=== PATIENT | female | born 1990 | race Caucasian/White ===

== ENCOUNTER 2018-01-03 07:30 | Outpatient (RCR) | payer OTHER, SELFPAY ==
--- NOTE | 2017-11-08 14:08 | HP.PTEVAL_ITS ---
Patient's Visit Information AGGIE TAY is a 27 year old F referred to Physical Therapy by Michelle OLIVIER with a diagnosis of B ankle instability. Date of Evaluation: 11/08/17 Physical Therapist: Siddhartha Calderon, PT, - Visit Plan Frequency: 2x /Week Duration: 4-6 Weeks Plan: B ankle strengthening, balance and proprio, core stab ex's, bike, and HEP - Subjective Subjective: Pt reports she broke her R foot last February while training for a /2 marathon. Pt reports she then developed nueroma's in B feet afterwards. pt reports she has not been able to return to her original running form since this injury. Pt reports She does get numbness in L 4th digit, but no other T or N. No sleep diff secondary to pain. Pt did fracture her R foot in 8th grade, which was due to her running cross country and experiencing a stress Fx. Pt reports her goal is to be able to run again without knee pain. 1/10 at rest, 4/10 at worst. - Pain B ankles Pain Intensity (Out of 10): 1 Pain Intensity Range: 4 - Objective Neuro: B LE sensation is WNL to light touch. B achilles and pat reflex= 2/3. Palpation: Pain along distribution of plantarfascia. Mild pain near neuroma section. ROM: L ankle DF= 5, PF= 75 degrees. R ankle DF= 5, PF= 70 degrees. MMT: B ankles are rated at 5/5 throughout with the exception of eversion 4-/5 B. Gait: Pt ambulates with sig stance phase pronation and early pronation - Goals Goal 1:: Decrease B ankle pain to aid with increasing walter for funning Goal Time Frame: 4-6 Weeks Goal 2:: Increase B ankle strength x 1 grade to aid with RTS without limitation Goal Time Frame: 4-6 Weeks Goal 3:: Increase B ankle DF ROM x 5-10 degrees to aid with preventing future pain Goal Time Frame: 4-6 Weeks Goal 4:: I with HEP Goal Time Frame: 4-6 Weeks - Rehabilitation Potential Physical Therapy Diagnosis: B ankle pain, weakness, and limited ability to run secondary to B ankle instabilty Rehabilitation Potential: Good - Anticipated Interventions Patient/Client Instruction: Educate patient on: Condition, Plan of Care For the Purpose of:: To improve self management Therapeutic Exercise to Include: Strength training, Balance training, Flexibilty training, Active ROM, Dynamic Lumbar Stabilization For the Purpose of:: To decrease pain, To increase ROM, To improve muscle performance and motor function Cryotherapy (ice pack, ice massage): Yes For the Purpose of:: To decrease pain Thank you for the opportunity to evaluate your patient. For Medicare and Medicare HMO plans, please review the plan of care and approve it. It will need to be FAXED BACK to us at [phone] for Medicare purposes. Please let me know if there are questions or concerns regarding this plan of care. Physician Signature: Date:
--- NOTE | 2018-01-02 15:16 | HP.PTDCSUM_ITS ---
HP - PT D/C Summary It has been my pleasure to treat AGGIE TAY under orders from DR.NHORN Guerrero for the diagnosis of B ankle instability for a total of 8 visit(s ). Discharge Date: Please see the following information for a summary of their discharge status. - Subjective Subjective: Pt reports she feels as though she is improving with strength, but notes the tingling and numbness have not improved at all. - Pain B ankles Pain Intensity (Out of 10): 2 - Objective Objective/Function: Pain is currently 2/10, increases to 5/10 after running. ROM: R ankle DF= 7 degrees, L ankle= 4 degrees. MMT: B ankles are 5/5 throughout. Pt is I with HEP. Pt is progressing well in all aspects with exception to Tingling and numbness in B feet, with the L being worse than the R - Goals Goal 1:: Decrease B ankle pain to aid with increasing walter for running Goal Progress: Progressing Goal 2:: Increase B ankle strength x 1 grade to aid with RTS without limitation Goal Progress: Goal Met Goal 3:: Increase B ankle DF ROM x 5-10 degrees to aid with preventing future pain Goal 4:: I with HEP Goal Progress: Goal Met - Plan Plan: Refer pt back to as her foot Tingling and Numbness are not improving. - D/C Information If there are questions or concerns regarding this patient's physical therapy, please feel free to call me at [phone]. Thank you for the referral of this patient. Sincerely, Siddhartha Calderon, PT,
== END 2018-01-03 19:00 | disposition home or self-care (01) ==
LOC: PT 07:30
PROVIDERS: Family Provider Preventive Medicine Occupational Medicine; PCP Preventive Medicine Occupational Medicine; Visit Provider Podiatrist
DX: M25.372 Other instability, left ankle (principal); M25.371 Other instability, right ankle
CPT/HCPCS: 97035; 97110; 97161; 97164

== ENCOUNTER → 2018-02-13 15:33 | Outpatient (CLI) | payer OTHER, SELFPAY ==
--- NOTE | 2018-02-13 16:00 | MRI_ITS ---
STUDY: MRI LEFT MIDFOOT REASON FOR EXAM: Female, 28 years old. Pain. Rule out stress fracture. TECHNIQUE: Standardized fat and water weighted pulse sequences were obtained in all 3 orthogonal planes. COMPARISON: None. FINDINGS: Normal talonavicular articulation. Normal calcaneocuboid articulation. Normal navicular-cuneiform articulations. Normal intercuneiform articulations. Normal first tarsometatarsal articulation. Normal Lisfranc ligament. Normal second and third tarsometatarsal articulations. Normal cuboid fourth and cuboid fifth tarsometatarsal articulation. Normal first through fifth metatarsi. There is no demonstrated fracture of the metatarsal bones. Normal tibialis anterior tendon. Normal extensor hallucis longus tendon. Normal extensor digitorum longus tendons. Normal peroneus longus tendon and distal insertion. Normal peroneus brevis tendon and distal insertion. Normal intrinsic muscles of the mid and forefoot region. Normal extensor digitorum brevis muscle. Normal subcutis adipose space. MRI/Lower Ext/No Jt/w/o IMPRESSION: Normal MRI of the midfoot. There is no fracture or periosteal reaction. Electronically Signed: Zoran Blackwood MD at 18:30 EDT , Service support ,
== END ==
PROVIDERS: Family Provider Preventive Medicine Occupational Medicine; PCP Preventive Medicine Occupational Medicine; Visit Provider Podiatrist
DX: M84.375A Stress fracture, left foot, initial encounter for fracture (principal)
CPT/HCPCS: 73718

== ENCOUNTER → 2018-04-12 10:35 | Outpatient (CLI) | payer OTHER, SELFPAY ==
[2018-04-12 11:25] LABS: Absolute Lymphocyte Count 2.02 X10^3/ul (0.83-4.51); Absolute Neutrophil Count 4.8 X10^3/uL (2.0-7.7); Basophil# 0.02 X10^3/uL; Basophil% 0.3 % (0-1); Eosinophil# 0.09 X10^3/uL; Eosinophils% 1.2 % (0-5); Hemoglobin 13.3 g/dl (12.0-15.0); Lymphocyte # 2.02 X10^3/ul (4.0); Lymphocyte % 27.2 % (19-41); Mean Corp Hgb Conc 31.7 g/gl (32-36); Mean Corpuscular Volume 94.6 fL (81-99); Mean Platelet Vol. 9.2 fl (6.2-12.0); Monocyte# 0.51 X10^3/uL; Monocyte% 6.9 % (0-10); Neutrophil # 4.77 X10^3/uL (2.7-7.7); Neutrophil % 64.3 % (47-70); POSITIVE COUNT NO; POSITIVE DIFFERENTIAL NO; POSITIVE MORPHOLOGY NO; Platelet Count 273 K/mm3 (150-450); RBC Distribution Width CV 12.8 % (11.6-14.6); RBC Distribution Width SD 44.3 fl (35.1-43.9); Red Blood Count 4.44 M/mm3 (4.2-5.4); White Blood Count 7.4 K/mm3 (4.4-11.0)
[2018-04-12 12:00] LABS: ALB/GLOB Ratio 1.3 RATIO (0.9-2.4); AST(SGOT) 30 U/L (15-37); Alanine Aminotransfer ALT/SGPT 39 U/L (13-56); Albumin, Serum 3.8 g/dL (3.2-5.0); Alkaline Phosphatase 77 U/L (45-117); Anion Gap 5 (5-15); BUN 8 mg/dL (7-18); BUN/Creat Ratio 11.4 RATIO (10-20); Calcium,Total 8.5 mg/dL (8.5-10.1); Chloride 108 mmol/L (98-107); Cholesterol 160 mg/dL (200); EST Glomerular Filtration Rate 106 mL/min (>60); Est Glom Filt Rate - Afr Amer 128 mL/min (>60); Free T3 2.7 pg/mL (2.18-3.98); Globulin 2.9 g/dL (2.2-4.2); Glucose 81 mg/dL (74-106); High Density Lipoprotein 67 mg/dL; Iron 118 ug/dL (50-170); Protein, Total 6.7 g/dL (6.4-8.2); Sodium Level 143 mmol/L (136-145); T4 Free Direct 1.19 ng/dL (0.76-1.46); Thyroid Stim Hormone (TSH) 1.24 uIU/mL (0.358-3.74); Triglycerides 31 mg/dL; Very Low Density Lipoprotein 6 mg/dL (5-40)
[2018-04-13 08:36] LABS: Vitamin B12 1039 pg/mL (211-911)
[2018-04-17 10:14] LABS: T3 Reverse 23.6 ng/dL (9.2-24.1)
== END ==
PROVIDERS: Family Provider Preventive Medicine Occupational Medicine; PCP Preventive Medicine Occupational Medicine; Visit Provider Preventive Medicine Occupational Medicine
DX: E03.9 Hypothyroidism, unspecified (principal); R20.2 Paresthesia of skin; D50.9 Iron deficiency anemia, unspecified
CPT/HCPCS: 36415; 80053; 80061; 82607; 82746; 83540; 84439; 84443; 84481; 84482; 85025

== ENCOUNTER 2018-09-21 14:45 | Outpatient (RCR) | payer OTHER, SELFPAY ==
--- NOTE | 2018-01-17 19:17 | MASS.EVAL ---
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 She was referred for massage therapy by Debi Ravi D.C. She presents today with muscle discomfort throughout her head, neck and shoulders. She also complains of TMJ syndrome and pain in her calves bilaterally. She describes her discomfort as muscle tension and tightness. She does not list any medications. She states that her health is very good with no limitatiions in her daily activities. Her goal of treatment is to decrease muscle tightness. OBJECTIVE: Upon examination and palpation I found Marj to have a high level of muscle tension in her suboccipitals, scalenes, levators and paraspinals. Her scalenes and levators were tight and ropey. Right side greater than the left side. Her first treatment consisted of a one hour deep tissue massage to her upper body and calves. MFR and muscle stripping were incorporated into the massage as well as PNMT to her cervical muscles and a heat pack to loosen muscles. ASSESMENT: Using various techniques I was able to achieve good releases overall. She tolerated deep pressure well and relaxed easily. PLAN: I plan to see this patient on an as-needed basis for a total of 10 visits in the year 2018. I will focus on her upper body to decrease muscle tension and to increase relaxation. Paulina Gudino LMT
--- NOTE | 2018-01-17 19:30 | MASS.EVAL_ITS ---
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 She was referred for massage therapy by Debi Ravi D.C. She presents today with muscle discomfort throughout her head, neck and shoulders. She also complains of TMJ syndrome and pain in her calves bilaterally. She describes her discomfort as muscle tension and tightness. She does not list any medications. She states that her health is very good with no limitatiions in her daily activities. Her goal of treatment is to decrease muscle tightness. OBJECTIVE: Upon examination and palpation I found Marj to have a high level of muscle tension in her suboccipitals, scalenes, levators and paraspinals. Her scalenes and levators were tight and ropey. Right side greater than the left side. Her first treatment consisted of a one hour deep tissue massage to her upper body and calves. MFR and muscle stripping were incorporated into the massage as well as PNMT to her cervical muscles and a heat pack to loosen muscles. ASSESMENT: Using various techniques I was able to achieve good releases overall. She tolerated deep pressure well and relaxed easily. PLAN: I plan to see this patient on an as-needed basis for a total of 10 visits in the year 2018. I will focus on her upper body to decrease muscle tension and to increase relaxation. Paulina Gudino LMT
== END 2018-09-21 19:00 | disposition home or self-care (01) ==
LOC: MASS 14:45
PROVIDERS: Family Provider Preventive Medicine Occupational Medicine; PCP Preventive Medicine Occupational Medicine; Visit Provider Chiropractor
DX: M99.01 Segmental and somatic dysfunction of cervical region (principal); M99.02 Segmental and somatic dysfunction of thoracic region; M99.03 Segmental and somatic dysfunction of lumbar region; M99.05 Segmental and somatic dysfunction of pelvic region
CPT/HCPCS: 97124

== ENCOUNTER → 2018-11-08 09:14 | Outpatient (REF) | payer OTHER, SELFPAY ==
[2018-11-06 15:16] VITALS: BMI 22.0
== END ==
LOC: HPRAD 09:14
PROVIDERS: Family Provider Preventive Medicine Occupational Medicine; PCP Preventive Medicine Occupational Medicine; Referring Provider Chiropractor; Visit Provider Chiropractor
DX: M99.05 Segmental and somatic dysfunction of pelvic region (principal); M99.03 Segmental and somatic dysfunction of lumbar region
CPT/HCPCS: 72100

== ENCOUNTER → 2019-01-18 15:57 | Outpatient (CLI) | payer OTHER, SELFPAY ==
[2019-01-01 15:50] VITALS: BMI 28.1
--- NOTE | 2019-01-18 15:59 | US_ITS ---
HISTORY: LLQ PAIN EXAMINATION: US Pelvis Non-OB Complete TECHNIQUE: Transvaginal pelvic ultrasound was performed. Grayscale, spectral and color flow Doppler evaluation of the adnexa. COMPARISON: None FINDINGS: UTERUS: anteverted The uterus measures 5.9 x 3.6 x 2.9 cm. There is no uterine mass. The endometrial stripe measures 7.9 mm in AP diameter which is within normal limits. RIGHT OVARY: 3.5 x 3.0 x 2.2 cm. Non-enlarged, normal echogenicity. There is normal arterial inflow and venous outflow present in the right ovary. Contains several physiologic in size cysts. LEFT OVARY: 2.9 x 1.9 x 1.3 cm. Contains a few small follicles. Non-enlarged, normal echogenicity. There is normal arterial inflow and venous outflow present in the left ovary. FREE FLUID: Trace fluid in the pelvis within physiologic limits. US/Transvaginal Non- IMPRESSION: No acute findings. Uterus and ovaries within normal limits. at 0454 Reported and signed by: Berto Anderson MD Electronically Signed: Berto Anderson, at 4:53 EDT Tel , Service support ,
--- NOTE | 2019-01-18 15:59 | US_ITS ---
HISTORY: LLQ PAIN EXAMINATION: US Pelvis Non-OB Complete TECHNIQUE: Transvaginal pelvic ultrasound was performed. Grayscale, spectral and color flow Doppler evaluation of the adnexa. COMPARISON: None FINDINGS: UTERUS: anteverted The uterus measures 5.9 x 3.6 x 2.9 cm. There is no uterine mass. The endometrial stripe measures 7.9 mm in AP diameter which is within normal limits. RIGHT OVARY: 3.5 x 3.0 x 2.2 cm. Non-enlarged, normal echogenicity. There is normal arterial inflow and venous outflow present in the right ovary. Contains several physiologic in size cysts. LEFT OVARY: 2.9 x 1.9 x 1.3 cm. Contains a few small follicles. Non-enlarged, normal echogenicity. There is normal arterial inflow and venous outflow present in the left ovary. FREE FLUID: Trace fluid in the pelvis within physiologic limits. US/Pelvic (Non ) IMPRESSION: No acute findings. Uterus and ovaries within normal limits. at 0454 Reported and signed by: Berto Anderson MD Electronically Signed: Berto Anderson, at 4:53 EDT Tel , Service support ,
== END ==
PROVIDERS: Family Provider Preventive Medicine Occupational Medicine; PCP Preventive Medicine Occupational Medicine; Referring Provider Nurse Practitioner Women's Health; Visit Provider Nurse Practitioner Women's Health
DX: R10.2 Pelvic and perineal pain (principal)
CPT/HCPCS: 76830; 76856; 93976

== ENCOUNTER → 2019-01-19 11:27 | Outpatient (CLI) | payer OTHER, SELFPAY ==
[2019-01-01 15:50] VITALS: BMI 28.1
[2019-01-26 06:07] LABS: Almond <0.10 kU/L (Class 0); Cashew <0.10 kU/L (Class 0); Chicken <0.10 kU/L (Class 0); Clam <0.10 kU/L (Class 0); Codfish <0.10 kU/L (Class 0); Corn <0.10 kU/L (Class 0); Egg, White <0.10 kU/L (Class 0); Gluten <0.10 kU/L (Class 0); Milk (Cow) <0.10 kU/L (Class 0); Orange <0.10 kU/L (Class 0); Peanut <0.10 kU/L (Class 0); Potato, White <0.10 kU/L (Class 0); Rice <0.10 kU/L (Class 0); SCALLOP <0.10 kU/L (Class 0); SESAME SEED <0.10 kU/L (Class 0); Shrimp <0.10 kU/L (Class 0); Soybean <0.10 kU/L (Class 0); Tomato <0.10 kU/L (Class 0); Walnut, (Food) <0.10 kU/L (Class 0); Wheat <0.10 kU/L (Class 0); Yeast <0.10 kU/L (Class 0)
[2019-01-26 12:32] LABS: Banana <0.10 kU/L (Class 0)
== END ==
PROVIDERS: Family Provider Preventive Medicine Occupational Medicine; PCP Preventive Medicine Occupational Medicine; Referring Provider Otolaryngology; Visit Provider Otolaryngology
DX: T78.40XA Allergy, unspecified, initial encounter (principal)
CPT/HCPCS: 36415; 86003

== ENCOUNTER → 2019-03-29 11:16 | Outpatient (CLI) | payer OTHER, SELFPAY ==
[2019-03-05 16:01] VITALS: BMI 23.1
[2019-03-29 11:46] LABS: Absolute Lymphocyte Count 2.27 X10^3/ul (0.83-4.51); Absolute Neutrophil Count 6.4 X10^3/uL (2.0-7.7); Basophil# 0.03 X10^3/uL; Basophil% 0.3 % (0-1); Eosinophil# 0.13 X10^3/uL; Eosinophils% 1.4 % (0-5); Hematocrit 44.8 % (37-47); Hemoglobin 15.1 g/dl (12.0-15.0); Lymphocyte # 2.27 X10^3/ul (4.0); Lymphocyte % 24.1 % (19-41); Mean Corp Hgb Conc 33.7 g/gl (32-36); Mean Corpuscular Hgb 31.3 pg (27.0-32.0); Mean Corpuscular Volume 92.8 fL (81-99); Monocyte# 0.55 X10^3/uL; Monocyte% 5.8 % (0-10); Neutrophil # 6.43 X10^3/uL (2.7-7.7); Neutrophil % 68.2 % (47-70); Platelet Count 301 K/mm3 (150-450); RBC Distribution Width CV 12.3 % (11.6-14.6); RBC Distribution Width SD 41.8 fl (35.1-43.9); Red Blood Count 4.83 M/mm3 (4.2-5.4); White Blood Count 9.4 K/mm3 (4.4-11.0)
[2019-03-29 11:47] LABS: POSITIVE COUNT NO; POSITIVE DIFFERENTIAL NO; POSITIVE MORPHOLOGY NO
[2019-03-29 12:33] LABS: Iron 142 ug/dL (50-170); T4 Free Direct 1.09 ng/dL (0.76-1.46); Thyroid Stim Hormone (TSH) 1.61 uIU/mL (0.358-3.74)
[2019-03-29 12:45] LABS: Vitamin D,25 Hydroxy 27.2 ng/mL (29.95-100.01)
[2019-04-02 16:11] LABS: T3 Reverse 24.4 ng/dL (9.2-24.1)
== END ==
PROVIDERS: Family Provider Preventive Medicine Occupational Medicine; PCP Preventive Medicine Occupational Medicine; Referring Provider Preventive Medicine Occupational Medicine; Visit Provider Preventive Medicine Occupational Medicine
DX: E03.9 Hypothyroidism, unspecified (principal); D50.9 Iron deficiency anemia, unspecified; E55.9 Vitamin D deficiency, unspecified
CPT/HCPCS: 36415; 82306; 83540; 84439; 84443; 84481; 84482; 85025

== ENCOUNTER → 2019-08-01 15:36 | Outpatient (CLI) | payer OTHER, SELFPAY ==
[2019-07-27 12:56] VITALS: BMI 23.1
== END ==
PROVIDERS: Family Provider Preventive Medicine Occupational Medicine; PCP Preventive Medicine Occupational Medicine; Referring Provider Otolaryngology Otolaryngology/Facial Plastic Surgery; Visit Provider Otolaryngology Otolaryngology/Facial Plastic Surgery
DX: J32.9 Chronic sinusitis, unspecified (principal)
CPT/HCPCS: 87070; 87205

== ENCOUNTER 2019-08-23 14:45 | Outpatient (RCR) | payer OTHER, SELFPAY ==
[2018-09-11 15:40] VITALS: BMI 22.0
[2018-10-23 16:08] VITALS: BMI 22.0
--- NOTE | 2018-11-13 15:47 | MASS.EVAL_ITS ---
Massage Therapy Evaluation: Initial Evaluation Date: 10/26/2018 SUBJECTIVE: Marj is a 28 year old female who was referred to the [facility] for a massotherapy evaluation by Dr. Debi Ravi with the diagnosis of M46.1,M99.05,M99.03,M99.01. Marj presents today with the symptoms of tension and pain in jaw and upper back, scapular region. She also complains of neck tension and shoulder stiffness. Also, she has TMJ pain. OBJECTIVE: Upon observation Marj is experiencing tightness around shoulder blades and discomfort in r-jaw. After examination and palpation I found Marj to have high muscle tension with tenderness in the Jaw and myofascial restrictions in her sub occipitals, levator scapulae, trapezius, rhomboids, scalenes, and thoracic paraspinals. The first treatment consisted of a one hour massage to her upper body with myofascial release, trigger point compression techniques, and cervical manual traction. ASSESSMENT: I feel that Marj is a good candidate for Massotherapy at this time. She had a favorable response to the first treatment with reduction in her muscle aches, pain and tension. PLAN: The plan of care was reviewed with the patient. The patient is to be seen on an as needed basis for a total of ten sessions with the recommendation of once every month for a one hour treatment.
--- NOTE | 2019-09-04 15:51 | MASS.DISCH ---
Massage Therapy Discharge Summary: Dr. Flaca Perdue: Marj Vaughan Fidelia, 1990, was seen for a massotherapy evaluation on 10/26/18 with a diagnosis of neck and low back pain. She was treated with 16 sessions of massage therapy which consisted of MFR, muscle stripping, deep tissue massage. At this time I will discharge this patient from our care here at [facility]. Paulina Gudino LMT
== END 2019-08-23 19:00 | disposition home or self-care (01) ==
LOC: MASS 14:45
PROVIDERS: Family Provider Preventive Medicine Occupational Medicine; PCP Preventive Medicine Occupational Medicine; Referring Provider Chiropractor; Visit Provider Chiropractor
DX: M46.1 Sacroiliitis, not elsewhere classified (principal); M99.05 Segmental and somatic dysfunction of pelvic region; M99.03 Segmental and somatic dysfunction of lumbar region; M99.02 Segmental and somatic dysfunction of thoracic region; M99.01 Segmental and somatic dysfunction of cervical region
CPT/HCPCS: 97124

== ENCOUNTER → 2019-11-25 12:58 | Outpatient (CLI) | payer OTHER, SELFPAY ==
[2019-07-27 12:56] VITALS: BMI 23.1
[2019-11-25 14:09] LABS: Hematocrit 39.4 % (37-47); Hemoglobin 12.7 g/dL (12.0-15.0); Mean Corp Hgb Conc 32.2 g/dL (32-36); Mean Corpuscular Hgb 30.3 pg (27.0-32.0); Mean Platelet Vol. 8.7 fl (6.2-12.0); Platelet Count 289 K/mm3 (150-450); RBC Distribution Width CV 12.3 % (11.6-14.6); RBC Distribution Width SD 42.4 fl (35.1-43.9); Red Blood Count 4.19 M/mm3 (4.2-5.4); White Blood Count 7.3 K/mm3 (4.4-11.0)
[2019-11-25 14:45] LABS: Vitamin B12 765 pg/mL (211-911)
[2019-11-25 14:47] LABS: Free T3 2.6 pg/mL (2.18-3.98)
== END ==
PROVIDERS: PCP Preventive Medicine Occupational Medicine; Referring Provider Student in an Organized Health Care Education/Training Program; Visit Provider Student in an Organized Health Care Education/Training Program
DX: E03.9 Hypothyroidism, unspecified (principal); E55.9 Vitamin D deficiency, unspecified; D50.9 Iron deficiency anemia, unspecified; R20.0 Anesthesia of skin
CPT/HCPCS: 36415; 82306; 82607; 84439; 84443; 84481; 85027

== ENCOUNTER → 2019-12-31 16:36 | Outpatient (CLI) | payer OTHER, SELFPAY ==
[2019-07-27 12:56] VITALS: BMI 23.1
[2019-12-31 17:58] LABS: T4 Free Direct 0.95 ng/dL (0.76-1.46)
== END ==
PROVIDERS: PCP Preventive Medicine Occupational Medicine; Referring Provider Nurse Practitioner; Visit Provider Nurse Practitioner
DX: E03.9 Hypothyroidism, unspecified (principal)
CPT/HCPCS: 36415; 84439; 84443

== ENCOUNTER → 2020-06-25 18:08 | Outpatient (CLI) | payer OTHER, SELFPAY ==
[2019-07-27 12:56] VITALS: BMI 23.1
== END ==
PROVIDERS: PCP Preventive Medicine Occupational Medicine; Referring Provider Otolaryngology Otolaryngology/Facial Plastic Surgery; Visit Provider Otolaryngology Otolaryngology/Facial Plastic Surgery
DX: J32.9 Chronic sinusitis, unspecified (principal)
CPT/HCPCS: 87070; 87205

== ENCOUNTER 2021-01-01 08:29 | Outpatient (RCR) | payer OTHER, SELFPAY ==
[2019-07-27 12:56] VITALS: BMI 23.1
== END 2021-01-13 23:59 ==
LOC: EMPH 08:29
PROVIDERS: Visit Provider Family Medicine Geriatric Medicine
DX: Z03.818 Encounter for observation for suspected exposure to other biological agents ruled out (principal)
CPT/HCPCS: 87426

== ENCOUNTER 2021-02-05 08:08 | Outpatient (RCR) | payer OTHER, SELFPAY | END 2021-02-12 23:59 | LOC: EMPH 08:08 | PROVIDERS: Referring Provider Family Medicine Geriatric Medicine; Visit Provider Family Medicine Geriatric Medicine | DX: Z03.818 Encounter for observation for suspected exposure to other biological agents ruled out (principal) | CPT/HCPCS: 87426 ==

== ENCOUNTER → 2021-03-18 15:31 | Outpatient (CLI) | payer OTHER, SELFPAY ==
[2021-03-18 17:57] LABS: Hematocrit 44.3 % (37-47); Hemoglobin 14.5 g/dL (12.0-15.0); Mean Corp Hgb Conc 32.7 g/dL (32-36); Mean Corpuscular Hgb 31.3 pg (27.0-32.0); Mean Corpuscular Volume 95.5 fL (81-99); Mean Platelet Vol. 9.3 fl (6.2-12.0); Platelet Count 322 K/mm3 (150-450); RBC Distribution Width CV 12.2 % (11.6-14.6); RBC Distribution Width SD 42.4 fl (35.1-43.9); Red Blood Count 4.64 M/mm3 (4.2-5.4); White Blood Count 9.7 K/mm3 (4.4-11.0)
[2021-03-18 18:03] LABS: Vitamin D,25 Hydroxy 81.7 ng/mL
[2021-03-18 18:11] LABS: Erythrocyte Sedimentation Rate 4 mm/hr (0-30)
[2021-03-18 18:21] LABS: CRP < 2.90 mg/L (0.0-3.0); Free T3 2.4 pg/mL (2.18-3.98); Iron 73 ug/dL (50-170); T4 Free Direct 1.04 ng/dL (0.76-1.46); Thyroid Stim Hormone (TSH) 1.71 uIU/mL (0.358-3.74)
== END ==
PROVIDERS: PCP Preventive Medicine Occupational Medicine; Referring Provider Preventive Medicine Occupational Medicine; Visit Provider Preventive Medicine Occupational Medicine
DX: D50.9 Iron deficiency anemia, unspecified (principal); E03.9 Hypothyroidism, unspecified; E55.9 Vitamin D deficiency, unspecified; B94.8 Sequelae of other specified infectious and parasitic diseases
CPT/HCPCS: 36415; 82306; 83540; 84439; 84443; 84481; 85027; 85652; 86140

== ENCOUNTER → 2023-05-13 | Outpatient (CLI) | payer OTHER, SELFPAY | END | disposition home or self-care (01) | LOC: LABSPEC 10:27 | PROVIDERS: PCP Preventive Medicine Occupational Medicine; Visit Provider Otolaryngology Otolaryngology/Facial Plastic Surgery | DX: J02.9 Acute pharyngitis, unspecified (principal) | CPT/HCPCS: 87070 ==

== ENCOUNTER → 2024-01-10 | Outpatient (CLI) | payer OTHER, SELFPAY ==
[2024-01-10 17:20] LABS: Hematocrit 42.8 % (37-47); Hemoglobin 13.7 g/dL (12.0-15.0); Mean Corpuscular Hgb 30.1 pg (27.0-32.0); Mean Corpuscular Volume 94.1 fL (81-99); Mean Platelet Vol. 9.1 fl (6.2-12.0); Platelet Count 368 K/mm3 (150-450); RBC Distribution Width CV 12.6 % (11.6-14.6); RBC Distribution Width SD 43.6 fl (35.1-43.9); Red Blood Count 4.55 M/mm3 (4.2-5.4); White Blood Count 10.5 K/mm3 (4.4-11.0)
[2024-01-10 17:46] LABS: hCG Titer Quant., Serum < 1 mIU/mL (1-3)
[2024-01-10 18:28] LABS: T4 Free Direct 0.94 ng/dL (0.76-1.46); Thyroid Stim Hormone (TSH) 1.44 uIU/mL (0.358-3.74)
[2024-01-15 10:07] LABS: 17-Hydroxyprogesterone 29 ng/dL (.)
[2024-01-19 11:08] LABS: Anti-Mullerian Hormone,Serum 2.16 ng/mL (.); Testosterone, % Free 3.17 % (0.50-2.80); Testosterone, Free 0.92 ng/dL (0.10-0.85); Testosterone, Total 29 ng/dL (8-60)
== END | disposition home or self-care (01) ==
LOC: LAB 16:01
PROVIDERS: PCP Preventive Medicine Occupational Medicine; Referring Provider Obstetrics & Gynecology; Visit Provider Obstetrics & Gynecology
DX: N93.9 Abnormal uterine and vaginal bleeding, unspecified (principal)
CPT/HCPCS: 36415; 82627; 83498; 83516; 84146; 84402; 84403; 84439; 84443; 84702; 85027; 82626

== ENCOUNTER → 2024-02-09 | Outpatient (CLI) | payer OTHER, SELFPAY ==
[2024-02-09 12:59] LABS: Hematocrit 43.6 % (37-47); Hemoglobin 14.1 g/dL (12.0-15.0); Mean Corp Hgb Conc 32.3 g/dL (32-36); Mean Corpuscular Hgb 29.9 pg (27.0-32.0); Mean Corpuscular Volume 92.4 fL (81-99); Mean Platelet Vol. 9.2 fl (6.2-12.0); Platelet Count 393 K/mm3 (150-450); RBC Distribution Width SD 41.2 fl (35.1-43.9); Red Blood Count 4.72 M/mm3 (4.2-5.4); White Blood Count 11.4 K/mm3 (4.4-11.0)
[2024-02-09 13:54] LABS: AST(SGOT) 18 U/L (15-37); Alanine Aminotransfer ALT/SGPT 21 U/L (13-56); Albumin, Serum 3.6 g/dL (3.2-5.0); Alkaline Phosphatase 102 U/L (45-117); Anion Gap 5 (5-15); BUN 11 mg/dL (7-18); BUN/Creat Ratio 13.6 RATIO (10-20); Calcium,Total 9.4 mg/dL (8.5-10.1); Chloride 105 mmol/L (98-107); Creatinine, Serum 0.81 mg/dL (0.55-1.02); EST Glomerular Filtration Rate 87 mL/min (>60); Est Glom Filt Rate - Afr Amer 105 mL/min (>60); Globulin 3.6 g/dL (2.2-4.2); Glucose 73 mg/dL (74-106); Potassium 3.9 mmol/L (3.5-5.1); Protein, Total 7.2 g/dL (6.4-8.2); Sodium Level 138 mmol/L (136-145)
== END | disposition home or self-care (01) ==
LOC: LAB 10:51
PROVIDERS: PCP Preventive Medicine Occupational Medicine; Referring Provider Nurse Practitioner Family; Visit Provider Nurse Practitioner Family
DX: R14.0 Abdominal distension (gaseous) (principal); R11.0 Nausea; R10.11 Right upper quadrant pain; R10.13 Epigastric pain
CPT/HCPCS: 36415; 80053; 85027

== ENCOUNTER → 2024-04-01 | Outpatient (CLI) | payer OTHER, SELFPAY ==
--- NOTE | 2024-04-01 07:42 | US_ITS ---
STUDY: ABDOMINAL ULTRASOUND REASON FOR EXAM: Female, 34 years old. EPIGASTRIC PAIN, RUQ PAIN, NAUSEA, BLOATING TECHNIQUE: Transabdominal ultrasound was performed with real-time and static alves scale imaging. TECHNICAL QUALITY: Adequate. COMPARISON: None. FINDINGS: Liver: The liver measures 15.7 cm. There is normal echogenicity of the liver. The bile ducts are within normal limits. There is hepatic color flow. The direction of portal flow is hepatopetal. There is no demonstrated mass lesion. Gallbladder: Normal distended gallbladder. The gallbladder wall measures 2.9 mm. There is a negative sonographic Pompa''s sign. There is no pericholecystic fluid. There are no gallstones. Common Bile Duct (C.B.D.): The common bile duct measures 2.9 mm. Pancreas: Normal size of the head, body and tail of the pancreas. There is normal echogenicity of the pancreas. There is no demonstrated pancreatic mass or cyst. Spleen: Normal size of the spleen. The spleen measures 11.4 cm x 4.2 cm x 4.3 cm. Right Kidney: Normal size of the right kidney. The right kidney measures 11.9 cm x 6.3 cm x 4.8 cm. Normal renal cortex. The right cortex measures 1.9 cm. There is no demonstrated renal mass or cyst. There is no right hydronephrosis. Left Kidney: Normal size of the left kidney. The left kidney measures 12 cm x 6.1 cm x 5.3 cm. Normal renal cortex. The left cortex measures 1.7 cm. There is no demonstrated renal mass or cyst. There is no left hydronephrosis. Aorta: Unremarkable I.V.C.: The IVC is patent. There is no ascites. US/Abdomen Complete IMPRESSION: Normal abdominal ultrasound examination. Electronically Signed: Lang Hilario MD at 15:00 EDT ,
== END | disposition home or self-care (01) ==
PROVIDERS: PCP Preventive Medicine Occupational Medicine; Referring Provider Nurse Practitioner Family; Visit Provider Nurse Practitioner Family
DX: R10.13 Epigastric pain (principal); R10.11 Right upper quadrant pain; R11.0 Nausea; R14.0 Abdominal distension (gaseous)
CPT/HCPCS: 76700

== ENCOUNTER → 2024-08-03 | Outpatient (CLI) | payer OTHER, SELFPAY ==
[2024-08-03 10:58] LABS: Hemoglobin A1c 5.1 % (3.8-5.6)
[2024-08-03 11:10] LABS: ALB/GLOB Ratio 1.1 RATIO (0.9-2.4); AST(SGOT) 23 U/L (15-37); Alanine Aminotransfer ALT/SGPT 35 U/L (13-56); Albumin, Serum 3.6 g/dL (3.2-5.0); Alkaline Phosphatase 75 U/L (45-117); Anion Gap 6 (5-15); BUN 12 mg/dL (7-18); BUN/Creat Ratio 16.5 RATIO (10-20); Calcium,Total 9.1 mg/dL (8.5-10.1); Chloride 109 mmol/L (98-107); Cholesterol 189 mg/dL (200); Creatinine, Serum 0.73 mg/dL (0.55-1.02); EST Glomerular Filtration Rate 98 mL/min (>60); Est Glom Filt Rate - Afr Amer 118 mL/min (>60); Globulin 3.2 g/dL (2.2-4.2); Glucose 95 mg/dL (74-106); High Density Lipoprotein 51 mg/dL; Protein, Total 6.8 g/dL (6.4-8.2); Sodium Level 140 mmol/L (136-145); Triglycerides 59 mg/dL; Very Low Density Lipoprotein 12 mg/dL (5-40)
[2024-08-05 15:09] LABS: Insulin Level 9.4 uIU/mL (2.6-24.9)
== END | disposition home or self-care (01) ==
LOC: LAB 10:03
PROVIDERS: PCP Preventive Medicine Occupational Medicine
DX: E07.9 Disorder of thyroid, unspecified (principal); E78.5 Hyperlipidemia, unspecified
CPT/HCPCS: 36415; 80053; 80061; 83036; 83525; 84443

== ENCOUNTER → 2024-10-07 | Outpatient (CLI) | payer OTHER, SELFPAY ==
--- NOTE | 2024-10-07 08:00 | MRI_ITS ---
EXAM: MR LEFT LOWER EXTREMITY WITHOUT INTRAVENOUS CONTRAST, ANKLE CLINICAL INDICATION: PLANTAR FASICITIS OF LEFT FOOT TECHNIQUE: Multiplanar and multisequence MR images of the left ankle without intravenous contrast. COMPARISON: No prior MRI. FINDINGS: LIGAMENTS: ANTERIOR TALOFIBULAR: See below. POSTERIOR TALOFIBULAR: Anterior and posterior talofibular ligament and calcaneofibular ligament from a previous injury. Mild tenosynovial fluid about the medial flexor tendons and peroneal tendons which are all intact. ANTERIOR TIBIOFIBULAR: Unremarkable. Intact. POSTERIOR TIBIOFIBULAR: Unremarkable. Intact. CALCANEOFIBULAR: See above. DELTOID: Signal alteration involving the deep and superficial fibers of the deltoid ligamentous complex is compatible with a moderate grade sprain injury. SPRING: Unremarkable. Intact. LISFRANC: Unremarkable. Intact. TENDONS: ACHILLES: Unremarkable. Intact. FLEXOR: See above. EXTENSOR: Unremarkable. Intact. PERONEAL: See above. TIBIALIS ANTERIOR: Unremarkable. Intact. TIBIALIS POSTERIOR: Unremarkable. Intact. MUSCLES: Unremarkable. Normal bulk and signal. FLUID: Unremarkable. No joint effusion. SINUS TARSI: Unremarkable. Normal fat in the sinus tarsi. TARSAL TUNNEL: Unremarkable. PLANTAR FASCIA: Unremarkable. Intact. CARTILAGE: Unremarkable. No osteochondral lesion. Articular cartilage intact. BONES/JOINTS: Ankle mortise is intact with no osteochondral lesions at the tibiotalar articulation. No fracture or marrow edema. OTHER SOFT TISSUES: Unremarkable. MRI/Lower Ext Joint Only (Routine) IMPRESSION: 1. Anterior and posterior talofibular ligament and calcaneofibular ligament from a previous injury. 2. Mild tenosynovial fluid about the medial flexor tendons and peroneal tendons. 3. Suspected moderate grade sprain injury of the deltoid ligamentous. Electronically Signed: Melchor Cervantes MD at 23:30 EST ,
== END | disposition home or self-care (01) ==
LOC: MRI 07:38
PROVIDERS: PCP Preventive Medicine Occupational Medicine; Referring Provider Orthopaedic Surgery; Visit Provider Orthopaedic Surgery
DX: M72.2 Plantar fascial fibromatosis (principal)
CPT/HCPCS: 73721

== ENCOUNTER → 2024-10-14 | Outpatient (CLI) | payer OTHER, SELFPAY | END | disposition home or self-care (01) | LOC: LABSPEC 15:09 | PROVIDERS: PCP Preventive Medicine Occupational Medicine; Referring Provider Otolaryngology Otolaryngology/Facial Plastic Surgery; Visit Provider Otolaryngology Otolaryngology/Facial Plastic Surgery | DX: J04.0 Acute laryngitis (principal); J02.9 Acute pharyngitis, unspecified | CPT/HCPCS: 87070 ==

== ENCOUNTER → 2025-06-09 | Outpatient (CLI) | payer OTHER, SELFPAY ==
--- NOTE | 2025-06-09 07:49 | RAD_ITS ---
EXAM: Single and double contrast esophagram CLINICAL HISTORY: Gastroesophageal reflux disease. Possible hiatal hernia? COMPARISON: None. TECHNIQUE: Single and double contrast esophagram FINDINGS: Visually, the swallowing mechanism shows no abnormality. The esophagus shows no area of persistent narrowing. No mucosal changes seen. No evidence of gastroesophageal reflux was identified during limited evaluation. A widely patent esophagogastric junction is seen. Normal passage of a barium tablet into the stomach was seen. Limited imaging of the stomach and duodenum demonstrate no abnormality. No hiatal hernia is seen. RAD/Esophagus Dual Contrast IMPRESSION: No significant abnormality is seen. No hiatal hernia is noted. Reading Location: [place] [id number]
== END | disposition home or self-care (01) ==
LOC: RAD 07:45
PROVIDERS: PCP Preventive Medicine Occupational Medicine; Referring Provider Otolaryngology Otolaryngology/Facial Plastic Surgery; Visit Provider Otolaryngology Otolaryngology/Facial Plastic Surgery
DX: R13.10 Dysphagia, unspecified (principal); K21.9 Gastro-esophageal reflux disease without esophagitis
CPT/HCPCS: 74221

== ENCOUNTER → 2025-10-04 | Outpatient (CLI) | payer OTHER, SELFPAY ==
--- NOTE | 2025-10-04 09:01 | US_ITS ---
PROCEDURE: THYROID 10/04/2025 REASON FOR EXAM: THYROMEGALY TECHNIQUE: Procedure Code: USTHY Modality: US Procedure: THYROID COMPARISON: Ultrasound thyroid dated 10/23/2009. FINDINGS: Right thyroid lobe size: 4.8 x 1.5 x 1.7 cm Left thyroid lobe size: 3.0 x 0.7 x 1.4 cm Isthmus: 0.3 cm Background parenchymal echotexture is homogeneous. Nodules: None demonstrated. US/Thyroid IMPRESSION: 1. Enlarged right lobe of the thyroid gland, not significantly changed when co mpared to the previous study. Reading Location: [place] [id number]
--- OUTSIDE RECORDS SUMMARY | 2025-10-04 09:01 | XMS RPT_ITS | CCD ---
Author Organization [facility] Care Team Providers Care Geophysical Observer Name Role Phone Tyrel Greenwood Unavailable Tamia Yen LPN Unavailable Unavailab briana Dave AUTOMOTIVE REPAIR TECHNICIAN, Katarina S Unavailable Carla Buitrago LPN Unavailable [phone] Cristina Villeda Primary Care Provider Dr. Cristina Villeda Primary Care Provider Dr. Cristina Villeda Referring Provider Dr. Flaca Perdue Attending Provider [phone] Cristina Villeda Primary Care Provider Cristina Villeda Primary Care Provider Jennifer White DO Primary Care Provider UnavailCristina Roman Primary Care Provider CRISTINA VILLEDA DO Primary Care Physician Jennifer White DO Primary Care Provider UnavailMEIR Benitez Referring Unavailable CRISTINA VILLEDA Primary Care Unavailable Hayder Mcqueen Attending Unavailable Hayder Mcqueen Referring Unavailable MEIR FERGUSON Attending Unavailable CRISTINA VILLEDA Primary Care Unavailable LEONEL ENGLISH Referring Unavailable CRISTINA VILLEDA Primary Care Unavailable Hayder Mcqueen Attending Unavailable PARRISH HUFF Referring Unavailab CRISTINA Garcia Primary Care Unavailable GEOFFREY RAMOS Referring Unavailable CRISTINA VILLEDA Primary Care Unavailable CRISTINA VILLEDA Primary Care Unavailable PARRISH HUFF Referring Unavailab CRISTINA Garcia Primary Care Unavailable PARRISH HUFF Referring Unavailab CRISTINA Garcia Primary Care Unavailable CHRIS, INDIRESHA R Admitting Unavailable CHRIS, INDIRESHA R Attending Unavailable CHRIS, INDIRESHA R Referring Unavailable CRISTINA VILLEDA Deni Primary Care Unavailable KINAJOSEEMILIE SIMPSON Referring Unavailable CRISTINA VILLEDA F Primary Care Unavailable SLEPARKER DELA CRUZ Attending Unavailable CRISTINA VILLEDA Deni Primary Care Unavailable WING GERRI Attending Unavailable CRISTINA VILLEDA Deni Primary Care Unavailable RonalCristina coronel DO F Primary Care Provider [phone] Di BALLESTEROS, [facility] Primary Care Provider Unavailabl e Cristina Villeda DO Primary Care Provider [phone] Dr. Cristina Villeda Primary Care Provider Dr. Cristina Villeda Referring Provider [phone] Dr. Flaca Perdue Attending Provider [phone] Dr. Cristina Villeda Primary Care Provider Dr. Cristina Villeda Referring Provider [phone] Dr. Flaca Perdue Attending Provider [phone] BISI NGUYEN PA-C Attending Unavailable CRISTINA VILLEDA DO Primary Care Unavailable CRISTINA VILLEDA DO Primary Care Unavailable BISI NGUYEN PA-C Attending Unavailable CRISTINA VILLEDA DO Attending Unavailable RONAL BALLESTEROS CRISTINA Primary Care Unavailable Cristina Villeda DO Primary Care Provider [phone] Dr. Cristina Villeda Primary Care Provider Dr. Cristina Villeda Referring Provider [phone] Dr. Flaca Perdue Attending Provider [phone] Dr. Cristina Villeda Primary Care Provider Dr. Cristina Villeda Referring Provider [phone] Dr. Flaca Perdue Attending Provider [phone] Cristina Villeda DO Primary Care Provider [phone] REED, [facility] Primary Care Provider Unavailabl e Jose BALLESTEROSVarun Siva Unavailable [phone] NONE, NONE Unavailable Unavailable Cristina Villeda DO Unavailable [phone] Cristina Villeda DO Primary Care Provider [phone] Rachna REED, Dr. Jose Antonio Smiley Attending Provider Dr. Jose Antonio Briscoe MD Referring Provider Jose Antonio Briscoe Attending Unavailable Rachna, Jose Antonio Smiley Referring Unavailable Ronal, Cristina Primary Care Unavailable Ronal, Cristina Primary Care Unavailable ELIZABETH, 1 Attending Unavailable ELIZABETH, 1 Referring Unavailable Ronal, Cristina Primary Care Unavailable KevTonya jose Attending Unavailable KevTonya jose Referring Unavailable Ronal, Cristina Referring Unavailable Iron, Flaca Attending Unavailable Ronal, Cristina Primary Care Unavailable RachnaJose Antonio K Attending Unavailable Archna, Jose Antonio K Referring Unavailable Ronal, Cristina Primary Care Unavailable Tonya English MD Unavailable Edmar FUEL HOUSE ATTENDANT-ARCHITECTURAL DRAFTER, Domonique Primary Care Provide r Unavailable Doc FUEL HOUSE ATTENDANT-ARCHITECTURAL DRAFTER, [facility] Primary Care Provider Unavail able DOC, MISC Attending Unavailable DOC, MISC Primary Care Unavailable DOC, MISC Referring Unavailable KEYONNA BERMUDEZ Attending Unavailable KEYONNA BERMUDEZ Referring Unavailable DOC, MISC Primary Care Unavailable DOC, MISC Primary Care Unavailable DOC, MISC Referring Unavailable DOC, MISC Attending Unavailable DOC, MISC Primary Care Unavailable DOC, MISC Referring Unavailable DOC, MISC Attending Unavailable DOC, MISC Primary Care Unavailable DOC, MISC Referring Unavailable DOC, MISC Attending Unavailable DOC, MISC Primary Care Unavailable DOC, MISC Referring Unavailable DOC, MISC Attending Unavailable DOC, MISC Referring Unavailable DOC, MISC Primary Care Unavailable DOC, MISC Attending Unavailable DOC, MISC Referring Unavailable DOC, MISC Primary Care Unavailable DOC, MISC Attending Unavailable DOC, MISC Referring Unavailable DOC, MISC Primary Care Unavailable DOC, MISC Attending Unavailable DOC, MISC Primary Care Unavailable DOC, MISC Referring Unavailable DOC, MISC Attending Unavailable DOC, MISC Referring Unavailable DOC, MISC Primary Care Unavailable DOC, MISC Attending Unavailable DOC, MISC Referring Unavailable DOC, MISC Primary Care Unavailable DOC, MISC Attending Unavailable DOC, MISC Attending Unavailable DOC, MISC Primary Care Unavailable DOC, MISC Referring Unavailable Allergies Allergy Classification Reported Allergen(s) Allergy Type Date of Onset Reaction(s) Facility (11 sources) cefuroxime drug allergy 01-04-20 17 [facility] Work Phone: (20 sources) erythromycin; Translations: [erythromycin] drug allergy 04-17-20 06 Hives, Anaphylaxis, Rash [facility] Work Phone: (11 sources) penicillin v drug allergy 01-04-20 17 [facility] Work Phone: (20 sources) sulfamethoxazole / trimethoprim; Translations: [SULFAMETHOXAZOLE-T RIMETHOPRIM] drug allergy 01-04-20 17 Unknown [facility] Work Phone: (15 sources) Cefuroxime; Translations: [CEFUROXIME AXETIL] Drug Allergy 04-17-20 06 Rash [facility] (20 sources) Lactase; Translations: [LACTASE] Drug Allergy 04-17-20 06 GI Upset, Other [facility] (20 sources) Penicillins; Translations: [PENICILLINS] Drug Allergy 04-17-20 06 Rash, Anaphylaxis, Hives [facility] (14 sources) Levonorgestrel-Ethi nyl Estrad; Translations: [LEVONORGESTREL-ETH INYL ESTRAD] Drug Intolerance 04-17-20 06 Intolerance, [facility] (13 sources) sulfacedamide [Other] Propensity to adverse reactions 04-17-20 [facility] (20 sources) Cefuroxime; Translations: [cefuroxime] Drug Allergy 04-17-20 Rash [facility] (20 sources) Spironolactone; Translations: [spironolactone] Drug Allergy 07-27-20 19 Unknown, Anaphylaxis [facility] (19 sources) Sulfonamides (Antibiotic); Translations: [SULFA (SULFONAMIDE ANTIBIOTICS)] Allergy to substance 01-02-20 19 Rash [facility] (9 sources) Ethinyl Estradiol / Levonorgestrel Drug Allergy 04-17-20 06 Intolerance [facility] (11 sources) Penicillin V; Translations: [PENICILLIN V] Drug Allergy 01-04-20 17 Hives [facility] (9 sources) levoFLOXacin; Translations: [levofloxacin] Drug Allergy 06-03-20 22 Other [facility] (1 source) Penicillin; Translations: [penicillins] Drug Allergy [facility] (9 sources) Sulfonamides (Antibiotic); Translations: [sulfa drugs] Drug allergy 01-02-20 Anaphylaxis, Rash [facility] (3 sources) Erythromycin; Translations: [ERYTHROMYCIN] Drug Allergy 04-17-20 [facility] (2 sources) OTHER; Translations: [OTHER] Propensity to adverse reactions (disorder) 04-17-20 [facility] (20 sources) Cephalosporins (Antibiotic); Translations: [CEPHALOSPORINS] Drug Intolerance 11-29-19 Anaphylaxis [facility] (8 sources) Spironolactone Drug Allergy 01-02-20 Anaphylaxis, Rash, Unknown [facility] (5 sources) Gluten Propensity to adverse reactions 04-17-20 Other [facility] (14 sources) Sulfonamides (Antibiotic); Translations: [SULFA ANTIBIOTICS] Propensity to adverse reactions 11-29-[address] [facility] (2 sources) Cefuroxime Drug Allergy 06-13-20 [facility] (2 sources) Penicillin V Drug Allergy 06-13-20 24 [facility] (2 sources) Seasonal allergy Food allergy (disorder) 06-13-20 [facility] (2 sources) sulfADIAZINE Drug Allergy 06-13-20 [facility] (1 source) Cefuroxime Drug Allergy 01-24-20 25 [facility] (1 source) Erythromycin Drug Allergy 01-24-20 [facility] (1 source) Spironolactone Drug Allergy 01-24-20 [facility] Medications Current Medications Medication Drug Class(es) Dates Sig (Normalized) Sig (Original) Acidophilus Probiotic Blend oral capsule (1 source) Start: 11-24-2020 take 1 capsule by mouth once daily Acidophilus Probiotic Blend oral capsule Dose = 1 cap(s), Oral, qDay, 20 billion cfu, 0 Refill(s) Start Date: 11/24/20 Status: Ordered adapalene 0.001 mg/mg topical gel (13 sources) Retinoid Start: 05-17-2007 Adapalene (DIFFERIN) 0.1 % TOPICAL Gel qhs 45 gm 3 05/17/2007 Active Comment on above: qhs ascorbic acid 500 mg oral tablet (13 sources) Vitamin C Start: 05-17-2007 take 1 tablet by mouth once daily ascorbic acid (VITAMIN C) 500 mg ORAL Tab Take one(1) tablet daily. 0 05/17/2007 Active Comment on above: Take one(1) tablet d aily. calcium carbonate 1500 mg / cholecalciferol 500 unt oral capsule (13 sources) Vitamin D Start: 05-17-2007 take 1 tablet by mouth once daily Calcium Carbonate-Vitamin D2 (CALCIUM-D) 600-200 mg-unit ORAL Cap Take one(1) tablet daily. 0 05/17/2007 Active Comment on above: Take one(1) tablet d aily. Celebrate Multivitamin (1 source) Start: 12-05-2017 Celebrate Multivitamin qDay Start Date: 12/05/17 Status: Ordered clindamycin 10 mg/ml topical solution (13 sources) Lincosamide Antibacterial Start: 05-17-2007 clindamycin 1 % TOPICAL Soln am and suppertime face bottle x 2 3 05/17/2007 Active Comment on above: am and suppertime fa ce dexamethasone phosphate 4 mg/ml injectable solution (1 source) Corticosteroid Start: 04-30-2025 dexamethasone sodium phosphate 4 mg/mL injection solution as directed dispense for iontophoresis active Varun L Jose DO, [address] [facility] [id number] [facility] famotidine 20 mg oral tablet (5 sources) Histamine-2 Receptor Antagonist Start: 05-25-2022 End: 06-24-2022 take 1 tablet by mouth once daily famotidine (PEPCID) 20 mg tablet TAKE 1 TABLET BY MOUTH EVERY DAY 30 tablet 5 06/20/2022 Active Comment on above: Take 1 tablet by andrews th once daily. TAKE 1 TABLET BY ANDREWS TH EVERY DAY fexofenadine hydrochloride 180 mg oral tablet (13 sources) Histamine-1 Receptor Antagonist Start: 05-17-2007 take 1 tablet by mouth once daily fexofenadine (PAVITHRA) 180 mg ORAL Tab Take one(1) tablet daily. 0 05/17/2007 Active Comment on above: Take one(1) tablet d aily. ipratropium bromide 0.042 mg/actuat metered dose nasal spray (10 sources) Anticholinergic Start: 07-01-2019 ipratropium bromide (ATROVENT) 42 mcg (0.06 %) nasal spray Use 2 Sprays in the nose as needed. 07/01/2019 Active Start: 07-01-2019 ipratropium 42 mcg/inh (0.06%) nasal spray Dose = 2 spray(s), Nasal, TID, # 15 mL, 0 Refill(s) Start Date: 07/01/19 Status: Ordered Comment on above: Use 2 Sprays in the nose as needed. lansoprazole 30 mg delayed release oral capsule (6 sources) Proton Pump Inhibitor lansoprazo le 30 mg capsule,delayed release active Rui Grant [facility] Claritin (20 sources) Start: 08-17-2020 Claritin Dose : 10 mg =, qDay, PRN as needed for allergy symptoms, 0 Refill(s) Start Date: 08/17/20 Status: Ordered take 1 tablet by mouth once gurvinder y Claritin 10 mg tablet Take 1 tablet by mouth once a day as directed active Elba Palomino [facility] Comment on above: Take 10 mg by mouth once daily. magnesium oxide 500 mg oral tablet (10 sources) Start: 11-24-2020 magnesium oxide 500 mg oral tablet Dose : 500 mg = 1 tab(s), Oral, Daily, # 10 tab(s), 0 Refill(s) Start Date: 11/24/20 Status: Ordered MAGNESIUM OXIDE ORAL Take by mouth once daily. Active MAGNESIUM OXIDE ORAL Take by mouth once daily. 0 Active Comment on above: Take by mouth once d aily. magnesium oxide (Mag-Ox) 100 mg split tablet (8 sources) magnesium oxide (Mag-Ox) 100 mg split tablet Take by mouth daily. Active magnesium oxide (Mag-Ox) 100 mg split tablet Take by mouth daily. 0 Active Misc Medication (1 source) Start: 11-22-2019 Misc Medicatio n thyroid supplement, 0 Refill(s), 68.7 Start Date: 11/22/19 Status: Ordered MULTI-VITAMIN (MULTIPLE VITAMIN) TABS (2 sources) take 1 tablet by mouth once daily multivitamin tablet Take 1 tablet by mouth once a day as directed active Elba Palomino [facility] Multiple Vitamin (multivitamin) tablet (5 sources) take 1 tablet by mouth once daily Multiple Vitamin (multivitamin) tablet Take 1 tablet by mouth daily. Active Multivitamin (DAILY MULTIPLE) ORAL Tab (13 sources) Start: 05-17-2007 take 1 tablet by mouth once daily Multivitamin (DAILY MULTIPLE) ORAL Tab Take one(1) tablet daily. 0 05/17/2007 Active Comment on above: Take one(1) tablet d aily. Multivitamin,Tx-Iron -Minerals (6 sources) Start: 09-28-2016 take 2 tablets by mouth once daily Multivitamin,Tx-Iro n-Minerals Active 2 TABLET PO DAILY September 28, 2016 9:55am Start: 09-28-2016 take 2 tablets by [facility] once daily Multivitamin,Wn-Ibdq-Zplpwkpi Active 2 TABLET PO DAILY September 28, 2016 1:00am Multivitamin,Bq-Lwvv-Aoyqluk s 1 TABLET tablet (1 source) Start: 09-28-2016 take 1 tablet by mouth once daily Multivitamin,Vf-Cniq-Ddfwpeww 1 TABLET tablet Active 2 {tbl} PO DAILY September 28, 2016 1:00am pantoprazole 40 mg delayed release oral tablet (16 sources) Proton Pump Inhibit or Start: 11-22-2019 take 1 tablet by mouth once daily pantoprazole DR (PROTONIX) 40 mg tablet Take 1 tablet by mouth once daily. 12/13/2020 Active Comment on above: Take 1 tablet by [facility] once daily. Paxlovid, 300/100, 20 x 150 MG & 10 x 100MG tablet therapy pack (8 sources) Start: 11-30-2023 Paxlovid, 300/100, 20 x 150 MG & 10 x 100MG tablet therapy pack TAKE 1 PACKETS - 2 (150MG) TABS & 1 (100MG) TAB TO BE TAKEN TOGETHER BY MOUTH TWICE A DAY FOR 5 DAYS 11/30/2023 Active Start: 11-30-2023 Paxlovid, 300/ 100, 20 x 150 MG & 10 x 100MG tablet therapy pack TAKE 1 PACKETS - 2 (150MG) TABS & 1 (100MG) TAB TO BE TAKEN TOGETHER BY MOUTH TWICE A DAY FOR 5 DAYS 0 11/30/2023 Active Skin Vitamin (7 sources) Start: 09-28-2016 take 1 capsule by [facility] once daily Skin Vitamin Active 1 CAP PO DAILY September 28, 2016 9:55am Start: 09-28-2016 Skin Vitamin A ctive 1 NMA PO DAILY September 28, 2016 1:00am Start: 09-28-2016 take 1 capsule by mo [facility] once daily Skin Vitamin Active 1 CAP PO DAILY September 28, 2016 1:00am Vitamin D3 1000 intl units o ral capsule (1 source) Start: 07-01-2019 Vitamin D3 100 0 intl units oral capsule Dose : 1,000 unit(s) = 1 cap(s), Oral, Daily, 0 Refill(s) Start Date: 07/01/19 Status: Ordered Completed/Discontinued Medications Medication Drug Class(es) Dates Sig (Normalized) Sig (Original) CETIRIZINE HCL TABS (20 sources) Histamine-1 Receptor Antagonist Start: 01-03-2017 ZYRTEC ALLERGY TABS as directed CETIRIZINE HCL TABS [id number] Tamia Yen LPN Start: 01-03-2017 ZYRTEC ALLERGY TABS as directed CETIRIZINE HCL TABS [id number] Tamia Yen LPN Start: 09-28-2016 Cetirizine 10 MG capsule Active 10 mg PO NEEDED as needed for ALLERGY September 28, 2016 1:00am Comment on above: ZYRTEC ALLERGY TABS as directed CETIRIZINE HCL TABS [id number] Tamia Yen LPN cholecalciferol 0.025 mg oral capsule (20 sources) Vitamin D Start: 016 End: 019 take 1 capsule by mouth once daily Cholecalciferol (Vitamin D3) 1,000 UNIT capsule Discontinued 1000 U PO DAILY September 28, 2016 1:00am November 08, 2018 10:39am take 1 capsule by mouth in the m orning cholecalciferol (Vitamin D-3) 50 MCG (1999 UT) capsule Take 1 capsule by mouth in the morning. Active Comment on above: Take 1 capsule by [facility] once daily. doxycycline hyclate 100 mg oral capsule (20 sources) Tetracycline-clas s Drug Start: 07-27-2019 End: 08-07-2019 take 1 capsule by mouth once daily Doxycycline Hyclate 100 mg capsule Discontinued 100 mg PO DAILY 10 July 27, 2019 12:00am August 05, 2019 12:00am August 07, 2019 12:07am Acute sinusitis, unspecified Start: 11-08-2018 End: 07-27-2019 take 1 capsule by mouth twice daily Doxycycline Monohydrate 100 mg capsule Discontinued 100 mg PO TWICE A DAY November 08, 2018 1:00am July 27, 2019 12:56pm Start: 11-17-2017 End: 11-27-2017 take 1 capsule by mouth twice daily Doxycycline Hyclate 100 mg capsule Discontinued 100 mg PO TWICE A DAY 20 November 17, 2017 1:00am November 26, 2017 1:00am November 27, 2017 1:05am Acute sinusitis, unspecified Start: 01-03-2017 End: 01-10-2017 take 1 tablet by mouth every twelve hours as needed for urinary tract infection ADOXA 100 MG ORAL TABS Take 100mg Twice daily DOXYCYCLINE MONOHYDRATE [id number] Tyrel TOLLIVER Start: 01-03-2017 End: 01-10-2017 take 100 mg by mouth every twelve hours as needed for urinary tract infection ADOXA 100 MG TABS Take 100mg Twice daily DOXYCYCLINE MONOHYDRATE [id number] Tyrel TOLLIVER Start: 01-03-2017 End: 01-10-2017 take 1 tablet by mouth every twelve hours as needed for urinary tract infection ADOXA 100 MG ORAL TABS Take 100mg Twice daily DOXYCYCLINE MONOHYDRATE [id number] Tyrel TOLLIVER LEVOTHYROXINE SODIUM TABS (20 sources) l-Thyroxine Start: 01-03-2017 SYNTHROID TABS as directed LEVOTHYROXINE SODIUM TABS [id number] Tamia Yen LPN Start: 01-03-2017 SYNTHROID TABS as directed LEVOTHYROXINE SODIUM TABS [id number] Tamia Yen LPN Start: 09-28-2016 levothyroxine sodium (SYNTHROID ORAL) SYNTHROID TABS as directed LEVOTHYROXINE SODIUM TABS [id number] Tamia Yen LPN 09/28/2016 Active Start: 09-28-2016 levothyroxine sodium (SYNTHROID ORAL) SYNTHROID TABS as directed LEVOTHYROXINE SODIUM TABS [id number] Tamia Yen LPN 0 09/28/2016 Active Start: 09-28-2016 take 1 tablet by [facility]rew[facility] once daily Levothyroxine 50 MCG tablet Active 50 ug PO DAILY September 28, 2016 1:00am Comment on above: SYNTHROID TABS as di rected LEVOTHYROXINE SODIUM TABS [id number] Tamia Yen LPN methylPREDNISolone 4 mg oral tablet (7 sources) Corticosteroid Start: 2017 End: 2017 take 1 tablet by mouth once Methylprednisolone (Medrol (Prasanna)) 4 mg tablets,dose pack Discontinued 4 mg PO per package directions 5 0 November 17, 2017 1:00am November 21, 2017 1:00am November 22, 2017 1:05am MULTIPLE VITAMINS-MINERALS (6 sources) Start: 2016 SKIN BEAUTY & WELLNESS PACK as directed MULTIPLE VITAMINS-MINERALS [id number] Tyrel TOLLIVER Start: 01-03-2017 MULTI VITAMIN/ MINERALS TABS as directed MULTIPLE VITAMINS-MINERALS [id number] Tamia Yen LPN MULTIPLE VITAMINS-MINERALS (8 sources) Start: 01-31-2017 SKIN BEAUTY & WELLNESS PACK as directed MULTIPLE VITAMINS-MINERALS [id number] Tyrel TOLLIVER Start: 01-31-2017 SKIN BEAUTY & WELLNESS PACK as directed MULTIPLE VITAMINS-MINERALS [id number] Tyrel TOLLIVER MULTIPLE VITAMINS-MINERALS (8 sources) Start: 01-03-2017 MULTI VITAMIN/ MINERALS TABS as directed MULTIPLE VITAMINS-MINERALS [id number] Tmaia Yen LPN Start: 01-03-2017 MULTI VITAMIN/ MINERALS TABS as directed MULTIPLE VITAMINS-MINERALS [id number] Tamia Yen LPN vitamin b6 100 mg oral tablet (7 sources) Start: 09-28-2016 End: 11-08-2018 take 1 tablet by mouth once daily Pyridoxine (Vitamin B6) 100 MG tablet Discontinued 100 mg PO DAILY September 28, 2016 1:00am November 08, 2018 10:39am Problems Active Problems Problem Classification Problem Date Documented Da te Episodic/Chronic Abdominal pain (4 sources) Epigastric pain; Translations: [Epigastric pain] Onset: 2 Episodic Allergic reactions (7 sources) Environmental allergy; Translations: [Other allergy status, other than to drugs and biological substances] 07-27-2019 Episodic Cardiac dysrhythmias (1 source) Other specified cardiac arrhythmias; Translations: [POTS (postural orthostatic tachycardia syndrome)] Onset: 2 Chronic Deficiency and other anemia (1 source) Iron deficiency anemia 07-01-2019 Episodic Disorders of lipid metabolism (2 sources) Hyperlipidemia; Translations: [Hyperlipidemia, unspecified] 07-29-2024 Chronic Esophageal disorders (5 sources) Gastroesophageal reflux disease without esophagitis; Translations: [Gastro-esophageal reflux disease without esophagitis] Onset: 2 Chronic Gastritis and duodenitis (1 source) Gastritis 11-06-2020 Episodic Nutritional deficiencies (1 source) Vitamin D deficiency 07-01-2019 Chronic Other bone disease and musculoskeletal deformities (20 sources) Segmental and somatic dysfunction; Translations: [Segmental and somatic dysfunction of cervical region] 02-11-2019 Episodic Other connective tissue disease (8 sources) Disorder of ankle; Translations: [Other symptoms and signs involving the musculoskeletal system] Episodic Other connective tissue disease (7 sources) Pain in right foot; Translations: [Pain in right foot] Episodic Other connective tissue disease (4 sources) Paresis of lower extremity; Translations: [Other symptoms and signs involving the musculoskeletal system] Episodic Other connective tissue disease (14 sources) Inflammatory neuropathy ; Translations: [Neuralgia and neuritis, unspecified] Onset: 5 05-05-2025 Episodic Other connective tissue disease (14 sources) Tendinitis of left posterior tibial tendon; Translations: [Posterior tibial tendinitis, left leg] Onset: 5 05-05-2025 Episodic Other connective tissue disease (14 sources) Plantar fasciitis of left foot; Translations: [Plantar fascial fibromatosis] Onset: 4 05-05-2025 Episodic Other endocrine disorders (1 source) Hyperprolactinemia; Translations: [Hyperprolactinemia] Chronic Other female genital disorders (1 source) Abnormal uterine bleeding; Translations: [Abnormal uterine and vaginal bleeding, unspecified] 01-02-2024 Chronic Other gastrointestinal disorders (1 source) Abdominal bloating; Translations: [Abdominal distension (gaseous)] Episodic Other gastrointestinal disorders (1 source) Dysphagia, unspecified; Translations: [Dysphagia, unspecified] Onset: 5 Episodic Other infections; including parasitic (2 sources) Late effects of other and unspecified infectious and parasitic diseases; 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 Other injuries and conditions due to external causes (2 sources) Injury of right foot; Translations: [Unspecified injury of right foot, initial encounter] Episodic Other injuries and conditions due to external causes (2 sources) Injury of right ankle; Translations: [Unspecified injury of right ankle, initial encounter] Episodic Other injuries and conditions due to external causes (1 source) Unspecified injury of right foot, initial encounter; Translations: [Foot injury, right, initial encounter] Onset: 2 Episodic Other injuries and conditions due to external causes (1 source) Unspecified injury of right ankle, initial encounter; Translations: [Injury of right ankle, initial encounter] Onset: 2 Episodic Other nervous system disorders (2 sources) Neuroma of foot; Translations: [Other specified mononeuropathies of left lower limb] Onset: 4 08-01-2024 Chronic Other nervous system disorders (1 source) Paresthesia 07-01-2019 Episodic Other non-traumatic joint disorders (4 sources) Acute ankle pain; Translations: [Pain in right ankle and joints of right foot] Episodic Other nutritional; endocrine; and metabolic disorders (2 sources) Overweight in adulthood with body mass index of 25 or more but less than 30; Translations: [Body mass index (BMI) 26.0-26.9, adult] Episodic Other nutritional; endocrine; and metabolic disorders (2 sources) Overweight; Translations: [Overweight] 07-29-2024 Episodic Other screening for suspected conditions (not mental disorders or infectious disease) (2 sources) Patient encounter status; Translations: [Encounter for screening for lipoid disorders] Episodic Sprains and strains (13 sources) Strain of unspecified muscle and tendon at ankle and foot level, right foot, initial encounter; Translations: [Sprain of ankle] Onset: 7 01-31-2017 Episodic Thyroid disorders (1 source) Hypothyroidism 07-01-2019 Chronic Unclassified (5 sources) Physical examination; Translations: [Encounter for general adult medical examination without abnormal findings] Onset: 7 07-04-2017 Unclassified (5 sources) History and physical examination, sports participation ; Translations: [Encounter for examination for participation in sport] Onset: 7 07-04-2017 Unclassified (3 sources) Gynecologic examination ; Translations: [Encounter for gynecological examination (general) (routine) without abnormal findings] Onset: 7 07-18-2017 Unclassified (3 sources) Venereal disease screening ; Translations: [Encounter for screening for infections with a predominantly sexual mode of transmission] Onset: 7 07-18-2017 Unclassified (1 source) Patient encounter status 08-17-2020 Unclassified (1 source) Post-acute sequelae of COVID-19 (PASC); Translations: [Post-acute sequelae of COVID-19 (PASC)] Onset: Viral infection (1 source) Post-viral disorder 02-26-2021 Episodic Past or Other Problems Problem Classification Problem Date Documented Da te Episodic/Chronic Cardiac dysrhythmias (20 sources) Palpitations; Translations: [Palpitations] Onset: 12-23-2020 12-23-2020 Episodic Nausea and vomiting (4 sources) Nausea; Translations: [Nausea] Onset: 05-25-2022 Episodic Other bone disease and musculoskeletal deformities (16 sources) Segmental and somatic dysfunction of cervical region; Translations: [Nonallopathic lesions, cervical region] Onset: 01-23-2025 Episodic Other bone disease and musculoskeletal deformities (16 sources) Segmental and somatic dysfunction of lumbar region; Translations: [Nonallopathic lesions, lumbar region] Onset: 01-23-2025 Episodic Other bone disease and musculoskeletal deformities (16 sources) Segmental and somatic dysfunction of pelvic region; Translations: [Nonallopathic lesions, pelvic region] Onset: 01-23-2025 Episodic Other bone disease and musculoskeletal deformities (16 sources) Segmental and somatic dysfunction of thoracic region; Translations: [Nonallopathic lesions, thoracic region] Onset: 01-23-2025 Episodic Other connective tissue disease (11 sources) Foot pain; Translations: [Pain in right foot] Onset: 01-31-2017 01-31-2017 Episodic Other connective tissue disease (1 source) Plantar fascial fibromatosis; Translations: [Plantar fascial fibromatosis] Onset: 11-06-2024 Episodic Other female genital disorders (6 sources) Vaginal irritation; Translations: [Other specified noninflammatory disorders of vagina] Onset: 07-18-2017 07-18-2017 Episodic Other gastrointestinal disorders (1 source) Abdominal distension (gaseous); Translations: [Bloating] Onset: 05-25-2022 Episodic Other non-traumatic joint disorders (11 sources) Pain in unspecified ankle and joints of unspecified foot; Translations: [Pain in unspecified ankle and joints of unspecified foot] Onset: 01-31-2017 01-31-2017 Episodic Other upper respiratory infections (20 sources) Acute sinusitis; Translations: [Sinusitis] Onset: 12-13-2016 01-03-2017 Episodic Spondylosis; intervertebral disc disorders; other back problems (18 sources) Lumbosacral radiculopathy; Translations: [Radiculopathy, lumbosacral region] Onset: 11-20-2024 09-11-2018 Episodic Thyroid disorders (3 sources) Disorder of thyroid gland; Translations: [Disorder of thyroid, unspecified] Onset: 08-26-2024 07-29-2024 Episodic Urinary tract infections (11 sources) Urinary tract infectious disease; Translations: [Urinary tract infection, site not specified] Onset: 01-03-2017 01-03-2017 Episodic Results Test Name Value Interpretation Reference Range Facility C-REACTIVE PROTEINon 025 CRP [Mass/Vol] mg/L Normal <=1.0 [facility] Comment on above: Order Comment: Relea se to patient->Automatic Result Comment: CRP determinations in neonates should be interpreted with caution. CRP may be elevated in circumstances not associated with inflammation (e.g. difficult delivery, pneumothorax). In premature neonates CRP levels may not rise to abnormal levels even if sepsis is present; some speculate that immature liver function decreases the ability to generate a CRP response. C-reactive proteinon 025 CRP [Mass/Vol] NINF [facility] Comment on above: CRP determinations i n neonates should be interpreted with caution. CRP may be elevated in circumstances not associated with inflammation (e.g. difficult delivery, pneumothorax). In premature neonates CRP levels may not rise to abnormal levels even if sepsis is present; some speculate that immature liver function decreases the ability to generate a CRP response. COMPLETE BLOOD COUNT WITH DI Jim 08-20-2025 Basophil \P\ 0.05 10E3/???L Normal 0.02-0.06 [facility] Comment on above: Order Comment: Relea se to patient->Automatic Basophils/100 WBC (Bld) 0.5 % Normal 0.3-0.9 [facility] Comment on above: Order Comment: Relea se to patient->Automatic Eosinophil \P\ 0.16 10E3/???L Normal 0.04-0.27 [facility] Comment on above: Order Comment: Relea se to patient->Automatic Eosinophils/100 WBC (Bld) 1.6 % Normal 0.6-3.8 [facility] Comment on above: Order Comment: Relea se to patient->Automatic Erythrocyte distribution width (RBC) [Ratio] 12.4 % Normal 11.9-14.8 [facility] Comment on above: Order Comment: Relea se to patient->Automatic Hematocrit (Bld) [Volume fraction] 43.7 % Normal 35.5-44.6 [facility] Comment on above: Order Comment: Relea se to patient->Automatic Hemoglobin (Bld) [Mass/Vol] 15.1 g/dL High 11.4-14.8 [facility] Comment on above: Order Comment: Relea se to patient->Automatic Immature granulocytes/100 WBC (Bld) 0.4 % Normal 0.2-0.5 [facility] Comment on above: Order Comment: Relea se to patient->Automatic Result Comment: Mel ture Granulocyte Percent includes promyelocytes, myelocytes,and metamyelocytes. IG% > 1.0 indicates a left shift is present. With automated differentials, bands are included in the neutrophil count and not in the Immature Granulocyte Percent. Lymphocyte \P\ 2.62 10E3/???L Normal 1.51-2.99 [facility] Comment on above: Order Comment: Relea se to patient->Automatic Lymphocytes/100 WBC (Bld) 25.6 % Normal 21.8-42.1 [facility] Comment on above: Order Comment: Relea se to patient->Automatic MCH (RBC) [Entitic mass] 30.9 pg Normal 25.7-31.2 [facility] Comment on above: Order Comment: Relea se to patient->Automatic MCHC 34.6 % High 31.3-34.0 [facility] Comment on above: Order Comment: Relea se to patient->Automatic MCV (RBC) [Entitic vol] 89.5 fL Normal 80.0-100.0 [facility] Comment on above: Order Comment: Relea se to patient->Automatic Monocyte \P\ 0.79 10E3/???L High 0.36-0.77 [facility] Comment on above: Order Comment: Relea se to patient->Automatic Monocytes/100 WBC (Bld) 7.7 % Normal 5.6-10.2 [facility] Comment on above: Order Comment: Relea se to patient->Automatic Neutrophil \P\ 6.58 10E3/???L High 2.43-6.42 [facility] Comment on above: Order Comment: Relea se to patient->Automatic Neutrophils/100 WBC (Bld) 64.2 % Normal 46.0-68.6 [facility] Comment on above: Order Comment: Relea se to patient->Automatic Nucleated RBC/100 WBC (Bld) [Ratio] 0.0 % Normal 0.0-0.0 [facility] Comment on above: Order Comment: Relea se to patient->Automatic Platelet mean volume (Bld) [Entitic vol] 8.7 fL Low 9.6-11.9 [facility] Comment on above: Order Comment: Relea se to patient->Automatic Platelets 376 10E3/???L Normal 150-400 [facility] Comment on above: Order Comment: Relea se to patient->Automatic RBC 4.88 10E6/???L Normal 4.03-4.91 [facility] Comment on above: Order Comment: Relea se to patient->Automatic WBC 10.2 10E3/???L High 4.9-10.0 [facility] Comment on above: Order Comment: Relea se to patient->Automatic COMPREHENSIVE METABOLIC PANE Maximilian 08-20-2025 Albumin [Mass/Vol] 4.5 g/dL Normal 3.5-5.0 [facility] Comment on above: Order Comment: Relea se to patient->Automatic ALP [Catalytic activity/Vol] 85 U/L Normal 35-104 [facility] Comment on above: Order Comment: Relea se to patient->Automatic ALT [Catalytic activity/Vol] 25 U/L Normal <=34 [facility] Comment on above: Order Comment: Relea se to patient->Automatic AST [Catalytic activity/Vol] 27 U/L Normal <=31 [facility] Comment on above: Order Comment: Relea se to patient->Automatic BILI,TOTAL 0.5 mg/dL Normal <=1.0 [facility] Comment on above: Order Comment: Relea se to patient->Automatic Calcium [Mass/Vol] 9.6 mg/dL Normal 7.6-11.0 [facility] Comment on above: Order Comment: Relea se to patient->Automatic Chloride [Moles/Vol] 103 mmol/L Normal 96-108 [facility] Comment on above: Order Comment: Relea se to patient->Automatic CO2 [Moles/Vol] 24.6 mmol/L Normal 22.0-29.0 [facility] Comment on above: Order Comment: Relea se to patient->Automatic Creatinine [Mass/Vol] 0.77 mg/dL Normal 0.50-1.00 [facility] Comment on above: Order Comment: Relea se to patient->Automatic GFR/1.73 sq M.predicted among non-blacks MDRD (S/P/Bld) [Vol rate/Area] mL/min/{1.73_m2} Normal >=60 [facility] Comment on above: Order Comment: Relea se to patient->Automatic Glucose [Mass/Vol] 98 mg/dL Normal 70-99 [facility] Comment on above: Order Comment: Relea se to patient->Automatic Result Comment: Crit bartolome for Diagnosis of Diabetes: Fasting Specimen (no caloric intake for at least 8 hours): <100 mg/dL Normal 100-125 mg/dL Increased risk for Diabetes >125 mg/dL Diagnostic for Diabetes Random Glucose (any time of day without regard to last meal): > or = 200 mg/dL plus Classic Symptoms of Diabetes Potassium [Moles/Vol] 4.3 mmol/L Normal 3.3-5.1 [facility] Comment on above: Order Comment: Relea se to patient->Automatic Protein [Mass/Vol] 7.3 g/dL Normal 5.9-8.4 [facility] Comment on above: Order Comment: Relea se to patient->Automatic Sodium [Moles/Vol] 137 mmol/L Normal 133-145 [facility] Comment on above: Order Comment: Relea se to patient->Automatic Urea nitrogen [Mass/Vol] 11 mg/dL Normal 4-19 [facility] Comment on above: Order Comment: Relea se to patient->Automatic Complete Blood Count with Di fferentialOrdered By: Antoinette Aguilar on 08-20-2025 Basophils (Bld) [#/Vol] 0.05 10*3/uL [facility] Basophils/100 WBC (Bld) 0.5 % 0.3 - 0.9 % [facility] Eosinophils (Bld) [#/Vol] 0.16 10*3/uL [facility] Eosinophils/100 WBC (Bld) 1.6 % 0.6 - 3.8 % [facility] Erythrocyte distribution width (RBC) [Ratio] 12.4 % 11.9 - 14.8 % [facility] Hematocrit (Bld) [Volume fraction] 43.7 % 35.5 - 44.6 % [facility] Hemoglobin (Bld) [Mass/Vol] 15.1 g/dL High 11.4 - 14.8 g/dL [facility] Immature granulocytes/100 WBC (Bld) 0.4 % 0.2 - 0.5 % [facility] Comment on above: Immature Granulocyte Percent includes promyelocytes, myelocytes,and metamyelocytes. IG% > 1.0 indicates a left shift is present. With automated differentials, bands are included in the neutrophil count and not in the Immature Granulocyte Percent. Interpretation and review of laboratory results Abnormal [facility] Lymphocytes (Bld) [#/Vol] 2.62 10*3/uL [facility] Lymphocytes/100 WBC (Bld) 25.6 % 21.8 - 42.1 % [facility] MCH (RBC) [Entitic mass] 30.9 pg 25.7 - 31.[address] [facility] MCHC (RBC) [Mass/Vol] 34.6 % High 31.3 - 34.0 % [facility] MCV (RBC) [Entitic vol] 89.5 fL 80.0 - 100.[address] [facility] Monocytes (Bld) [#/Vol] 0.79 10*3/uL High [facility] Monocytes/100 WBC (Bld) 7.7 % 5.6 - 10.2 % [facility] Neutrophils (Bld) [#/Vol] 6.58 10*3/uL High [facility] Neutrophils/100 WBC (Bld) 64.2 % 46.0 - 68.6 % [facility] Nucleated RBC/100 WBC (Bld) [Ratio] 0.0 % 0.0 - 0.0 % [facility] Platelet mean volume (Bld) [Entitic vol] 8.7 fL Low 9.6 - 11.[address] [facility] Platelets (Bld) [#/Vol] 376 10*3/uL [facility] RBC (Bld) [#/Vol] 4.88 10*6/uL [facility] WBC (Bld) [#/Vol] 10.2 10*3/uL High [facility] Comprehensive metabolic pane maximilian 08-20-2025 Albumin BCG dye [Mass/Vol] 4.5 g/dL 3.5 - 5.0 g/dL [facility] ALP [Catalytic activity/Vol] 85 U/L 35 - 104 U/L [facility] ALT With P-5'-P [Catalytic activity/Vol] 25 U/L NINF - 34 U/L [facility] AST With P-5'-P [Catalytic activity/Vol] 27 U/L NINF - 31 U/L [facility] Bilirubin [Mass/Vol] 0.5 mg/dL NINF - 1.0 mg/dL [facility] Calcium [Mass/Vol] 9.6 mg/dL 7.6 - 11. 0 mg/dL [facility] Chloride [Moles/Vol] 103 mmol/L 96 - 10 8 mmol/L [facility] Creatinine [Mass/Vol] 0.77 mg/dL 0.50 - 1.00 mg/dL [facility] eGFR - PINF [facility] Glucose [Mass/Vol] 98 mg/dL 70 - 99 mg/dL [facility] Comment on above: Criteria for Diagnos is of Diabetes: Fasting Specimen (no caloric intake for at least 8 hours): <100 mg/dL Normal 100-125 mg/dL Increased risk for Diabetes >125 mg/dL Diagnostic for Diabetes Random Glucose (any time of day without regard to last meal): > or = 200 mg/dL plus Classic Symptoms of Diabetes HCO3 (P) [Moles/Vol] 24.6 mmol/L 22.0 - 29.0 mmol/L [facility] Potassium (BldA) [Moles/Vol] 4.3 mmol/L 3.3 - 5.1 mmol/L [facility] Protein [Mass/Vol] 7.3 g/dL 5.9 - 8.4 g/dL [facility] Sodium [Moles/Vol] 137 mmol/L 133 - 145 mmol/L [facility] Urea nitrogen [Mass/Vol] 11 mg/dL 4 - 19 mg/dL [facility] ERYTHROCYTE SEDIMENTATION RA Jaycob 08-20-2025 ESR (Bld) [Velocity] 11 mm/h Normal [facility] Comment on above: Order Comment: Relea se to patient->Automatic Result Comment: Newb orn: 0-2 mm/hr [place] to puberty: 3-13 mm/hr Less than 50 years old: Male: <15 mm/hr Female: <20 mm/hr Greater than 50 years old: Male: <20 mm/hr Female: <30 mm/hr Erythrocyte Sedimentation Ra teOrdered By: Caitlin Velazquez on 08-20-2025 ESR Photometric method (Bld) [Velocity] 11 mm/hr [facility] Comment on above: : 0-2 mm/hr to puberty: 3-13 mm/hr Less than 50 years old: Male: <15 mm/hr Female: <20 mm/hr Greater than 50 years old: Male: <20 mm/hr Female: <30 mm/hr [facility] HEMOGLOBIN A1Con 08-20-2025 HbA1c (Bld) [Mass fraction] 5.1 % Normal <=5.6 [facility] Comment on above: Order Comment: Relea se to patient->Automatic Result Comment: Refe rence Interval: <5.7% 5.7-6.4% Prediabetes > or = 6.5% Diabetes Targets for diabetes management: Type I <7.5% Type II <7.0% Hemoglobin A1con 08-20-2025 HbA1c (Bld) [Mass fraction] 5.1 % NINF - 5.6 % [facility] Comment on above: Reference Interval: <5.7% 5.7-6.4% Prediabetes > or = 6.5% Diabetes Targets for diabetes management: Type I <7.5% Type II <7.0% Interpretation and review of laboratory results Normal [facility] LIPID PANELon 08-20-2025 Cholesterol [Mass/Vol] 232 mg/dL High <=199 [facility] Comment on above: Order Comment: Aiyanaa se to patient->Automatic Result Comment: Acce ptable (mg/dL): <200 Borderline-High (mg/dL): 200-239 High (mg/dL): > or = 240 Recommendations of the NCEP Adult Treatment Panel for the risk cut-off thresholds for the [place] Population. Cholesterol in LDL [Mass/Vol] 157 mg/dL High <=129 [facility] Comment on above: Order Comment: Relea se to patient->Automatic HDL Chol 56 MG/DL Normal [facility] Comment on above: Order Comment: Relea se to patient->Automatic Result Comment: Low (mg/dL): <50 Borderline-Low (mg/dL): 50-60 Acceptable (mg/dL): >60 Non-HDL Cholesterol 176 mg/dL High <=129 [facility] Comment on above: Order Comment: Relea se to patient->Automatic Triglyceride [Mass/Vol] 92 mg/dL Normal <=149 [facility] Comment on above: Order Comment: Relea se to patient->Automatic Result Comment: Acce ptable (mg/dL): <150 Borderline-High (mg/dL): 150-199 High (mg/dL): > or = 200 Lipid panelon 08-20-2025 Cholesterol [Mass/Vol] 232 mg/dL High NINF - 199 mg/dL [facility] Comment on above: Acceptable (mg/dL): <200 Borderline-High (mg/dL): 200-239 High (mg/dL): > or = 240 Recommendations of the NCEP Adult Treatment Panel for the risk cut-off thresholds for the [place] Population. Cholesterol in HDL [Mass/Vol] 56 mg/dL MG/DL [facility] Comment on above: Low (mg/dL): <50 Borderline-Low (mg/dL): 50-60 Acceptable (mg/dL): >60 Cholesterol in LDL [Mass/Vol] 157 mg/dL High NINF - 129 mg/dL [facility] Cholesterol non HDL [Mass/Vol] 176 mg/dL [facility] mg/dL [facility] Interpretation and review of laboratory results Abnormal [facility] Triglyceride [Mass/Vol] 92 mg/dL NINF - 149 mg/dL [facility] Comment on above: Acceptable (mg/dL): <150 Borderline-High (mg/dL): 150-199 High (mg/dL): > or = 200 No Panel Informationon 08-20 Interpretation and review of laboratory results Normal [facility] Interpretation and review of laboratory results Normal [facility] TSH WITH REFLEX TO T4, FREEo n 08-20-2025 TSH 2.640 ???IU/mL Normal 0.300-4.[address] [facility] Comment on above: Order Comment: Relea se to patient->Automatic TSH with Reflex to T4, Freeo n 08-20-2025 TSH Qn 2.640 m[IU]/L [facility] VITAMIN D 25 HYDROXY(VITAMIN D DEFICIENCY)on 08-20-2025 25 [place] Vitamin D 59 ng/mL Normal 30-100 [facility] Comment on above: Order Comment: Relea se to patient->Automatic Result Comment: Refe rence ranges provided by [facility] Laboratory are based on Endocrine Society Guidelines: Level: Characterization < 21 ng/mL: Vitamin D deficiency 21-29 ng/mL: Suboptimal Vitamin D status 30-100 ng/mL: Optimal Vitamin D status >100 ng/mL: Potentially toxic Vitamin D effects Vitamin D 25 hydroxyon 08-20 Vitamin D+Metabolites [Mass/Vol] 59 ng/mL 30 - 100 ng/mL [facility] Comment on above: Reference ranges pro vided by [facility] are based on Endocrine Society Guidelines: Level: Characterization < 21 ng/mL: Vitamin D deficiency 21-29 ng/mL: Suboptimal Vitamin D status 30-100 ng/mL: Optimal Vitamin D status >100 ng/mL: Potentially toxic Vitamin D effects 36on 07-30-2025 36 Pt called and lvm fo r office to schedule OV. Unfortunately at this time we are in a provider shortage and are booked for the remainder of the year and unable to schedule into 2025. Also advised pt a referral would need to be placed in order for us to schedule. Provided office number for any questions. Thanks [facility] Relevant diagnostic tests/la boratory data Narrativeon 07-10-2025 EMG HX of the left lower extremity on 07/03/2025 at [facility]. Work Phone: Fall risk assessment no MYA [employer] Work Phone: MEDS REVIEW Documentation of cur rent medications (procedure) [employer] Work Phone: MEDS REVIEWD Medications reviewed with changes [employer] Work Phone: Esophagus Dual Contraston Esophagus Dual Contrast [facility] [address] [place] [address] Esophagus Dual Contrast MR#: [id number] Acct: [id number] Name: MARJ TAY Rep #: [id number] : 1990 F 35 From: [place] Lr PCP: Dr. Cristina Villeda DO Status: REG CLI Study: Esophagus Dual Contrast Date of Exam: 06/09/25 Exam# [id number] Ordering Dr: Jose Antonio Briscoe MD EXAM: Single and double contrast esophagram CLINICAL HISTORY: Gastroesophageal reflux disease. Possible hiatal hernia? COMPARISON: None. TECHNIQUE: Single and double contrast esophagram FINDINGS: Visually, the swallowing mechanism shows no abnormality. The esophagus shows no area of persistent narrowing. No mucosal changes seen. No evidence of gastroesophageal reflux was identified during limited evaluation. A widely patent esophagogastric junction is seen. Normal passage of a barium tablet into the stomach was seen. Limited imaging of the stomach and duodenum demonstrate no abnormality. No hiatal hernia is seen. RAD/Esophagus Dual Contrast IMPRESSION: No significant abnormality is seen. No hiatal hernia is noted. Reading Location: [place] [address] CC: Dr. Jose Antonio Briscoe MD; Dr. Cristina Villeda DO Receptionist Nurse: Signed [facility] Relevant diagnostic tests/la boratory data Narrativeon 05-29-2025 Fall risk assessment no MYA [employer] Work Phone: MEDS REVIEW Documentation of cur rent medications (procedure) [employer] Work Phone: MEDS REVIEWD Medications reviewed without changes [employer] Work Phone: Chiropractic Reporton 2024 Chiropractic Report [facility] [address] [place] [address] OFFICE VISIT Date of Service: 01/23/25 MR#: [id number] Acct: [id number] Name: MARJ TAY Rep #: [id number] : 1990 Provider: KIARA Zambrano Age/Sex: 35/F Location: [facility] Status: Signed Intake Vital Signs 01/23/25 17:09 Height 5 ft 8 in Weight: 202 lb BMI 30.7 BP 118/72 Intake Visit Reasons: REEVAL Chief Complaint: upper/Mid back Pain Allergies spironolactone Allergy (Intermediate, Verified 01/23/25 17:10) Rash cefuroxime (From Ceftin) Allergy (Verified 01/23/25 17:10) Rash erythromycin base Allergy (Verified 01/23/25 17:10) Rash Penicillins Allergy (Verified 01/23/25 17:10) Rash Sulfa (Sulfonamide Antibiotics) Allergy (Verified 01/23/25 17:10) Rash Medications ???Medication ???Instructions ???Recorded ???Confirmed ???Type Skin Vitamin 1 cap PO DAILY 09/28/16 01/23/25 H istory cetirizine 10 mg capsule 10 mg PO PRN PRN ALLERGY 09/28/16 01/23/25 History levothyroxine 50 mcg tablet 50 mcg PO DAILY 09/28/16 01/23/25 History multivitamin,nw-[id number]-[id number] rals 27 2 tab PO DAILY 09/28/16 01/23/25 H istory mg-0.4 mg tablet PFSH Medical History Seasonal allergies Knee pain Hay fever Thyroid disease Asthma Surgical History History of tonsillectomy and adenoidectomy H/O nasal septoplasty [place] teeth extracted Family History Aunt Ovarian cancer Cervical cancer Unknown Cervical cancer Social History adopted: No household members: other details: parents housing: house number of children: 0 current occupational status: employed current occupation: [employer] alcohol intake: current alcohol intake frequency: a few times a month substance use type: does not use seatbelt use: sometimes do you feel safe at home: Yes HPI REEVAL Chief Complaint: upper back discomfort Visit Number: 1 Details: Marj is a 35 y/o female here for a re-evaluation of back pain. Pt. advises she has been experiencing some upper back tightness across her shoulder blades. She states the right side/shoulder blade is slightly worse. She denies new injury. 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 She would also like her L low back and SI area checked for alignment but she has no c/o low back pain. No recent history of injury. She denies numbness, tingling or radiculopathy. Marj states chiropractic adjustments have been helpful in the past. Location: upper back, right shoulder blade Duration: frequent Aggravating or associated factors: work Relieving factors: chiro Pain Quality: aching and dull Exam Musc General: Yes normal posture, normal gait, joint tenderness and decreased range of motion Cervical Spine: Yes normal cervical lordosis, Yes cervical muscular tenderness bilateral lower paracervical muscle and trapezius, Yes cervical spasm bilateral lower trapezius and paracervical m uscles and Yes misalignment misalignment: C1, C4, C5 and C6 Thoracic/Lumber: Yes thoracic and lumbar spine normal to inspection, Yes paraspinal tenderness bilaterally in the upper thoracic and in the mid thoracic and on the left greater than right (lumbar), Yes thoraco-lumbar spasm bilaterally (trap) in the upper thoracic and in the mid thoracic and on the left greater than right (lumbar paraspinal, QL) and Yes misalignment T3, T4, T5, T6, L4, L5 and LIL Sacroiliac joints: on the left Office Procedures Procedures - Chiropractic Procedures Manipulation: Cervical C1 and C6, Lumbar L4, Thoracic T3 and Pelvis LIL Manipulation: 3-4 regions Patient Response: positive Assessment and Plan Assessment and Plan (1) Segmental and somatic dysfunction of lumbar region: Status: Acute (2) Segmental and somatic dysfunction of pelvic region: Status: Acute (3) Segmental and somatic dysfunction of thoracic region: Status: Acute (4) Segmental and somatic dysfunction of cervical region: Status: Acute (5) Back pain: Status: Acute Qualifiers: Back pain location: low back pain Chronicity: acute Back pain laterality: left Sciatica presence: without sciatica Qualified Code(s): M54.50 - Low back pain, unspecified Orders: Orders Chiropractic Treatments 01/23/25 M54.17 - Radiculopathy, lumbosacral region, M99.01 - Segmental and somatic dysfunction of cervical region, M99.02 - Segmental and somatic dysfunction of thoracic region, M99.03 - Segmental and somatic dysfunction of lumbar region, M99.05 - Segmental and somatic dysfunction of pelvic region Plan Patient was treated without incident. She returned to the office w (more content not included)... [facility] Culture, Throaton 10-17-2024 CUT Normal throat tomasz isolated. No beta-hemolytic streptococcus isolated. Normal [facility] Comment on above: Performed By: #### M 100.1000 #### [facility] [address] [place], [place], [address] Lower Ext Joint Only (Routin e)on 10-07-2024 Lower Ext Joint Only (Routine) [facility] Imaging Services [address] [place], [place] [address] Lower Ext Joint Only (Routine) MR#: [id number] Acct: [id number] Name: MARJ TAY Rep #: [id number] : 1990 F 34 From: Melchor Cervantes MD PCP: Dr. Cristina Villeda, DO Status: REG CLI Study: Lower Ext Joint Only (Routine) Date of Exam: 12/08/23 Exam# [id number] Ordering Dr: Tonya English MD [id number] EXAM: MR LEFT LOWER EXTREMITY WITHOUT INTRAVENOUS CONTRAST, ANKLE CLINICAL INDICATION: PLANTAR FASICITIS OF LEFT FOOT TECHNIQUE: Multiplanar and multisequence MR images of the left ankle without intravenous contrast. COMPARISON: No prior MRI. FINDINGS: LIGAMENTS: ANTERIOR TALOFIBULAR: See below. POSTERIOR TALOFIBULAR: Anterior and posterior talofibular ligament and calcaneofibular ligament from a previous injury. Mild tenosynovial fluid about the medial flexor tendons and peroneal tendons which are all intact. ANTERIOR TIBIOFIBULAR: Unremarkable. Intact. POSTERIOR TIBIOFIBULAR: Unremarkable. Intact. CALCANEOFIBULAR: See above. DELTOID: Signal alteration involving the deep and superficial fibers of the deltoid ligamentous complex is compatible with a moderate grade sprain injury. SPRING: Unremarkable. Intact. LISFRANC: Unremarkable. Intact. TENDONS: ACHILLES: Unremarkable. Intact. FLEXOR: See above. EXTENSOR: Unremarkable. Intact. PERONEAL: See above. TIBIALIS ANTERIOR: Unremarkable. Intact. TIBIALIS POSTERIOR: Unremarkable. Intact. MUSCLES: Unremarkable. Normal bulk and signal. FLUID: Unremarkable. No joint effusion. SINUS TARSI: Unremarkable. Normal fat in the sinus tarsi. TARSAL TUNNEL: Unremarkable. PLANTAR FASCIA: Unremarkable. Intact. CARTILAGE: Unremarkable. No osteochondral lesion. Articular cartilage intact. BONES/JOINTS: Ankle mortise is intact with no osteochondral lesions at the tibiotalar articulation. No fracture or marrow edema. OTHER SOFT TISSUES: Unremarkable. MRI/Lower Ext Joint Only (Routine) IMPRESSION: 1. Anterior and posterior talofibular ligament and calcaneofibular ligament from a previous injury. 2. Mild tenosynovial fluid about the medial flexor tendons and peroneal tendons. 3. Suspected moderate grade sprain injury of the deltoid ligamentous. Electronically Signed: Melchor Cervantes MD at 23:30 EST , CC: Dr. Tonya English MD; Dr. Cristina Villeda DO Receptionist Nurse: Signed [facility] 36on 10-04-2024 36 I spoke to primary c are provider Dr. Cristina Villeda on 10/03/2024. We discussed that I had checked a CMP, lipids, A1c, TSH, and insulin level. I informed Dr. Villeda that Ms. Tay had a mildly elevated chloride of 109, as well as an elevated LDL of 126. As Ms. Tay canceled her appointment earlier this month and has not responded to messages regarding rescheduling her appointment at the [facility] [place], I asked Dr. Villeda to take over the treatment and management of the above abnormalities. Dr. Villeda graciously agreed. He stated that he would order repeat blood work to monitor the above abnormalities and her lab work. Thank you to Dr. Cristina Villeda. [facility] Progress Noteon 10-03-2024 Progress Note I left a voicemail a t the office of primary care provider Dr. Cristina Villeda's office to discuss lab order abnormalities as Ms. Tay canceled her recent appointment and has not rescheduled. I am concerned that she is no longer interested in following up with the weight management [place]. She has been sent and read a [employer] message regarding calling the office to reschedule her appointment. No appointment has been scheduled as of yet. I left Dr. Villeda's office my personal cell phone number to call me back. I called Dr. Villeda's office 10/03/2024 at 12:30 PM. Normal [facility] 36on 09-20-2024 36 I attempted to call this patient to reschedule a canceled visit on 09/[address] Briscoe with no answer. I left a voicemail and a call back number. Attempt #2. Normal [facility] 36on 09-19-2024 36 I called this patien t to reschedule a canceled visit on 09/26/24 with no answer. I left a voicemail explaining and a call back number. 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, [address] Progress Noteon 08-05-2024 Progress Note Recent labs scanned into chart. Management per ordering provider. July 2024 CMP (GFR 98) A1c 5.1 Lipids TSH Normal [facility] Comprehensive Metabolic Prof ilon 08-03-2024 Albumin [Mass/Vol] 3.6 g/dL Normal 3.2-5.0 [facility] Comment on above: Performed By: #### L 501.9985, L501.9520, L500.4100, L500.4050, L3300.3500 #### [facility] [address] [place], [address] Albumin/Globulin [Mass ratio] 1.1 {ratio} Normal 0.9-2.4 [facility] Comment on above: Performed By: #### L 501.9985, L501.9520, L500.4100, L500.4050, L3300.3500 #### [facility] [address] [place], [address] ALK P 75 U/L Normal 45-117 [facility] Comment on above: Performed By: #### L 501.9985, L501.9520, L500.4100, L500.4050, L3300.3500 #### [facility] [address] [place], [address] ALT [Catalytic activity/Vol] 35 U/L Normal 13-56 [facility] Comment on above: Performed By: #### L 501.9985, L501.9520, L500.4100, L500.4050, L3300.3500 #### [facility] [address] [place], [address] AST [Catalytic activity/Vol] 23 U/L Normal 15-37 [facility] Comment on above: Performed By: #### L 501.9985, L501.9520, L500.4100, L500.4050, L3300.3500 #### [facility] [address] [place], [address] Bilirubin [Mass/Vol] 0.50 mg/dL Normal 0.20-1.00 [facility] Comment on above: Result Comment: For patients on eltrombopag therapy, use of Dimension [place] TBIL is not recommended. Performed By: #### L 501.9985, L501.9520, L500.4100, L500.4050, L3300.3500 #### [facility] [address] [place], [address] BUN/CRE 16.5 RATIO Normal 10-20 [facility] Comment on above: Performed By: #### L 501.9985, L501.9520, L500.4100, L500.4050, L3300.3500 #### [facility] [address] [place], [address] CA,Total 9.1 mg/dL Normal 8.5-10.1 [facility] Comment on above: Performed By: #### L 501.9985, L501.9520, L500.4100, L500.4050, L3300.3500 #### [facility] [address] [place], [address] Chloride [Moles/Vol] 109 mmol/L High 98-107 [facility] Comment on above: Performed By: #### L 501.9985, L501.9520, L500.4100, L500.4050, L3300.3500 #### [facility] [address] [place], [address] CO2 [Moles/Vol] 25.0 mmol/L Normal 21.0-32.0 [facility] Comment on above: Performed By: #### L 501.9985, L501.9520, L500.4100, L500.4050, L3300.3500 #### [facility] [address] [place], [address] Creatinine [Mass/Vol] 0.73 mg/dL Normal 0.55-1.02 [facility] Comment on above: Result Comment: The validity of the calculated GFR GFRAA in patients over 70 years has not been determined. Clinical correlation is essential. Performed By: #### L 501.9985, L501.9520, L500.4100, L500.4050, L3300.3500 #### [facility] [address] [place], [address] EST GFR - AA 118 mL/min Normal >60 [facility] Comment on above: Result Comment: Afri can Canadian GFR Calc Performed By: #### L 501.9985, L501.9520, L500.4100, L500.4050, L3300.3500 #### [facility] [address] [place], [address] GAP 6 Normal 5-15 [facility] Comment on above: Performed By: #### L 501.9985, L501.9520, L500.4100, L500.4050, L3300.3500 #### [facility] [address] [place], [address] GFR/1.73 sq M.predicted among non-blacks MDRD (S/P/Bld) [Vol rate/Area] 98 mL/min/{1.73_m2} Normal >60 [facility] Comment on above: Result Comment: Non- GFR Calc Performed By: #### L 501.9985, L501.9520, L500.4100, L500.4050, L3300.3500 #### [facility] [address] [place], [address] Globulin (S) [Mass/Vol] 3.2 g/dL Normal 2.2-4.2 [facility] Comment on above: Performed By: #### L 501.9985, L501.9520, L500.4100, L500.4050, L3300.3500 #### [facility] [address] [place], [address] Glucose [Mass/Vol] 95 mg/dL Normal 74-106 [facility] Comment on above: Performed By: #### L 501.9985, L501.9520, L500.4100, L500.4050, L3300.3500 #### [facility] [address] [place], [address] Potassium [Moles/Vol] 4.0 mmol/L Normal 3.5-5.1 [facility] Comment on above: Performed By: #### L 501.9985, L501.9520, L500.4100, L500.4050, L3300.3500 #### [facility] [address] [place], [address] Sodium [Moles/Vol] 140 mmol/L Normal 136-145 [facility] Comment on above: Performed By: #### L 501.9985, L501.9520, L500.4100, L500.4050, L3300.3500 #### [facility] [address] [place], [address] T PROT 6.8 g/dL Normal 6.4-8.2 [facility] Comment on above: Performed By: #### L 501.9985, L501.9520, L500.4100, L500.4050, L3300.3500 #### [facility] [address] [place], [address] Urea nitrogen [Mass/Vol] 12 mg/dL Normal 7-18 [facility] Comment on above: Performed By: #### L 501.9985, L501.9520, L500.4100, L500.4050, L3300.3500 #### [facility] [address] [place], [address] Hemoglobin A1con 08-03-2024 HbA1c (Bld) [Mass fraction] 5.1 % Normal 3.8-5.6 [facility] Comment on above: Result Comment: Norm al < 5.7 % Prediabetic 5.7 - 6.4 % Diabetic >or= 6.5 % Please note range changes. Performed By: #### L 501.9985, L501.9520, L500.4100, L500.4050, L3300.3500 #### [facility] [address] [place], [address] Lipid Profileon 08-03-2024 Cholesterol [Mass/Vol] 189 mg/dL Normal 200 [facility] Comment on above: Result Comment: <200 mg/dL Desirable 200-240 mg/dL Borderline >240 mg/dL High Risk Performed By: #### L 501.9985, L501.9520, L500.4100, L500.4050, L3300.3500 #### [facility] [address] [place], [address] Cholesterol in HDL [Mass/Vol] 51 mg/dL Normal [facility] Comment on above: Result Comment: The drugs N-Acetylcysteine and Metamizole may falsely depress this assay. Reference Range HDL <40 mg/dL Low HDL Cholesterol HDL >or= 60 mg/dL High HDL Cholesterol Performed By: #### L 501.9985, L501.9520, L500.4100, L500.4050, L3300.3500 #### [facility] [address] [place], [address] Cholesterol in LDL [Mass/Vol] 126 mg/dL Normal 0-130 [facility] Comment on above: Performed By: #### L 501.9985, L501.9520, L500.4100, L500.4050, L3300.3500 #### [facility] [address] [place], [address] Cholesterol in VLDL [Mass/Vol] 12 mg/dL Normal 5-40 [facility] Comment on above: Performed By: #### L 501.9985, L501.9520, L500.4100, L500.4050, L3300.3500 #### [facility] [address] [place], [address] Triglyceride [Mass/Vol] 59 mg/dL Normal [facility] Comment on above: Result Comment: The drugs N-Acetylcysteine and Metamizole may falsely depress this assay. Serum Triglycerides Reference Interval Normal <150 mg/dL Borderline high 150 - 199 mg/dL High 200 - 499 mg/dL Very High > or = 500 mg/dL Performed By: #### L 501.9985, L501.9520, L500.4100, L500.4050, L3300.3500 #### [facility] [address] [place], [address] Thyroid Stim Hormone (TSH)on 08-03-2024 TSH 1.710 uIU/mL Normal 0.358-3.74 0 [facility] Comment on above: Performed By: #### L 501.9985, L501.9520, L500.4100, L500.4050, L3300.3500 #### [facility] [address] [place], [address] Basophil percentageOrdered B y: Zulema Wilks on 02-09-2024 Bilirubin [Mass/Vol] 0.40 mg/dL 0.20-1.00 [facility] Comment on above: For patients on eltr ombopag therapy, use of Dimension [place] TBIL is not recommended. Chloride [Moles/Vol] 105 mmol/L 98-107 [facility] Glucose [Mass/Vol] 73 mg/dL 74-106 [facility] Hemoglobin (Bld) [Mass/Vol] 14.1 g/dL 12.0-15.0 [facility] Potassium [Moles/Vol] 3.9 mmol/L 3.5-5.1 [facility] Protein [Mass/Vol] 7.2 g/dL 6.4-8.2 [facility] Sodium [Moles/Vol] 138 mmol/L 136-145 [facility] WBC (Bld) [#/Vol] 11.4 10*3/uL 4.4-11.0 [facility] Determination of erythrocyte mean corpuscular volume (MCV)Ordered By: Zulema Wilks on 02-09-2024 MCV (RBC) [Entitic vol] 92.4 fL 81-99 [facility] Erythrocyte distribution wid th ratioOrdered By: Zulema Wilks on 02-09-2024 Erythrocyte distribution width (RBC) [Ratio] 12.0 % 11.6-14.6 [facility] Erythrocyte distribution wid th standard deviationOrdered By: Zulema Wilks on 02-09-2024 Erythrocyte distribution width (RBC) [Entitic vol] 41.2 fL 35.1-43.9 [facility] Hematocrit Auto (Bld) [Volum e fraction]Ordered By: Zulema Wilks on 02-09-2024 Hematocrit (Bld) [Volume fraction] 43.6 % 37-47 [facility] - Chemistry and C hemistry - challengeOrdered By: Zulema Wilks on 02-09-2024 Albumin/Globulin [Mass ratio] 1.0 {ratio} 0.9-2.4 [facility] ALP [Catalytic activity/Vol] 102 U/L 45-117 [facility] ALT [Catalytic activity/Vol] 21 U/L 13-56 [facility] CO2 [Moles/Vol] 28.0 mmol/L 21.0-32.0 [facility] Globulin (S) [Mass/Vol] 3.6 g/dL 2.2-4.2 [facility] Urea nitrogen/Creatinine [Mass ratio] 13.6 mg/mg 10-20 [facility] - Hematology and Cell countsOrdered By: Zulema Wilks on 02-09-2024 MCH (RBC) [Entitic mass] 29.9 pg 27.0-32.0 [facility] MCHC (RBC) [Mass/Vol] 32.3 g/dL 32-36 [facility] Platelet mean volume (Bld) [Entitic vol] 9.2 fL 6.2-12.0 [facility] Platelets (Bld) [#/Vol] 393 10*3/uL 150-450 [facility] No Panel InformationOrdered By: Zulema Wilks on 02-09-2024 Estimated GFR (MDRD) Amer 105 mL/min >60 [facility] Comment on above: GFR Calc Estimated GFR (MDRD) Non-Af Amer 87 mL/min >60 [facility] Comment on above: Non- GFR Calc RBC Auto (Bld) [#/Vol]Ordere d By: Zulema Wilks on 02-09-2024 RBC (Bld) [#/Vol] 4.72 10*6/uL 4.2-5.4 [facility] Serum or plasma calcium krysten urement (mass/volume)Ordered By: Zulema Wilks on 02-09-2024 Calcium [Mass/Vol] 9.4 mg/dL 8.5-10.1 [facility] Serum or plasma creatinine m easurement (mass/volume)Ordered By: Zulema Wilks on 02-09-2024 Creatinine [Mass/Vol] 0.81 mg/dL 0.55-1.02 [facility] Comment on above: The validity of the calculated GFR & GFRAA in patients over 70 years has not been determined. Clinical correlation is essential. Serum or plasma urea nitroge n measurement (mass/volume)Ordered By: Zulema Wilks on 02-09-2024 Urea nitrogen [Mass/Vol] 11 mg/dL 7-18 [facility] Thin prep Papanicolaou smear with manual screeningOrdered By: Zulema Wilks on 02-09-2024 Thin prep Papanicolaou smear with manual screening 3.6 g/dL 3.2-5.0 [facility] Thin prep Papanicolaou smear with manual screening 18 U/L 15-37 [facility] Thin prep Papanicolaou smear with manual screening 5 5-15 [facility] Basophil percentageOrdered B y: PARRISH HUFF on 01-10-2024 Hemoglobin (Bld) [Mass/Vol] 13.7 g/dL 12.0-15.0 [facility] Testosterone [Mass/Vol] 29 ng/dL 8-60 [facility] WBC (Bld) [#/Vol] 10.5 10*3/uL 4.4-11.0 [facility] Determination of erythrocyte mean corpuscular volume (MCV)Ordered By: PARRISH HUFF on 01-10-2024 MCV (RBC) [Entitic vol] 94.1 fL 81-99 [facility] Erythrocyte distribution wid th ratioOrdered By: [facility] on 01-10-2024 Erythrocyte distribution width (RBC) [Ratio] 12.6 % 11.6-14.6 [facility] Erythrocyte distribution wid th standard deviationOrdered By: PARRISH HUFF on 01-10-2024 Erythrocyte distribution width (RBC) [Entitic vol] 43.6 fL 35.1-43.9 [facility] Free testosterone percentage Ordered By: PARRISH HUFF on 01-10-2024 Testosterone Free/Testosterone.total [Mass fraction] 3.17 % 0.50-2.80 [facility] Hematocrit Auto (Bld) [Volum e fraction]Ordered By: PARRISH HUFF on 01-10-2024 Hematocrit (Bld) [Volume fraction] 42.8 % 37-47 [facility] - Hematology and Cell countsOrdered By: PARRISH HUFF on 01-10-2024 MCH (RBC) [Entitic mass] 30.1 pg 27.0-32.0 [facility] MCHC (RBC) [Mass/Vol] 32.0 g/dL 32-36 [facility] Platelet mean volume (Bld) [Entitic vol] 9.1 fL 6.2-12.0 [facility] Platelets (Bld) [#/Vol] 368 10*3/uL 150-450 [facility] No Panel InformationOrdered By: PARRISH HUFF on 01-10-2024 Dehydroepiandrosterone Sulfate 311.0 ug/dL 84.8-378.0 [facility] Comment on above: Performed at: [address] [id number] Director: Anival Yao PhD, Phone: [phone] at: - [facility] [id number] Director: Ibeth Em MD, Phone: [phone] at: ES - [facility] [address] [id number] Director: Nain Allan MD, Phone: [phone] Prolactin 21.0 ng/mL [facility] Comment on above: NORMAL REFERENCE RAN GES FEMALE NON- 2.2 - 30.3 ng/mL 8.1 - 347.6 ng/mL POST-MENOPAUSAL 0.7 - 31.5 ng/mL MALE 2.5 - 17.4 ng/mL RBC Auto (Bld) [#/Vol]Ordere d By: PARRISH HUFF on 01-10-2024 RBC (Bld) [#/Vol] 4.55 10*6/uL 4.2-5.4 [facility] Serum or plasma 17-hydroxypr ogesterone measurement (mass/volume)Ordered By: PARRISH HUFF on 01-10-2024 17-Hydroxyprogesterone [Mass/Vol] 29 ng/dL . [facility] Comment on above: Adult Female Follicu lar 15 - 70 Luteal 35 - 290Performed at: [facility] [place], [place] [id number] Director: Ibeth Em MD, Phone: [phone] Serum or plasma choriogonado tropin detectionOrdered By: PARRISH HUFF on 01-10-2024 HCG ( test) Ql < 1 mIU/mL <4 [facility] Comment on above: hCG levels with Gest ational AgeGestational Age hCG mIU/mL (IU/L)0.2 - 1 week 5 - 501-2 weeks 50 - 5002-3 weeks 100 - 49601-8 weeks 500 - 948462-7 weeks 1000 - 875181-3 weeks 12476 - 100,0006-8 weeks 63743 - 200,0002-3 months 64151 - 100,000 Serum or plasma flecainide m easurement (mass/volume)Ordered By: PARRISH HUFF on 01-10-2024 Flecainide [Mass/Vol] 2.16 ng/mL . [facility] Comment on above: For assays employing antibodies, the possibility exists forinterference by heterophile antibodies in the samples.11.Sea [place]iday Interferences in Immunoassays - still a threat. Clin. Chem. 2000; 46: 1042-9700.This test was developed and its performance characteristicsdetermined by [employer]. It has not been cleared or approvedby the Food and Drug Administration.Reference Range:Females 31 - 35y: 0.66 - 8.75Median 3.00AMH concentrations of >= 1.06 ng/mL is correlated with abetter response to ovarian stimulation, produced moreretrievable oocytes and higher odds of live accordingto Suzannaer et al. Fertility and Sterility. 2010:94:9729-3284. The current AMH test method correlates withthe study method with a slope of 0.94.Females at risk of ovarian hyperstimulation syndrome orpolycystic ovarian syndrome (PCOS) may exhibit elevatedserum AMH concentrations. AMH levels from PCOS patientsmay be 2 to 5 fold higher than age-appropriate referenceinterval values.Granulosa cell tumors of the ovary may secrete AMH alongwith other tumor markers. Elevated AMH is not specific formalignancy, and the assay should not be used exclusively todiagnose or exclude an AMH-secreting ovarian tumor. Serum or plasma testosterone free measurement (mass/volume)Ordered By: PARRISH HUFF on 01-10-2024 Testosterone Free [Mass/Vol] 0.92 ng/dL 0.10-0.85 [facility] Serum or plasma thyroid stim ulating hormone (TSH) measurement (units/volume)Ordered By: PARRISH HUFF on 01-10-2024 TSH Qn 1.44 uIU/mL 0.358-3.74 [facility] Thin prep Papanicolaou smear with manual screeningOrdered By: PARRISH HUFF on 01-10-2024 Thin prep Papanicolaou smear with manual screening 0.94 ng/dL 0.76-1.46 [facility] GLUon 07-22-2023 Glucose [Mass/Vol] 97 mg/dL Normal 70-105 [facility] ([place]) Comment on above: Performed By: #### L IPID, GLU #### [address] [address] LIPIDon 07-22-2023 Cholesterol [Mass/Vol] 211 mg/dL High 0-200 [facility] ([place]) Comment on above: Result Comment: Chol esterol Reference Interval: Less than 200 Desirable 200-239 Borderline high risk 240 and above High risk Performed By: #### L IPID, GLU #### [address] [address] Cholesterol in HDL [Mass/Vol] 58 mg/dL Normal 40-60 [facility] ([place]) Comment on above: Performed By: #### L IPID, GLU #### [address] [address] Cholesterol in LDL [Mass/Vol] 143 mg/dL High 0-130 [facility] ([place]) Comment on above: Performed By: #### L IPID, GLU #### [address] [address] Triglyceride [Mass/Vol] 49 mg/dL Normal 0-150 A [facility] ([place]) Comment on above: Result Comment: Trig lyceride Reference Interval: Less than 150 Normal 150-199 Borderline high risk 200-499 High risk 500 or higher Very high risk Performed By: #### L CRISTOFER VELAZCO #### [address] [place], [place] [address] COVID-19 virus antigen assay Ordered By: Cesar Acuña on 07-08-2023 SARS-CoV-2 (COVID-19) Ag IA.rapid Ql (Resp) [facility] Throat specimen bacteria laura ntification by cultureOrdered By: Jose Antonio Briscoe on 05-13-2023 Bacteria identified Cx Nom (Throat) [facility] No Panel Informationon 12-01 [facility] T4, freeon 12-01-2022 Free T4 [Mass/Vol] 1.2 ng/dL 0.8 - 1.5 ng/dL [facility] TSHon 12-01-2022 TSH Qn 2.020 m[IU]/L [facility] CNPNon 10-13-2022 CNPN Telephone (AGCARDPOB ) ----- MARJ TAY ([id number]) 1990 F Date Time Provider Department 10/13/22 AG CARD AGCARDPOB During your visit today, we recorded the following information about you: Amanda Dean 10/13/2022 9:41 AM Signed Lvm for pt saying she had already rescheduled apt with Dr. Castanon for 10/21/2022 at 1;00 with FELISHA Dimas and if this apt need rescheduled to call back.left phone number to call back. Amanda Dean October 13, 2022 9:41 AM Allergies As of Date: 10/13/2022 Noted Allergy Reaction CEFUROXIME 01/03/2017 2 - Rash PENICILLIN V 01/03/2017 4 - Hives SULFAMETHOXAZOLE-TRIMETHO PRIM 01/03/2017 16 - Unknown CEFTIN (CEFUROXIME AXETIL) 04/17/2006 2 - Rash EMYCIN (ERYTHROMYCIN) 04/17/2006 4 - Hives LACTOSE INTOLERANCE (LACTASE) 04/17/2006 8 - GI Upset PENICILLINS 04/17/2006 2 - Rash SEASONALE (LEVONORGESTREL-ETHINYL*0 04/17/2006 5 - Intolerance SPIRONOLACTONE 12/23/2020 16 - Unknown SULFA (SULFONAMIDE ANTIBIOTICS) 01/01/2019 2 - Rash sulfacedamide [Other] 04/17/2006 2 - Rash Date Reviewed: 07/29/2022 Reviewed by: Geoffrey Raoms APRN.ARCHITECTURAL DRAFTER - Fully Assessed Reason for Visit: Appointment [186] Prescriptions as of 10/13/2022 - famotidine (PEPCID) 20 mg tablet TAKE 1 TABLET BY MOUTH EVERY DAY - Cetirizine 10 mg cap ZYRTEC ALLERGY TABS as directed CETIRIZINE HCL TABS [id number] Tamia Yen LPN - levothyroxine sodium (SYNTHROID ORAL) SYNTHROID TABS as directed LEVOTHYROXINE SODIUM TABS [id number] Tamia Yen LPN - MAGNESIUM OXIDE ORAL Take by mouth once daily. - loratadine (CLARITIN) 10 mg tablet Take 10 mg by mouth once daily. - Cholecalciferol, Vitamin D3, 50 mcg (2,000 unit) cap Take 1 capsule by mouth once daily. - ipratropium bromide (ATROVENT) 42 mcg (0.06 %) nasal spray Use 2 Sprays in the nose as needed. - pantoprazole DR (PROTONIX) 40 mg tablet Take 1 tablet by mouth once daily. - fexofenadine (PAVITHRA) 180 mg ORAL Tab Take one(1) tablet daily. - ascorbic acid (VITAMIN C) 500 mg ORAL Tab Take one(1) tablet daily. - Calcium Carbonate-Vitamin D2 (CALCIUM-D) 600-200 mg-unit ORAL Cap Take one(1) tablet daily. - Multivitamin (DAILY MULTIPLE) ORAL Tab Take one(1) tablet daily. - clindamycin 1 % TOPICAL Soln am and suppertime face - Adapalene (DIFFERIN) 0.1 % TOPICAL Gel qhs Problem List As Of Date 10/13/2022 Noted Resolved Palpitations [R00.2] 12/23/2020 Tachycardia [R00.0] 12/23/2020 Encounter Status:Closed by AMANDA DEAN on 10/13/22 Normal [facility] HbA1c (Bld)on 09-26-2022 Average glucose Estimated from glycated hemoglobin (Bld) [Mass/Vol] 91 mg/dL Normal [facility] Comment on above: Order Comment: Rika joy Type: BLOOD SPECIMEN Ordering Facility: External Submitter Address: , , Result Comment: eAG: (Estimated average glucose) is a calculated value from HgbA1c and is signs and displays sales representative of the average blood glucose level in the last 2-3 month period. Performed By: #### 5 5454-3 #### [facility] CLIA [id number] [address] [place] [address] HbA1c (Bld) [Mass fraction] 4.8 % Normal 4.3-5.6 [facility] Comment on above: Order Comment: Rika joy Type: BLOOD SPECIMEN Ordering Facility: External Submitter Address: , , Result Comment: Amer ican Diabetes Association guidelines indicate that patients with HgbA1c in the range 5.7-6.4% are at increased risk for development of diabetes, and intervention by lifestyle modification may be beneficial. HgbA1c greater or equal to 6.5% is considered diagnostic of diabetes. Performed By: #### 5 5454-3 #### [facility] CLIA [id number] [address] [place] [address] [place] Lipid 1996 panelon 2 Cholesterol [Mass/Vol] 209 mg/dL High <200 [facility] Comment on above: Order Comment: Rika joy Type: BLOOD SPECIMENOrdering Facility: External Submitter Address: , , Result Comment: <200 mg/dL, Desirable 200-239 mg/dL, Borderline high >239 mg/dL, High Performed By: #### 2 4331-1 ####[facility] [id number] [address] [facility] [id number] [address] Cholesterol in HDL [Mass/Vol] 55 mg/dL Normal >39 [facility] Comment on above: Order Comment: Jessai men Type: BLOOD SPECIMENOrdering Facility: External Submitter Address: , , Result Comment: 40-5 9 mg/dL, Acceptable >59 mg/dL, High: Negative risk factor for coronary heart disease <40 mg/dL, Low: Positive risk factor for coronary heart disease Performed By: #### 2 4331-1 ####[facility] [id number] [address] [id number] [address] Cholesterol in LDL [Mass/Vol] 145 mg/dL High <100 [facility] Comment on above: Order Comment: Rika men Type: BLOOD SPECIMENOrdering Facility: External Submitter Address: , , Result Comment: <100 mg/dL, Optimal 100-129 mg/dL, Near optimal/above optimal 130-159 mg/dL, Borderline high 160-189 mg/dL, High >189 mg/dL, Very high Secondary prevention optimal LDL Cholesterol levels are recommended to be < 70 mg/dL Performed By: #### 2 4331-1 ####[facility] [id number] [address] [id number] [address] Cholesterol in LDL/Cholesterol in HDL [Mass ratio] 2.64 {ratio} High <2.54 [facility] Comment on above: Order Comment: Rika benita Type: BLOOD SPECIMENOrdering Facility: External Submitter Address: , , Result Comment: Refwolf color[place]ce: 1. National Cholesterol Education Program ATP III Guideline At-A-Glance Quick Desk Reference: National Heart, Lung, and Blood [place]. National Institutes of Health. 2001: NIH Publication No. 01-3305. 2. An International Atherosclerosis Society position paper: global recommendations for the management of dyslipidemia: executive summary, Atherosclerosis. 2014: 232(2):410-413. Performed By: #### 2 4331-1 ####[facility] [id number] [address] [id number] [address] Cholesterol in VLDL [Mass/Vol] 9 mg/dL Normal <30 [facility] Comment on above: Order Comment: Jessai benita Type: BLOOD SPECIMENOrdering Facility: External Submitter Address: , , Performed By: #### 2 4331-1 ####[facility] [id number] [id number] [place] [address] [place] Cholesterol non HDL [Mass/Vol] 154 mg/dL High <130 [facility] Comment on above: Order Comment: Rika joy Type: BLOOD SPECIMENOrdering Facility: External Submitter Address: , , Result Comment: <130 mg/dL, Optimal 130-159 mg/dL, Near optimal/above optimal 160-189 mg/dL, Borderline high 190-219 mg/dL, High >219 mg/dL, Very high Secondary prevention optimal non HDL Cholesterol levels are recommended to be <100 mg/dL Performed By: #### 2 4331-1 ####[facility] [id number] [address] [id number] [address] Cholesterol.total/Alejandra sterol in HDL [Mass ratio] 3.80 {ratio} Normal <5.10 [facility] Comment on above: Order Comment: Rika joy Type: BLOOD SPECIMENOrdering Facility: External Submitter Address: , , Performed By: #### 2 4331-1 ####[facility] [id number] [address] [id number] [address] FASTING TIME 14 hrs Normal [facility] Comment on above: Order Comment: Speci men Type: BLOOD SPECIMENOrdering Facility: External Submitter Address: , , Performed By: #### 2 4331-1 ####[facility] [id number] [address] [id number] [place] [address] Triglyceride [Mass/Vol] 44 mg/dL Normal <150 [facility] Comment on above: Order Comment: Speci men Type: BLOOD SPECIMENOrdering Facility: External Submitter Address: , , Result Comment: <150 mg/dL, Normal 150-199 mg/dL, Borderline high 200-499 mg/dL, High >499 mg/dL, Very high Performed By: #### 2 4331-1 ####[facility] [id number] [id number] [place] [address] OF [facility] MACROPROLACTINon 09-26-2022 MONOMERIC PROLACTIN 13.5 ng/mL Normal 2.8-19.5 [facility] Comment on above: Order Comment: Order ing Facility: External Submitter Address: , , Result Comment: INTE RPRETIVE INFORMATION: Monomeric Prolactin This test was developed and its performance characteristics determined by [facility]. It has not been cleared or approved by the U.S. Food and Drug Administration. This test was performed in a CLIA-certified laboratory and is intended for clinical purposes. Performed By: #### M ACPRO ####[facility] [id number] [place] [address] MONOMERIC PROLACTIN % 86.0 % Normal >=50.1 [facility] Comment on above: Order Comment: Order ing Facility: External Submitter Address: , , Result Comment: If t he % prolactin, monomeric is 40-50%, the result is indeterminate for macroprolactin. If the % prolactin, monomeric is <40%, this indicates the presence of macroprolactin. A prolactin, monomeric result above the upper reference limit is consistent with hyperprolactinemia. Prolactin, monomeric was determined by PEG precipitation. Macroprolactin is precipitated by PEG and is not measured. Access complete set of age- and/or gender-specific reference intervals for this test in the [facility] Test Directory ([email or web address]). Performed By: [facility] [address] [place], [place] [id number] Special Needs Child Caregiver: Og Monte MD, PhD Performed By: #### M ACPRO ####[facility] GROUPIA [id number] [place] [id number] PROLACTIN 15.7 ng/mL Normal 2.8-29.2 [facility] Comment on above: Order Comment: Order ing Facility: External Submitter Address: , , Result Comment: Interpretive Information: 9.7- >200.0 ng/mL Postmenopausal 1.8-20.3 ng/mL Testing prolactin in patients with suspected prolactinoma during is not recommended. REFERENCE INTERVAL: Prolactin Access complete set of age- and/or gender-specific reference intervals for this test in the [facility] Test Directory ([email or web address]). Performed By: #### M ACPRO ####[facility]ON[facility] GROUPIA [id number] [place] [address] MRI ANKLE W/O CONTRAST RIGHT on 08-09-2022 MRI ANKLE W/O CONTRAST RIGHT ORIGINAL EXAMINATION: MRI OF THE RIGHT ANKLE WITHOUT DMXUPRLY52/25/2022 9:04 am TECHNIQUE: Multiplanar multisequence MRI of the right ankle was performed without the administration of intravenous contrast. COMPARISON: None HISTORY: ORDERING SYSTEM PROVIDED HISTORY: Reason for Exam: SPRAIN OF OTHER LIGAMENT OF RIGHT ANKLE, PAIN IN RIGHT ANKLE AND FOOT Sprained ankle while running July 29. Pain on lateral side of foot and up leg. FINDINGS: TENDONS: The extensor tendons are intact and demonstrate a normal course. The flexor tendons are intact and demonstrate a normal course. The peroneal tendons are intact and demonstrate a normal course. The Achilles tendon is intact. The plantar aponeurosis is intact. LIGAMENTS: The anterior talofibular ligament demonstrates abnormal hyperintense STIR and proton density signal, with associated T1 hypointense signal. The calcaneofibular ligament is intact . The posterior talofibular ligament is intact. The anterior and posterior tibiofibular ligaments are intact. The deep and superficial components of the deltoid ligament are intact. The spring ligament complex is intact. JOINTS: There is no dislocation. Small joint effusion. The articular cartilage of the ankle joint is normal. There is no osteochondral defect in the talar dome. OSSEOUS STRUCTURES: There is an os trigonum. There is mild STIR hyperintense signal involving the subchondral aspect of the posteromedial talar dome and adjacent medial aspect of the medial malleolus. There is also minimal STIR hyperintense signal involving the medial navicular and medial aspect of the medial cuneiform at their medial articulation. Otherwise the bone marrow signal is normal. There is no fracture. There is no marrow replacing lesion. SOFT TISSUES: There is no muscle atrophy or tear. The tarsal tunnel is normal. The sinus tarsi is normal with preservation of fat signal. IMPRESSION: Low-grade sprain of the anterior talofibular ligament. Other ligaments in the ankle are intact.. Small contusions involving the posteromedial talus and medial aspect of the medial malleolus. Also small contusions at the navicular medial cuneiform articulation. No obvious fracture. I have personally reviewed the images of this examination and agree with the resident's findings and interpretation. Interpreted by: Luis Mauro MD Preliminary Report By: Maddison Lemon Electronically signed By Luis Mauro MD Dictated Date: 08/09/2022 10:40:43 AM Prelim Date: 08/09/2022 1:55:43 PM Sign Date: 08/09/2022 1:55:43 PM Ordering Provider: BISI NGUYEN [facility] ([place]) CNOVon 07-29-2022 CNOV Office Visit ([facility]WSTR ) ----- MARJ TAY ([id number]) 1990 F Date Time Provider Department 07/29/22 9:30 AM GEOFFREY RAMOS [facility] During your visit today, we recorded the following information about you: Temperature Pulse Respiration Blood pressure 98.3 degrees 79/minute 18/minute 124/90 Weight 82.6 kg Geoffrey Ramos, FADY.ARCHITECTURAL DRAFTER 07/29/2022 10:54 AM Signed Subjective HPI Nontoxic-appearing female presents urgent care chief complaint right ankle/mid foot pain. States this morning she was stepping off the treadmill when she caught her toe rolling her ankle outward. States she does have significant midfoot discomfort at first. She did ice it this did help. Rates pain 4 out of 10 with ambulation. Denies any other injuries. No numbness no tingling currently. She did have a burning sensation this did improve. History of stress fractures fifth metatarsal in the past. Denies history of surgeries. No numbness no tingling no decreased sensation. No weakness. Past medical history prescription medication use and allergies reviewed. Denies chance of . .Patient presents with: Ankle Injury: R ankle and foot injury x this AM PAST MEDICAL HISTORY Diagnosis Date Allergic rhinitis, cause unspecified Asthma Delayed emergence from general anesthesia Lab test positive for detection of COVID-19 virus Other acne PAC (premature atrial contraction) Palpitations PVC's (premature ventricular contractions) PAST SURGICAL HISTORY Procedure Laterality Date EGD W/O [facility] SPEC VARICIES INJ 05/16/2022 Normal [facility] COSMETIC SURGERY TONSILLECTOMY AND ADENOIDECTOMY TONSILLECTOMY HX ALLERGIES Cefuroxime, Penicillin V, Sulfamethoxazole-Trimetho prim, Ceftin [Cefuroxime Axetil], Emycin [Erythromycin], Lactose Intolerance [Lactase], Penicillins, Seasonale [Levonorgestrel-Ethinyl Estrad], Spironolactone, Sulfa (Sulfonamide Antibiotics), and Sulfacedamide [Other] MEDICATIONS famotidine (PEPCID) 20 mg tablet TAKE 1 TABLET BY MOUTH EVERY DAY MAGNESIUM OXIDE ORAL Take by mouth once daily. loratadine (CLARITIN) 10 mg tablet Take 10 mg by mouth once daily. Cholecalciferol, Vitamin D3, 50 mcg (2,000 unit) cap Take 1 capsule by mouth once daily. pantoprazole DR (PROTONIX) 40 mg tablet Take 1 tablet by mouth once daily. ascorbic acid (VITAMIN C) 500 mg ORAL Tab Take one(1) tablet daily. Calcium Carbonate-Vitamin D2 (CALCIUM-D) 600-200 mg-unit ORAL Cap Take one(1) tablet daily. Multivitamin (DAILY MULTIPLE) ORAL Tab Take one(1) tablet daily. Cetirizine 10 mg cap ZYRTEC ALLERGY TABS as directed CETIRIZINE HCL TABS [id number] Tamia Yen LPN levothyroxine sodium (SYNTHROID ORAL) SYNTHROID TABS as directed LEVOTHYROXINE SODIUM TABS [id number] Tamia Yen LPN ipratropium bromide (ATROVENT) 42 mcg (0.06 %) nasal spray Use 2 Sprays in the nose as needed. fexofenadine (PAVITHRA) 180 mg ORAL Tab Take one(1) tablet daily. clindamycin 1 % TOPICAL Soln am and suppertime face Adapalene (DIFFERIN) 0.1 % TOPICAL Gel [facility] FAMILY HISTORY Problem Relation Age of Onset Heart disease Maternal Grandmother Diabetes Maternal Grandmother Heart disease Maternal Grandfather Diabetes Maternal Grandfather Stroke Paternal Grandmother Stroke Paternal Grandfather Social History Tobacco Use Smoking status: Never Smokeless tobacco: Never Vaping Use Vaping Use: Never used Substance Use Topics Alcohol use: Yes Comment: occasionally Drug use: Never BP 124/90 Pulse 79 Temp 36.8 ?C (98.3 ?F) Resp 18 Wt 82.6 kg (182 lb) LMP 05/07/2022 (Exact Date) SpO2 99% BMI 27.58 kg/m? Review of Systems Constitutional: Negative for chills, fever and malaise/fatigue. Respiratory: Negative for cough and shortness of breath. Cardiovascular: Negative for chest pain. Gastrointestinal: Negative for abdominal pain and vomiting. Musculoskeletal: Positive for joint pain. Negative for back pain, falls, myalgias and neck pain. Objective Physical Exam Constitutional: General: She is not in acute distress. Appearance: She is not diaphoretic. HENT: Head: Normocephalic. Eyes: Conjunctiva/sclera: Conjunctivae normal. Pupils: Pupils are equal, round, and reactive to light. Cardiovascular: Rate and Rhythm: Normal rate and regular rhythm. Heart sounds: Normal heart sounds. Pulmonary: Effort: Pulmonary effort is normal. No tachypnea, accessory muscle usage or respiratory distress. Breath sounds: Normal breath sounds. No stridor. Abdominal: Palpations: Abdomen is soft. Tenderness: There is no abdominal tenderness. Musculoskeletal: Cervical back: Normal range of motion. Right lower leg: Swelling, tenderness and bony tenderness present. Right ankle: No swelling or ecchymosis. Tenderness present. Normal range of motion. Right Achilles Tendon: No tenderness. R (more content not included)... Normal [facility] MARJ TAY ([id number]) 1990 F Date Time Provider Department 07/29/22 GEOFFREY RAMOS JAMES During your visit today, we recorded the following information about you: Geoffrey Ramos APRN.SHAINA 07/29/2022 10:52 AM Signed No fractures dislocations noted on foot or ankle x-ray. Continue supportive therapies as discussed. Follow-up with podiatry or PCP if symptoms are not improving 10 to 14 days. Geoffrey Ramos APRN.SHAINA Cartagena LPN 07/29/2022 11:28 AM Signed Phone call placed patient advised (see prior provider encounter) Patient verbalized understanding, agreed with plan of care. Linus Cartagena LPN Allergies As of Date: 07/29/2022 Noted Allergy Reaction CEFUROXIME 01/03/2017 2 - Rash PENICILLIN V 01/03/2017 4 - Hives SULFAMETHOXAZOLE-TRIMETHO PRIM 01/03/2017 16 - Unknown CEFTIN (CEFUROXIME AXETIL) 04/17/2006 2 - Rash EMYCIN (ERYTHROMYCIN) 04/17/2006 4 - Hives LACTOSE INTOLERANCE (LACTASE) 04/17/2006 8 - GI Upset PENICILLINS 04/17/2006 2 - Rash SEASONALE (LEVONORGESTREL-ETHINYL*0 04/17/2006 5 - Intolerance SPIRONOLACTONE 12/23/2020 16 - Unknown SULFA (SULFONAMIDE ANTIBIOTICS) 01/01/2019 2 - Rash sulfacedamide [Other] 04/17/2006 2 - Rash Date Reviewed: 07/29/2022 Reviewed by: Geoffrey Ramos APRN.ARCHITECTURAL DRAFTER - Fully Assessed Reason for Visit: Results [95] Prescriptions as of 07/29/2022 - famotidine (PEPCID) 20 mg tablet TAKE 1 TABLET BY MOUTH EVERY DAY - Cetirizine 10 mg cap ZYRTEC ALLERGY TABS as directed CETIRIZINE HCL TABS [id number] Tamia Yen LPN - levothyroxine sodium (SYNTHROID ORAL) SYNTHROID TABS as directed LEVOTHYROXINE SODIUM TABS [id number] Tamia Yen LPN - MAGNESIUM OXIDE ORAL Take by mouth once daily. - loratadine (CLARITIN) 10 mg tablet Take 10 mg by mouth once daily. - Cholecalciferol, Vitamin D3, 50 mcg (2,000 unit) cap Take 1 capsule by mouth once daily. - ipratropium bromide (ATROVENT) 42 mcg (0.06 %) nasal spray Use 2 Sprays in the nose as needed. - pantoprazole DR (PROTONIX) 40 mg tablet Take 1 tablet by mouth once daily. - fexofenadine (PAVITHRA) 180 mg ORAL Tab Take one(1) tablet daily. - ascorbic acid (VITAMIN C) 500 mg ORAL Tab Take one(1) tablet daily. - Calcium Carbonate-Vitamin D2 (CALCIUM-D) 600-200 mg-unit ORAL Cap Take one(1) tablet daily. - Multivitamin (DAILY MULTIPLE) ORAL Tab Take one(1) tablet daily. - clindamycin 1 % TOPICAL Soln am and suppertime face - Adapalene (DIFFERIN) 0.1 % TOPICAL Gel qhs Problem List As Of Date 07/29/2022 Noted Resolved Palpitations [R00.2] 12/23/2020 Tachycardia [R00.0] 12/23/2020 Encounter Status:Closed by ADRIANALINUS ALBRIGHT MESFIN on 07/29/22 Normal [facility] No Panel Informationon 07-29 IMPRESSION: Small an kle joint effusion. No acute fractures demonstrated. Receptionist Nurse: TANISHA Transcribe Date/Time: Jul 29 2022 10:10A Dictated by : VÍCTOR MCDOWELL MD This examination was interpreted and the report reviewed and electronically signed by: VÍCTOR MCDOWELL MD on Jul 29 2022 10:43AM EST DIVISION OF RADIOLOGY Radiology Study observation (narrative) [facility] No Panel InformationOrdered By: Ccf Provider on 07-29-2022 [facility] XR ANKLE 3V AP/LAT/OBL RTon 07-29-2022 XR ANKLE 3V AP/LAT/OBL RT * * *Final Report* * * DATE OF EXAM: Jul 29 2022 9:58AM [id number] - XR ANKLE 3V AP/LAT/OBL RT / PROCEDURE REASON: Injury of right ankle, initial encounter * * * * Physician Interpretation * * * * EXAM TITLE: XR ANKLE 3V AP/LAT/OBL RT, XR FOOT 3V AP/LAT/OBL RT EXAM DATE/TIME: 07/29/2022 9:58 AM COMPARISON: None. CLINICAL INDICATION/HISTORY: Injury. TECHNIQUE: AP, mortise and lateral views of the right ankle are presented. AP, oblique and lateral views of the right foot are also presented. FINDINGS: No acute fractures or subluxations are noted. The mortise joint spaces are well preserved. There appears to be small ankle joint effusion, visualized on lateral view. The mineralization of the bones is normal. There is no significant soft tissue swelling. IMPRESSION: Small ankle joint effusion. No acute fractures demonstrated. Receptionist Nurse: TANISHA Transcribe Date/Time: Jul 29 2022 10:10A Dictated by : VÍCTOR MCDOWELL MD This examination was interpreted and the report reviewed and electronically signed by: VÍCTOR MCDOWELL MD on Jul 29 2022 10:43AM EST [id number] Normal [facility] XR Ankle - right AP and Late ral and obliqueon 07-29-2022 * * *Final Report* * * DATE OF EXAM: Jul 29 2022 9:58AM [id number] - XR ANKLE 3V AP/LAT/OBL RT / PROCEDURE REASON: Injury of right ankle, initial encounter * * * * Physician Interpretation * * * * EXAM TITLE: XR ANKLE 3V AP/LAT/OBL RT, XR FOOT 3V AP/LAT/OBL RT EXAM DATE/TIME: 07/29/2022 9:58 AM COMPARISON: None. CLINICAL INDICATION/HISTORY: Injury. TECHNIQUE: AP, mortise and lateral views of the right ankle are presented. AP, oblique and lateral views of the right foot are also presented. FINDINGS: No acute fractures or subluxations are noted. The mortise joint spaces are well preserved. There appears to be small ankle joint effusion, visualized on lateral view. The mineralization of the bones is normal. There is no significant soft tissue swelling. DIVISION OF RADIOLOGY Provider, [facility] - 07/29/2022 * * *Final Report* * * DATE OF EXAM: Jul 29 2022 9:58AM WOX 5297 - XR ANKLE 3V AP/LAT/OBL RT / PROCEDURE REASON: Injury of right ankle, initial encounter * * * * Physician Interpretation * * * * EXAM TITLE: XR ANKLE 3V AP/LAT/OBL RT, XR FOOT 3V AP/LAT/OBL RT EXAM DATE/TIME: 07/29/2022 9:58 AM COMPARISON: None. CLINICAL INDICATION/HISTORY: Injury. TECHNIQUE: AP, mortise and lateral views of the right ankle are presented. AP, oblique and lateral views of the right foot are also presented. FINDINGS: No acute fractures or subluxations are noted. The mortise joint spaces are well preserved. There appears to be small ankle joint effusion, visualized on lateral view. The mineralization of the bones is normal. There is no significant soft tissue swelling. IMPRESSION IMPRESSION: Small ankle joint effusion. No acute fractures demonstrated. Receptionist Nurse: PSCB Transcribe Date/Time: Jul 29 2022 10:10A Dictated by : VÍCTOR MCDOWELL MD This examination was interpreted and the report reviewed and electronically signed by: VÍCTOR MCDOWELL MD on Jul 29 2022 10:43AM [facility] XR FOOT 3V AP/LAT/OBL RTon 1 XR FOOT 3V AP/LAT/OBL RT * * *Final Report* * * DATE OF EXAM: Jul 29 2022 9:58AM WOX 5337 - XR FOOT 3V AP/LAT/OBL RT / PROCEDURE REASON: multiple diagnoses * * * * Physician Interpretation * * * * EXAM TITLE: XR ANKLE 3V AP/LAT/OBL RT, XR FOOT 3V AP/LAT/OBL RT EXAM DATE/TIME: 07/29/2022 9:58 AM COMPARISON: None. CLINICAL INDICATION/HISTORY: Injury. TECHNIQUE: AP, mortise and lateral views of the right ankle are presented. AP, oblique and lateral views of the right foot are also presented. FINDINGS: No acute fractures or subluxations are noted. The mortise joint spaces are well preserved. There appears to be small ankle joint effusion, visualized on lateral view. The mineralization of the bones is normal. There is no significant soft tissue swelling. IMPRESSION: Small ankle joint effusion. No acute fractures demonstrated. Receptionist Nurse: [facility] Transcribe Date/Time: Jul 29 2022 10:10A Dictated by : VÍCTOR MCDOWELL MD This examination was interpreted and the report reviewed and electronically signed by: VÍCTOR MCDOWELL MD on Jul 29 2022 10:43AM EST [id number] Normal [facility] XR Foot - right AP and Later al and obliqueon 07-29-2022 * * *Final Report* * * DATE OF EXAM: Jul 29 2022 9:58AM WOX 5337 - XR FOOT 3V AP/LAT/OBL RT / PROCEDURE REASON: multiple diagnoses * * * * Physician Interpretation * * * * EXAM TITLE: XR ANKLE 3V AP/LAT/OBL RT, XR FOOT 3V AP/LAT/OBL RT EXAM DATE/TIME: 07/29/2022 9:58 AM COMPARISON: None. CLINICAL INDICATION/HISTORY: Injury. TECHNIQUE: AP, mortise and lateral views of the right ankle are presented. AP, oblique and lateral views of the right foot are also presented. FINDINGS: No acute fractures or subluxations are noted. The mortise joint spaces are well preserved. There appears to be small ankle joint effusion, visualized on lateral view. The mineralization of the bones is normal. There is no significant soft tissue swelling. DIVISION OF RADIOLOGY Provider, [facility] - 07/29/2022 * * *Final Report* * * DATE OF EXAM: Jul 29 2022 9:58AM WOX 5337 - XR FOOT 3V AP/LAT/OBL RT / PROCEDURE REASON: multiple diagnoses * * * * Physician Interpretation * * * * EXAM TITLE: XR ANKLE 3V AP/LAT/OBL RT, XR FOOT 3V AP/LAT/OBL RT EXAM DATE/TIME: 07/29/2022 9:58 AM COMPARISON: None. CLINICAL INDICATION/HISTORY: Injury. TECHNIQUE: AP, mortise and lateral views of the right ankle are presented. AP, oblique and lateral views of the right foot are also presented. FINDINGS: No acute fractures or subluxations are noted. The mortise joint spaces are well preserved. There appears to be small ankle joint effusion, visualized on lateral view. The mineralization of the bones is normal. There is no significant soft tissue swelling. IMPRESSION IMPRESSION: Small ankle joint effusion. No acute fractures demonstrated. Receptionist Nurse: PSCB Transcribe Date/Time: Jul 29 2022 10:10A Dictated by : VÍCTOR MCDOWELL MD This examination was interpreted and the report reviewed and electronically signed by: VÍCTOR MCDOWELL MD on Jul 29 2022 10:43AM [facility] Jaki 07-28-2022 JAK Telephone (GSTNOR) ----- MARJ ATY ([id number]) 1990 F Date Time Provider Department 07/28/22 HAYDER MCQUEEN During your visit today, we recorded the following information about you: Hayder Mcqueen APRN.CNP 07/28/2022 4:09 PM Signed Called patient and left voice mail. Results of celiac screen weak positive - Her recent EGD on pathology no evidence of celiac. However, I recommend gluten free diet and see if this improves symptoms and follow up in 6 months with repeating blood work. Thanks Hayder Mcqueen APRN.SHAINA Castaneda Ben Felder Ma 08/01/2022 11:33 AM Signed Pt notified Tonya Felder Ma Allergies As of Date: 07/28/2022 Noted Allergy Reaction CEFUROXIME 01/03/2017 2 - Rash PENICILLIN V 01/03/2017 4 - Hives SULFAMETHOXAZOLE-TRIMETHO PRIM 01/03/2017 16 - Unknown CEFTIN (CEFUROXIME AXETIL) 04/17/2006 2 - Rash EMYCIN (ERYTHROMYCIN) 04/17/2006 4 - Hives LACTOSE INTOLERANCE (LACTASE) 04/17/2006 8 - GI Upset PENICILLINS 04/17/2006 2 - Rash SEASONALE (LEVONORGESTREL-ETHINYL*0 04/17/2006 5 - Intolerance SPIRONOLACTONE 12/23/2020 16 - Unknown SULFA (SULFONAMIDE ANTIBIOTICS) 01/01/2019 2 - Rash sulfacedamide [Other] 04/17/2006 2 - Rash Date Reviewed: 05/16/2022 Reviewed by: Otilia Holland RN - Fully Assessed Reason for Visit: Results [95] Prescriptions as of 08/01/2022 - famotidine (PEPCID) 20 mg tablet TAKE 1 TABLET BY MOUTH EVERY DAY - Cetirizine 10 mg cap ZYRTEC ALLERGY TABS as directed CETIRIZINE HCL TABS [id number] Tamia Yen LPN - levothyroxine sodium (SYNTHROID ORAL) SYNTHROID TABS as directed LEVOTHYROXINE SODIUM TABS [id number] Tamia Yen LPN - MAGNESIUM OXIDE ORAL Take by mouth once daily. - loratadine (CLARITIN) 10 mg tablet Take 10 mg by mouth once daily. - Cholecalciferol, Vitamin D3, 50 mcg (2,000 unit) cap Take 1 capsule by mouth once daily. - ipratropium bromide (ATROVENT) 42 mcg (0.06 %) nasal spray Use 2 Sprays in the nose as needed. - pantoprazole DR (PROTONIX) 40 mg tablet Take 1 tablet by mouth once daily. - fexofenadine (PAVITHRA) 180 mg ORAL Tab Take one(1) tablet daily. - ascorbic acid (VITAMIN C) 500 mg ORAL Tab Take one(1) tablet daily. - Calcium Carbonate-Vitamin D2 (CALCIUM-D) 600-200 mg-unit ORAL Cap Take one(1) tablet daily. - Multivitamin (DAILY MULTIPLE) ORAL Tab Take one(1) tablet daily. - clindamycin 1 % TOPICAL Soln am and suppertime face - Adapalene (DIFFERIN) 0.1 % TOPICAL Gel [facility] Problem List As Of Date 07/28/2022 Noted Resolved Palpitations [R00.2] 12/23/2020 Tachycardia [R00.0] 12/23/2020 Encounter Status:Closed by HAYDER MCQUEEN on 07/30/22 Normal [facility] ANTI MULLERIAN HORMONEon Mullerian inhibiting substance [Mass/Vol] 1.24 ng/mL Normal 0.58-8.13 [facility] Comment on above: Order Comment: Speci men Type: BLOOD SPECIMENOrdering Facility: [facility] Address: [address] [place] [address] Performed By: #### M SHERMAN ####[facility] LABIA [id number] [address] [address] [place] DHEA-S BLDon 07-20-2022 DHEA-S [Mass/Vol] 366.9 ug/dL High 98.8-340.0 [facility] Comment on above: Order Comment: Speci men Type: BLOOD SPECIMENOrdering Facility: [facility] Address: [address] [place] [address] Result Comment: Refe rence ranges are age and gender specific. For additional information, reference range tables can be found in the laboratory test directory. The normal values are based on the following source: Dehydroepiandrosterone sulfate (DHEA S) [package insert V 17.0 [place]]. [facility], [place], [place]: May 2013. Performed By: #### 2 842-3, DHEAS ####[facility] LABCLIA [id number] [address] [address] [place] HYDROXYPROGESTERO-17on 07-20 17-HYDROXYPROGESTERONE QUANTITATIVE BY HPLC-MS/MS, SERUM OR PLASMA 173.10 ng/dL Normal <=206.00 [facility] Comment on above: Order Comment: Speci men Type: BLOOD SPECIMENOrdering Facility: [facility] Address: [address] [place] [address] Result Comment: INTERPRETIVE INFORMATION for 17-Hydroxyprogesterone in females: Follicular 15 to 70 ng/dL Luteal 35 to 290 ng/dL REFERENCE INTERVAL: 17-Hydroxyprogesterone Qnt, HPLC-MS/MS Access complete set of age- and/or gender-specific reference intervals for this test in the [facility] Test Directory ([email or web address]). This test was developed and its performance characteristics determined by [facility]. It has not been cleared or approved by the US Food and Drug Administration. This test was performed in a CLIA certified laboratory and is intended for clinical purposes. Performed By: [facility] [address] [place] [address] Special Needs Child Caregiver: Og Monte MD, PhD Performed By: #### H PROG ####[facility] [id number] [place] [address] Prolactin SerPl-mCncon 07-20 Prolactin [Mass/Vol] 30.6 ng/mL High 4.5-26.[address] [facility] Comment on above: Order Comment: Speci benita Type: BLOOD SPECIMENOrdering Facility: [facility] Address: [address] [place] [address] Result Comment: Prol actin test is performed using the [facility] Electrochemiluminescence Immunoassay method. Results obtained with different methods or kits cannot be used interchangeably. Performed By: #### 2 842-3, DHEAS ####[facility] LABCLIA [id number] [facility] [address] [place] [address] [place] TESTOSTERONE, FREE AND TOTAL on 07-20-2022 TESTOSTERONE, FREE, S 1.14 ng/dL High <0.13-1.03 [facility] Comment on above: Order Comment: Rika joy Type: BLOOD SPECIMENOrdering Facility: [facility] Address: [address] [place] [address] Result Comment: ADDITIONAL INFORMATION This test was developed and its performance characteristics determined by [facility] in a manner consistent with CLIA requirements. This test has not been cleared or approved by the U.S. Food and Drug Administration. Performed By: #### T FTEST ####[facility] LABCLIA [id number] [place] [address] TESTOSTERONE, TOTAL, S 35 ng/dL Normal 8-60 [facility] Comment on above: Order Comment: Speci men Type: BLOOD SPECIMENOrdering Facility: [facility] Address: [address] [place] [address] Result Comment: ADDITIONAL INFORMATION Testing performed by Liquid Chromatography-Tandem Mass Spectrometry (LC-MS/MS). This test was developed and its performance characteristics determined by [facility] in a manner consistent with CLIA requirements. This test has not been cleared or approved by the U.S. Food and Drug Administration. Test Performed by: [facility] [address] [id number] [employer] [place] Handle: Angel Shoemaker M.D. Ph.D.; CLIA# [id number] Performed By: #### T FTEST ####[facility] LABCLIA [id number] [place] [address] B-HCG SerPl-aCncon 2 HCG.beta subunit Qn m[IU]/mL Normal <5.0 [facility] Comment on above: Order Comment: Specgood joy Type: BLOOD SPECIMENOrdering Facility: [facility] [employer] Address: [address] [place] [address] Result Comment: Wayne michele Performed By: #### 2 1198-7 ####[facility] LABCLIA [id number] [place] [address] [place] CBC panel Auto (Bld)on 06-15 Erythrocyte distribution width (RBC) [Ratio] 12.1 % Normal 11.5-15.0 [facility] Comment on above: Order Comment: Speci men Type: BLOOD SPECIMENOrdering Facility: [facility] [employer] Address: [address] [facility] [place] [address] Performed By: #### 5 8410-2 ####[facility] PASCALEWNCCHRIS [id number] [place] [address] [place] Hematocrit (Bld) [Volume fraction] 40.4 % Normal 36.0-46.0 [facility] Comment on above: Order Comment: Speci men Type: BLOOD SPECIMENOrdering Facility: [facility] [employer] Address: [address] [facility] [place] [address] Performed By: #### 5 8410-2 ####[facility] SOUTHSIDEMANAV [id number] [place] [address] [place] Hemoglobin (Bld) [Mass/Vol] 13.5 g/dL Normal 11.5-15.5 [facility] Comment on above: Order Comment: Speci men Type: BLOOD SPECIMENOrdering Facility: [facility] [employer] Address: [address] [place] [address] Performed By: #### 5 8410-2 ####[facility] S[facility]THSIDEMANAV [id number] [place] [address] [place] MCH (RBC) [Entitic mass] 30.9 pg Normal 26.0-34.0 [facility] Comment on above: Order Comment: Speci men Type: BLOOD SPECIMENOrdering Facility: [facility] [employer] Address: [address] [facility] [place] [address] Performed By: #### 5 8410-2 ####[facility] SOUTHSIDEMEGANLIA [id number] [place] [address] [place] MCHC (RBC) [Mass/Vol] 33.4 g/dL Normal 30.5-36.0 [facility] Comment on above: Order Comment: Speci men Type: BLOOD SPECIMENOrdering Facility: [facility] [employer] Address: [address] [place] [address] Performed By: #### 5 8410-2 ####[facility] NEDRAWIND GAPMEGANLIA [id number] [place] [address] [place] MCV (RBC) [Entitic vol] 92.4 fL Normal 80.0-100.0 [facility] Comment on above: Order Comment: Speci men Type: BLOOD SPECIMENOrdering Facility: [facility] [employer] Address: [address] [place] [address] Performed By: #### 5 8410-2 ####[facility] [id number] [place] [address] [place] Nucleated RBC (Bld) [#/Vol] 10*3/uL Normal <0.01 [facility] Comment on above: Order Comment: Speci men Type: BLOOD SPECIMENOrdering Facility: [facility] [employer] Address: [address] [place] [address] Performed By: #### 5 8410-2 ####[facility] NORTHLI [id number] [place] [address] [place] Platelet mean volume (Bld) [Entitic vol] 8.6 fL Low 9.0-12.7 [facility] Comment on above: Order Comment: Speci men Type: BLOOD SPECIMENOrdering Facility: [facility] [employer] Address: [address] [place] [address] Performed By: #### 5 8410-2 ####[facility] SOUTHSIDEMEGANLIA [id number] [place] [address] [place] Platelets (Bld) [#/Vol] 324 10*3/uL Normal 150-400 [facility] Comment on above: Order Comment: Speci men Type: BLOOD SPECIMENOrdering Facility: [facility] [employer] Address: [address] [place] [address] Performed By: #### 5 8410-2 ####[facility] SOUTHSIDENCLIA [id number] [place] [address] [place] RBC (Bld) [#/Vol] 4.37 10*6/uL Normal 3.90-5.20 [facility] Comment on above: Order Comment: Speci men Type: BLOOD SPECIMENOrdering Facility: [facility] [employer] Address: [address] [place] [address] Performed By: #### 5 8410-2 ####[facility] S[facility]THSIDENCLIA [id number] [place] [address] [place] WBC (Bld) [#/Vol] 9.51 10*3/uL Normal 3.70-11.00 [facility] Comment on above: Order Comment: Speci men Type: BLOOD SPECIMENOrdering Facility: [facility] [employer] Address: [address] [place] [address] Performed By: #### 5 8410-2 ####[facility] SOUTHSIDENCA [id number] [place] [address] [place] C[employer] ASSOC HLA-DQ GENOTYPE on 06-15-2022 CELIAC CATEGORY Category 0 Normal [facility] Comment on above: Order Comment: Speci men Type: BLOOD SPECIMENOrdering Facility: [facility] Address: [address] [place] [address] Result Comment: CATEGORY DQ HAPLOTYPE RELATIVE RISK Category 7 DQ2.2 AND DQ2.5 Extremely High Category 7 DQ2.5 AND DQ2.5 Extremely High Category 6 DQ2.2 AND DQA1*05, DQB1*03:01 Very High Category 5 DQ2.2 AND DQ8 Very High Category 5 DQ2.5 AND DQ8 Very High Category 4 DQ8 AND DQ8 High Category 3 DQ2.5 AND DQA1*05, DQB1*03:01 High Category 3 DQ2.5 AND DQA1*02:01, DQB1*03:03 High Category 3 DQ2.5 AND DQA1*03, DQB1*02 High Category 3 DQ2.5 AND OTHER LOW RISK ALLELE High Category 3 DQ2.2 AND DQA1*05, DQB1*03:03 High Category 2 DQ8 AND OTHER LOW RISK ALLELE Moderate Category 1 DQ2.2 AND OTHER LOW RISK ALLELE Low Category 0 NEGATIVE FOR DQ2.2 Negative Category 0 NEGATIVE FOR DQ2.5 Negative Category 0 NEGATIVE FOR DQ8 Negative DQ2.2 = DQA1*02:01, DQB1*02:02 DQ2.5 = DQA1*05, DQB1*02:01 DQ8 = DQA1*03, DQB1*03:02 The identification of one of these HLA-DQ genotypes is not, by itself, sufficient for the diagnosis of celiac disease, since both DQ2 and DQ8 are relatively common in the general population. The strongest reported HLA associations with celiac disease include DQ2 (DQ2.5 or DQA1*05-DQB1*02:01 & DQA2.2 or DQA1*02:01-DQB1*02:02) and DQ8 (DQA1*03:01/DQB1*03:02). This test is useful for family members of celiac patients and patients with negative serology results. This testing can rule out celiac disease with high negative predictive value (NPV) of 95-100% depending on the ethnic background. In cases of an ambiguous HLA allele assignment where multiple rare alleles cannot be excluded, the most common HLA allele is reported. References: 1. Lisy L, Leonor J, Zaira K, et al. Cost-effective HLA typing with tagging SNPs predicts celiac disease risk haplotypes in the Lithuanian, Persian and [place] populations. Immunogenetics. 2009 Jan;61(4):247-56. 2. Agnes BROCK. Celiac disease: dissecting a complex inflammatory disorder. Ale Rev Immunol. 2002 Jun;2(9):647-55. 3. Stephens E, Conor HS, Gee CA, et al. Risk of pediatric celiac disease according to HLA haplotype and country. N Engl J Med. 2014 ;371(1):42-9. HLA typing performed by PCR-RSSOP and/or NGS. This test was developed and its performance characteristics determined by [facility]. The test has not been cleared or approved by the [place] FDA. However, FDA approval was not necessary since this lab is certified under CLIA for high complexity testing. Test performed by: [facility], [place], [place] [address]. CLIA [id number]. Performed By: #### C ANAND ####[facility] [id number] [address] [place] CELIAC RISK HAPLOTYPE Negative Normal [facility] Comment on above: Order Comment: Speci men Type: BLOOD SPECIMENOrdering Facility: [facility] Address: [address] [place] [address] Performed By: #### C ANAND ####[facility] [id number] [place] [address] [place] HLA-DQA1 GENOTYPE HLA-DQA1*: 01, 03 Normal [facility] Comment on above: Order Comment: Jessai men Type: BLOOD SPECIMENOrdering Facility: [facility] Address: [address] [place] [address] Performed By: #### C ANAND ####[facility] [id number] [place] [address] [place] HLA-DQB1 GENOTYPE HLA-DQB1*: 06, 03:01 Normal [facility] Comment on above: Order Comment: Rika joy Type: BLOOD SPECIMENOrdering Facility: [facility] Address: [address] [place] [address] Performed By: #### C ANAND ####[facility] [id number] [place] [address] [facility] [place] CELIAC SCREENon 06-15-2022 GLIAD DEAMIDATED IGA QUAL Positive Abnormal Negative, Test not Indicated [facility] Comment on above: Order Comment: Speci [facility] Type: BLOOD SPECIMENOrdering Facility: [facility] Address: [address] [place] [address] Result Comment: This is used as an aid in diagnosis of celiac disease. Clinical correlation is required. The following results were obtained with an [employer] QUANTA Lite Gliadin IgA ELPIDIO Gliadin. Gliadin IgA values obtained with different manufacturers' assay methods may not be used interchangeably. The magnitude of the reported IgA levels cannot be corre lated to an endpoint titer. Performed By: #### L [id number], 80399-8 ####[facility] LABCLIA [id number] [address] Gliadin peptide IgA Qn (S) 58 Units High <20 [facility] Comment on above: Order Comment: Rika joy Type: BLOOD SPECIMENOrdering Facility: [facility] Address: [address] [place] [address] Performed By: #### L [id number], 93120-2 ####[facility] LABCLIA [id number] [address] INTERPRETATION The results suggest serological evidence of celiac disease. Weak positive results, when present, may at times be due to non-specific reactivity or to gluten-free diet. Clinical correlation is required. Normal [facility] Comment on above: Order Comment: Rika joy Type: BLOOD SPECIMENOrdering Facility: [facility] Address: [address] [place] [address] Performed By: #### L [id number], 48856-1 ####[facility] LABIA [id number] [address] TRANSGLUTAMINASE IGA QUAL Negative Normal Negative, Test not Indicated [facility] Comment on above: Order Comment: Rika [facility] Type: BLOOD SPECIMENOrdering Facility: [facility] Address: [address] [place] [address] Result Comment: The following results were obtained with the [employer] QAUNTA Lite h-tTG IgA ELPIDIO. h-tTG IgA values obtained with different manufacturers' assay methods may not be used interchangeable. The magnitude of the reported IgA levels cannot be correlated to an endpoint titer. This is used as an aid in diagnosis of celiac disease. Clinical correlation is required. Performed By: #### L [id number], 37846-3 ####[facility] LABCLIA [id number] [address] tTG IgA Qn (S) 4 Units Normal <20 [facility] Comment on above: Order Comment: Speci men Type: BLOOD SPECIMENOrdering Facility: [facility] Address: [address] [place] [address] Performed By: #### L [id number], 07612-6 ####[facility] LABCLIA [id number] [place] [address] [facility] [place] Endomysium IgA Titr Ser IFon 06-15-2022 Endomysium IgA IF (S) [Titer] <1:10 Normal <1:10, Test Not Indicated [facility] Comment on above: Order Comment: Speci men Type: BLOOD SPECIMENOrdering Facility: [facility] [employer] Address: [address] [place] [address] Performed By: #### L [id number], 51476-0 ####[facility] LABCLIA [id number] [address] HYDROXYPROGESTERO-17on 06-15 17-HYDROXYPROGESTERONE QUANTITATIVE BY HPLC-MS/MS, SERUM OR PLASMA 36.20 ng/dL Normal <=206.00 [facility] Comment on above: Order Comment: Speci men Type: BLOOD SPECIMENOrdering Facility: [facility] LIQUEFIED [employer] Address: [address] [place] [address] Result Comment: INTERPRETIVE INFORMATION for 17-Hydroxyprogesterone in females: Follicular 15 to 70 ng/dL Luteal 35 to 290 ng/dL REFERENCE INTERVAL: 17-Hydroxyprogesterone Qnt, HPLC-MS/MS Access complete set of age- and/or gender-specific reference intervals for this test in the [facility] Test Directory ([email or web address]). This test was developed and its performance characteristics determined by [facility]. It has not been cleared or approved by the US Food and Drug Administration. This test was performed in a CLIA certified laboratory and is intended for clinical purposes. Performed By: [facility] [address] [place] [id number] Special Needs Child Caregiver: Og Monte MD, PhD Performed By: #### H PROG ####[facility] LABORATORIESCLIA [id number] [place] [address] IgA SerPl-mCncon 06-15-2022 IgA [Mass/Vol] 146 mg/dL Normal 70-400 [facility] Comment on above: Order Comment: Speci men Type: BLOOD SPECIMENOrdering Facility: [facility] Address: [address] [id number] Performed By: #### 2 458-8 ####[facility] LABCLIA [id number] [place] [address] [place] T4 Free SerPl-mCncon 022 Free T4 [Mass/Vol] 1.3 ng/dL Normal 0.9-1.7 [facility] Comment on above: Order Comment: Spec men Type: BLOOD SPECIMENOrdering Facility: [facility] [employer] Address: [address] [place] [address] Performed By: #### 3 016-3, 3024-7 ####[facility] LABCLIA [id number] [place] [address] [place] TESTOSTERONE, FREE AND TOTAL on 06-15-2022 TESTOSTERONE, FREE, S 1.25 ng/dL High <0.13-1.03 [facility] Comment on above: Order Comment: Speci men Type: BLOOD SPECIMENOrdering Facility: [facility] [employer] Address: [address] [place] [address] Result Comment: ADDITIONAL INFORMATION This test was developed and its performance characteristics determined by [facility] in a manner consistent with CLIA requirements. This test has not been cleared or approved by the U.S. Food and Drug Administration. Performed By: #### T FTEST ####[facility] LABCLIA [id number] [place] [address] TESTOSTERONE, TOTAL, S 36 ng/dL Normal 8-60 [facility] Comment on above: Order Comment: Speci men Type: BLOOD SPECIMENOrdering Facility: [facility] [employer] Address: [address] [place] [address] Result Comment: ADDITIONAL INFORMATION Testing performed by Liquid Chromatography-Tandem Mass Spectrometry (LC-MS/MS). This test was developed and its performance characteristics determined by [facility] in a manner consistent with CLIA requirements. This test has not been cleared or approved by the U.S. Food and Drug Administration. Test Performed by: [facility] [address] [place] [address] Bench Worker Hollow Handle: Angel Shoemaker M.D. Ph.D.; CLIA# [id number] Performed By: #### T FTEST ####[facility] RE[facility]ENCE LABCLIA [id number] [place] [address] TSH SerPl-aCncon 06-15-2022 TSH Qn 1.590 m[IU]/L Normal 0.270-4.20 0 [facility] Comment on above: Order Comment: Rika benita Type: BLOOD SPECIMENOrdering Facility: [facility] [employer] Address: [address] [place] [address] Result Comment: If t he patient is , TSH reference range varies by gestational period: First Trimester (weeks 9-12): 0.180-2.990 mIU/L Second Trimester: 0.110-3.980 mIU/L Third Trimester: 0.480-4.710 mIU/L Bucky Paniagua et al. A Practical Approach for the Verifications and Determination of Site- and Trimester-Specific Reference Intervals for Thyroid Function tests in . Thyroid, 2019:29:3:412-420. Joseph E, et al. 2017 Guidelines of the [place] Thyroid Association for the Diagnosis and Management of Thyroid Disease during and the . Thyroid, 2017:27:3:315-389. Performed By: #### 3 016-3, 3024-7 ####[facility] LABCLIA [id number] [address] OF [facility] EGD DIAGNOSTICon 05-16-2022 [facility] HISTORY PHYSICALon 2 HISTORY PHYSICAL HNO ID: [id number] Author: Meir Ferguson MD Service: General Surgery Author Type: Physician Type: HANDP Filed: 05/16/2022 9:38 AM Note Text: CHIEF COMPLAINT: No chief complaint on file. ? ? This consult was requested by Leonel English APRN.CNP for an opinion regarding GERD symptoms. My final recommendations will be communicated to the requesting health care provider by way of the shared medical record for internal providers or letter via the [employer] for external providers. ? Marj Tay is a 32 year old female with a past medical history PAC, palpitations, PVC, post COVID syndrome. Who presents for GERD symptoms HPI: Patient symptoms started post COVID with heart palpitations (cardiac work-up tilt table negative for syncope, echo normal, Holter monitor PVCs), other post-COVID symptoms shortness of breath, exertional fatigue, fatigue, altered taste and smell, GERD(symptoms GERD increased since CHRISTY has been on Protonix). She also reports either extremely hungry or no interest at all. ? She reports she has always suffered from GERD since high school. For many years has dealt with wax and waning of GERD symptoms. From 2016 and until she had covid she was without symptoms and was not taking medications or OTC medication on rare occasion. Post COVID she has been having wax and wane of symptom. She also goes on to tell me that she has traveled outside of the country a couple different times last time in 2016. She denies ever having EGD - She reports her symptoms of nausea, vomiting, epigastric pain and bloating. ? Taking pantoprazole 40 mg once daily on empty stomach at night with dinner. ? PAtient is having raspy voice but could be due to allergies or GERD. Patient reports she takes iiuf-hln-gzfmygw Claritin for her allergies and gets weekly allergy injections ? Record Review: [facility] / Outside records reviewed. ? PAST MEDICAL HISTORY PAST MEDICAL HISTORY Diagnosis Date - Allergic rhinitis, cause unspecified ? - Lab test positive for detection of COVID-19 virus ? - Other acne ? - PAC (premature atrial contraction) ? - Palpitations ? - PVC's (premature ventricular contractions) ? PAST SURGICAL HISTORY PAST SURGICAL HISTORY Procedure Laterality Date - TONSILLECTOMY AND ADENOIDECTOMY ? Allergies: ALLERGIES ALLERGIES Allergen Reactions - Cefuroxime Rash - Penicillin V Hives - Sulfamethoxazole-Tr* Unknown - Ceftin [Cefuroxime * Rash - Emycin [Erythromyci* Hives - Lactose Intolerance* GI Upset - Penicillins Rash - Seasonale [Levonorg* Intolerance - Spironolactone Unknown - Sulfa (Sulfonamide * Rash - Sulfacedamide [Othe* Rash ? Medications: CURRENT MEDICATIONS ? Cetirizine 10 mg cap ZYRTEC ALLERGY TABS as directed CETIRIZINE HCL TABS [id number] Tamia Yen LPN levothyroxine sodium (SYNTHROID ORAL) SYNTHROID TABS as directed LEVOTHYROXINE SODIUM TABS [id number] Tamia Yen LPN MAGNESIUM OXIDE ORAL Take by mouth once daily. loratadine (CLARITIN) 10 mg tablet Take 10 mg by mouth once daily. Cholecalciferol, Vitamin D3, (VITAMIN D-3) 50 mcg (2,000 unit) cap Take 1 capsule by mouth once daily. ipratropium bromide (ATROVENT) 42 mcg (0.06 %) nasal spray Use 2 Sprays in the nose as needed. pantoprazole DR (PROTONIX) 40 mg tablet Take 1 tablet by mouth once daily. fexofenadine (PAVITHRA) 180 mg ORAL Tab Take one(1) tablet daily. ascorbic acid (VITAMIN C) 500 mg ORAL Tab Take one(1) tablet daily. Calcium Carbonate-Vitamin D2 (CALCIUM-D) 600-200 mg-unit ORAL Cap Take one(1) tablet daily. Multivitamin (DAILY MULTIPLE) ORAL Tab Take one(1) tablet daily. clindamycin 1 % TOPICAL Soln am and suppertime face Adapalene (DIFFERIN) 0.1 % TOPICAL Gel qhs ? FAMILY HISTORY FAMILY HISTORY Problem Relation Age of Onset - Heart disease Maternal Grandmother ? - Diabetes Maternal Grandmother ? - Heart disease Maternal Grandfather ? - Diabetes Maternal Grandfather ? - Stroke Paternal Grandmother ? - Stroke Paternal Grandfather ? OCCUPATION AND MARITAL STATUS Employer And Job Title: None on file Years Of Education Completed: Not specified Marital Status: Single ? SOCIAL HISTORY Social History ? Tobacco Use - Smoking status: Never Smoker - Smokeless tobacco: Never Used Vaping Use - Vaping Use: Never used Substance Use Topics - Alcohol use: Yes ? ? Comment: occasionally - Drug use: Never ? Review of Systems: Review of Systems Constitutional: Positive for unexpected weight change. Gastrointestinal: Positive for abdominal pain. All other systems reviewed and are negative. ? ? Are you taking any blood thinners? No ? Physical Examination: There were no vitals taken for this visit. ? Physical Exam Constitutional: Appearance: Normal appearance. She is normal weight. HENT: Head: Normocephalic and atraumatic. Eyes: Extr (more content not included)... Normal [facility] NURSING PROGon 05-16-2022 NURSING PROG HNO ID: [id number] Author: Otilia Holland RN Service: ? Author Type: Registered Nurse Type: Nursing Progress Note Filed: 05/16/2022 10:21 AM Note Text: Patient received in PACU, on left side on cot, eyes open to verbal stimuli, respirations regular and unlabored, skin warm and dry, reports throat is sore, is a 3 on pain scale, no nausea. Will allow to rest for now. Normal [facility] SURGICAL PATHOLOGYon 022 CASE REPORT Normal [facility] Comment on above: Order Comment: Speci men Type: TISSUE SPECIMENOrdering Facility: [facility] Address: [address] [place] [address] Result Comment: Surg [facility] Pathology Report Case: [id number] Authorizing Provider: Meir Ferguson MD Collected: 05/16/2022 10:01 AM Ordering Location: Ambulatory Surgery Received: 05/16/2022 12:19 PM Pathologist: Rodrigo Judge MD Specimens: A) - SMALL INTESTINE BIOPSY, Small bowel bx B) - ANTRUM (STOMACH) BIOPSY, Antral bx h/h C) - ESOPHAGUS LOWER BIOPSY, Distal esophageal bx Performed By: #### S ####[facility] [id number] [address] OF [facility] LABCLIA [id number] [address] FINAL DIAGNOSIS Normal [facility] Comment on above: Order Comment: Speci men Type: TISSUE SPECIMENOrdering Facility: [facility] Address: [address] [place], [place] [id number] Result Comment: A. D uodenum, biopsy: - Small bowel mucosa with no diagnostic abnormality. B. Stomach, antrum, biopsy: - Gastric oxyntic-type mucosa with no diagnostic abnormality. C. Distal esophagus, biopsy: - Squamous mucosa and gastric cardia-type mucosa with no diagnostic abnormality. JEL 05/17/2022 Performed By: #### S ####[facility]ORYCLIA [id number] [address] LABCLIA [id number] [address] FINAL PERFORMING LAB Normal [facility] Comment on above: Order Comment: Speci men Type: TISSUE SPECIMENOrdering Facility: [facility] Address: [address] [place] [address] Result Comment: Diag nostic interpretation performed at [facility], [address] [place] [address] CLIA# [id number] Special Needs Child Caregiver: Christopher Hill M.D. Performed By: #### S ####[facility] [id number] [address] LABCLIA [id number] [address] GROSS DESCRIPTION Normal [facility] Comment on above: Order Comment: Speci men Type: TISSUE SPECIMENOrdering Facility: [facility] Address: [address] [place] [address] Result Comment: A. S MALL INTESTINE BIOPSY. Received in formalin is one piece of stephenson, soft tissue measuring 0.4 x 0.3 x 0.2 cm. Totally submitted in one cassette. B. ANTRUM (STOMACH) BIOPSY. Received in formalin is one piece of stephenson, soft tissue measuring 0.7 x 0.3 x 0.2 cm. Totally submitted in one cassette. C. ESOPHAGUS LOWER BIOPSY. Received in formalin are two pieces of stephenson, soft tissue aggregating to 0.5 x 0.3 x 0.2 cm. Totally submitted in one cassette. [facility] May 16, 2022 7:19 PM Gross examination performed at [facility], [facility] [place] [address] Performed By: #### S ####[facility]ORATORYCLIA [id number] [address] [place] [id number] [facility] LABCLIA [id number] [address] Upper GI endoscopyon 022 Upper GI endoscopy [facility] Gastrointestinal Endoscopy Patient Name: Marj Tay Procedure Date: 05/16/2022 9:39 AM Date of : 1990 Admit Type: Outpatient Age: 32 Gender: Female Note Status: Finalized Procedure: Upper GI endoscopy Indications: Esophageal reflux symptoms that persist despite appropriate therapy, Epigastric abdominal pain, Nausea with vomiting Providers: Meir Ferguson MD Patient Profile: This is a 32 year old female. Refer to note in patient chart for documentation of history and physical. Referring Physician: Hayder Mcqueen (Referring MD), Leonel English (Referring MD) Medicines: Fentanyl 50 micrograms IV, Midazolam 5 mg IV, Diphenhydramine 50 mg IV, Benzocaine spray Complications: No immediate complications. Estimated blood loss: Minimal. Requesting Provider: Procedure: Pre-Anesthesia Assessment: - Prior to the procedure, a History and Physical was performed, and patient medications and allergies were reviewed. The patient's tolerance of previous anesthesia was also reviewed. The risks and benefits of the procedure and the sedation options and risks were discussed with the patient. All questions were answered, and informed consent was obtained. Prior Anticoagulants: The patient has taken no previous anticoagulant or antiplatelet agents. ASA Grade Assessment: II - A patient with mild systemic disease. After reviewing the risks and benefits, the patient was deemed in satisfactory condition to undergo the procedure. After obtaining informed consent, the endoscope was passed under direct vision. Throughout the procedure, the patient's blood pressure, pulse, and oxygen saturations were monitored continuously. The Endoscope was introduced through the mouth, and advanced to the second part of duodenum. The upper GI endoscopy was accomplished without difficulty. The patient tolerated the procedure well. Moderate Sedation: The administration of moderate sedation was initiated at 09:55 AM. Findings: The Z-line was regular and was found 40 cm from the incisors. Biopsies were taken with a cold forceps for histology. The entire examined stomach was normal. Biopsies were taken with a cold forceps for Helicobacter pylori testing. The examined duodenum was normal. Biopsies for histology were taken with a cold forceps for evaluation of celiac disease. Impression: - Z-line regular, 40 cm from the incisors. Biopsied. - Normal stomach. Biopsied. - Normal examined duodenum. Biopsied. Recommendation: - Patient has a contact number available for emergencies. The signs and symptoms of potential delayed complications were discussed with the patient. Return to normal activities tomorrow. Written discharge instructions were provided to the patient. - Resume previous diet. - Continue present medications. - Await pathology results. - Repeat upper endoscopy PRN for surveillance. - Return to nurse practitioner in 1 week. Attending Participation: I personally performed the entire procedure. Scope In: 9:59:03 AM Scope Out: 10:02:44 AM MD Meir Lozano MD 05/16/2022 10:07:12 AM This report has been signed electronically by Meir Ferguson MD Number of Addenda: 0 Note Initiated On: 05/16/2022 9:39 AM Estimated Blood Loss: Estimated blood loss was minimal. Normal [facility] CNOVon 03-22-2022 CNOV Office Visit (LETY ) ----- MARJ TAY ([id number]) 1990 F Date Time Provider Department 03/22/22 4:00 PM HAYDER MCQUEEN During your visit today, we recorded the following information about you: Pulse Blood pressure Weight Height 75/minute 108/64 78.5 kg 1.73 m Last Period 03/11/22 Hayder Mcqueen APRN.ARCHITECTURAL DRAFTER 03/22/2022 5:15 PM Signed CHIEF COMPLAINT: No chief complaint on file. This consult was requested by Leonel English APRN.CNP for an opinion regarding GERD symptoms. My final recommendations will be communicated to the requesting health care provider by way of the shared medical record for internal providers or letter via the [employer] for external providers. Marj Tay is a 32 year old female with a past medical history PAC, palpitations, PVC, post COVID syndrome. Who presents for GERD symptoms HPI: Patient symptoms started post COVID with heart palpitations (cardiac work-up tilt table negative for syncope, echo normal, Holter monitor PVCs), other post-COVID symptoms shortness of breath, exertional fatigue, fatigue, altered taste and smell, GERD(symptoms GERD increased since CHRISTY has been on Protonix). She also reports either extremely hungry or no interest at all. She reports she has always suffered from GERD since high school. For many years has dealt with wax and waning of GERD symptoms. From 2016 and until she had covid she was without symptoms and was not taking medications or OTC medication on rare occasion. Post COVID she has been having wax and wane of symptom. She also goes on to tell me that she has traveled outside of the country a couple different times last time in 2016. She denies ever having EGD - She reports her symptoms of nausea, vomiting, epigastric pain and bloating. Taking pantoprazole 40 mg once daily on empty stomach at night with dinner. PAtient is having raspy voice but could be due to allergies or GERD. Patient reports she takes ihug-psa-rphwgch Claritin for her allergies and gets weekly allergy injections Record Review: [facility] / Outside records reviewed. PAST MEDICAL HISTORY Diagnosis Date - Allergic rhinitis, cause unspecified - Lab test positive for detection of COVID-19 virus - Other acne - PAC (premature atrial contraction) - Palpitations - PVC's (premature ventricular contractions) PAST SURGICAL HISTORY Procedure Laterality Date - TONSILLECTOMY AND ADENOIDECTOMY Allergies: ALLERGIES Allergen Reactions - Cefuroxime Rash - Penicillin V Hives - Sulfamethoxazole-Tr* Unknown - Ceftin [Cefuroxime * Rash - Emycin [Erythromyci* Hives - Lactose Intolerance* GI Upset - Penicillins Rash - Seasonale [Levonorg* Intolerance - Spironolactone Unknown - Sulfa (Sulfonamide * Rash - Sulfacedamide [Othe* Rash Medications: Cetirizine 10 mg cap ZYRTEC ALLERGY TABS as directed CETIRIZINE HCL TABS [id number] Tamia Yen LPN levothyroxine sodium (SYNTHROID ORAL) SYNTHROID TABS as directed LEVOTHYROXINE SODIUM TABS [id number] Tamia Yen LPN MAGNESIUM OXIDE ORAL Take by mouth once daily. loratadine (CLARITIN) 10 mg tablet Take 10 mg by mouth once daily. Cholecalciferol, Vitamin D3, (VITAMIN D-3) 50 mcg (2,000 unit) cap Take 1 capsule by mouth once daily. ipratropium bromide (ATROVENT) 42 mcg (0.06 %) nasal spray Use 2 Sprays in the nose as needed. pantoprazole DR (PROTONIX) 40 mg tablet Take 1 tablet by mouth once daily. fexofenadine (PAVITHRA) 180 mg ORAL Tab Take one(1) tablet daily. ascorbic acid (VITAMIN C) 500 mg ORAL Tab Take one(1) tablet daily. Calcium Carbonate-Vitamin D2 (CALCIUM-D) 600-200 mg-unit ORAL Cap Take one(1) tablet daily. Multivitamin (DAILY MULTIPLE) ORAL Tab Take one(1) tablet daily. clindamycin 1 % TOPICAL Soln am and suppertime face Adapalene (DIFFERIN) 0.1 % TOPICAL Gel qhs FAMILY HISTORY Problem Relation Age of Onset - Heart disease Maternal Grandmother - Diabetes Maternal Grandmother - Heart disease Maternal Grandfather - Diabetes Maternal Grandfather - Stroke Paternal Grandmother - Stroke Paternal Grandfather Employer And Job Title: None on file Years Of Education Completed: Not specified Marital Status: Single Social History Tobacco Use - Smoking status: Never Smoker - Smokeless tobacco: Never Used Vaping Use - Vaping Use: Never used Substance Use Topics - Alcohol use: Yes Comment: occasionally - Drug use: Never Review of Systems: Review of Systems Constitutional: Positive for unexpected weight change. Gastrointestinal: Positive for abdominal pain. All other systems reviewed and are negative. Are you taking any blood thinners? No Physical Examination: There were no vitals taken for this visit. Physical Exam Constitutional: Appearance: Normal appearance. She is normal weight. HENT: Head: Normocephalic and atr (more content not included)... Normal [facility] CNPNon 03-22-2022 CNPN Telephone (LETY) ----- MARJ TAY ([id number]) 1990 F Date Time Provider Department 03/22/22 HAYDER MCQUEEN During your visit today, we recorded the following information about you: Kiesha Dean LPN 03/22/2022 4:54 PM Signed Patient is scheduled at [facility] on 05/16/[address] Ferguson for EGD. DX: Post-acute sequelae of COVID-19 (PASC) [U09.9 (ICD-10-CM)]; Gastroesophageal reflux disease without esophagitis [K21.9 (ICD-10-CM)]; Nausea [R11.0 (ICD-10-CM)]; Epigastric pain [R10.13 (ICD-10-CM)] Comments: Please take biopsy to r/o H pylori Verbal and written instructions given. Allergies As of Date: 03/22/2022 Noted Allergy Reaction CEFUROXIME 01/03/2017 2 - Rash PENICILLIN V 01/03/2017 4 - Hives SULFAMETHOXAZOLE-TRIMETHO PRIM 01/03/2017 16 - Unknown CEFTIN (CEFUROXIME AXETIL) 04/17/2006 2 - Rash EMYCIN (ERYTHROMYCIN) 04/17/2006 4 - Hives LACTOSE INTOLERANCE (LACTASE) 04/17/2006 8 - GI Upset PENICILLINS 04/17/2006 2 - Rash SEASONALE (LEVONORGESTREL-ETHINYL*0 04/17/2006 5 - Intolerance SPIRONOLACTONE 12/23/2020 16 - Unknown SULFA (SULFONAMIDE ANTIBIOTICS) 01/01/2019 2 - Rash sulfacedamide [Other] 04/17/2006 2 - Rash Date Reviewed: 03/22/2022 Reviewed by: Kiesha Dean LPN - Fully Assessed Reason for Visit: Procedure [88] Cmt: EGD Prescriptions as of 06/08/2022 - famotidine (PEPCID) 20 mg tablet Take 1 tablet by mouth once daily. - Cetirizine 10 mg cap ZYRTEC ALLERGY TABS as directed CETIRIZINE HCL TABS [id number] Tamia Yen LPN - levothyroxine sodium (SYNTHROID ORAL) SYNTHROID TABS as directed LEVOTHYROXINE SODIUM TABS [id number] Tamia Yen LPN - MAGNESIUM OXIDE ORAL Take by mouth once daily. - loratadine (CLARITIN) 10 mg tablet Take 10 mg by mouth once daily. - Cholecalciferol, Vitamin D3, (VITAMIN D-3) 50 mcg (2,000 unit) cap Take 1 capsule by mouth once daily. - ipratropium bromide (ATROVENT) 42 mcg (0.06 %) nasal spray Use 2 Sprays in the nose as needed. - pantoprazole DR (PROTONIX) 40 mg tablet Take 1 tablet by mouth once daily. - fexofenadine (PAVITHRA) 180 mg ORAL Tab Take one(1) tablet daily. - ascorbic acid (VITAMIN C) 500 mg ORAL Tab Take one(1) tablet daily. - Calcium Carbonate-Vitamin D2 (CALCIUM-D) 600-200 mg-unit ORAL Cap Take one(1) tablet daily. - Multivitamin (DAILY MULTIPLE) ORAL Tab Take one(1) tablet daily. - clindamycin 1 % TOPICAL Soln am and suppertime face - Adapalene (DIFFERIN) 0.1 % TOPICAL Gel [facility] Problem List As Of Date 03/22/2022 Noted Resolved Palpitations [R00.2] 12/23/2020 Tachycardia [R00.0] 12/23/2020 Encounter Status:Closed by KIESHA DEAN LPN on 06/08/22 [facility] Andrew 02-23-2022 CNOV Office Visit (LETY CHRISTIASNON) ----- MARJ TAY ([id number]) 1990 F Date Time Provider Department 02/23/22 1:30 PM GERRI DIMAS During your visit today, we recorded the following information about you: Pulse Respiration Blood pressure Weight 87/minute 18/minute 119/75 77.1 kg Height 1.727 m Gerri Dimas APRN.ARCHITECTURAL DRAFTER 02/24/2022 10:42 AM Signed Chief Complaint Patient presents with: CARD Follow Up 3 Month: Tachycardia History of Present Illness: Marj Tay is a very pleasant 32 year old female who presents for routine follow up. She has a PMhx of palpitations, tachycardia, post covid syndrome. She is known to Dr. Castanon, last seen by him in office on 11/24/2021. Symptoms of palpitations started post Covid which lead to cardiology evaluation. She has completed a recent tilt table test and monitor in work up. She has completed an echocardiogram and stress testing in the past. She explains she has been working out doing orange theory and monitoring heart rate response. She continues to run, as well. She describes an exaggerated heart rate response with activity, can easily reach 180s. She will feel short of breath and easily fatigued when heart rate is elevated. She has not had episodes of syncope or near syncope. She has been following conservative measures. She feels as if her heart rate response is gradually improving. PAST MEDICAL HISTORY Diagnosis Date - Allergic rhinitis, cause unspecified - Lab test positive for detection of COVID-19 virus - Other acne - PAC (premature atrial contraction) - Palpitations - PVC's (premature ventricular contractions) PAST SURGICAL HISTORY Procedure Laterality Date - TONSILLECTOMY AND ADENOIDECTOMY FAMILY HISTORY Problem Relation Age of Onset - Heart disease Maternal Grandmother - Diabetes Maternal Grandmother - Heart disease Maternal Grandfather - Diabetes Maternal Grandfather - Stroke Paternal Grandmother - Stroke Paternal Grandfather Social History Tobacco Use - Smoking status: Never Smoker - Smokeless tobacco: Never Used Vaping Use - Vaping Use: Never used Substance Use Topics - Alcohol use: Yes Comment: occasionally - Drug use: Never ALLERGIES Allergen Reactions - Cefuroxime Rash - Penicillin V Hives - Sulfamethoxazole-Tr* Unknown - Ceftin [Cefuroxime * Rash - Emycin [Erythromyci* Hives - Lactose Intolerance* GI Upset - Penicillins Rash - Seasonale [Levonorg* Intolerance - Spironolactone Unknown - Sulfa (Sulfonamide * Rash - Sulfacedamide [Othe* Rash Medications: Current Outpatient Medications Medication Sig Dispense Refill - MAGNESIUM OXIDE ORAL Take by mouth once daily. - loratadine (CLARITIN) 10 mg tablet Take 10 mg by mouth once daily. - Cholecalciferol, Vitamin D3, (VITAMIN D-3) 50 mcg (2,000 unit) cap Take 1 capsule by mouth once daily. - ipratropium bromide (ATROVENT) 42 mcg (0.06 %) nasal spray Use 2 Sprays in the nose as needed. - pantoprazole DR (PROTONIX) 40 mg tablet Take 1 tablet by mouth once daily. - Multivitamin (DAILY MULTIPLE) ORAL Tab Take one(1) tablet daily. 0 - Cetirizine 10 mg cap ZYRTEC ALLERGY TABS as directed CETIRIZINE HCL TABS [id number] Tamia Yen LPN - levothyroxine sodium (SYNTHROID ORAL) SYNTHROID TABS as directed LEVOTHYROXINE SODIUM TABS [id number] Tamia Yen LPN - fexofenadine (PAVITHRA) 180 mg ORAL Tab Take one(1) tablet daily. 0 - ascorbic acid (VITAMIN C) 500 mg ORAL Tab Take one(1) tablet daily. 0 - Calcium Carbonate-Vitamin D2 (CALCIUM-D) 600-200 mg-unit ORAL Cap Take one(1) tablet daily. 0 - clindamycin 1 % TOPICAL Soln am and suppertime face bottle x 2 3 - Adapalene (DIFFERIN) 0.1 % TOPICAL Gel qhs (Patient not taking: Reported on 09/15/2021) 45 gm 3 No current facility-administered medications for this visit. Review of Systems Constitutional: Positive for malaise/fatigue. Negative for chills, diaphoresis, fever and weight loss. Weight gain 10 lbs September-December HENT: Negative for congestion, ear pain, nosebleeds, sinus pain and sore throat. Eyes: Negative for pain. Respiratory: Positive for shortness of breath. Negative for cough and wheezing. Cardiovascular: Positive for palpitations. Negative for chest pain, orthopnea, claudication, leg swelling and PND. Gastrointestinal: Negative for abdominal pain, blood in stool and melena. Seeing GI in consult for appetite fluctuations Genitourinary: Negative for hematuria. Musculoskeletal: Negative for falls. Neurological: Negative for dizziness, tingling, sensory change, speech change, focal weakness, loss of consciousness, weakness and headaches. Endo/Heme/Allergies: Does not bruise/bleed easily. Psychiatric/Behavioral: Negative for depression, memory loss and suicidal ideas. The patient is not nervous/anxious and does not have insomni (more content not included)... Normal [facility] CNPBanner 02-02-2022 CNPN Telephone (AGCARDPOB ) ----- MARJ TAY ([id number]) 1990 F Date Time Provider Department 02/02/22 LUISA PEREZ AGCARDSAMMY During your visit today, we recorded the following information about you: CHAVO Valencia 02/02/2022 9:50 AM Signed Patient is scheduled for a Tilt Table with Dr. Perez on 02/10/22. Please return our call with 72 hours to confirm your procedure and receive your instructions. If we do not hear from you your procedure will be postponed until next available date. Left Message CHAVO Valencia ____ Patient is scheduled for a Tilt Table on 02/10/[address] Perez. The hospital will call the day before between 2-5pm with your arrival time. Patient should not eat or drink after midnight the day before the procedure. Patient will need a star route mail driver when released from the hospital. Patient should continue to take medications as prescribed the morning of the procedure with just a sip of water unless otherwise instructed. CHAVO Valencia 02/07/2022 8:57 AM Signed 2nd call - Patient verbalized understanding of all instructions Carla Allen, PSS Cristiana Macedo RN 02/07/2022 10:45 AM Signed Pt's name has been added to [facility] procedure board. Cristiana Macedo RN Allergies As of Date: 02/02/2022 Noted Allergy Reaction CEFUROXIME 01/03/2017 2 - Rash PENICILLIN V 01/03/2017 4 - Hives SULFAMETHOXAZOLE-TRIMETHO PRIM 01/03/2017 16 - Unknown CEFTIN (CEFUROXIME AXETIL) 04/17/2006 2 - Rash EMYCIN (ERYTHROMYCIN) 04/17/2006 4 - Hives LACTOSE INTOLERANCE (LACTASE) 04/17/2006 8 - GI Upset PENICILLINS 04/17/2006 2 - Rash SEASONALE (LEVONORGESTREL-ETHINYL*0 04/17/2006 5 - Intolerance SPIRONOLACTONE 12/23/2020 16 - Unknown SULFA (SULFONAMIDE ANTIBIOTICS) 01/01/2019 2 - Rash sulfacedamide [Other] 04/17/2006 2 - Rash Date Reviewed: 11/24/2021 Reviewed by: Parker Castanon MD - Fully Assessed Reason for Visit: Preparations For Procedures [899] Cmt: Tilt Table Prescriptions as of 02/07/2022 - Cetirizine 10 mg cap ZYRTEC ALLERGY TABS as directed CETIRIZINE HCL TABS [id number] Tamia Yen LPN - levothyroxine sodium (SYNTHROID ORAL) SYNTHROID TABS as directed LEVOTHYROXINE SODIUM TABS [id number] Tamia Yen BASE CLOTH INSPECTOR - MAGNESIUM OXIDE ORAL Take by mouth once daily. - loratadine (CLARITIN) 10 mg tablet Take 10 mg by mouth once daily. - Cholecalciferol, Vitamin D3, (VITAMIN D-3) 50 mcg (2,000 unit) cap Take 1 capsule by mouth once daily. - ipratropium bromide (ATROVENT) 42 mcg (0.06 %) nasal spray Use 2 Sprays in the nose as needed. - pantoprazole DR (PROTONIX) 40 mg tablet Take 1 tablet by mouth once daily. - fexofenadine (PAVITHRA) 180 mg ORAL Tab Take one(1) tablet daily. - ascorbic acid (VITAMIN C) 500 mg ORAL Tab Take one(1) tablet daily. - Calcium Carbonate-Vitamin D2 (CALCIUM-D) 600-200 mg-unit ORAL Cap Take one(1) tablet daily. - Multivitamin (DAILY MULTIPLE) ORAL Tab Take one(1) tablet daily. - clindamycin 1 % TOPICAL Soln am and suppertime face - Adapalene (DIFFERIN) 0.1 % TOPICAL Gel [facility] Problem List As Of Date 02/02/2022 Noted Resolved Palpitations [R00.2] 12/23/2020 Tachycardia [R00.0] 12/23/2020 Encounter Status:Closed by CARLA ALLEN on 02/02/22 Normal [facility] CRP SerPl-ncon 12-09-2021 CRP [Mass/Vol] mg/L Normal <0.9 [facility] Comment on above: Order Comment: Speci men Type: BLOOD SPECIMEN Ordering Facility: [facility] Address: [address] [place] [address] Performed By: #### F ERR, 62-6 #### [facility] CLIA [id number] [address] [place] D dimer FEU PPP-mCncon 12-09 Fibrin D-dimer FEU (PPP) [Mass/Vol] <190 Normal <500 [facility] Comment on above: Order Comment: Speci [facility] Type: BLOOD SPECIMEN Ordering Facility: [facility] Address: [address] [place] [address] Performed By: #### 4 8065-7 #### [facility] CLIA [id number] [address] [place] FERRITIN BLDon 12-09-2021 Ferritin [Mass/Vol] 64.9 ng/mL Normal 14.7-205.1 [facility] Comment on above: Order Comment: Speci men Type: BLOOD SPECIMEN Ordering Facility: [facility] Address: [address] [place] [address] Performed By: #### F ERR, 62-6 #### [facility] CLIA [id number] [address] [place] NT-proBNP [facility] 12-09 Natriuretic peptide.B prohormone N-Terminal [Mass/Vol] 33 pg/mL Normal <125 [facility] Comment on above: Order Comment: Speci men Type: BLOOD SPECIMEN Ordering Facility: [facility] Address: [address] [place] [address] Performed By: #### F ERR, #### [facility] CLIA [id number] [address] [place] OMEGACHECKon 12-09-2021 ARACHIDONIC ACID 10.4 % by wt Normal 8.6-15.6 [facility] Comment on above: Order Comment: Speci men Type: BLOOD SPECIMEN Ordering Facility: [facility] Address: [address] [place] [address] Performed By: #### F ERR, #### [facility] CLIA [id number] [address] ARACHIDONIC ACID/EPA RATIO 52.0 High 3.7-40.7 [facility] Comment on above: Order Comment: Speci men Type: BLOOD SPECIMEN Ordering Facility: [facility] Address: [address] [place] [address] Result Comment: (NOT E) Test performed at: [facility] [address], [address] [place] [address] Lee Kumar MD Performed By: #### F ERR, #### [facility] CLIA [id number] [address] [place] DHA 1.6 % by wt Normal 1.4-5.1 [facility] Comment on above: Order Comment: Speci men Type: BLOOD SPECIMEN Ordering Facility: [facility] Address: [address] [place] [address] Performed By: #### F ERR, #### [facility] CLIA [id number] [address] [place] DPA 0.7 % by wt Low 0.8-1.8 [facility] Comment on above: Order Comment: Speci men Type: BLOOD SPECIMEN Ordering Facility: [facility] Address: [address] [place] [address] Performed By: #### F ERR, #### [facility] CLIA [id number] [address] [place] EPA 0.2 % by wt Normal 0.2-2.3 [facility] Comment on above: Order Comment: Speci men Type: BLOOD SPECIMEN Ordering Facility: [facility] Address: [address] [place] [address] Performed By: #### F ERR, #### [facility] CLIA [id number] [address] LINOLEIC ACID 29.7 % by wt High 18.6-29.5 [facility] Comment on above: Order Comment: Speci men Type: BLOOD SPECIMEN Ordering Facility: [facility] Address: [address] [place] [address] Performed By: #### F ERR, #### [facility] CLIA [id number] [address] OMEGA-3 TOTAL 2.5 % by wt Normal [facility] Comment on above: Order Comment: Speci men Type: BLOOD SPECIMEN Ordering Facility: [facility] Address: [address] [place] [address] Performed By: #### F ERR, #### [facility] CLIA [id number] [address] OMEGA-6 TOTAL 43.8 % by wt Normal [facility] Comment on above: Order Comment: Speci men Type: BLOOD SPECIMEN Ordering Facility: [facility] Address: [address] [place] [address] Result Comment: (NOT E) [facility] measures a number of omega-6 fatty acids with AA and LA being the two most abundant forms reported. Performed By: #### F ERR, 1988-02, 71962-2 #### [facility] CLIA [id number] [address] OMEGA-6/OMEGA-3 RATIO 17.5 High 3.7-14.4 [facility] Comment on above: Order Comment: Specgood benita Type: BLOOD SPECIMEN Ordering Facility: [facility] Address: [address] [place] [address] Performed By: #### F ERR, 1988-02, #### [facility] CLIA [id number] [address] OMEGACHECK 2.5 % by wt Low >5.4 [facility] Comment on above: Order Comment: Rika men Type: BLOOD SPECIMEN Ordering Facility: [facility] Address: [address] [place] [address] Result Comment: (NOT E) Increasing blood levels of long-chain n-3 fatty acids are associated with a lower risk of sudden cardiac (1). Based on the top (75th percentile) and bottom (25th percentile) quartiles of the [facility] reference population, the following relative risk categories were established for OmegaCheck: A cut-off of >=5.5% by wt defines a population at optimal relative risk, 3.8-5.4% by wt defines a population at moderate relative risk, and <=3.7% by wt defines a population at high relative risk of sudden cardiac . The totality of the scientific evidence demonstrates that when consumption of fish oils is limited to 3 g/day or less of EPA and DHA, there is no significant risk for increased bleeding time beyond the normal range. A daily dosage of 1 gram of EPA and DHA lowers the circulating triglycerides by about 7-10% within 2 to 3 weeks. (Reference: 1-Rafael barraza al. [facility]. 2002; 346: 1157-4993). This test is performed by a Liquid Chromatography-Tandem Mass Spectrometry (LC/MS/MS) method. This test was developed and its performance characteristics determined by the [employer] It has not been cleared or approved by the U.S. FDA. The [employer] is regulated under Clinical Laboratory Improvement Amendments (CLIA) as qualified to perform high-complexity testing. This test is used for clinical purposes. It should not be regarded as investigational or for research. Performed By: #### F ERR, 1988-02, 91224-8 #### [facility] CLIA [id number] [address] CNOVon 11-24-2021 CNOV Office Visit (AGCARD POB) ----- MARJ TAY ([id number]) 1990 F Date Time Provider Department 11/24/21 4:00 PM PARKER CASTANON AGCARDPOB During your visit today, we recorded the following information about you: Pulse Respiration Blood pressure Weight 79/minute 18/minute 126/82 76.7 kg Height 1.727 m Bisi Blake MA 11/24/2021 4:00 PM Signed Patient complains of higher heart rate. Parker Castanon MD 11/24/2021 4:52 PM Signed Parker Castanon MD Interventional Cardiology [address] [place], [place] [id number] Chief Complaint Patient presents with: Cardiology Follow Up : FOLLOW UP FOR PALPITATIONS HISTORY OF PRESENT ILLNESS: Ms. Tay is a 31 year old female seen in my office today for follow-up patient had prior history of palpitation status post Covid syndrome she still feels that she goes tachycardic with minimal activities Patient had an echocardiography stress test for resuscitation everything was normal Her symptoms suggestive of POTS or inappropriate sinus tachycardia syndrome Cardiac Risk Factors family history of CAD PAST MEDICAL HISTORY Diagnosis Date - Allergic rhinitis, cause unspecified - Lab test positive for detection of COVID-19 virus - Other acne - PAC (premature atrial contraction) - Palpitations - PVC's (premature ventricular contractions) PAST SURGICAL HISTORY Procedure Laterality Date - TONSILLECTOMY AND ADENOIDECTOMY FAMILY HISTORY Problem Relation Age of Onset - Heart disease Maternal Grandmother - Diabetes Maternal Grandmother - Heart disease Maternal Grandfather - Diabetes Maternal Grandfather - Stroke Paternal Grandmother - Stroke Paternal Grandfather Social History Tobacco Use - Smoking status: Never Smoker - Smokeless tobacco: Never Used Vaping Use - Vaping Use: Never used Substance Use Topics - Alcohol use: Yes Comment: occasionally - Drug use: Never ALLERGIES Allergen Reactions - Cefuroxime Rash - Penicillin V Hives - Sulfamethoxazole-Tr* Unknown - Ceftin [Cefuroxime * Rash - Emycin [Erythromyci* Hives - Lactose Intolerance* GI Upset - Penicillins Rash - Seasonale [Levonorg* Intolerance - Spironolactone Unknown - Sulfa (Sulfonamide * Rash - Sulfacedamide [Othe* Rash Medications: Current Outpatient Medications Medication Sig Dispense Refill - MAGNESIUM OXIDE ORAL Take by mouth once daily. - loratadine (CLARITIN) 10 mg tablet Take 10 mg by mouth once daily. - Cholecalciferol, Vitamin D3, (VITAMIN D-3) 50 mcg (2,000 unit) cap Take 1 capsule by mouth once daily. - ipratropium bromide (ATROVENT) 42 mcg (0.06 %) nasal spray Use 2 Sprays in the nose as needed. - pantoprazole DR (PROTONIX) 40 mg tablet Take 1 tablet by mouth once daily. - Multivitamin (DAILY MULTIPLE) ORAL Tab Take one(1) tablet daily. 0 - Cetirizine 10 mg cap ZYRTEC ALLERGY TABS as directed CETIRIZINE HCL TABS [id number] Tamia Yen LPN - levothyroxine sodium (SYNTHROID ORAL) SYNTHROID TABS as directed LEVOTHYROXINE SODIUM TABS [id number] Tamia Yen LPN - fexofenadine (PAVITHRA) 180 mg ORAL Tab Take one(1) tablet daily. 0 - ascorbic acid (VITAMIN C) 500 mg ORAL Tab Take one(1) tablet daily. 0 - Calcium Carbonate-Vitamin D2 (CALCIUM-D) 600-200 mg-unit ORAL Cap Take one(1) tablet daily. 0 - clindamycin 1 % TOPICAL Soln am and suppertime face bottle x 2 3 - Adapalene (DIFFERIN) 0.1 % TOPICAL Gel qhs (Patient not taking: Reported on 09/15/2021) 45 gm 3 No current facility-administered medications for this visit. Review of Systems Constitutional: Negative for chills, diaphoresis, fever, malaise/fatigue and weight loss. HENT: Negative for congestion, ear discharge, ear pain, hearing loss, nosebleeds, sinus pain, sore throat and tinnitus. Eyes: Negative for blurred vision, double vision, photophobia, pain, discharge and redness. Respiratory: Negative for cough, hemoptysis, sputum production, shortness of breath, wheezing and stridor. Cardiovascular: Negative for chest pain, palpitations, orthopnea, claudication, leg swelling and PND. Gastrointestinal: Negative for abdominal pain, blood in stool, constipation, diarrhea, heartburn, melena, nausea and vomiting. Genitourinary: Negative for dysuria, flank pain, frequency, hematuria and urgency. Musculoskeletal: Negative for back pain, falls, joint pain, myalgias and neck pain. Skin: Negative for itching and rash. Neurological: Negative for dizziness, tingling, tremors, sensory change, speech change, focal weakness, seizures, loss of consciousness, weakness and headaches. Endo/Heme/Allergies: Negative for environmental allergies and polydipsia. Does not bruise/bleed easily. Psychiatric/Behavioral: Negative for depression, hallucinations, memory loss, substance abuse and suicidal ideas. The patient is not nervous/anxio (more content not included)... Normal [facility] Urinalysis complete panel (U )on 10-13-2021 Bacteria LM.HPF (Urine sed) [#/Area] None Seen Normal None Seen [facility] Comment on above: Order Comment: Speci men Type: URINE SPECIMEN Performed By: #### 2 4356-8 ####[facility] [id number] [place] [address] [place] Bilirubin Ql (U) Negative Normal Negative [facility] Comment on above: Order Comment: Speci men Type: URINE SPECIMEN Performed By: #### 2 4356-8 ####[facility]IA [id number] [address] Clarity (Unsp spec) Clear Normal Clear [facility] Comment on above: Order Comment: Speci men Type: URINE SPECIMEN Performed By: #### 2 4356-8 ####[facility] [place] [facility]ORYCLIA [id number] [address] Color (U) Yellow Normal Yellow [facility] Comment on above: Order Comment: Speci men Type: URINE SPECIMEN Performed By: #### 2 4356-8 ####[facility] [place] [facility]ORYCLIA [id number] [address] Epithelial cells LM.HPF (Urine sed) [#/Area] 3.6 /[HPF] Normal [facility] Comment on above: Order Comment: Speci men Type: URINE SPECIMEN Performed By: #### 2 4356-8 ####[facility] [place] [facility]ORYCLIA [id number] [address] Glucose Test strip (U) [Mass/Vol] Negative Normal Negative [facility] Comment on above: Order Comment: Speci men Type: URINE SPECIMEN Performed By: #### 2 4356-8 ####[facility] [place] [facility]ORYCLIA [id number] [address] Hemoglobin Ql (U) Negative Normal Negative [facility] Comment on above: Order Comment: Speci men Type: URINE SPECIMEN Performed By: #### 2 4356-8 ####[facility] [id number] [address] Hyaline casts (Urine sed) [#/Area] 1-3 /LPF Abnormal 0 /LPF [facility] Comment on above: Order Comment: Speci men Type: URINE SPECIMEN Performed By: #### 2 4356-8 ####[facility] [id number] [address] Ketones Ql (U) Negative Normal Negative [facility] Comment on above: Order Comment: Speci men Type: URINE SPECIMEN Performed By: #### 2 4356-8 ####[facility] [id number] [address] Leukocyte esterase Test strip Ql (U) Negative Normal Negative [facility] Comment on above: Order Comment: Speci men Type: URINE SPECIMEN Performed By: #### 2 4356-8 ####[facility] [place] [facility]ATORYCLIA [id number] [address] Nitrite Ql (U) Negative Normal Negative [facility] Comment on above: Order Comment: Speci men Type: URINE SPECIMEN Performed By: #### 2 4356-8 ####[facility] [place] [facility]ATORYCLIA [id number] [address] pH (U) 6.0 [pH] Normal 5.0-8.0 [facility] Comment on above: Order Comment: Speci men Type: URINE SPECIMEN Performed By: #### 2 4356-8 ####[facility] [id number] [address] Protein (U) [Mass/Vol] Negative Normal Negative Cl [facility] Comment on above: Order Comment: Speci men Type: URINE SPECIMEN Performed By: #### 2 4356-8 ####[facility] [place] [facility]ORYCLIA [id number] [address] RBC LM.HPF (Urine sed) [#/Area] 3-5 /HPF Abnormal 0-3 /HPF [facility] Comment on above: Order Comment: Speci men Type: URINE SPECIMEN Performed By: #### 2 4356-8 ####[facility] [place] [facility]ATORYCLIA [id number] [address] Specific gravity (U) [Rel density] 1.013 Normal 1.005-1.03 0 [facility] Comment on above: Order Comment: Speci men Type: URINE SPECIMEN Performed By: #### 2 4356-8 ####[facility] [id number] [place] [address] [place] Urobilinogen Ql (U) 0.2 EU/dL Normal 0.2-1.0 EU/dL [facility] Comment on above: Order Comment: Speci men Type: URINE SPECIMEN Performed By: #### 2 4356-8 ####[facility] [place] LAB[facility]ATORYCLIA [id number] [address] WBC LM.HPF (Urine sed) [#/Area] 0-5 /HPF Normal 0-5 /HPF [facility] Comment on above: Order Comment: Speci men Type: URINE SPECIMEN Performed By: #### 2 4356-8 ####[facility]ORYCLIA [id number] [address] Replaced Document: (P) PAP I -G w/rfx hrHPVon 07-22-2017 HPV RFLX Comment Invalid Interpretation Code . [facility] Microbiology: (P) Culture, G enital Comprehensiveon 07-19-2017 CUV Gent Cult CompNo growth. Invalid Interpretation Code [facility] CUV . Invalid Interpretation Code [facility] Lab Report: CT/NG [facility] BY PCR on 07-18-2017 Chlamydia trachomatis DNA [Presence] in Urine by Probe and target amplification method Negative Invalid Interpretation Code Negative [facility] Neisseria gonorrhoeae presence Negative Invalid Interpretation Code Negative [facility] Office Visiton 07-18-2017 Documentation of current medications (procedure) Done Invalid Interpretation Code [facility] Protein mass conc Done Invalid Interpretation Code [facility] Tobacco smoking status NJIS Never Invalid Interpretation Code [facility] Tobacco smoking status NHIS Never smoker Invalid Interpretation Code [facility] Tobacco use CPHS Never smoker Invalid Interpretation Code [facility] Office Visit: HRA PEon 07-04 Documentation of current medications (procedure) Done Invalid Interpretation Code [facility] Work Phone: Tobacco smoking status NHIS Never Invalid Interpretation Code [facility] Work Phone: Tobacco use HS Never smoker Invalid Interpretation Code [facility] Work Phone: Lab Report: Lipid Profileon 06-23-2017 Cholesterol 163 mg/dL Invalid Interpretation Code 200 [facility] Work Phone: HDL Cholesterol 60 mg/dL Invalid Interpretation Code [facility] Work Phone: LDL Cholesterol 93 mg/dL Invalid Interpretation Code 0-130 [facility] Work Phone: Triglyceride 51 mg/dL Invalid Interpretation Code [facility] Work Phone: very low density lipoproteins 10 mg/dL Invalid Interpretation Code 5-40 [facility] Work Phone: Office Visit: TB readingon 0 05-15-2017 Documentation of current medications (procedure) Done Invalid Interpretation Code [facility] Work Phone: PPD results in mm 0 mm Invalid Interpretation Code [facility] Work Phone: Tobacco use HS Never smoker Invalid Interpretation Code [facility] Work Phone: Office Visit: UC: BL ankle p ain, bruising R footon 01-31-2017 Fall risk assessment No Invalid Interpretation Code [facility] Work Phone: Protein mass conc Done [facility] Work Phone: Tobacco smoking status NHIS Never smoker [facility] Work Phone: Office Visit: UC: UTI? sinus infection?on 01-03-2017 Albumin Ql (U) trace Invalid Interpretation Code [facility] Work Phone: Appearance Nom (U) clear Invalid Interpretation Code [facility] Work Phone: Bilirubin Ql (U) Negative Invalid Interpretation Code [facility] Work Phone: blood in urine (hemoglobin) by dipstick 3+ Invalid Interpretation Code [facility] Work Phone: Color Nom (U) yellow Invalid Interpretation Code [facility] Work Phone: Glucose Test strip mass conc (U) Negative Invalid Interpretation Code [facility] Work Phone: Ketones mass conc (U) Negative Invalid Interpretation Code [facility] Work Phone: Leukocyte esterase Test strip Ql (U) trace Invalid Interpretation Code [facility] Work Phone: Nitrite Ql (U) Negative [facility] Work Phone: pH (U) 7.0 [pH] [facility] Work Phone: Specific gravity Refractometry Relative Density (U) 1.010 Invalid Interpretation Code [facility] Work Phone: Urine, bilirubin presence Negative Invalid Interpretation Code [facility] Work Phone: Urine, glucose presence Negative Invalid Interpretation Code [facility] Work Phone: Urine, ketones presence Negative Invalid Interpretation Code [facility] Work Phone: Urine, nitrite presence Negative Invalid Interpretation Code [facility] Work Phone: Urine, pH 7.0 [pH] Invalid Interpretation Code [facility] Work Phone: Urine, protein trace Invalid Interpretation Code [facility] Work Phone: Urobilinogen Test strip Ql (U) Negative Invalid Interpretation Code [facility] Work Phone: Vital Signs Date Time Vital Sign Value Performing Clinician Facility 07-10-2025 11:58-0400 Body height 172.72 cm Tonya English MD Work Phone: [facility] 07-10-2025 11:58-0400 Body height 173 cm Tonya English MD Work Phone: [facility] 07-10-2025 11:58-0400 Body mass index (BMI) [Ratio] 30.21 kg/m2 Tonya English MD Work Phone: [facility] 07-10-2025 11:58-0400 Body weight 89.81 kg Tonya English MD Work Phone: [facility] 07-10-2025 11:58-0400 Body weight 90 kg Tonya English MD Work Phone: [facility] 07-10-2025 11:58-0400 BP SITE #1 Tonya English MD Work Phone: [facility] 07-10-2025 11:58-0400 Diastolic blood pressure 83 mm[Hg] Tonya English MD Work Phone: [facility] 07-10-2025 11:58-0400 Heart rate 65 /min Tonya English MD Work Phone: [facility] 07-10-2025 11:58-0400 HGHTCHNVIS Tonya English MD Work Phone: [facility] 07-10-2025 11:58-0400 Systolic blood pressure 115 mm[Hg] Tonya English MD Work Phone: [facility] 07-10-2025 11:58-0400 VITALSDONE Tonya English MD Work Phone: [facility] 05-29-2025 15:33-0400 Body height 173 cm Varun Jose DO Work Phone: [facility] 05-29-2025 15:33-0400 Body height 172.72 cm Varun Jose DO Work Phone: [facility] 05-29-2025 15:33-0400 Body mass index (BMI) [Ratio] 28.99 kg/m2 Varun Jose DO Work Phone: [facility] 05-29-2025 15:33-0400 Body weight 86 kg Varun Jose DO Work Phone: [facility] 05-29-2025 15:33-0400 Body weight 86.18 kg Varun Jose DO Work Phone: [facility] 05-29-2025 15:33-0400 BP SITE #1 Varun Jose DO Work Phone: [facility] 05-29-2025 15:33-0400 Diastolic blood pressure 76 mm[Hg] Varun Jose DO Work Phone: [facility] 05-29-2025 15:33-0400 Heart rate 67 /min Varun Jose DO Work Phone: [facility] 05-29-2025 15:33-0400 HGHTCHNVIS Varun Jose DO Work Phone: [facility] 05-29-2025 15:33-0400 Systolic blood pressure 115 mm[Hg] Varun Jose DO Work Phone: [facility] 05-29-2025 15:33-0400 VITALSDONE Varun Jose DO Work Phone: [facility] 07-29-2024 10:24-0400 Body height 172.7 cm Terry Briscoe MD Work Phone: [facility] 07-29-2024 10:24-0400 Body mass index (BMI) [Ratio] 29.56 kg/m2 Terry Briscoe MD Work Phone: [facility] 07-29-2024 10:24-0400 Body weight 88.18 kg Terry Briscoe MD Work Phone: [facility] 07-29-2024 10:24-0400 Diastolic blood pressure 77 mm[Hg] Terry Briscoe MD Work Phone: [facility] 07-29-2024 10:24-0400 Heart rate 70 /min Terry Briscoe MD Work Phone: [facility] 07-29-2024 10:24-0400 Systolic blood pressure 110 mm[Hg] Terry Briscoe MD Work Phone: [facility] 01-02-2024 08:31-0400 Body height 172.7 cm Parrish Huff MD Work Phone: [facility] 01-02-2024 08:31-0400 Body mass index (BMI) [Ratio] 29.5 kg/m2 Parrish Huff MD Work Phone: [facility] 01-02-2024 08:31-0400 Body weight 88 kg Parrish Huff MD Work Phone: [facility] 01-02-2024 08:31-0400 Diastolic blood pressure 66 mm[Hg] Parrish Huff MD Work Phone: [facility] 01-02-2024 08:31-0400 Heart rate 70 /min Parrish Huff MD Work Phone: [facility] 01-02-2024 08:31-0400 Systolic blood pressure 119 mm[Hg] Parrish Huff MD Work Phone: [facility] 07-29-2022 09:32-0400 Body temperature 98.29 [degF] Geoffrey Ramos FUEL HOUSE ATTENDANT.ARCHITECTURAL DRAFTER Work Phone: [facility] 07-29-2022 09:32-0400 Body weight 82.56 kg Geoffrey Ramos FUEL HOUSE ATTENDANT.ARCHITECTURAL DRAFTER Work Phone: [facility] 07-29-2022 09:32-0400 Diastolic blood pressure 90 mm[Hg] Geoffrey Ramos FUEL HOUSE ATTENDANT.ARCHITECTURAL DRAFTER Work Phone: [facility] 07-29-2022 09:32-0400 Heart rate 79 /min Geoffrey Ramos FUEL HOUSE ATTENDANT.ARCHITECTURAL DRAFTER Work Phone: [facility] 07-29-2022 09:32-0400 Respiratory rate 18 /min Geoffrey Ramos FUEL HOUSE ATTENDANT.ARCHITECTURAL DRAFTER Work Phone: [facility] 07-29-2022 09:32-0400 SaO2% (BldA) [Mass fraction] 99 % Geoffrey Ramos FUEL HOUSE ATTENDANT.ARCHITECTURAL DRAFTER Work Phone: [facility] 07-29-2022 09:32-0400 Systolic blood pressure 124 mm[Hg] Geoffrey Ramos FUEL HOUSE ATTENDANT.ARCHITECTURAL DRAFTER Work Phone: [facility] 05-16-2022 10:43-0400 Diastolic blood pressure 64 mm[Hg] Meir Ferguson MD Work Phone: [facility] 05-16-2022 10:43-0400 Heart rate 62 /min Meir Ferguson MD Work Phone: [facility] 05-16-2022 10:43-0400 Respiratory rate 16 /min Meir Ferguson MD Work Phone: [facility] 05-16-2022 10:43-0400 SaO2% (BldA) [Mass fraction] 100 % Meir Ferguson MD Work Phone: [facility] 05-16-2022 10:43-0400 Systolic blood pressure 109 mm[Hg] Meir Ferguson MD Work Phone: [facility] 05-16-2022 09:25-0400 Body temperature 98.01 [degF] Meir Ferguson MD Work Phone: [facility] 05-16-2022 09:25-0400 Body weight 78.5 kg Meir Ferguson MD Work Phone: [facility] 03-22-2022 16:11-0400 Body height 173 cm Hayder Mcqueen FUEL HOUSE ATTENDANT.ARCHITECTURAL DRAFTER Work Phone: [facility] 03-22-2022 16:11-0400 Body weight 78.47 kg Hayder Mcqueen FUEL HOUSE ATTENDANT.ARCHITECTURAL DRAFTER Work Phone: [facility] 03-22-2022 16:11-0400 Diastolic blood pressure 64 mm[Hg] Hayder Mcqueen FUEL HOUSE ATTENDANT.ARCHITECTURAL DRAFTER Work Phone: [facility] 03-22-2022 16:11-0400 Heart rate 75 /min Hayder Mcqueen FUEL HOUSE ATTENDANT.ARCHITECTURAL DRAFTER Work Phone: [facility] 03-22-2022 16:11-0400 SaO2% (BldA) [Mass fraction] 99 % Hayder Mcqueen FUEL HOUSE ATTENDANT.ARCHITECTURAL DRAFTER Work Phone: [facility] 03-22-2022 16:11-0400 Systolic blood pressure 108 mm[Hg] Hayder Mcqueen FUEL HOUSE ATTENDANT.ARCHITECTURAL DRAFTER Work Phone: [facility] 07-18-2017 15:30-0400 BMI (Body Mass Index) 22.11 kg/m2 Katarina Dave NP [facility] 07-18-2017 15:30-0400 Body Temperature 99.2 [degF] Katarina Dave AUTOMOTIVE REPAIR TECHNICIAN [facility] 07-18-2017 15:30-0400 BP Diastolic 76 mm[Hg] Katarina Dave AUTOMOTIVE REPAIR TECHNICIAN [facility] 07-18-2017 15:30-0400 BP Systolic 114 mm[Hg] Katarina Dave AUTOMOTIVE REPAIR TECHNICIAN [facility] 07-18-2017 15:30-0400 Height 172.72 cm Katarina Dave NP [facility] 07-18-2017 15:30-0400 Pulse (Heart Rate) 74 /min Katarina Dave NP [facility] 07-18-2017 15:30-0400 Weight 65.95 [address] Dave NP [facility] 07-04-2017 07:50-0400 BMI (Body Mass Index) 22.04 kg/m2 Tyrel TOLLIVER [facility] Work Phone: 07-04-2017 07:50-0400 BP Diastolic 70 mm[Hg] Tyrel TOLLIVER [facility] Work Phone: 07-04-2017 07:50-0400 BP Systolic 112 mm[Hg] Tyrel TOLLIVER [facility] Work Phone: 07-04-2017 07:50-0400 Height 172.72 cm Tyrel TOLLIVER [facility] Work Phone: 07-04-2017 07:50-0400 Weight 65.77 kg Tyrel TOLLIVER [facility] Work Phone: 01-31-2017 17:59-0400 BMI (Body Mass Index) 22.23 kg/m2 Carla Buitrago LPN [facility] Work Phone: 01-31-2017 17:59-0400 Body Temperature 98.3 [degF] Carla Buitrago LPN [facility] Work Phone: 01-31-2017 17:59-0400 BP Diastolic 68 mm[Hg] Carla Buitrago LPN [facility] Work Phone: 01-31-2017 17:59-0400 BP Systolic 104 mm[Hg] Carla Buitrago LPN [facility] Work Phone: 01-31-2017 17:59-0400 Height 172.72 cm Carla Buitrago LPN [facility] Work Phone: 01-31-2017 17:59-0400 Pulse (Heart Rate) 63 /min Carla Buitrago LPN [facility] Work Phone: 01-31-2017 17:59-0400 Respiratory Rate 14 /min Carla Buitrago LPN [facility] Work Phone: 01-31-2017 17:59-0400 Weight 66.32 kg Carla Buitrago LPN [facility] Work Phone: Encounters Encounter Date Encounter Type Care Provider Facility Start: 08-20-2025 End: 08-20-2025 ambulatory KEYONNA BERMUDEZ [facility] Start: 08-20-2025 End: 08-20-2025 Subsequent hospital visit by physician Keyonna Bermudez DO Work Phone: [facility] Comment on above: Arrived Start: 08-18-2025 End: 08-18-2025 ambulatory [facility] Start: 08-18-2025 End: 08-18-2025 Subsequent hospital visit by physician [facility] Di FUEL HOUSE ATTENDANT-ARCHITECTURAL DRAFTER [facility] Comment on above: Plantar fasciitis of left foot (Primary Dx); Posterior tibial tendinitis of left leg; Neuritis Start: 08-04-2025 End: 08-04-2025 ambulatory [facility] Start: 08-04-2025 End: 08-04-2025 Subsequent hospital visit by physician Domonique Hyatt APRN-ARCHITECTURAL DRAFTER Work Phone: [facility] Comment on above: Plantar fasciitis of left foot (Primary Dx); Posterior tibial tendinitis of left leg; Neuritis Start: 07-21-2025 End: 07-21-2025 ambulatory [facility] Start: 07-21-2025 End: 07-21-2025 Subsequent hospital visit by physician [facility] [place] Comment on above: Plantar fasciitis of left foot (Primary Dx); Posterior tibial tendinitis of left leg; Neuritis Start: 07-14-2025 End: 07-14-2025 Subsequent hospital visit by physician [facility] [place] Comment on above: Plantar fasciitis of left foot (Primary Dx); Posterior tibial tendinitis of left leg; Neuritis Start: 07-14-2025 End: 07-14-2025 ambulatory [facility] Start: 07-12-2025 Visit out of hours Tonya English MD Work Phone: [employer] Work Phone: Start: 07-10-2025 In-person encounter Tonya jose MD Work Phone: [facility] Work Phone: Start: 07-07-2025 End: 07-07-2025 Subsequent hospital visit by physician [facility] [place] Comment on above: Plantar fasciitis of left foot (Primary Dx); Posterior tibial tendinitis of left leg; Neuritis Start: 07-07-2025 End: 07-07-2025 ambulatory [facility] Start: 06-30-2025 End: 06-30-2025 Subsequent hospital visit by physician [facility] [place] Comment on above: Neuritis (Primary Dx ); Plantar fasciitis of left foot; Posterior tibial tendinitis of left leg Start: 06-30-2025 End: 06-30-2025 ambulatory [facility] Start: 06-23-2025 End: 06-23-2025 ambulatory [facility] Start: 06-23-2025 End: 06-23-2025 Subsequent hospital visit by physician [facility] [place] Comment on above: Neuritis (Primary Dx ); Plantar fasciitis of left foot; Posterior tibial tendinitis of left leg Start: 06-09-2025 End: 06-09-[address] Cristina Villeda DO Work Phone: -Radiology [facility] Start: 06-09-2025 End: 06-09-[address] Jose Antonio Briscoe MD -Radiology [facility] Work Phone: Start: 06-09-2025 End: 06-09-2025 ambulatory Jose Antonio Briscoe Facility:[facility] Start: 06-02-2025 End: 06-02-2025 ambulatory [facility] Start: 06-02-2025 End: 06-02-2025 Subsequent hospital visit by physician [facility] [place] Comment on above: Plantar fasciitis of left foot (Primary Dx); Neuritis; Posterior tibial tendinitis of left leg Start: 05-29-2025 Visit out of hours Varun forbes DO Work Phone: [employer] Work Phone: Start: 05-29-2025 In-person encounter Varun lieberman DO Work Phone: [facility] Work Phone: Start: 05-26-2025 End: 05-26-2025 ambulatory [facility] Start: 05-26-2025 End: 05-26-2025 Subsequent hospital visit by physician [facility] [place] Comment on above: Neuritis (Primary Dx ); Plantar fasciitis of left foot; Posterior tibial tendinitis of left leg Start: 05-22-2025 End: 05-22-2025 Subsequent hospital visit by physician [facility] [place] Comment on above: Plantar fasciitis of left foot (Primary Dx); Neuritis; Posterior tibial tendinitis of left leg Start: 05-22-2025 End: 05-22-2025 ambulatory JENNIFER [facility] Start: 05-12-2025 End: 05-12-2025 ambulatory [facility] Start: 05-12-2025 End: 05-12-2025 Subsequent hospital visit by physician [facility] [place] Comment on above: Plantar fasciitis of left foot (Primary Dx); Neuritis; Posterior tibial tendinitis of left leg Start: 05-05-2025 End: 05-05-2025 Subsequent hospital visit by physician [facility] [place] Comment on above: Posterior tibial ten dinitis of left leg (Primary Dx); Neuritis; Plantar fasciitis of left foot Start: 05-05-2025 End: 05-05-2025 ambulatory [facility] Start: 01-23-2025 End: 01-23-2025 ambulatory [facility] Facility[facility] Start: 10-14-2024 End: 10-14-2024 ambulatory Jose Antonio Smiley [facility] Facility:[facility] Start: 10-07-2024 End: 10-07-2024 ambulatory [facility] Facility:[facility] Start: 10-03-2024 End: 10-03-2024 Documentation procedure Terry Briscoe MD Work Phone: [facility] Start: 08-06-2024 End: 10-04-2024 Telephone encounter Terry Briscoe MD Work Phone: [facility] [place] Start: 08-05-2024 End: 08-05-2024 Documentation procedure Terry Briscoe MD Work Phone: [facility] [place] Start: 08-03-2024 End: 08-03-2024 ambulatory [facility] Facility:[facility] Start: 07-29-2024 End: 07-29-2024 Office outpatient new 45 minutes Jannet Fernandez MD Work Phone: [facility] [place] Comment on above: Thyroid disease (Stacia latoya Dx); Borderline hyperlipidemia; Overweight Start: 03-26-2024 Telephone encounter Parrish stephens MD Work Phone: [facility] Medical [facility] Start: 03-01-2024 Telephone encounter Parrish Wit ten MD Work Phone: [facility] Comment on above: Results Start: 02-09-2024 End: 02-09-[address] Cristina Villeda Work Phone: [facility] Work Phone: Start: 02-09-2024 End: 02-09-[address] Crist[facility]illed[facility] Work Phone: Start: 01-10-2024 End: 01-10-[address] Cristina Villeda Work Phone: [facility] Work Phone: Start: 01-10-2024 End: 01-10-[address] Cristina Villeda Work Phone: [facility] Work Phone: Start: 01-02-2024 End: 01-02-2024 Patient encounter procedure Parrish Huff MD Work Phone: [facility] Work Phone: Start: 01-02-2024 End: 01-02-2024 Periodic preventive med est patient 18-39 yrs Parrish Huff MD Work Phone: [facility] Comment on above: Women's annual routi ne gynecological examination (Primary Dx); Abnormal uterine bleeding (AUB); Pelvic pain; BMI 29.0-29.9,adult Start: 12-21-2023 End: 12-21-[address] Cristina Villeda Work Phone: [facility] Work Phone: Start: 11-09-2023 End: 11-09-[address] Cristina Villeda Work Phone: [facility] Work Phone: Start: 09-28-2023 End: 09-28-[address] Cristina Villeda Work Phone: [facility] Work Phone: Start: 07-22-2023 End: 07-23-2023 ambulatory CRITSINA VILLEDA DO Facility:[facility] Start: 07-08-2023 End: 07-15-[address] Cristina Villeda Work Phone: [facility] Work Phone: Start: 07-08-2023 End: 07-15-[address] Cristina Villeda Work Phone: [facility] Start: 06-06-2023 End: 06-06-[address] [facility] Work Phone: Start: 05-13-2023 End: 05-13-[address] Cristina Villeda Work Phone: [facility] Work Phone: Start: 05-13-2023 End: 05-13-[address] Cristina Villeda Work Phone: [facility] Work Phone: Start: 04-06-2023 End: 04-06-[address] [facility] Work Phone: Start: 02-21-2023 End: 02-21-[address] Crist[facility]illed[facility] Work Phone: Start: 12-01-2022 End: 12-01-2022 Subsequent hospital visit by physician Cristina Villeda DO Work Phone: [facility] Comment on above: Arrived Start: 10-18-2022 ambulatory BISI NGUYEN PA-C Faci lity:B Start: 10-14-2022 End: 10-14-2022 Subsequent hospital visit by physician Bisi Nguyen PA-C Work Phone: [facility] [place] Comment on above: Right foot pain (Stacia latoya Dx); Ankle weakness; Weakness of both hips Start: 10-13-2022 Telephone encounter Ag Card Work Phone: [facility] [place] Comment on above: Appointment Start: 10-07-2022 End: 10-07-2022 Subsequent hospital visit by physician Bisi Nguyen PA-C Work Phone: [facility] [place] Comment on above: Right foot pain (Stacia latoya Dx); Ankle weakness; Weakness of both hips Start: 10-04-2022 End: 10-04-2022 Subsequent hospital visit by physician Bisi Nguyen PA-C Work Phone: [facility] [place] Comment on above: Right foot pain (Stacia latoya Dx); Ankle weakness; Weakness of both hips; Acute right ankle pain Start: 09-30-2022 End: 09-30-2022 Subsequent hospital visit by physician Bisi [facility] PA-C [facility] Comment on above: Right foot pain (Stacia latoya Dx); Ankle weakness; Weakness of both hips Start: 09-26-2022 End: 09-26-2022 ambulatory PARRISH HUFF Facility:[facility] Start: 09-23-2022 End: 09-23-2022 Subsequent hospital visit by physician Bisi Nguyen PA-C Work Phone: [facility] [place] Comment on above: Right foot pain (Stacia latoya Dx); Ankle weakness; Acute right ankle pain Start: 09-20-2022 End: 09-20-2022 Subsequent hospital visit by physician Bisi Nguyen PA-C Work Phone: [facility] [place] Comment on above: Right foot pain (Stacia latoya Dx); Ankle weakness Start: 09-13-2022 End: 09-13-2022 Subsequent hospital visit by physician Bisi Nguyen PA-C Work Phone: [facility] [place] Comment on above: Sprain of other liga ment of right ankle, subsequent encounter (Primary Dx); Acute right ankle pain; Ankle weakness; Right foot pain Start: 09-01-2022 End: 09-01-2022 Subsequent hospital visit by physician Bisi Nguyen PA-C Work Phone: [facility] [place] Comment on above: Sprain of other liga ment of right ankle, subsequent encounter (Primary Dx); Acute right ankle pain; Ankle weakness Start: 08-22-2022 Telephone encounter Parrish stephens MD Work Phone: [facility] Comment on above: Results (labs) Start: 08-09-2022 End: 08-10-2022 ambulatory [facility] Facility:B Start: 08-09-2022 End: 08-09-2022 Patient encounter procedure BISI NGUYEN PA-C [facility] Start: 07-29-2022 Telephone encounter Geoffrey banegas FUEL HOUSE ATTENDANT.ARCHITECTURAL DRAFTER Work Phone: [facility] Comment on above: Results Start: 07-29-2022 End: 07-29-2022 ambulatory [facility] Facility:[facility] Start: 07-29-2022 End: 07-29-2022 Subsequent hospital visit by physician [facility] Work Phone: Radiology Comment on above: Foot injury, right, initial encounter [S99.921A] Start: 07-29-2022 End: 07-29-2022 Patient encounter procedure Geoffrey Ramos APRN.ARCHITECTURAL DRAFTER Work Phone: [facility] Comment on above: Foot injury, right, initial encounter (Primary Dx); Injury of right ankle, initial encounter Start: 07-20-2022 End: 07-20-2022 [facility] JOHNSON DARIA Facility:[facility] Start: 06-15-2022 End: 06-15-2022 ambulatory PARRISHRANDA HUFF Facility:[facility] Start: 06-09-2022 End: 06-09-2022 Subsequent hospital visit by physician Evie DELGADOARCHITECTURAL DRAFTER Work Phone: [facility] Comment on above: Arrived Start: 05-25-2022 End: 05-25-2022 ambulatory Hayder Mcqueen FUEL HOUSE ATTENDANT.ARCHITECTURAL DRAFTER Work Phone: [facility] [place] Comment on above: Bloating (Primary Dx ); Nausea Start: 05-25-2022 End: 05-25-2022 Telemedicine consultation with patient Hayder Mcqueen APRN.ARCHITECTURAL DRAFTER Work Phone: 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] Start: 03-22-2022 End: 03-22-2022 ambulatory LEONEL ENGLISH Facility:[facility] Start: 03-22-2022 End: 03-22-2022 Patient encounter procedure Hayder Mcqueen FUEL HOUSE ATTENDANT.ARCHITECTURAL DRAFTER Work Phone: Gastroenterology Comment on above: Nausea (Primary Dx); Post-acute sequelae of COVID-19 (PASC); Gastroesophageal reflux disease without esophagitis; Epigastric pain Start: 03-22-2022 Telephone encounter Hayder Mcqueen FADY.ARCHITECTURAL DRAFTER Work Phone: Gastroenterology Comment on above: Procedure (EGD) Start: 02-23-2022 End: 02-23-2022 ambulatory GERRI DIMAS Facility[facility] Start: 02-10-2022 End: 02-10-2022 ambulatory LUISA PEREZ Facility:[facility] Start: 02-02-2022 Telephone encounter Luisa Perez MD Work Phone: [facility] Comment on above: Preparations For Pro cedures (Tilt Table) Start: 12-30-2021 End: 12-30-[address] Cristina Villeda Work Phone: [facility] Start: 12-09-2021 End: 12-10-2021 ambulatory PARKER CASTANON [facility] Start: 11-24-2021 End: 11-24-2021 ambulatory PARKER SIMPSON SLEJOSE DE JESUS [facility] Start: 11-04-2021 End: 11-04-[address] Cristina Villeda Work Phone: [facility] Start: 09-30-2021 End: 09-30-[address] Cristina Villeda Work Phone: [facility] Start: 12-15-2020 End: 12-15-2020 Patient encounter procedure External Provider [facility] Start: 12-15-2020 Results Only External Provider [facility] Start: 12-15-2020 End: 12-15-2020 Telephone encounter Parker Castanon Work Phone: Cardiology Comment on above: Appointment Procedures Date Procedure Procedure Detail Performing Clinician Start: 08-20-2025 Comprehensive metabolic 2000 panel - Serum or Plasma Keyonna Bermudez DO Work Phone: Start: 08-20-2025 Hemoglobin glycosylated a1c Keyonna day DO Work Phone: Start: 08-20-2025 Lipid panel Keyonna Bermudez DO Work Phone: Start: 08-20-2025 TSH WITH REFLEX TO T4, FREE Keyonna day DO Work Phone: Start: 07-12-2025 Blood pressure within normal parameters - no follow-up required Tonya English MD Work Phone: Start: 07-12-2025 BMI documented as above normal parameters - follow-up documented Tonya English MD Work Phone: Start: 07-12-2025 Current tobacco non-user cad cap copd pv dm Tonya English MD Work Phone: Start: 07-12-2025 Documentation of current medications Tonya English MD Work Phone: Start: 07-12-2025 Pain assessment documented as positive - follow-up documented Tonya English MD Work Phone: Start: 06-09-2025 X-ray of esophagus with double contrast Dr. Cristina Villeda DO Work Phone: Start: 05-29-2025 Blood pressure within normal parameters - no follow-up required Varunrachel Garcia DO Work Phone: Start: 05-29-2025 BMI outside of normal parameters - no follow-up plan/reason not given Varun L Jose DO Work Phone: Start: 05-29-2025 Current tobacco non-user cad cap copd pv dm Varunrachel Garcia DO Work Phone: Start: 05-29-2025 Documentation of current medications Varun Siva Garcia DO Work Phone: Start: 05-29-2025 Pain assessment not documented - reason not given Varunrachel Garcia DO Work Phone: Start: 07-08-[address] Cristina Villeda Work Phone: Start: 05-13-[address] Cristina Villeda Work Phone: Start: 12-01-2022 Assay of free thyroxine Cristina Villeda DO Work Phone: Start: 07-29-2022 Radex ankle complete minimum 3 views Geoffrey Ramos APRN.ARCHITECTURAL DRAFTER Work Phone: Start: 06-03-2022 Microscopic observation [Identifier] in Cervix by Cyto stain Parrish Huff MD Work Phone: Start: 05-16-2022 Esophagogastroduodenoscopy transoral diagnostic Hayder Mcqueen APRN.ARCHITECTURAL DRAFTER Work Phone: Start: 12-15-2020 End: 12-15-2020 EXTERNAL CARDIOLOGY External Provider Start: 07-18-2017 End: 07-19-2017 Bacteria identified in Genital specimen by Aerobe culture Katarina Dave AUTOMOTIVE REPAIR TECHNICIAN Work Phone: Start: 07-18-2017 Gynecologic examination Routine gynecological examination Katarina Dave AUTOMOTIVE REPAIR TECHNICIAN Start: 07-18-2017 Venereal disease screening Std screening Katarina swann AUTOMOTIVE REPAIR TECHNICIAN Start: 07-04-2017 History and physical examination, sports participation Sports physical examination Katarina Dave AUTOMOTIVE REPAIR TECHNICIAN Start: 07-04-2017 Physical examination Physical exam, routine Katarina Dave AUTOMOTIVE REPAIR TECHNICIAN Start: 01-31-2017 End: 06-23-2017 Radex ankle complete minimum 3 views Tyrel TOLLIVER Work Phone: Start: 01-31-2017 End: 06-23-2017 Radex foot complete minimum 3 views Tyrel TOLLIVER Work Phone: Start: 01-31-2017 End: 06-23-2017 X-ray exam of ankle Tyrel TOLLIVER Work Phone: Start: 01-31-2017 End: 06-23-2017 X-ray exam of foot Tyrel TOLLIVER Work Phone: Start: 01-03-2017 End: 01-03-2017 Urinalysis Carla Buitrago BASE CLOTH INSPECTOR Start: 01-03-2017 End: 01-03-2017 Urnls dip stick/tablet rgnt non-auto w/o micrscp Tyrel TOLLIVER Work Phone: Start: 01-03-2017 End: 01-03-2017 Urinalysis nonauto w/o scope Tyrel TOLLIVER Work Phone: Start: 10-16-1998 Tonsillectomy and adenoidectomy BISI KILGOREC Septoplasty/submucou s resecj w/wo cartilage grf BISI NGUYEN PA-C Comment on above: 09/2016 Tooth and periodontium operation BISI NGUYEN PA-C Plan of Treatment Date Care Activity Detail Author Start: 2066 RSV Immunization for Adults (1 - 1-dose 75+ series) RSV Immunization for Adults (1 - 1-dose 75+ series) [facility] Start: 2051 RSV Immunization aged 60 or older (1 - 1-dose 60+ series) RSV Immunization aged 60 or older (1 - 1-dose 60+ series) [facility] Start: 2041 Zoster Vaccines (1 of 2) Zoster Vaccines (1 of 2) [facility] Start: 07-21-2032 DTaP/Tdap/Td Vaccines (9 - Td or Tdap) DTaP/Tdap/Td Vaccines (9 - Td or Tdap) [facility] Start: 07-21-2032 Tetanus Diphtheria and Pertussis Vaccines (8 - Td or Tdap) Tetanus Diphtheria and Pertussis Vaccines (8 - Td or Tdap) [facility] Start: 07-21-2032 Urine microalbumin profile DTaP,Tdap,Td Vaccine (9 - Td or Tdap) [facility] Start: 06-03-2027 Screening for malignant neoplasm of cervix [facility] Start: 03-18-2026 DTaP/Tdap/Td Vaccines (8 - Td or Tdap) DTaP/Tdap/Td Vaccines (8 - Td or Tdap) [facility] Start: 03-18-2026 Urine microalbumin profile DTAP,TDAP,TD (8 - Td or Tdap) [facility] Start: 10-15-2025 End: 10-15-2025 Patient encounter procedure 10/15/2025 8:45 AM EST Appointment [facility] [place] [address] [place] [address] Sade Richard, [place] [address] tx [facility] [place] Comment on above: tx Start: 10-13-2025 End: 10-13-2025 Patient encounter procedure 10/13/2025 8:45 AM EST Appointment [facility] [place] [address] [place] [address] Sade Richard, [place] [address] tx [facility] [place] Comment on above: tx Start: 10-07-2025 End: 10-07-2025 Patient encounter procedure 10/07/2025 8:45 AM EST Appointment [facility] [place] [address] [place] [address] Sade Richard, [place] [address] tx [facility] [place] Comment on above: tx Start: 10-06-2025 End: 10-06-2025 Patient encounter procedure 10/06/2025 8:45 AM EST Appointment [facility] [place] [address] [place] [address] Sade Richard, [place] [address] tx [facility] [place] Comment on above: tx Start: 10-01-2025 End: 10-01-2025 Patient encounter procedure 10/01/2025 8:45 AM EST Appointment [facility] [place] [address] [place] [address] Sade Richard, [place] [address] tx [facility] [place] Comment on above: tx Start: 09-29-2025 End: 09-29-2025 Patient encounter procedure 09/29/2025 8:45 AM EST Appointment [facility] [place] [address] [place] [address] Sade Richard, [place] [address] tx [facility] [place] Comment on above: tx Start: 09-24-2025 End: 09-24-2025 Patient encounter procedure 09/24/2025 8:45 AM EST Appointment [facility] [place] [address] [place] [address] Sade Richard, [place] [address] tx [facility] [place] Comment on above: tx Start: 09-22-2025 End: 09-22-2025 Patient encounter procedure 09/22/2025 8:45 AM EST Appointment [facility] [place] [address] [place] [address] Sade Richard, [place] [address] tx [facility] [place] Comment on above: tx Start: 09-17-2025 End: 09-17-2025 Patient encounter procedure 09/17/2025 8:45 AM EST Appointment [facility] [place] [address] [place] [address] Sade Richard, [place] [address] tx [facility] [place] Comment on above: tx Start: 09-15-2025 End: 09-15-2025 Patient encounter procedure [facility] [place] Comment on above: tx Start: 09-10-2025 End: 09-10-2025 Patient encounter procedure 09/10/2025 8:45 AM EST Appointment [facility] [place] [address] [place] [address] Sade Richard, [place] [address] tx [facility] [place] Comment on above: tx Start: 09-08-2025 End: 09-08-2025 Patient encounter procedure [facility] [place] Comment on above: tx Start: 09-05-2025 End: 09-05-2025 Patient encounter procedure 09/05/2025 8:45 AM EST Appointment [facility] [place] [address] [place] [address] Sade Richard, [place] [address] tx [facility] [place] Comment on above: tx Start: 09-03-2025 End: 09-03-2025 Patient encounter procedure [facility] [place] Comment on above: tx Start: 09-01-2025 End: 09-01-2025 Patient encounter procedure 09/01/2025 1:00 PM EST Appointment [facility] [place] [address] [place] [address] Di, MD Jennifer [place] [address] Sade Richard, [place] [address] tx [facility] [place] Comment on above: tx Start: 08-18-2025 End: 08-18-2025 Patient encounter procedure [facility] [place] Comment on above: tx Start: 08-04-2025 End: 08-04-2025 Patient encounter procedure 08/04/2025 1:00 PM EDT Appointment [facility] [place] [address] [place] [address] Doc, MD Jennifer [place] [address] RichardAlejandrotil M, [place] [address] tx [facility] [place] Comment on above: tx Start: 07-21-2025 End: 07-21-2025 Patient encounter procedure 07/21/2025 1:00 PM EDT Appointment [facility] [place] [address] [place] [address] Doc, MD Jennifer [place] [address] RichardSade M, [place] [address] tx [facility] [place] Comment on above: tx Start: 07-14-2025 End: 07-14-2025 Patient encounter procedure 07/14/2025 1:00 PM EDT Appointment [facility] [place] [address] [place] [address] Doc, MD Jennifer [place] [address] RichardAlejandrotil M, [place] [address] tx [facility] [place] Comment on above: tx Start: 07-07-2025 End: 07-07-2025 Patient encounter procedure 07/07/2025 1:00 PM EDT Appointment [facility] [place] [address] [place] [address] Doc, MD Jennifer [place] [address] RichardAlejandrotil M, [place] [address] tx [facility] [place] Comment on above: tx Start: 06-30-2025 End: 06-30-2025 Patient encounter procedure 06/30/2025 1:00 PM EDT Appointment [facility] [place] [address] [place] [address] Doc, MD Jennifer [place] [address] Sade Richard, [place] [address] tx [facility] [place] Comment on above: tx Start: 06-23-2025 End: 06-23-2025 Patient encounter procedure 06/23/2025 1:00 PM EDT Appointment [facility] [place] [address] [place] [address] Doc, MD Jennifer [place] [address] Sade Richard, [place] [address] tx [facility] [place] Comment on above: tx Start: 06-16-2025 COVID-19 () COVID-19 () [facility] Start: 06-16-2025 FLU (#1) FLU (#1) [facility] Start: 06-03-2025 Screening for malignant neoplasm of cervix Pap Smear [facility] Start: 05-29-2025 EMG/NCT bilateral lower extremity Death by Party. Work Phone: Start: 05-26-2025 End: 05-26-2025 Patient encounter procedure [facility] [place] Comment on above: tx Start: 05-22-2025 End: 05-22-2025 Patient encounter procedure [facility] [place] Comment on above: tx Start: 05-12-2025 End: 05-12-2025 Patient encounter procedure 05/12/2025 4:00 PM EDT Appointment [facility] [place] [address] [place] [address] Sade Richard, [place] [address] tx [facility] [place] Comment on above: tx Start: 09-26-2024 End: 09-26-2024 Patient encounter procedure 09/26/2024 2:40 PM EST Office Visit [facility] [place] [address] Terry Briscoe MD [address] [place] [address] [address] [place] [address] [facility] [place] Start: 07-29-2024 End: 07-29-2025 Comprehensive metabolic 1998 panel - Serum or Plasma Comprehensive metabolic panel Lab Routine Thyroid disease Borderline hyperlipidemia Expected: 07/29/2024 (Approximate), Expires: 07/29/2025 [facility] Work Phone: Comment on above: Expected: 07/29/2024 (Approximate), Expi res: 07/29/2025 Start: 07-29-2024 End: 07-29-2025 Hemoglobin A1c measurement Hemoglobin A1c Lab Routine Thyroid disease Borderline hyperlipidemia Expected: 07/29/2024 (Approximate), Expires: 07/29/2025 [facility] Comment on above: Expected: 07/29/2024 (Approximate), Expi res: 07/29/2025 Start: 07-29-2024 End: 07-29-2025 Insulin Insulin Lab Routine Thyroid disease Borderline hyperlipidemia Expected: 07/29/2024 (Approximate), Expires: 07/29/2025 [facility] Comment on above: Expected: 07/29/2024 (Approximate), Expi res: 07/29/2025 Start: 07-29-2024 End: 07-29-2025 Lipid 1996 panel - Serum or Plasma Lipid panel Lab Routine Thyroid disease Borderline hyperlipidemia Expected: 07/29/2024 (Approximate), Expires: 07/29/2025 [facility] Comment on above: Expected: 07/29/2024 (Approximate), Expi res: 07/29/2025 Start: 07-29-2024 End: 07-29-2025 Thyrotropin [Units/volume] in Serum or Plasma TSH Lab Routine Thyroid disease Borderline hyperlipidemia Expected: 07/29/2024 (Approximate), Expires: 07/29/2025 [facility] Comment on above: Expected: 07/29/2024 (Approximate), Expi res: 07/29/2025 Start: 06-16-2024 COVID-19 ( season) COVID-19 ( season) [facility] Start: 06-16-2024 COVID-19 Vaccine ( season) COVID-19 Vaccine () [facility] Start: 06-16-2024 Covid-19 Vaccine ( season) Covid-19 Vaccine () [facility] Start: 06-16-2024 Influenza vaccination [facility] Start: 01-16-2024 End: 01-16-2024 Patient encounter procedure 01/16/2024 4:00 PM EDT Office Visit [facility] [address] [place] [address] [facility] Start: 01-10-2024 [facility] Start: 01-02-2024 End: 01-01-2025 17-Hydroxyprogesterone 17-Hydroxyprogesterone Lab Routine Abnormal uterine bleeding (AUB) Expected: 01/02/2024 (Approximate), Expires: 01/01/2025 [facility] Comment on above: Expected: 01/02/2024 (Approximate), Expi res: 01/01/2025 Start: 01-02-2024 End: 01-01-2025 Antimullerian hormone (AMH) Antimullerian hormone (AMH) Lab Routine Abnormal uterine bleeding (AUB) Expected: 01/02/2024 (Approximate), Expires: 01/01/2025 [facility] Comment on above: Expected: 01/02/2024 (Approximate), Expi res: 01/01/2025 Start: 01-02-2024 End: 01-01-2025 CBC panel - Blood by Automated count CBC Lab Routine Abnormal uterine bleeding (AUB) Expected: 01/02/2024 (Approximate), Expires: 01/01/2025 [facility] Work Phone: Comment on above: Expected: 01/02/2024 (Approximate), Expi res: 01/01/2025 Start: 01-02-2024 End: 01-01-2025 DHEA-sulfate DHEA-sulfate Lab Routine Abnormal uterine bleeding (AUB) Expected: 01/02/2024 (Approximate), Expires: 01/01/2025 [facility] Comment on above: Expected: 01/02/2024 (Approximate), Expi res: 01/01/2025 Start: 01-02-2024 End: 01-01-2025 hCG, quantitative hCG, quantitative Lab Routine Abnormal uterine bleeding (AUB) Expected: 01/02/2024 (Approximate), Expires: 01/01/2025 [facility] Comment on above: Expected: 01/02/2024 (Approximate), Expi res: 01/01/2025 Start: 01-02-2024 End: 01-01-2025 Prolactin Prolactin Lab Routine Abnormal uterine bleeding (AUB) Expected: 01/02/2024 (Approximate), Expires: 01/01/2025 [facility] Comment on above: Expected: 01/02/2024 (Approximate), Expi res: 01/01/2025 Start: 01-02-2024 End: 01-01-2025 Testo,Free/Total Testo,Free/Total Lab Routine Abnormal uterine bleeding (AUB) Expected: 01/02/2024 (Approximate), Expires: 01/01/2025 [facility] Comment on above: Expected: 01/02/2024 (Approximate), Expi res: 01/01/2025 Start: 01-02-2024 End: 01-01-2025 Thyrotropin [Units/volume] in Serum or Plasma TSH Lab Routine Abnormal uterine bleeding (AUB) Expected: 01/02/2024 (Approximate), Expires: 01/01/2025 [facility] Comment on above: Expected: 01/02/2024 (Approximate), Expi res: 01/01/2025 Start: 01-02-2024 End: 01-01-2025 Thyroxine (T4) free [Mass/volume] in Serum or Plasma T4, free Lab Routine Abnormal uterine bleeding (AUB) Expected: 01/02/2024 (Approximate), Expires: 01/01/2025 [facility] Comment on above: Expected: 01/02/2024 (Approximate), Expi res: 01/01/2025 Start: 01-02-2024 End: 01-01-2025 US Pelvis transvaginal US pelvis transvaginal Imaging Routine Abnormal uterine bleeding (AUB) Pelvic pain Expected: 01/02/2024, Expires: 01/01/2025 [facility] Comment on above: Expected: 01/02/2024, Expires: Start: 10-04-2023 Tetanus Diphtheria and Pertussis Vaccines (7 - Td or Tdap) Tetanus Diphtheria and Pertussis Vaccines (7 - Td or Tdap) [facility] Start: 06-16-2023 COVID-19 Vaccine () COVID-19 Vaccine () [facility] Start: 06-16-2023 Influenza vaccination [facility] Start: 10-16-2022 DEPRESSION ASSESSMENT DEPRESSION ASSESSMENT [facility] Start: 10-14-2022 End: 10-14-2022 Patient encounter procedure [facility] [place] Start: 10-07-2022 End: 10-07-2022 Patient encounter procedure [facility] [place] Start: 10-04-2022 End: 10-04-2022 Patient encounter procedure 10/04/2022 Appointment Rehabilitation Tito Calixto, [place] [address] [facility] Start: 09-30-2022 End: 09-30-2022 Patient encounter procedure [facility] [place] Start: 09-23-2022 End: 09-23-2022 Patient encounter procedure 09/23/2022 Appointment Rehabilitation Andie Sheppard, [place] [address] [facility] Start: 09-20-2022 End: 09-20-2022 Patient encounter procedure 09/20/2022 Appointment Rehabilitation Tito Calixto, [place] [address] [facility] Start: 09-15-2022 End: 09-15-2022 [facility] Start: 09-13-2022 End: 09-13-2022 Patient encounter procedure 09/13/2022 Appointment Rehabilitation Edin Alex, [place] [address] [facility] Start: 09-06-2022 End: 09-06-2022 Patient encounter procedure 09/06/2022 Appointment Rehabilitation Tito Calixto, [place] [address] [facility] Start: 09-02-2022 End: 09-02-2023 Hemoglobin A1c/Hemoglobin.total in Blood Hemoglobin A1c Lab Routine Screening for diabetes mellitus Expected: 09/02/2022 (Approximate), Expires: 09/02/2023 [facility] Comment on above: Expected: 09/02/2022 (Approximate), Expi res: 09/02/2023 Start: 09-02-2022 End: 09-02-2023 Lipid 1996 panel - Serum or Plasma Lipid panel Lab Routine Screening for lipid disorders Expected: 09/02/2022 (Approximate), Expires: 09/02/2023 [facility] Comment on above: Expected: 09/02/2022 (Approximate), Expi res: 09/02/2023 Start: 08-24-2022 End: 08-24-2023 Macropolactin Macropolactin Lab Routine Hyperprolactinemia (CMS/HCC) (HCC) Expected: 08/24/2022 (Approximate), Expires: 08/24/2023 [facility] Work Phone: Comment on above: Expected: 08/24/2022 (Approximate), Expi res: 08/24/2023 Start: 06-16-2022 FLU (#1) FLU (#1) [facility] Start: 06-16-2022 Influenza vaccination [facility] Start: 05-25-2022 End: 07-25-2022 CELIAC COMPREHENSIVE PANEL CELIAC COMPREHENSIVE PANEL Lab Routine Bloating Nausea Expected: 05/25/2022, Expires: 07/25/2022 [facility] Work Phone: Comment on above: Expected: 05/25/2022, Expires: Start: 05-16-2022 End: 03-22-2023 EGD DIAGNOSTIC EGD DIAGNOSTIC Endoscopy Routine Post-acute sequelae of COVID-19 (PASC) Gastroesophageal reflux disease without esophagitis Nausea Epigastric pain Expected: 05/16/2022, Expires: 03/22/2023 [facility] Work Phone: Comment on above: Expected: 05/16/2022, Expires: 3 Start: 10-28-2021 COVID-19 (4 - Booster for Pfizer series) COVID-19 (4 - Booster for Pfizer series) [facility] Start: 10-28-2021 COVID-19 VACCINE (4 - Booster for Pfizer series) COVID-19 VACCINE (4 - Booster for Pfizer series) [facility] Start: 10-16-2021 DEPRESSION ASSESSMENT DEPRESSION ASSESSMENT [facility] Start: 2021 HPV TESTING HPV TESTING [facility] Start: 06-16-2020 Influenza vaccination INFLUENZA (#1) [facility] Start: 2018 HPV (1 - 3-dose SCDM series) HPV (1 - 3-dose SCDM series) [facility] Start: 07-18-2017 End: 07-18-2017 Appointment Appointment [facility] Start: 07-18-2017 End: 07-18-2017 *GC/Chlamydia *GC/Chlamydia [facility] Start: 07-18-2017 End: 07-19-2017 Bacteria genital culture *CUV - Culture, VAG/CX Comprehensive [facility] Start: 07-04-2017 End: 07-04-2017 Appointment Appointment [facility] Work Phone: Start: 05-15-2017 End: 05-15-2017 Appointment Appointment [facility] Work Phone: Start: 05-12-2017 End: 05-12-2017 Appointment Appointment [facility] Work Phone: Start: 01-31-2017 End: 06-23-2017 Radex ankle complete minimum 3 views X-Ray, Ankle [facility] Work Phone: Start: 01-31-2017 End: 06-23-2017 Radex foot complete minimum 3 views X-Ray, Foot [facility] Work Phone: Start: 01-31-2017 End: 06-23-2017 X-ray exam of ankle X-Ray, Ankle [facility] Work Phone: Start: 01-31-2017 End: 06-23-2017 X-ray exam of foot X-Ray, Foot [facility] Work Phone: Start: 01-09-2012 Microscopic observation [Identifier] in Cervix by Cyto stain Pap Smear [facility] Start: 01-09-2012 PAP TESTING PAP TESTING [facility] Start: 01-09-2012 Screening for malignant neoplasm of cervix [facility] Start: 2010 Urine microalbumin profile DTAP,TDAP,TD (1 - Tdap) [facility] Start: 2009 Anxiety Screening Anxiety Screening [facility] Start: 2009 Depression Screening Depression Screening [facility] Start: 2009 HEPATITIS C SCREENING HEPATITIS C SCREENING [facility] Start: 2009 Hepatitis C screening Hepatitis C Screening [facility] Start: 2009 HIV SCREENING HIV SCREENING [facility] Start: 2009 HIV screening HIV Screening [facility] Start: 2007 MenB (1 of 2 - MenB 2-Dose Series Bexsero) MenB (1 of 2 - MenB 2-Dose Series Bexsero) [facility] Start: 2007 MenB (1 of 2 - MenB 2-Dose Series) MenB (1 of 2 - MenB 2-Dose Series) [facility] Start: 04-13-2004 Varicella (1 of 2 - 13+ 2-dose series) Varicella (1 of 2 - 13+ 2-dose series) [facility] Start: 04-13-2004 Varicella (1 of 2 - 2-dose childhood series) Varicella (1 of 2 - 2-dose childhood series) [facility] Start: 04-13-2004 Varicella vaccination [facility] Start: 2003 Adult depression screening assessment DEPRESSION SCREENING [facility] Start: 1991 HIV screening HIV Screening [facility] End: 12-01-2022 Anti-thyroid Ab Profile Anti-thyroid Ab Profile Lab Routine For lab collect this frequency defaults to the next routine lab draw time. Routine times: 0600; 1100; 1400; 1900; 2200 for 1 Occurrences starting 12/01/2022 until 12/01/2022 [facility] Work Phone: Comment on above: For lab collect this frequency defaults to the next routine lab draw time. Routine times: 0600; 1100; 1400; 1900; 2200 for 1 Occurrences starting 12/01/2022 until 12/01/2022 Anti-thyroid Ab Profile Anti-thy roid Ab Profile Lab Routine 12/01/2022 12:[address] [facility] Dehydroepiandrostero ne sulfate (DHEA-S) [Mass/volume] in Serum or Plasma [facility] End: 06-09-2022 Hepatitis B Surface Antibody Hepatitis B Surface Antibody Lab Routine For lab collect this frequency defaults to the next routine lab draw time. Routine times: 0600; 1100; 1400; 1900; 2200 for 1 Occurrences starting 06/09/2022 until 06/09/2022 [facility] Comment on above: For lab collect this frequency defaults to the next routine lab draw time. Routine times: 0600; 1100; 1400; 1900; 2200 for 1 Occurrences starting 06/09/2022 until 06/09/2022 Hepatitis B Surface Antibody Hep atitis B Surface Antibody Lab Routine 06/09/2022 12:[address] [facility] End: 06-09-2022 [place] Miscellaneous Sendout [place] Miscellaneous Sendout Lab Routine For lab collect this frequency defaults to the next routine lab draw time. Routine times: 0600; 1100; 1400; 1900; 2200 for 1 Occurrences starting 06/09/2022 until 06/09/2022 [facility] Comment on above: For lab collect this frequency defaults to the next routine lab draw time. Routine times: 0600; 1100; 1400; 1900; 2200 for 1 Occurrences starting 06/09/2022 until 06/09/2022 End: 12-01-2022 [place] Miscellaneous Sendout [place] Miscellaneous Sendout Lab Routine For lab collect this frequency defaults to the next routine lab draw time. Routine times: 0600; 1100; 1400; 1900; 2200 for 1 Occurrences starting 12/01/2022 until 12/01/2022 [facility] Comment on above: For lab collect this frequency defaults to the next routine lab draw time. Routine times: 0600; 1100; 1400; 1900; 2200 for 1 Occurrences starting 12/01/2022 until 12/01/2022 [place] Miscellaneous Sendout: [place] Miscellaneous Sendout: Lab Routine 06/09/2022 12:52 PM EDT [facility] Miscellaneous Sendout: [place] Miscellaneous Sendout: Lab Routine 12/01/2022 12:30 PM [facility] Mullerian inhibiting substance [Mass/volume] in Serum or Plasma [facility] End: 06-09-2022 Mumps IgG Ab Mumps IgG Ab Lab Routine For lab collect this frequency defaults to the next routine lab draw time. Routine times: 0600; 1100; 1400; 1900; 2200 for 1 Occurrences starting 06/09/2022 until 06/09/2022 [facility] Work Phone: Comment on above: For lab collect this frequency defaults to the next routine lab draw time. Routine times: 0600; 1100; 1400; 1900; 2200 for 1 Occurrences starting 06/09/2022 until 06/09/2022 Mumps IgG Ab Mumps IgG Ab Lab Routine 06/09/2022 12:[address] [facility] Patient Education SINUSITIS [facility] Work Phone: End: 06-09-2022 Quantiferon TB Gold Quantiferon TB Gold Lab Routine For lab collect this frequency defaults to the next routine lab draw time. Routine times: 0600; 1100; 1400; 1900; 2200 for 1 Occurrences starting 06/09/2022 until 06/09/2022 [facility] Comment on above: For lab collect this frequency defaults to the next routine lab draw time. Routine times: 0600; 1100; 1400; 1900; 2200 for 1 Occurrences starting 06/09/2022 until 06/09/2022 Quantiferon TB Gold Quantiferon TB Gold [facility] 06-09-2022 Rubella IgG Ab Rubella IgG Ab Lab Routine For lab collect this frequency defaults to the next routine lab draw time. Routine times: 0600; 1100; 1400; 1900; 2200 for 1 Occurrences starting 06/09/2022 until 06/09/2022 [facility] Comment on above: For lab collect this frequency defaults to the next routine lab draw time. Routine times: 0600; 1100; 1400; 1900; 2200 for 1 Occurrences starting 06/09/2022 until 06/09/2022 Rubella IgG Ab Rubella IgG Ab L ab Routine 06/09/2022 12:52 PM EDT [facility] Serum testosterone measurement [facility] SURGICAL PATHOLOGY [facility] Work Phone: Comment on above: Release Upon Ordering for 1 Occurrences starting 05/16/2022, 1 completed Testosterone measurement [facility] Immunizations Immunization Date Immunization Notes Care Provider [facility] 09-02-2021 Pfizer SARS-CoV-2 Vaccination Parrish Huff MD Work Phone: [facility] 01-21-2021 Covid (Pfizer) Dr. Cristina acosta Work Phone: [facility] 12-31-2020 Covid (Pfizer) Dr. Cristina acosta Work Phone: [facility] 08-02-2017 influenza, injectabl e, quadrivalent, preservative free Dr. Cristina Villeda Work Phone: [facility] 08-02-2017 influenza, seasonal, injectable Dr. Cristina Villeda Work Phone: [facility] 08-02-2017 influenza, seasonal, injectable, preservative free Luisa Perez MD Work Phone: [facility] 08-02-2017 influenza virus vacc ine, unspecified formulation Parrish Huff MD Work Phone: [facility] 07-16-2017 influenza virus vacc ine, unspecified formulation BISI NGUYEN PA-C [facility] 07-16-2017 influenza, injectabl e, quadrivalent, preservative free Luisa Perez MD Work Phone: [facility] 11-09-2016 hepatitis A vaccine, adult dosage Luisa Perez MD Work Phone: [facility] 09-22-2016 influenza, injectabl e, quadrivalent, preservative free Dr. Cristina Villeda Work Phone: [facility] 09-22-2016 influenza, seasonal, injectable Dr. Cristina Villeda Work Phone: [facility] 09-22-2016 influenza, seasonal, injectable, preservative free Luisa Perez MD Work Phone: [facility] 09-15-2016 influenza virus vacc ine, unspecified formulation Luisa Perez MD Work Phone: [facility] 03-18-2016 adenovirus, type 4 a nd type 7, live, oral Luisa Perez MD Work Phone: [facility] 03-18-2016 hepatitis A vaccine, adult dosage Luisa Perez MD Work Phone: [facility] 03-18-2016 tetanus and diphther ia toxoids, adsorbed, preservative free, for adult use (5 Lf of tetanus toxoid and 2 Lf of diphtheria toxoid) Luisa Perez MD Work Phone: [facility] 03-18-2016 typhoid capsular polysaccharide vaccine Luisa Perez MD Work Phone: [facility] 08-01-2015 influenza virus vacc ine, unspecified formulation BISI NGUYEN PA-C [facility] 08-01-2015 influenza, seasonal, injectable, preservative free Luisa Perez MD Work Phone: [facility] 10-16-2013 influenza virus vacc ine, unspecified formulation BISI NGUYEN PA-C [facility] 10-16-2013 influenza, high dose seasonal, preservative-free Luisa Perez MD Work Phone: [facility] 10-04-2013 tetanus toxoid, redu doe diphtheria toxoid, and acellular pertussis vaccine, adsorbed Luisa Perez MD Work Phone: [facility] 03-19-2010 meningococcal polysaccharide (groups A, C, Y and W-135) diphtheria toxoid conjugate vaccine (MCV4P) Luisa Perez MD Work Phone: [facility] 05-17-2005 hepatitis B pediatri c vaccine BISI NGUYEN PA-C [facility] 05-17-2005 hepatitis B vaccine, pediatric or pediatric/adolescent dosage Luisa Perez MD Work Phone: [facility] 01-03-2005 hepatitis B pediatri c vaccine BISI NGUYEN PA-C [facility] 01-03-2005 hepatitis B vaccine, pediatric or pediatric/adolescent dosage Luisa Perez MD Work Phone: [facility] 05-17-2004 hepatitis B pediatri c vaccine BISI NGUYEN PA-C [facility] 05-17-2004 hepatitis B vaccine, pediatric or pediatric/adolescent dosage Luisa Perez MD Work Phone: [facility] 04-16-2004 hepatitis B pediatri c vaccine BISI NGUYEN PA-C [facility] 04-16-2004 hepatitis B vaccine, pediatric or pediatric/adolescent dosage Luisa Perez MD Work Phone: [facility] 03-16-2004 measles, mumps and rubella virus vaccine Luisa Perez MD Work Phone: [facility] 03-16-2004 measles/mumps/rubell a virus vaccine BISI NGUYEN PA-C [facility] 03-16-2004 TD(adult) unspecifie d formulation Luisa Perez MD Work Phone: [facility] 05-30-1996 diphtheria, tetanus toxoids and acellular pertussis vaccine, unspecified formulation Luisa Perez MD Work Phone: [facility] 05-30-1996 measles, mumps and rubella virus vaccine Luisa Perez MD Work Phone: [facility] 05-30-1996 measles/mumps/rubell a virus vaccine BISI NGUYEN PA-C [facility] 05-30-1996 trivalent poliovirus vaccine, live, oral Luisa Perez MD Work Phone: [facility] 09-24-1992 diphtheria, tetanus toxoids and pertussis vaccine Luisa Perez MD Work Phone: [facility] 09-24-1992 trivalent poliovirus vaccine, live, oral Luisa Perez MD Work Phone: [facility] 05-28-1992 haemophilus influenz ae type b vaccine, PRP-T conjugate Luisa Perez MD Work Phone: [facility] 05-28-1992 measles, mumps and rubella virus vaccine Luisa Perez MD Work Phone: [facility] 05-28-1992 measles/mumps/rubell a virus vaccine BISI NGUYEN PA-C [facility] 1991 haemophilus influenz ae type b vaccine, PRP-T conjugate Luisa Perez MD Work Phone: [facility] 1991 haemophilus influenz ae type b vaccine, PRP-T conjugate Luisa Perez MD Work Phone: [facility] 1991 diphtheria, tetanus toxoids and pertussis vaccine Luisa Perez MD Work Phone: [facility] 1991 haemophilus influenz ae type b vaccine, PRP-T conjugate Luisa Perez MD Work Phone: [facility] 1991 diphtheria, tetanus toxoids and pertussis vaccine Luisa Perez MD Work Phone: [facility] 1991 trivalent poliovirus vaccine, live, oral Luisa Perez MD Work Phone: [facility] 1991 diphtheria, tetanus toxoids and pertussis vaccine Luisa Perez MD Work Phone: [facility] 1991 trivalent poliovirus vaccine, live, oral Luisa Perez MD Work Phone: [facility] Payers Date Payer Category Payer Self-pay [id number] 2023 Commercial Managed C [facility] MMO SUPERMED [id number] 2020 Unknown MMO MMO SUPERMED PLUS [id number] 2020-Present [phone] [address] [place] [address] PPO [id number] 2020 Unknown [id number] 2019 Unknown MMO MMO SUPERMED PLUS [id number] 2019-Present PPO [id number] 2016 Unknown [id number] 1991 Unknown [id number]. 627 1991 Unknown [id number] 627 1991 Unknown [id number] 627 1991 Unknown [id number] [id number] 479 1991 Unknown [id number] [id number] 479 1991 Unknown [id number] 2.840.1.127760.3.579.2 479 1991 Unknown [id number] 2.840.1.232081.3.579.2 479 1991 Unknown [id number] [id number] 479 1991 Unknown [id number] 2.840.1.219407.3.579.2 479 1991 Unknown [id number] 2.840.1.466352.3.579.2 479 1991 Unknown [id number] 2.840.1.266404.3.579.2 479 1991 Unknown [id number] 2.840.1.237451.3.579.2 47 1991 Unknown [id number] 2.840.1.716492.3.579.2 479 1991 Unknown [id number] [id number] 479 1991 Unknown [id number] [id number] 479 1991 Unknown [id number] [id number] 479 Unknown [id number] 2..840.1.965306.3.579.2. 462 Unknown [id number] [id number]. 462 Unknown [id number] [id number]. 462 Unknown [id number] 2.840.1.225383.3.579.2. 462 Unknown [id number]. 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 executive of alcohol (finding) [facility] Start: 1990 Sex Assigned At Not on file [facility] Start: 01-12-2022 End: 10-14-2022 Exposure to SARS-CoV-2 (event) Not sure [facility] Start: 10-22-2019 Tobacco smoking stat us [facility] Unknown if ever smoked [facility] Start: 1990 Sex Assigned At Female [facility] Start: 11-24-2021 End: 04-17-2024 Alcohol intake Current drinker of alcohol (finding) [facility] Start: 12-23-2020 History SDOH Alcohol Comment occasionally [facility] Start: 12-23-2020 End: 07-29-2022 Tobacco use and exposure Smokeless tobacco non-user [facility] Sex Assigned At Sex [facility] Start: 01-02-2024 End: 07-10-2025 Gender identity Not on file [facility] Start: 03-08-2022 End: 01-02-2024 History of Social function [facility] Start: 09-18-2021 Gender identity Identifies as female gender (finding) [facility] Start: 12-28-2023 Sexual orientation Heterosexual (fin ding) [facility] National Score (1-10 0), lower number is lower risk 61 [facility] Start: 04-30-2020 End: 05-16-2022 Sex Female (finding) [facility] Goals Date Patient Goal Desired Activity /State Personal health goal Comment on above: Formatting of this n ote might be different from the original. Patient will be instructed and become independent with HEP for continued management of impairments and functional limitations Formatting of this n ote might be different from the original. Patient to demonstrate right ankle AROM DF: 15 degrees. Formatting of this n ote might be different from the original. Patient to demonstrate y-balance 4cm or less right to left. Formatting of this n ote might be different from the original. Patient to squat and jump with good form. Formatting of this n ote might be different from the original. Patient to run 1 mile without right ankle /foot pain. Formatting of this n ote might be different from the original. Patient to run 3 miles without symptoms in right ankle/foot with good giana and midfoot strike. Formatting of this n ote might be different from the original. 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 Formatting of this n ote might be different from the original. Patient to get a biomechanical exam for a better running orthotic of temporary or permanent running orthotic. Formatting of this n ote might be different from the original. Patient to demonstrate 4+/5 or > with all planes for right ankle with MMT. Personal health goal Comment on above: Formatting of this n ote might be different from the original. Pt will report reduced pain from 1-7/10 to 0-4/10 range within 6 weeks in order to improve the patient's ability to participate in job duties and recreational Personal health goal Comment on above: Formatting of this n ote might be different from the original. Patient will report reduced tenderness in calcaneus, soleus, and gastrocnemius of LLE from mild-moderate to none-slight levels within 6 weeks in order to demo increased soft tissue mobility and reduce pain. Formatting of this n ote might be different from the original. Patient will increase gastroc &soleus length during prone length testing to 10deg for gastroc & 20 deg for soleus bilaterally, within 6 weeks, in order to demonstrate increased increase soft tissue mobility and reduce pain at attachment sites. Formatting of this n ote might be different from the original. Patient will be instructed and become independent with updated HEP for continued management of impairments and functional limitations Comment on above: Formatting of this n ote might be different from the original. Patient will be instructed and become independent with HEP for continued management of impairments and functional limitations Formatting of this n ote might be different from the original. Patient to demonstrate right ankle AROM DF: 15 degrees. Formatting of this n ote might be different from the original. Patient to demonstrate y-balance 4cm or less right to left. Formatting of this n ote might be different from the original. Patient to squat and jump with good form. Formatting of this n ote might be different from the original. Patient to run 1 mile without right ankle /foot pain. Formatting of this n ote might be different from the original. Patient to run 3 miles without symptoms in right ankle/foot with good giana and midfoot strike. Formatting of this n ote might be different from the original. 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 Formatting of this n ote might be different from the original. Patient to get a biomechanical exam for a better running orthotic of temporary or permanent running orthotic. Formatting of this n ote might be different from the original. Patient to demonstrate 4+/5 or > with all planes for right ankle with MMT. Clinical Notes 11-24-2021 to 08-18-2025 Ancillary Progress Note - Sade Richard, PT - 08/18/2025 1:00 PM ESTAncillary Progress Note - Sade Richard, PT - 08/18/2025 1:00 PM ESTPatient InstructionsPatient Instructions Note Date & Type Note Facility 08-18-2025 Miscellaneous Notes [facility] Daily Progress PT diagnosis: Posterior tibial tendinitis of left leg. Neuritis. Plantar fasciitis of left foot. Inflexibility Left calf. Impaired functional activities. Precautions/Contraindications: standard Subjective: Pt went to [place] last week and hiked a bunch and felt it and reached 5-6/10 pain in plantar fore-foot and posterior heel, while 2-3/10 in medial heel. She felt it was her neuroma pain more than the medial heel pain. She stretched consistently. She also notes her right quad was more sore than left and thinks she must have been favoring the L side. She has current 0.5/10 medial heel pain, L, NWB, 12/23 WB. Objective: Refer to flowsheets for any objective measures. Muscle Length (degrees) 05/05/2025 06/23/25 06/30/25 07/21/25 08/04/25 08/18/25 Right Left Left Left Left Left Left Gastrocnemius 13 8 12 13 14 14 15 Soleus 19 14 22 22 20 22 18 Treatment: Response to treatment was monitored throughout session. The following treatments were utilized during the patient's session: Therapeutic Exercise: Directed ROM exercises AROM to maximize overall function. Modified exercises including frequency, repetition, and intensity for optimal strengthening. Facilitated verbal and visual cues to enhance proper muscle activation throughout exercises Directed therapeutic rest as needed to execute task properly and allow for best functional and strength benefits. Manual Therapy: Instrument assisted soft tissue mobilization and Soft tissue mobilization Assessment: Performed manual therapy, but not DN since pt has surgery this Monday. She shows tightening of soleus muscle length, no change in gastroc length. Provided HEP for NWB activities for her hip and core. Ended with stretches. Will hold until pt's surgery and perform re-evaluation with new script for her updated status of L foot post-operatively. Open Lending: Access Code: [email or web address] URL: [email or web address] Group/ Date: 05/05/2025 Prepared by: Sade Richard Exercises - Gastroc Stretch with Foot at Wall - 2 x daily - 7 x weekly - 2 sets - 30 seconds hold - Soleus Stretch with Foot at Wall - 2 x daily - 7 x weekly - 2 sets - 30 seconds hold - SPR Split Squat - 1 x daily - 5-7 x weekly - 3 sets - 8-10 reps - Wall Sit - 1 x daily - 5-7 x weekly - 3 sets - 30 seconds hold - Standing Calf Raise With Small Ball at Heels - 1 x daily - 5-7 x weekly - 3 sets - 15 reps Medbridge for hips/core for post-op when NWB: Access Code: [email or web address] URL: [email or web address]/ Date: 08/18/2025 Prepared by: Sade Craftaver Exercises - Supine 90/90 Alternating Heel Touches with Posterior Pelvic Tilt - 2-3 x weekly - 3 sets - 10 reps - Active Straight Leg Raise with Quad Set - 2-3 x weekly - 3 sets - 10 reps - Sidelying Hip Abduction with Resistance at Thighs - 2-3 x weekly - 3 sets - 30-60seconds hold - Quadruped Hip Abduction with Resistance Loop - 2-3 x weekly - 3 sets - 10 reps - Bird Dog - 2-3 x weekly - 3 sets - 10 reps - Clamshell in Abduction - 2-3 x weekly - 3 sets - 10 reps - Reverse Clamshell in Extension and Abduction - 3 x weekly - 2-3 sets - 10 reps Treatment Plan: Hold until surgery. Re-evaluation with change of status. If Marj does not continue physical therapy services or is discharged prior to the next treatment, consider this note the most recent progress report and discharge summary. documented in this encounter [facility] 08-18-2025 Progress note Formatting of t his note is different from the original. SPR Daily Progress PT diagnosis: Posterior tibial tendinitis of left leg. Neuritis. Plantar fasciitis of left foot. Inflexibility Left calf. Impaired functional activities. Precautions/Contraindications: standard Subjective: Pt went to [place] last week and hiked a bunch and felt it and reached 5-6/10 pain in plantar fore-foot and posterior heel, while 2-3/10 in medial heel. She felt it was her neuroma pain more than the medial heel pain. She stretched consistently. She also notes her right quad was more sore than left and thinks she must have been favoring the L side. She has current 0.5/10 medial heel pain, L, NWB, 3/10 WB. Objective: Refer to flowsheets for any objective measures. Muscle Length (degrees) 05/05/2025 06/23/25 06/30/25 07/21/25 08/04/25 08/18/25 Right Left Left Left Left Left Left Gastrocnemius 13 8 12 13 14 14 15 Soleus 19 14 22 22 20 22 18 Treatment: Response to treatment was monitored throughout session. The following treatments were utilized during the patient's session: Therapeutic Exercise: Directed ROM exercises AROM to maximize overall function. Modified exercises including frequency, repetition, and intensity for optimal strengthening. Facilitated verbal and visual cues to enhance proper muscle activation throughout exercises Directed therapeutic rest as needed to execute task properly and allow for best functional and strength benefits. Manual Therapy: Instrument assisted soft tissue mobilization and Soft tissue mobilization Assessment: Performed manual therapy, but not DN since pt has surgery this Monday. She shows tightening of soleus muscle length, no change in gastroc length. Provided HEP for NWB activities for her hip and core. Ended with stretches. Will hold until pt's surgery and perform re-evaluation with new script for her updated status of L foot post-operatively. Open Lending: Access Code: [email or web address] URL: [email or web address]/ Date: 05/05/2025 Prepared by: Sade Richard Exercises - Gastroc Stretch with Foot at Wall - 2 x daily - 7 x weekly - 2 sets - 30 seconds hold - Soleus Stretch with Foot at Wall - 2 x daily - 7 x weekly - 2 sets - 30 seconds hold - SPR Split Squat - 1 x daily - 5-7 x weekly - 3 sets - 8-10 reps - Wall Sit - 1 x daily - 5-7 x weekly - 3 sets - 30 seconds hold - Standing Calf Raise With Small Ball at Heels - 1 x daily - 5-7 x weekly - 3 sets - 15 reps Medbridge for hips/core for post-op when NWB: Access Code: [email or web address] URL: [email or web address]/ Date: 08/18/2025 Prepared by: Sade Richard Exercises - Supine 90/90 Alternating Heel Touches with Posterior Pelvic Tilt - 2-3 x weekly - 3 sets - 10 reps - Active Straight Leg Raise with Quad Set - 2-3 x weekly - 3 sets - 10 reps - Sidelying Hip Abduction with Resistance at Thighs - 2-3 x weekly - 3 sets - 30-60seconds hold - Quadruped Hip Abduction with Resistance Loop - 2-3 x weekly - 3 sets - 10 reps - Bird Dog - 2-3 x weekly - 3 sets - 10 reps - Clamshell in Abduction - 2-3 x weekly - 3 sets - 10 reps - Reverse Clamshell in Extension and Abduction - 3 x weekly - 2-3 sets - 10 reps Treatment Plan: Hold until surgery. Re-evaluation with change of status. If Marj does not continue physical therapy services or is discharged prior to the next treatment, consider this note the most recent progress report and discharge summary. [facility] 08-04-2025 Miscellaneous Notes [facility] Daily Progress PT diagnosis: Posterior tibial tendinitis of left leg. Neuritis. Plantar fasciitis of left foot. Inflexibility Left calf. Impaired functional activities. Precautions/Contraindications: standard Subjective: Pt reports 0.5/10 L medial calcaneus pain. 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 She did notice she would shift weight right often. She also noticed some pain on right briefly, attributing to compensating. She overall feels she has made improvements and only has stiffness initially and then mild pains. Objective: Refer to flowsheets for any objective measures. Muscle Length (degrees) 05/05/2025 06/23/25 06/30/25 07/21/25 08/04/25 Right Left Left Left Left Left Gastrocnemius 13 8 12 13 14 14 Soleus 19 14 22 22 20 22 Treatment: Response to treatment was monitored throughout session. The following treatments were utilized during the patient's session: Therapeutic Exercise: Directed ROM exercises AROM to maximize overall function. Modified exercises including frequency, repetition, and intensity for optimal strengthening. Facilitated verbal and visual cues to enhance proper muscle activation throughout exercises Directed therapeutic rest as needed to execute task properly and allow for best functional and strength benefits. Manual Therapy: Instrument assisted soft tissue mobilization and Dry Needling see below Dry Needling (DN), performed on patient this date. Consent obtained: Yes. Pt educated/reminded of possible side effects of DN: Yes. Any abnormalities at start of tx? No. Needle locations: LLE Gastrocnemius x1 (lateral). Soleus x2 (medial and lateral). Gastroc-soleus junction x1. Medial calcaneus x1. Posterior to medial malleolus x1. Navicular bone x1. Total Number of [place]: 7 Position of Pt: prone Technique: in-situ + spinning every 3 minutes. Followed by IASTM. Any Adverse effects post-tx? No Assessment: Continued DN and IASTM, pt reporting improvement over time. Increaed muscle length compared to last visit. Continued last week's progressions. Pt with muscle fatigue but no increased pain. Continues to feel overall improvement, but pain continues to be constant. 1 more tx session before surgery. Open Lending: Access Code: [email or web address] URL: [email or web address] Group/ Date: 05/05/2025 Prepared by: Sade Richard Exercises - Gastroc Stretch with Foot at Wall - 2 x daily - 7 x weekly - 2 sets - 30 seconds hold - Soleus Stretch with Foot at Wall - 2 x daily - 7 x weekly - 2 sets - 30 seconds hold - SPR Split Squat - 1 x daily - 5-7 x weekly - 3 sets - 8-10 reps - Wall Sit - 1 x daily - 5-7 x weekly - 3 sets - 30 seconds hold - Standing Calf Raise With Small Ball at Heels - 1 x daily - 5-7 x weekly - 3 sets - 15 reps Treatment Plan: Progress with treatment plan per initial evaluation. Plan to provide NWB hip/core/knee activities for post-op. If Marj does not continue physical therapy services or is discharged prior to the next treatment, consider this note the most recent progress report and discharge summary. documented in this encounter [facility] 08-04-2025 Progress note Formatting of t his note is different from the original. [facility] Daily Progress PT diagnosis: Posterior tibial tendinitis of left leg. Neuritis. Plantar fasciitis of left foot. Inflexibility Left calf. Impaired functional activities. Precautions/Contraindications: standard Subjective: Pt reports 0.5/10 L medial calcaneus pain. 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 She did notice she would shift weight right often. She also noticed some pain on right briefly, attributing to compensating. She overall feels she has made improvements and only has stiffness initially and then mild pains. Objective: Refer to flowsheets for any objective measures. Muscle Length (degrees) 05/05/2025 06/23/25 06/30/25 07/21/25 08/04/25 Right Left Left Left Left Left Gastrocnemius 13 8 12 13 14 14 Soleus 19 14 22 22 20 22 Treatment: Response to treatment was monitored throughout session. The following treatments were utilized during the patient's session: Therapeutic Exercise: Directed ROM exercises AROM to maximize overall function. Modified exercises including frequency, repetition, and intensity for optimal strengthening. Facilitated verbal and visual cues to enhance proper muscle activation throughout exercises Directed therapeutic rest as needed to execute task properly and allow for best functional and strength benefits. Manual Therapy: Instrument assisted soft tissue mobilization and Dry Needling see below Dry Needling (DN), performed on patient this date. Consent obtained: Yes. Pt educated/reminded of possible side effects of DN: Yes. Any abnormalities at start of tx? No. Needle locations: LLE Gastrocnemius x1 (lateral). Soleus x2 (medial and lateral). Gastroc-soleus junction x1. Medial calcaneus x1. Posterior to medial malleolus x1. Navicular bone x1. Total Number of [place]: 7 Position of Pt: prone Technique: in-situ + spinning every 3 minutes. Followed by IASTM. Any Adverse effects post-tx? No Assessment: Continued DN and IASTM, pt reporting improvement over time. Increaed muscle length compared to last visit. Continued last week's progressions. Pt with muscle fatigue but no increased pain. Continues to feel overall improvement, but pain continues to be constant. 1 more tx session before surgery. Open Lending: Access Code: [email or web address] URL: [email or web address] Group/ Date: 05/05/2025 Prepared by: Sade Richard Exercises - Gastroc Stretch with Foot at Wall - 2 x daily - 7 x weekly - 2 sets - 30 seconds hold - Soleus Stretch with Foot at Wall - 2 x daily - 7 x weekly - 2 sets - 30 seconds hold - SPR Split Squat - 1 x daily - 5-7 x weekly - 3 sets - 8-10 reps - Wall Sit - 1 x daily - 5-7 x weekly - 3 sets - 30 seconds hold - Standing Calf Raise With Small Ball at Heels - 1 x daily - 5-7 x weekly - 3 sets - 15 reps Treatment Plan: Progress with treatment plan per initial evaluation. Plan to provide NWB hip/core/knee activities for post-op. If Marj does not continue physical therapy services or is discharged prior to the next treatment, consider this note the most recent progress report and discharge summary. [facility] 07-21-2025 Miscellaneous Notes SPR Daily Progress PT diagnosis: Posterior tibial tendinitis of left leg. Neuritis. Plantar fasciitis of left foot. Inflexibility Left calf. Impaired functional activities. Precautions/Contraindications: standard Subjective: Pt reports 0.5/10 L medial calcaneus pain. Objective: Refer to flowsheets for any objective measures. Muscle Length (degrees) 05/05/2025 06/23/25 06/30/25 07/21/25 Right Left Left Left Left Gastrocnemius 13 8 12 13 14 Soleus 19 14 22 22 20 Treatment: Response to treatment was monitored throughout session. The following treatments were utilized during the patient's session: Therapeutic Exercise: Directed ROM exercises AROM to maximize overall function. Modified exercises including frequency, repetition, and intensity for optimal strengthening. Facilitated verbal and visual cues to enhance proper muscle activation throughout exercises Directed therapeutic rest as needed to execute task properly and allow for best functional and strength benefits. Manual Therapy: Instrument assisted soft tissue mobilization and Dry Needling see below Dry Needling (DN), performed on patient this date. Consent obtained: Yes. Pt educated/reminded of possible side effects of DN: Yes. Any abnormalities at start of tx? No. Needle locations: LLE Gastrocnemius x1 (lateral). Soleus x2 (medial and lateral). Gastroc-soleus junction x1. Medial calcaneus x1. Posterior to medial malleolus x1. Navicular bone x1. Total Number of [place]: 7 Position of Pt: prone Technique: in-situ + spinning every 3 minutes. Followed by IASTM. Any Adverse effects post-tx? No Assessment: Continued DN and IASTM, pt reporting improvement over time. Progressed strength/stabilization activity today. Pt had hip muslce fatigue mostly. No increase foot pain during exercises. Gastroc and soleus length testing within 1-2 degrees (better for gastrocnemius and 2 degrees less for soleus) compared to last visit. Will continue PT to achieve goals. Open Lending: Access Code: [email or web address] URL: [email or web address]/ Date: 05/05/2025 Prepared by: Sade Richard Exercises - Gastroc Stretch with Foot at Wall - 2 x daily - 7 x weekly - 2 sets - 30 seconds hold - Soleus Stretch with Foot at Wall - 2 x daily - 7 x weekly - 2 sets - 30 seconds hold - SPR Split Squat - 1 x daily - 5-7 x weekly - 3 sets - 8-10 reps - Wall Sit - 1 x daily - 5-7 x weekly - 3 sets - 30 seconds hold - Standing Calf Raise With Small Ball at Heels - 1 x daily - 5-7 x weekly - 3 sets - 15 reps Treatment Plan: Progress with treatment plan per initial evaluation. If Marj does not continue physical therapy services or is discharged prior to the next treatment, consider this note the most recent progress report and discharge summary. documented in this encounter [facility] 07-21-2025 Progress note Formatting of t his note is different from the original. SPR Daily Progress PT diagnosis: Posterior tibial tendinitis of left leg. Neuritis. Plantar fasciitis of left foot. Inflexibility Left calf. Impaired functional activities. Precautions/Contraindications: standard Subjective: Pt reports 0.5/10 L medial calcaneus pain. Objective: Refer to flowsheets for any objective measures. Muscle Length (degrees) 05/05/2025 06/23/25 06/30/25 07/21/25 Right Left Left Left Left Gastrocnemius 13 8 12 13 14 Soleus 19 14 22 22 20 Treatment: Response to treatment was monitored throughout session. The following treatments were utilized during the patient's session: Therapeutic Exercise: Directed ROM exercises AROM to maximize overall function. Modified exercises including frequency, repetition, and intensity for optimal strengthening. Facilitated verbal and visual cues to enhance proper muscle activation throughout exercises Directed therapeutic rest as needed to execute task properly and allow for best functional and strength benefits. Manual Therapy: Instrument assisted soft tissue mobilization and Dry Needling see below Dry Needling (DN), performed on patient this date. Consent obtained: Yes. Pt educated/reminded of possible side effects of DN: Yes. Any abnormalities at start of tx? No. Needle locations: LLE Gastrocnemius x1 (lateral). Soleus x2 (medial and lateral). Gastroc-soleus junction x1. Medial calcaneus x1. Posterior to medial malleolus x1. Navicular bone x1. Total Number of [place]: 7 Position of Pt: prone Technique: in-situ + spinning every 3 minutes. Followed by IASTM. Any Adverse effects post-tx? No Assessment: Continued DN and IASTM, pt reporting improvement over time. Progressed strength/stabilization activity today. Pt had hip muslce fatigue mostly. No increase foot pain during exercises. Gastroc and soleus length testing within 1-2 degrees (better for gastrocnemius and 2 degrees less for soleus) compared to last visit. Will continue PT to achieve goals. Open Lending: Access Code: [email or web address] URL: [email or web address]/ Date: 05/05/2025 Prepared by: Sade Richard Exercises - Gastroc Stretch with Foot at Wall - 2 x daily - 7 x weekly - 2 sets - 30 seconds hold - Soleus Stretch with Foot at Wall - 2 x daily - 7 x weekly - 2 sets - 30 seconds hold - SPR Split Squat - 1 x daily - 5-7 x weekly - 3 sets - 8-10 reps - Wall Sit - 1 x daily - 5-7 x weekly - 3 sets - 30 seconds hold - Standing Calf Raise With Small Ball at Heels - 1 x daily - 5-7 x weekly - 3 sets - 15 reps Treatment Plan: Progress with treatment plan per initial evaluation. If Marj does not continue physical therapy services or is discharged prior to the next treatment, consider this note the most recent progress report and discharge summary. [facility] 07-14-2025 Miscellaneous Notes SPR Daily Progress PT diagnosis: Posterior tibial tendinitis of left leg. Neuritis. Plantar fasciitis of left foot. Inflexibility Left calf. Impaired functional activities. Precautions/Contraindications: standard Subjective: Pt reports 0.5/10 L medial calcaneus pain. She had her follow-up with MD and is currently scheduled for surgery with neuroma resection, gastroc release, and heel spur resection with plantar fasciectomy. She has a plan, but MD said she can cancel if deciding against. She notes she has improvement, noting she can walk on hardwood floor barefoot without severe pain and also returned to slight running and can walk afterwards without severe pain. She notes her typical is now reduced from 2-3/10 to 0.5 to 1/10, while running has improved from severe to 4/10. Objective: Refer to flowsheets for any objective measures. Muscle Length (degrees) 05/05/2025 06/23/25 06/30/25 Right Left Left Left Gastrocnemius 13 8 12 13 Soleus 19 14 22 22 Treatment: Response to treatment was monitored throughout session. The following treatments were utilized during the patient's session: Manual Therapy: Instrument assisted soft tissue mobilization and Dry Needling see below Modalities: Iontophoresis applied tomedial L calcaneus without three minute activator for 4 hour wear-time to achieve 80 mA-min dosage Dry Needling (DN), performed on patient this date. Consent obtained: Yes. Pt educated/reminded of possible side effects of DN: Yes. Any abnormalities at start of tx? No. Needle locations: LLE Gastrocnemius x1 (lateral). Soleus x2 (medial and lateral). Gastroc-soleus junction x1. Medial calcaneus x1. Posterior to medial malleolus x1. Navicular bone x1. Total Number of [place]: 7 Position of Pt: prone Technique: in-situ + spinning every 3 minutes. Followed by IASTM. Any Adverse effects post-tx? No Assessment: Continued DN and IASTM, pt reporting improvement over time. She has surgery planned but will continue PT to continue getting stronger and to see if she continues getting significant improvements, will cancel surgery. She has been able to run lightly and not have severe pain walking afterwards. Today, she was able to increase band resistance for band activities and also added foam for SL-RDL. Open Lending: Access Code: [email or web address] URL: [email or web address]/ Date: 05/05/2025 Prepared by: Sade Richard Exercises - Gastroc Stretch with Foot at Wall - 2 x daily - 7 x weekly - 2 sets - 30 seconds hold - Soleus Stretch with Foot at Wall - 2 x daily - 7 x weekly - 2 sets - 30 seconds hold - SPR Split Squat - 1 x daily - 5-7 x weekly - 3 sets - 8-10 reps - Wall Sit - 1 x daily - 5-7 x weekly - 3 sets - 30 seconds hold - Standing Calf Raise With Small Ball at Heels - 1 x daily - 5-7 x weekly - 3 sets - 15 reps Treatment Plan: Progress with treatment plan per initial evaluation. Take objective measurement. If Marj does not continue physical therapy services or is discharged prior to the next treatment, consider this note the most recent progress report and discharge summary. Encounter addended by: Sade Richard PT on: 07/14/2025 1:52 PM Actions taken: Clinical Note Signed documented in this encounter [facility] 07-14-2025 Note Encounter addended b y: Sade Richard PT on: 07/14/2025 1:52 PM Actions taken: Clinical Note Signed [facility] 07-14-2025 Progress note Formatting of t his note is different from the original. SPR Daily Progress PT diagnosis: Posterior tibial tendinitis of left leg. Neuritis. Plantar fasciitis of left foot. Inflexibility Left calf. Impaired functional activities. Precautions/Contraindications: standard Subjective: Pt reports 0.5/10 L medial calcaneus pain. She had her follow-up with MD and is currently scheduled for surgery with neuroma resection, gastroc release, and heel spur resection with plantar fasciectomy. She has a plan, but MD said she can cancel if deciding against. She notes she has improvement, noting she can walk on hardwood floor barefoot without severe pain and also returned to slight running and can walk afterwards without severe pain. She notes her typical is now reduced from 2-3/10 to 0.5 to 1/10, while running has improved from severe to 4/10. Objective: Refer to flowsheets for any objective measures. Muscle Length (degrees) 05/05/2025 06/23/25 06/30/25 Right Left Left Left Gastrocnemius 13 8 12 13 Soleus 19 14 22 22 Treatment: Response to treatment was monitored throughout session. The following treatments were utilized during the patient's session: Manual Therapy: Instrument assisted soft tissue mobilization and Dry Needling see below Modalities: Iontophoresis applied tomedial L calcaneus without three minute activator for 4 hour wear-time to achieve 80 mA-min dosage Dry Needling (DN), performed on patient this date. Consent obtained: Yes. Pt educated/reminded of possible side effects of DN: Yes. Any abnormalities at start of tx? No. Needle locations: LLE Gastrocnemius x1 (lateral). Soleus x2 (medial and lateral). Gastroc-soleus junction x1. Medial calcaneus x1. Posterior to medial malleolus x1. Navicular bone x1. Total Number of [place]: 7 Position of Pt: prone Technique: in-situ + spinning every 3 minutes. Followed by IASTM. Any Adverse effects post-tx? No Assessment: Continued DN and IASTM, pt reporting improvement over time. She has surgery planned but will continue PT to continue getting stronger and to see if she continues getting significant improvements, will cancel surgery. She has been able to run lightly and not have severe pain walking afterwards. Today, she was able to increase band resistance for band activities and also added foam for SL-RDL. [employer]: Access Code: [email or web address] URL: [email or web address] Date: 05/05/2025 Prepared by: Sade Richard Exercises - Gastroc Stretch with Foot at Wall - 2 x daily - 7 x weekly - 2 sets - 30 seconds hold - Soleus Stretch with Foot at Wall - 2 x daily - 7 x weekly - 2 sets - 30 seconds hold - SPR Split Squat - 1 x daily - 5-7 x weekly - 3 sets - 8-10 reps - Wall Sit - 1 x daily - 5-7 x weekly - 3 sets - 30 seconds hold - Standing Calf Raise With Small Ball at Heels - 1 x daily - 5-7 x weekly - 3 sets - 15 reps Treatment Plan: Progress with treatment plan per initial evaluation. Take objective measurement. If Marj does not continue physical therapy services or is discharged prior to the next treatment, consider this note the most recent progress report and discharge summary. [facility] 07-07-2025 Miscellaneous Notes SPR Daily Progress PT diagnosis: Posterior tibial tendinitis of left leg. Neuritis. Plantar fasciitis of left foot. Inflexibility Left calf. Impaired functional activities. Precautions/Contraindications: standard Subjective: Pt reports EMG was normal, but was told neuritis doesn't always show on EMG. She has follow-up with MD this week. She tried to run and it wasn't horrible noting she usually can't walk after running, but was able to walk. She has been performing HEP 3days/wk, but sometimes doesn't include split leg squat due to SIJ issues. Objective: Refer to flowsheets for any objective measures. Ankle tenderness. Muscle Length (degrees) 05/05/2025 06/23/25 06/30/25 Right Left Left Left Gastrocnemius 13 8 12 13 Soleus 19 14 22 22 Treatment: Response to treatment was monitored throughout session. The following treatments were utilized during the patient's session: Manual Therapy: Instrument assisted soft tissue mobilization and Dry Needling see below Modalities: Iontophoresis applied tomedial L calcaneus without three minute activator for 4 hour wear-time to achieve 80 mA-min dosage Dry Needling (DN), performed on patient this date. Consent obtained: Yes. Pt educated/reminded of possible side effects of DN: Yes. Any abnormalities at start of tx? No. Needle locations: LLE Gastrocnemius x1 (lateral). Soleus x2 (medial and lateral). Gastroc-soleus junction x1. Medial calcaneus x1. Posterior to medial malleolus x1. Navicular bone x1. Total Number of [place]: 7 Position of Pt: prone Technique: in-situ + spinning every 3 minutes. Followed by IASTM. Any Adverse effects post-tx? No Assessment: Pt performs exercises without pain. Continued DN and IASTM. She had normal EMG and that is normal. She tolerates continued strengthening. Pain has been </=3/10 with activities, avoiding aggravating activities. She is interested in running, therefore, provided return to running protocol, discussing pain rules and modifications she can make, such as only performing total of 10 minutes and progressing to the 20 minutes within a single step, as tolerated. Continue physical therapy to achieve remaining goals. She has MD follow-up later this week to discuss plan. Open Lending: Access Code: [email or web address] URL: [email or web address] Date: 05/05/2025 Prepared by: Sade Richard Exercises - Gastroc Stretch with Foot at Wall - 2 x daily - 7 x weekly - 2 sets - 30 seconds hold - Soleus Stretch with Foot at Wall - 2 x daily - 7 x weekly - 2 sets - 30 seconds hold - SPR Split Squat - 1 x daily - 5-7 x weekly - 3 sets - 8-10 reps - Wall Sit - 1 x daily - 5-7 x weekly - 3 sets - 30 seconds hold - Standing Calf Raise With Small Ball at Heels - 1 x daily - 5-7 x weekly - 3 sets - 15 reps Treatment Plan: Progress with treatment plan per initial evaluation. If Marj does not continue physical therapy services or is discharged prior to the next treatment, consider this note the most recent progress report and discharge summary. documented in this encounter [facility] 07-07-2025 Progress note Formatting of t his note is different from the original. SPR Daily Progress PT diagnosis: Posterior tibial tendinitis of left leg. Neuritis. Plantar fasciitis of left foot. Inflexibility Left calf. Impaired functional activities. Precautions/Contraindications: standard Subjective: Pt reports EMG was normal, but was told neuritis doesn't always show on EMG. She has follow-up with MD this week. She tried to run and it wasn't horrible noting she usually can't walk after running, but was able to walk. She has been performing HEP 3days/wk, but sometimes doesn't include split leg squat due to SIJ issues. Objective: Refer to flowsheets for any objective measures. Ankle tenderness. Muscle Length (degrees) 05/05/2025 06/23/25 06/30/25 Right Left Left Left Gastrocnemius 13 8 12 13 Soleus 19 14 22 Treatment: Response to treatment was monitored throughout session. The following treatments were utilized during the patient's session: Manual Therapy: Instrument assisted soft tissue mobilization and Dry Needling see below Modalities: Iontophoresis applied tomedial L calcaneus without three minute activator for 4 hour wear-time to achieve 80 mA-min dosage Dry Needling (DN), performed on patient this date. Consent obtained: Yes. Pt educated/reminded of possible side effects of DN: Yes. Any abnormalities at start of tx? No. Needle locations: LLE Gastrocnemius x1 (lateral). Soleus x2 (medial and lateral). Gastroc-soleus junction x1. Medial calcaneus x1. Posterior to medial malleolus x1. Navicular bone x1. Total Number of [place]: 7 Position of Pt: prone Technique: in-situ + spinning every 3 minutes. Followed by IASTM. Any Adverse effects post-tx? No Assessment: Pt performs exercises without pain. Continued DN and IASTM. She had normal EMG and that is normal. She tolerates continued strengthening. Pain has been Open Lending: Access Code: [email or web address] URL: [email or web address] Date: 05/05/2025 Prepared by: Sade Richard Exercises - Gastroc Stretch with Foot at Wall - 2 x daily - 7 x weekly - 2 sets - 30 seconds hold - Soleus Stretch with Foot at Wall - 2 x daily - 7 x weekly - 2 sets - 30 seconds hold - SPR Split Squat - 1 x daily - 5-7 x weekly - 3 sets - 8-10 reps - Wall Sit - 1 x daily - 5-7 x weekly - 3 sets - 30 seconds hold - Standing Calf Raise With Small Ball at Heels - 1 x daily - 5-7 x weekly - 3 sets - 15 reps Treatment Plan: Progress with treatment plan per initial evaluation. If Marj does not continue physical therapy services or is discharged prior to the next treatment, consider this note the most recent progress report and discharge summary. [facility] 06-30-2025 Miscellaneous Notes SPR Daily Progress PT diagnosis: Posterior tibial tendinitis of left leg. Neuritis. Plantar fasciitis of left foot. Inflexibility Left calf. Impaired functional activities. Precautions/Contraindications: standard Subjective: Pt reports overall some improvements, noting she can walk on hardwood floors without excruciating pain. She notes she has avoided activities that knowingly aggravate her pain. Pt still gets to 6-7/10 if she runs and is always at least at 1/10 (feels more times with the 1/10 pain as compared to 2-3/10). She notes it always feels stiff and like she needs to stretch. She frequently stretches. She is adherent to HEP at lease 2x/wk and also goes to a gym. She has EMG this week and then states she will follow-up with physician next week. Objective: Refer to flowsheets for any objective measures. Ankle tenderness. Muscle Length (degrees) 05/05/2025 06/23/25 06/30/25 Right Left Left Left Gastrocnemius 13 8 12 13 Soleus 19 14 22 22 Treatment: Response to treatment was monitored throughout session. The following treatments were utilized during the patient's session: Manual Therapy: Instrument assisted soft tissue mobilization and Dry Needling see below Modalities: Iontophoresis applied tomedial L calcaneus without three minute activator for 4 hour wear-time to achieve 80 mA-min dosage Dry Needling (DN), performed on patient this date. Consent obtained: Yes. Pt educated/reminded of possible side effects of DN: Yes. Any abnormalities at start of tx? No. Needle locations: LLE Gastrocnemius x1 (lateral). Soleus x2 (medial and lateral). Gastroc-soleus junction x1. Medial calcaneus x1. Posterior to medial malleolus x1. Navicular bone x1. Total Number of [place]: 7 Position of Pt: prone Technique: in-situ + spinning every 3 minutes. Followed by IASTM. Any Adverse effects post-tx? No Assessment: Pt has participated in 8wks of PT for her medial plantar pain on calcaneus. Treatments included dry needling, IASTM, strength and stabilization training, and iontophoresis. Pain has overall improved, but still constant and she has been avoiding knowingly aggravating activities, which will intensify pain to 6-7/10. Flexibility has greatly improved, but she continues to have tenderness and feeling of tightness. She has EMG scheduled later this week and follow-up with physician next week to discuss next options. For now, she is making progress and we discussed continuing physical therapy to achieve remaining goals. [employer]ending: Access Code: [email or web address] URL: [email or web address] Date: 05/05/2025 Prepared by: Sade Richard Exercises - Gastroc Stretch with Foot at Wall - 2 x daily - 7 x weekly - 2 sets - 30 seconds hold - Soleus Stretch with Foot at Wall - 2 x daily - 7 x weekly - 2 sets - 30 seconds hold - SPR Split Squat - 1 x daily - 5-7 x weekly - 3 sets - 8-10 reps - Wall Sit - 1 x daily - 5-7 x weekly - 3 sets - 30 seconds hold - Standing Calf Raise With Small Ball at Heels - 1 x daily - 5-7 x weekly - 3 sets - 15 reps Treatment Plan: Progress with treatment plan per initial evaluation. If Marj does not continue physical therapy services or is discharged prior to the next treatment, consider this note the most recent progress report and discharge summary. documented in this encounter [facility] 06-30-2025 Progress note Formatting of t his note is different from the original. SPR Daily Progress PT diagnosis: Posterior tibial tendinitis of left leg. Neuritis. Plantar fasciitis of left foot. Inflexibility Left calf. Impaired functional activities. Precautions/Contraindications: standard Subjective: Pt reports overall some improvements, noting she can walk on hardwood floors without excruciating pain. She notes she has avoided activities that knowingly aggravate her pain. Pt still gets to 6-7/10 if she runs and is always at least at 1/10 (feels more times with the 1/10 pain as compared to 2-3/10). She notes it always feels stiff and like she needs to stretch. She frequently stretches. She is adherent to HEP at lease 2x/wk and also goes to a gym. She has EMG this week and then states she will follow-up with physician next week. Objective: Refer to flowsheets for any objective measures. Ankle tenderness. Muscle Length (degrees) 05/05/2025 06/23/25 06/30/25 Right Left Left Left Gastrocnemius 13 8 12 13 Soleus 19 14 22 22 Treatment: Response to treatment was monitored throughout session. The following treatments were utilized during the patient's session: Manual Therapy: Instrument assisted soft tissue mobilization and Dry Needling see below Modalities: Iontophoresis applied tomedial L calcaneus without three minute activator for 4 hour wear-time to achieve 80 mA-min dosage Dry Needling (DN), performed on patient this date. Consent obtained: Yes. Pt educated/reminded of possible side effects of DN: Yes. Any abnormalities at start of tx? No. Needle locations: LLE Gastrocnemius x1 (lateral). Soleus x2 (medial and lateral). Gastroc-soleus junction x1. Medial calcaneus x1. Posterior to medial malleolus x1. Navicular bone x1. Total Number of [place]: 7 Position of Pt: prone Technique: in-situ + spinning every 3 minutes. Followed by IASTM. Any Adverse effects post-tx? No Assessment: Pt has participated in 8wks of PT for her medial plantar pain on calcaneus. Treatments included dry needling, IASTM, strength and stabilization training, and iontophoresis. Pain has overall improved, but still constant and she has been avoiding knowingly aggravating activities, which will intensify pain to 6-7/10. Flexibility has greatly improved, but she continues to have tenderness and feeling of tightness. She has EMG scheduled later this week and follow-up with physician next week to discuss next options. For now, she is making progress and we discussed continuing physical therapy to achieve remaining goals. [employer]: Access Code: [email or web address] URL: [email or web address] Date: 05/05/2025 Prepared by: Sade Richard Exercises - Gastroc Stretch with Foot at Wall - 2 x daily - 7 x weekly - 2 sets - 30 seconds hold - Soleus Stretch with Foot at Wall - 2 x daily - 7 x weekly - 2 sets - 30 seconds hold - SPR Split Squat - 1 x daily - 5-7 x weekly - 3 sets - 8-10 reps - Wall Sit - 1 x daily - 5-7 x weekly - 3 sets - 30 seconds hold - Standing Calf Raise With Small Ball at Heels - 1 x daily - 5-7 x weekly - 3 sets - 15 reps Treatment Plan: Progress with treatment plan per initial evaluation. If Majr does not continue physical therapy services or is discharged prior to the next treatment, consider this note the most recent progress report and discharge summary. [facility] 06-23-2025 Miscellaneous Notes SPR Daily Progress PT diagnosis: Posterior tibial tendinitis of left leg. Neuritis. Plantar fasciitis of left foot. Inflexibility Left calf. Impaired functional activities. Precautions/Contraindications: standard Subjective: Pt reports 2/10 pain medial L heel. She does feel like she's had some relief since starting PT, but still always has pain and also notes it is irritable. She notes reducing and modifying HEP to avoid single leg activities due to having SIJ issues after trying ti lift a 65 TV alone. Current L SIJ pain 2-3/10. Objective: Refer to flowsheets for any objective measures. Muscle Length (degrees) 05/05/2025 06/23/25 Right Left Left Gastrocnemius 13 8 12 Soleus 19 14 22 Treatment: Response to treatment was monitored throughout session. The following treatments were utilized during the patient's session: Manual Therapy: Instrument assisted soft tissue mobilization and Dry Needling see below Modalities: Iontophoresis applied tomedial L calcaneus without three minute activator for 4 hour wear-time to achieve 80 mA-min dosage Dry Needling (DN), performed on patient this date. Consent obtained: Yes. Pt educated/reminded of possible side effects of DN: Yes. Any abnormalities at start of tx? No. Needle locations: LLE Gastrocnemius x1 (lateral). Soleus x2 (medial and lateral). Gastroc-soleus junction x1. Medial calcaneus x1. Posterior to medial malleolus x1. Navicular bone x1. Total Number of [place]: 7 Position of Pt: prone Technique: in-situ + spinning every 3 minutes. Followed by IASTM. Any Adverse effects post-tx? No Assessment: Continued manual therapy with DN and IASTM, iontophoresis at end of session (unbilllable), and strength and stabilization. Today was 6th and final iontophoresis Able to increase band resistance for exercise. Met goal for gastrocnemius and soleus length. She has EMG next week. [employer]ending: Access Code: [email or web address] URL: [email or web address] Date: 05/05/2025 Prepared by: Sade Richard Exercises - Gastroc Stretch with Foot at Wall - 2 x daily - 7 x weekly - 2 sets - 30 seconds hold - Soleus Stretch with Foot at Wall - 2 x daily - 7 x weekly - 2 sets - 30 seconds hold - SPR Split Squat - 1 x daily - 5-7 x weekly - 3 sets - 8-10 reps - Wall Sit - 1 x daily - 5-7 x weekly - 3 sets - 30 seconds hold - Standing Calf Raise With Small Ball at Heels - 1 x daily - 5-7 x weekly - 3 sets - 15 reps Treatment Plan: Progress with treatment plan per initial evaluation. EMG next week. Reassess If Marj does not continue physical therapy services or is discharged prior to the next treatment, consider this note the most recent progress report and discharge summary. documented in this encounter [facility] 06-23-2025 Progress note Formatting of t his note is different from the original. SPR Daily Progress PT diagnosis: Posterior tibial tendinitis of left leg. Neuritis. Plantar fasciitis of left foot. Inflexibility Left calf. Impaired functional activities. Precautions/Contraindications: standard Subjective: Pt reports 2/10 pain medial L heel. She does feel like she's had some relief since starting PT, but still always has pain and also notes it is irritable. She notes reducing and modifying HEP to avoid single leg activities due to having SIJ issues after trying ti lift a 65 TV alone. Current L SIJ pain 2-3/10. Objective: Refer to flowsheets for any objective measures. Muscle Length (degrees) 05/05/2025 06/23/25 Right Left Left Gastrocnemius 13 8 12 Soleus 19 14 22 Treatment: Response to treatment was monitored throughout session. The following treatments were utilized during the patient's session: Manual Therapy: Instrument assisted soft tissue mobilization and Dry Needling see below Modalities: Iontophoresis applied tomedial L calcaneus without three minute activator for 4 hour wear-time to achieve 80 mA-min dosage Dry Needling (DN), performed on patient this date. Consent obtained: Yes. Pt educated/reminded of possible side effects of DN: Yes. Any abnormalities at start of tx? No. Needle locations: LLE Gastrocnemius x1 (lateral). Soleus x2 (medial and lateral). Gastroc-soleus junction x1. Medial calcaneus x1. Posterior to medial malleolus x1. Navicular bone x1. Total Number of [place]: 7 Position of Pt: prone Technique: in-situ + spinning every 3 minutes. Followed by IASTM. Any Adverse effects post-tx? No Assessment: Continued manual therapy with DN and IASTM, iontophoresis at end of session (unbilllable), and strength and stabilization. Today was 6th and final iontophoresis Able to increase band resistance for exercise. Met goal for gastrocnemius and soleus length. She has EMG next week. Open Lending: Access Code: [email or web address] URL: [email or web address] Date: 05/05/2025 Prepared by: Sade Richard Exercises - Gastroc Stretch with Foot at Wall - 2 x daily - 7 x weekly - 2 sets - 30 seconds hold - Soleus Stretch with Foot at Wall - 2 x daily - 7 x weekly - 2 sets - 30 seconds hold - SPR Split Squat - 1 x daily - 5-7 x weekly - 3 sets - 8-10 reps - Wall Sit - 1 x daily - 5-7 x weekly - 3 sets - 30 seconds hold - Standing Calf Raise With Small Ball at Heels - 1 x daily - 5-7 x weekly - 3 sets - 15 reps Treatment Plan: Progress with treatment plan per initial evaluation. EMG next week. Reassess If Marj does not continue physical therapy services or is discharged prior to the next treatment, consider this note the most recent progress report and discharge summary. [facility] 06-09-2025 Radiology Diagnostic study note [facility] [address] [place], [place] [id number] Esophagus Dual Contrast MR#: [id number] Acct: [id number] Name: MARJ TAY Rep #: [id number] : 1990 F 35 From: Sal Rod MD PCP: Dr. Cristina Villeda, Status: REG CLI Study:Esophagus Dual Contrast Date of Exam: 06/09/25 Exam# [id number] Ordering Dr: Bonnie Briscoe MD EXAM: Single and double contrast esophagram CLINICAL HISTORY: Gastroesophageal reflux disease. Possible hiatal hernia? COMPARISON: None. TECHNIQUE: Single and double contrast esophagram FINDINGS: Visually, the swallowing mechanism shows no abnormality. The esophagus shows no area of persistent narrowing. No mucosal changes seen. No evidence of gastroesophageal reflux was identified during limited evaluation. A widely patent esophagogastric junction is seen. Normal passage of a barium tablet into the stomach was seen. Limited imaging of the stomach and duodenum demonstrate no abnormality. No hiatal hernia is seen. RAD/Esophagus Dual Contrast IMPRESSION: No significant abnormality is seen. No hiatal hernia is noted. Reading Location: [place] [address] CC: Dr. Jose Antonio Briscoe MD; Dr. Cristina Villeda DO ~ Receptionist Nurse: Signed [facility] 06-02-2025 Miscellaneous Notes SPR Daily Progress PT diagnosis: Posterior tibial tendinitis of left leg. Neuritis. Plantar fasciitis of left foot. Inflexibility Left calf. Impaired functional activities. Precautions/Contraindications: standard Subjective: Pt reports 2/10 pain medial L heel. She had ortho follow-up to discuss surgical tx and is having an EMG before potentially scheduling surgery. She reports she was feeling okay last and jogged 1' jog and 2' walk alternating, but felt super flared up the next morning and could barely put weight on her LLE. Objective: Refer to flowsheets for any objective measures. Treatment: Response to treatment was monitored throughout session. The following treatments were utilized during the patient's session: Manual Therapy: Instrument assisted soft tissue mobilization and Dry Needling see below Modalities: Iontophoresis applied tomedial L calcaneus without three minute activator for 4 hour wear-time to achieve 80 mA-min dosage Dry Needling (DN), performed on patient this date. Consent obtained: Yes. Pt educated/reminded of possible side effects of DN: Yes. Any abnormalities at start of tx? No. Needle locations: LLE Gastrocnemius x2 (medial and lateral). Soleus x2 (medial and lateral). Gastroc-soleus junction x1. Medial calcaneus x1. Posterior to medial malleolus x1. Navicular bone x1. Total Number of [place]: 8 Position of Pt: prone Technique: in-situ + spinning every 3 minutes. Followed by IASTM. Any Adverse effects post-tx? No Assessment: Continued manual therapy with DN and IASTM, iontophoresis at end of session (unbilllable), and strength and stabilization. She reports the only relief she gets is when it is numbed. She is getting EMG and her physician also suggesting Shockwave therapy, so I informed her Dr. Guajardo performs this procedure if she'd like to schedule a consultation with him. We will plan 2 more tx sessions to see if she is having any progress with PT. Open Lending: Access Code: [email or web address] URL: [email or web address] Date: 05/05/2025 Prepared by: Sade Richard Exercises - Gastroc Stretch with Foot at Wall - 2 x daily - 7 x weekly - 2 sets - 30 seconds hold - Soleus Stretch with Foot at Wall - 2 x daily - 7 x weekly - 2 sets - 30 seconds hold - SPR Split Squat - 1 x daily - 5-7 x weekly - 3 sets - 8-10 reps - Wall Sit - 1 x daily - 5-7 x weekly - 3 sets - 30 seconds hold - Standing Calf Raise With Small Ball at Heels - 1 x daily - 5-7 x weekly - 3 sets - 15 reps Treatment Plan: Progress with treatment plan per initial evaluation If Marj does not continue physical therapy services or is discharged prior to the next treatment, consider this note the most recent progress report and discharge summary. documented in this encounter [facility] 06-02-2025 Progress note Formatting of t his note might be different from the original. SPR Daily Progress PT diagnosis: Posterior tibial tendinitis of left leg. Neuritis. Plantar fasciitis of left foot. Inflexibility Left calf. Impaired functional activities. Precautions/Contraindications: standard Subjective: Pt reports 2/10 pain medial L heel. She had ortho follow-up to discuss surgical tx and is having an EMG before potentially scheduling surgery. She reports she was feeling okay last and jogged 1' jog and 2' walk alternating, but felt super flared up the next morning and could barely put weight on her LLE. Objective: Refer to flowsheets for any objective measures. Treatment: Response to treatment was monitored throughout session. The following treatments were utilized during the patient's session: Manual Therapy: Instrument assisted soft tissue mobilization and Dry Needling see below Modalities: Iontophoresis applied tomedial L calcaneus without three minute activator for 4 hour wear-time to achieve 80 mA-min dosage Dry Needling (DN), performed on patient this date. Consent obtained: Yes. Pt educated/reminded of possible side effects of DN: Yes. Any abnormalities at start of tx? No. Needle locations: LLE Gastrocnemius x2 (medial and lateral). Soleus x2 (medial and lateral). Gastroc-soleus junction x1. Medial calcaneus x1. Posterior to medial malleolus x1. Navicular bone x1. Total Number of [place]: 8 Position of Pt: prone Technique: in-situ + spinning every 3 minutes. Followed by IASTM. Any Adverse effects post-tx? No Assessment: Continued manual therapy with DN and IASTM, iontophoresis at end of session (unbilllable), and strength and stabilization. She reports the only relief she gets is when it is numbed. She is getting EMG and her physician also suggesting Shockwave therapy, so I informed her Dr. Guajardo performs this procedure if she'd like to schedule a consultation with him. We will plan 2 more tx sessions to see if she is having any progress with PT. Open Lending: Access Code: [email or web address] URL: [email or web address] Date: 05/05/2025 Prepared by: Sade Richard Exercises - Gastroc Stretch with Foot at Wall - 2 x daily - 7 x weekly - 2 sets - 30 seconds hold - Soleus Stretch with Foot at Wall - 2 x daily - 7 x weekly - 2 sets - 30 seconds hold - SPR Split Squat - 1 x daily - 5-7 x weekly - 3 sets - 8-10 reps - Wall Sit - 1 x daily - 5-7 x weekly - 3 sets - 30 seconds hold - Standing Calf Raise With Small Ball at Heels - 1 x daily - 5-7 x weekly - 3 sets - 15 reps Treatment Plan: Progress with treatment plan per initial evaluation If Marj does not continue physical therapy services or is discharged prior to the next treatment, consider this note the most recent progress report and discharge summary. [facility] 05-26-2025 Miscellaneous Notes SPR Daily Progress PT diagnosis: Posterior tibial tendinitis of left leg. Neuritis. Plantar fasciitis of left foot. Inflexibility Left calf. Impaired functional activities. Precautions/Contraindications: standard Subjective: Pt reports 2-3/10 pain medial L heel. She didn't feel significant difference after last visit, but notes some possible feeling, not enough that is significant to attribute to sessions. She is continuing HEP at home and will perform tonight since she was unable to come for full session. Objective: Refer to flowsheets for any objective measures. Treatment: Response to treatment was monitored throughout session. The following treatments were utilized during the patient's session: Manual Therapy: Instrument assisted soft tissue mobilization and Dry Needling see below Modalities: Iontophoresis applied tomedial L calcaneus without three minute activator for 4 hour wear-time to achieve 80 mA-min dosage Dry Needling (DN), performed on patient this date. Consent obtained: Yes. Pt educated/reminded of possible side effects of DN: Yes. Any abnormalities at start of tx? No. Needle locations: LLE Gastrocnemius x2 (medial and lateral). Soleus x2 (medial and lateral). Gastroc-soleus junction x1. Medial calcaneus x1. Posterior to medial malleolus x1. Navicular bone x1. Total Number of [place]: 8 Position of Pt: prone Technique: in-situ + spinning every 3 minutes. Followed by IASTM. Any Adverse effects post-tx? No Assessment: Short session due to pt schedule conflict. Continued with DN, IASTM, and iontophoresis, while pt will perform HEP after work (iontophoresis unbillable). Little to no difference with post-session from last visit. She has follow-up with MD prior to next PT visit. [employer]ending: Access Code: [email or web address] URL: [email or web address] Date: 05/05/2025 Prepared by: Sade Richard Exercises - Gastroc Stretch with Foot at Wall - 2 x daily - 7 x weekly - 2 sets - 30 seconds hold - Soleus Stretch with Foot at Wall - 2 x daily - 7 x weekly - 2 sets - 30 seconds hold - SPR Split Squat - 1 x daily - 5-7 x weekly - 3 sets - 8-10 reps - Wall Sit - 1 x daily - 5-7 x weekly - 3 sets - 30 seconds hold - Standing Calf Raise With Small Ball at Heels - 1 x daily - 5-7 x weekly - 3 sets - 15 reps Treatment Plan: Progress with treatment plan per initial evaluation If Marj does not continue physical therapy services or is discharged prior to the next treatment, consider this note the most recent progress report and discharge summary. documented in this encounter [facility] 05-26-2025 Progress note Formatting of t his note might be different from the original. SPR Daily Progress PT diagnosis: Posterior tibial tendinitis of left leg. Neuritis. Plantar fasciitis of left foot. Inflexibility Left calf. Impaired functional activities. Precautions/Contraindications: standard Subjective: Pt reports 2-3/10 pain medial L heel. She didn't feel significant difference after last visit, but notes some possible feeling, not enough that is significant to attribute to sessions. She is continuing HEP at home and will perform tonight since she was unable to come for full session. Objective: Refer to flowsheets for any objective measures. Treatment: Response to treatment was monitored throughout session. The following treatments were utilized during the patient's session: Manual Therapy: Instrument assisted soft tissue mobilization and Dry Needling see below Modalities: Iontophoresis applied tomedial L calcaneus without three minute activator for 4 hour wear-time to achieve 80 mA-min dosage Dry Needling (DN), performed on patient this date. Consent obtained: Yes. Pt educated/reminded of possible side effects of DN: Yes. Any abnormalities at start of tx? No. Needle locations: LLE Gastrocnemius x2 (medial and lateral). Soleus x2 (medial and lateral). Gastroc-soleus junction x1. Medial calcaneus x1. Posterior to medial malleolus x1. Navicular bone x1. Total Number of [place]: 8 Position of Pt: prone Technique: in-situ + spinning every 3 minutes. Followed by IASTM. Any Adverse effects post-tx? No Assessment: Short session due to pt schedule conflict. Continued with DN, IASTM, and iontophoresis, while pt will perform HEP after work (iontophoresis unbillable). Little to no difference with post-session from last visit. She has follow-up with MD prior to next PT visit. Open Lending: Access Code: [email or web address] URL: [email or web address] Date: 05/05/2025 Prepared by: Sade Richard Exercises - Gastroc Stretch with Foot at Wall - 2 x daily - 7 x weekly - 2 sets - 30 seconds hold - Soleus Stretch with Foot at Wall - 2 x daily - 7 x weekly - 2 sets - 30 seconds hold - SPR Split Squat - 1 x daily - 5-7 x weekly - 3 sets - 8-10 reps - Wall Sit - 1 x daily - 5-7 x weekly - 3 sets - 30 seconds hold - Standing Calf Raise With Small Ball at Heels - 1 x daily - 5-7 x weekly - 3 sets - 15 reps Treatment Plan: Progress with treatment plan per initial evaluation If Marj does not continue physical therapy services or is discharged prior to the next treatment, consider this note the most recent progress report and discharge summary. [facility] 05-22-2025 Miscellaneous Notes SPR Daily Progress PT diagnosis: Posterior tibial tendinitis of left leg. Neuritis. Plantar fasciitis of left foot. Inflexibility Left calf. Impaired functional activities. Precautions/Contraindications: standard Subjective: Pt reports 2/10 pain medial L heel. She felt a little sore after last visit, but tolerable amount, mostly in her shins. She reports she didn't notice much effect from iontophoresis last visit, but then noticed prolonged walking while out of town wasn't as painful as she usually has and wonders if it can be combination of ionto and new orthotics. Objective: Refer to flowsheets for any objective measures. Treatment: Response to treatment was monitored throughout session. The following treatments were utilized during the patient's session: Therapeutic Exercise: Directed ROM exercises AROM to maximize overall function. Modified exercises including frequency, repetition, and intensity for optimal strengthening. Facilitated verbal and visual cues to enhance proper muscle activation throughout exercises Directed therapeutic rest as needed to execute task properly and allow for best functional and strength benefits. Manual Therapy: Instrument assisted soft tissue mobilization and Dry Needling see below Modalities: Iontophoresis applied tomedial L calcaneus without three minute activator for 4 hour wear-time to achieve 80 mA-min dosage Dry Needling (DN), performed on patient this date. Consent obtained: Yes. Pt educated/reminded of possible side effects of DN: Yes. Any abnormalities at start of tx? No. Needle locations: LLE Gastrocnemius x2 (medial and lateral). Soleus x2 (medial and lateral). Gastroc-soleus junction x1. Medial calcaneus x1. Posterior to medial malleolus x1. Navicular bone x1. Total Number of [place]: 8 Position of Pt: prone Technique: in-situ + spinning every 3 minutes. Followed by IASTM. Any Adverse effects post-tx? No Assessment: Continued with manual therapy using DN and IASTM, followed by strength and stabilization. Ended with iontophoresis (5', unbillable time). She felt she may have had an effect form ionto last session, but also notes she has new orthotics. [employer]: Access Code: [email or web address] URL: [email or web address] Date: 05/05/2025 Prepared by: Sade Richard Exercises - Gastroc Stretch with Foot at Wall - 2 x daily - 7 x weekly - 2 sets - 30 seconds hold - Soleus Stretch with Foot at Wall - 2 x daily - 7 x weekly - 2 sets - 30 seconds hold - SPR Split Squat - 1 x daily - 5-7 x weekly - 3 sets - 8-10 reps - Wall Sit - 1 x daily - 5-7 x weekly - 3 sets - 30 seconds hold - Standing Calf Raise With Small Ball at Heels - 1 x daily - 5-7 x weekly - 3 sets - 15 reps Treatment Plan: Progress with treatment plan per initial evaluation If Marj does not continue physical therapy services or is discharged prior to the next treatment, consider this note the most recent progress report and discharge summary. documented in this encounter [facility] 05-22-2025 Progress note Formatting of t his note might be different from the original. SPR Daily Progress PT diagnosis: Posterior tibial tendinitis of left leg. Neuritis. Plantar fasciitis of left foot. Inflexibility Left calf. Impaired functional activities. Precautions/Contraindications: standard Subjective: Pt reports 2/10 pain medial L heel. She felt a little sore after last visit, but tolerable amount, mostly in her shins. She reports she didn't notice much effect from iontophoresis last visit, but then noticed prolonged walking while out of town wasn't as painful as she usually has and wonders if it can be combination of ionto and new orthotics. Objective: Refer to flowsheets for any objective measures. Treatment: Response to treatment was monitored throughout session. The following treatments were utilized during the patient's session: Therapeutic Exercise: Directed ROM exercises AROM to maximize overall function. Modified exercises including frequency, repetition, and intensity for optimal strengthening. Facilitated verbal and visual cues to enhance proper muscle activation throughout exercises Directed therapeutic rest as needed to execute task properly and allow for best functional and strength benefits. Manual Therapy: Instrument assisted soft tissue mobilization and Dry Needling see below Modalities: Iontophoresis applied tomedial L calcaneus without three minute activator for 4 hour wear-time to achieve 80 mA-min dosage Dry Needling (DN), performed on patient this date. Consent obtained: Yes. Pt educated/reminded of possible side effects of DN: Yes. Any abnormalities at start of tx? No. Needle locations: LLE Gastrocnemius x2 (medial and lateral). Soleus x2 (medial and lateral). Gastroc-soleus junction x1. Medial calcaneus x1. Posterior to medial malleolus x1. Navicular bone x1. Total Number of [place]: 8 Position of Pt: prone Technique: in-situ + spinning every 3 minutes. Followed by IASTM. Any Adverse effects post-tx? No Assessment: Continued with manual therapy using DN and IASTM, followed by strength and stabilization. Ended with iontophoresis (5', unbillable time). She felt she may have had an effect form ionto last session, but also notes she has new orthotics. [employer] Lending: Access Code: [email or web address] URL: [email or web address] Date: 05/05/2025 Prepared by: Sade Richard Exercises - Gastroc Stretch with Foot at Wall - 2 x daily - 7 x weekly - 2 sets - 30 seconds hold - Soleus Stretch with Foot at Wall - 2 x daily - 7 x weekly - 2 sets - 30 seconds hold - SPR Split Squat - 1 x daily - 5-7 x weekly - 3 sets - 8-10 reps - Wall Sit - 1 x daily - 5-7 x weekly - 3 sets - 30 seconds hold - Standing Calf Raise With Small Ball at Heels - 1 x daily - 5-7 x weekly - 3 sets - 15 reps Treatment Plan: Progress with treatment plan per initial evaluation If Marj does not continue physical therapy services or is discharged prior to the next treatment, consider this note the most recent progress report and discharge summary. [facility] 05-12-2025 Miscellaneous Notes SPR Daily Progress PT diagnosis: Posterior tibial tendinitis of left leg. Neuritis. Plantar fasciitis of left foot. Inflexibility Left calf. Impaired functional activities. Precautions/Contraindications: standard Subjective: Pt reports 1/10 pain currently. She's performed HEP 5days/wk. She got new orthotics in, which seem to be better. Objective: Refer to flowsheets for any objective measures. Treatment: Response to treatment was monitored throughout session. The following treatments were utilized during the patient's session: Therapeutic Exercise: Directed ROM exercises AROM to maximize overall function. Modified exercises including frequency, repetition, and intensity for optimal strengthening. Facilitated verbal and visual cues to enhance proper muscle activation throughout exercises Directed therapeutic rest as needed to execute task properly and allow for best functional and strength benefits. Manual Therapy: Instrument assisted soft tissue mobilization and Dry Needling see below Modalities: Iontophoresis applied tomedial L calcaneus without three minute activator for 4 hour wear-time to achieve 80 mA-min dosage Dry Needling (DN), performed on patient this date. Consent obtained: Yes. Pt educated/reminded of possible side effects of DN: Yes. Any abnormalities at start of tx? No. Needle locations: LLE Gastrocnemius x2 (medial and lateral). Soleus x2 (medial and lateral). Gastroc-soleus junction x1. Medial calcaneus x1. Posterior to medial malleolus x1. Navicular bone x1. Total Number of [place]: 8 Position of Pt: prone Technique: in-situ + spinning every 3 minutes. Followed by IASTM. Any Adverse effects post-tx? No Assessment: Pt tolerates first full tx session. Started session with DN and IASTM. Performed there-ex, focused on LLE stabilization and strength. Pt felt muscle fatigue, but no increased pain. Ended with iontophoresis, which took 5 minutes for application (not billable). Educated to remove patch in 4 hours. Open Lending: Access Code: [email or web address] URL: [email or web address]/ Date: 05/05/2025 Prepared by: Sade Richard Exercises - Gastroc Stretch with Foot at Wall - 2 x daily - 7 x weekly - 2 sets - 30 seconds hold - Soleus Stretch with Foot at Wall - 2 x daily - 7 x weekly - 2 sets - 30 seconds hold - SPR Split Squat - 1 x daily - 5-7 x weekly - 3 sets - 8-10 reps - Wall Sit - 1 x daily - 5-7 x weekly - 3 sets - 30 seconds hold - Standing Calf Raise With Small Ball at Heels - 1 x daily - 5-7 x weekly - 3 sets - 15 reps Treatment Plan: Progress with treatment plan per initial evaluation If Marj does not continue physical therapy services or is discharged prior to the next treatment, consider this note the most recent progress report and discharge summary. documented in this encounter [facility] 05-12-2025 Progress note Formatting of t his note might be different from the original. SPR Daily Progress PT diagnosis: Posterior tibial tendinitis of left leg. Neuritis. Plantar fasciitis of left foot. Inflexibility Left calf. Impaired functional activities. Precautions/Contraindications: standard Subjective: Pt reports 1/10 pain currently. She's performed HEP 5days/wk. She got new orthotics in, which seem to be better. Objective: Refer to flowsheets for any objective measures. Treatment: Response to treatment was monitored throughout session. The following treatments were utilized during the patient's session: Therapeutic Exercise: Directed ROM exercises AROM to maximize overall function. Modified exercises including frequency, repetition, and intensity for optimal strengthening. Facilitated verbal and visual cues to enhance proper muscle activation throughout exercises Directed therapeutic rest as needed to execute task properly and allow for best functional and strength benefits. Manual Therapy: Instrument assisted soft tissue mobilization and Dry Needling see below Modalities: Iontophoresis applied tomedial L calcaneus without three minute activator for 4 hour wear-time to achieve 80 mA-min dosage Dry Needling (DN), performed on patient this date. Consent obtained: Yes. Pt educated/reminded of possible side effects of DN: Yes. Any abnormalities at start of tx? No. Needle locations: LLE Gastrocnemius x2 (medial and lateral). Soleus x2 (medial and lateral). Gastroc-soleus junction x1. Medial calcaneus x1. Posterior to medial malleolus x1. Navicular bone x1. Total Number of [place]: 8 Position of Pt: prone Technique: in-situ + spinning every 3 minutes. Followed by IASTM. Any Adverse effects post-tx? No Assessment: Pt tolerates first full tx session. Started session with DN and IASTM. Performed there-ex, focused on LLE stabilization and strength. Pt felt muscle fatigue, but no increased pain. Ended with iontophoresis, which took 5 minutes for application (not billable). Educated to remove patch in 4 hours. Open Lending: Access Code: [email or web address] URL: [email or web address] Date: 05/05/2025 Prepared by: Sade Richard Exercises - Gastroc Stretch with Foot at Wall - 2 x daily - 7 x weekly - 2 sets - 30 seconds hold - Soleus Stretch with Foot at Wall - 2 x daily - 7 x weekly - 2 sets - 30 seconds hold - SPR Split Squat - 1 x daily - 5-7 x weekly - 3 sets - 8-10 reps - Wall Sit - 1 x daily - 5-7 x weekly - 3 sets - 30 seconds hold - Standing Calf Raise With Small Ball at Heels - 1 x daily - 5-7 x weekly - 3 sets - 15 reps Treatment Plan: Progress with treatment plan per initial evaluation If Marj does not continue physical therapy services or is discharged prior to the next treatment, consider this note the most recent progress report and discharge summary. [facility] 05-05-2025 Hospital Discharg e instructions Sade Richard PT - 05/05/2025 1:00 PM EDT Images from the original note were not included. PATIENT EDUCATION: Instructed individualized HEP with appropriate verbal cues for proper technique to patient and parent/caregiver. Open Lending: Access Code: [email or web address] URL: [email or web address]/ Date: 05/05/2025 Prepared by: aSde Richard Exercises - Gastroc Stretch with Foot at Wall - 2 x daily - 7 x weekly - 2 sets - 30 seconds hold - Soleus Stretch with Foot at Wall - 2 x daily - 7 x weekly - 2 sets - 30 seconds hold - SPR Split Squat - 1 x daily - 5-7 x weekly - 3 sets - 8-10 reps - Wall Sit - 1 x daily - 5-7 x weekly - 3 sets - 30 seconds hold - Standing Calf Raise With Small Ball at Heels - 1 x daily - 5-7 x weekly - 3 sets - 15 reps Return for Schedule 1-2x/wk, 2 weeks. Expected total 4-6wks.. Sade Richard PT, DPT documented in this encounter [facility] 05-05-2025 Miscellaneous Notes SPR EVALUATION PT diagnosis: Posterior tibial tendinitis of left leg. Neuritis. Plantar fasciitis of left foot. Inflexibility Left calf. Impaired functional activities. Precautions/Contraindications: standard Subjective: Pt presents with ongoing pain in L medial calcaneal region. She has had the pain for 2 years, noticing first after moderate right ankle sprain and feels she had over use and tightening from favoring her right side. Over the past 2 years, pain has progressively worsened, and reports she has a heel spur and reports that is exactly where her pain is localized. MRI in 09/2024 indicated tendons are in good health, good/healthy plantar fascia, but evidence of past sprains. Treatments thus far include Cortisone injections x2 (September 2023 & January 2024), US-guided Toradol injection (February 2025), custom shoe inserts (needs new ones this week), and informal PT with coworker (x5wks dry needling followed by IASTM), as well as independent consistent strength and stabilization training for 2 months. She was also working on hip strengthening for 4-6 months consistently. Pain gets 7/10 at most, causing difficulty walking and notices she limps. Unable to run for much any time. She needs new orthotics, noting she gets pressure-relief with being barefoot rather than with the orthotics. She also gets relief from nerve glides from previous PT. She is frustrated because this ongoing, worsening pain has limited her exercising, caused inability for running, and affects work with prolonged walking. Her physician wants her to try iontophoresis and to use Voltaren gel during the day. [employer]. She is at multiple sites for work, both outpatient and inpatient. [place] Intake Date of injury: (2022) Injury is: chronic Injured body part: (medial foot) Injured side: left Injured location: medial Injury type: pain Activity in which injured: (NA) Injured during: NA Injury mechanism: overuse Con't. Participation: NA Improved: has not improved Rehab type: Physical Therapy Symptoms: pain Objective: Refer to flowsheets for any objective measures. Good MMT strength, mild functional strength impairment LLE. Muscle Length (degrees) 05/05/2025 Right Left Gastrocnemius 13 8 Soleus 19 14 Therapist assessment: The examination of Marj Tay reveals signs and symptoms consistent with heel spur pain at L medial calcaneus with additional inflexibility of surrounding structures. Chronic, progressively worsening pain is affecting job duties and exercise. Based on history, examination and assessment, her clinical status is unstable and the level of evaluation complexity is low. Marj requires skilled physical therapy to address physical impairments and functional limitations. Her potential for physical therapy intervention is good. The following was discussed with the family today: Attendance Policy Division Guidelines Initial Therapy Plan and Goals Plan of Care Information: Interventions: Therapeutic exercises Neuromuscular Re-education Therapeutic activities Manual Therapy Modalities Gait training Initiate strength and stabilization targeting LLE, including intrinsics of the foot. Manual therapy with DN and IASTM vs IASTM. Iontophoresis per physician order. Treatments during Initial Evaluation: The following treatments were utilized during the patient's initial session: Therapeutic Exercise for 2 minutes. Introduced HEP to patient Manual Therapy for 12 minutes Instrument assisted soft tissue mobilization and Dry Needling see below Dry Needling (DN), performed on patient this date. Consent obtained: Yes. Pt educated/reminded of possible side effects of DN: Yes. Any abnormalities at start of tx? No. Needle locations: LLE Gastrocnemius x2 (medial and lateral). Soleus x2 (medial and lateral). Gastroc-soleus junction x1. Medial calcaneus x1. Posterior to medial malleolus x1. Navicular bone x1. Total Number of [place]: 8 Position of Pt: prone Technique: in-situ + spinning every 3 minutes. Followed by IASTM. Any Adverse effects post-tx? No If Marj does not continue physical therapy services or is discharged prior to the next treatment, consider this note the most recent progress report and discharge summary. documented in this encounter [facility] 05-05-2025 Progress note Formatting of t his note is different from the original. SPR EVALUATION PT diagnosis: Posterior tibial tendinitis of left leg. Neuritis. Plantar fasciitis of left foot. Inflexibility Left calf. Impaired functional activities. Precautions/Contraindications: standard Subjective: Pt presents with ongoing pain in L medial calcaneal region. She has had the pain for 2 years, noticing first after moderate right ankle sprain and feels she had over use and tightening from favoring her right side. Over the past 2 years, pain has progressively worsened, and reports she has a heel spur and reports that is exactly where her pain is localized. MRI in 09/2024 indicated tendons are in good health, good/healthy plantar fascia, but evidence of past sprains. Treatments thus far include Cortisone injections x2 (September 2023 & January 2024), US-guided Toradol injection (February 2025), custom shoe inserts (needs new ones this week), and informal PT with coworker (x5wks dry needling followed by IASTM), as well as independent consistent strength and stabilization training for 2 months. She was also working on hip strengthening for 4-6 months consistently. Pain gets 7/10 at most, causing difficulty walking and notices she limps. Unable to run for much any time. She needs new orthotics, noting she gets pressure-relief with being barefoot rather than with the orthotics. She also gets relief from nerve glides from previous PT. She is frustrated because this ongoing, worsening pain has limited her exercising, caused inability for running, and affects work with prolonged walking. Her physician wants her to try iontophoresis and to use Voltaren gel during the day. [employer]. She is at multiple sites for work, both outpatient and inpatient. MS Intake Date of injury: (2022) Injury is: chronic Injured body part: (medial foot) Injured side: left Injured location: medial Injury type: pain Activity in which injured: (NA) Injured during: NA Injury mechanism: overuse Con't. Participation: NA Improved: has not improved Rehab type: Physical Therapy Symptoms: pain Objective: Refer to flowsheets for any objective measures. Good MMT strength, mild functional strength impairment LLE. Muscle Length (degrees) 05/05/2025 Right Left Gastrocnemius 13 8 Soleus 19 14 Therapist assessment: The examination of Marj Tay reveals signs and symptoms consistent with heel spur pain at L medial calcaneus with additional inflexibility of surrounding structures. Chronic, progressively worsening pain is affecting job duties and exercise. Based on history, examination and assessment, her clinical status is unstable and the level of evaluation complexity is low. Marj requires skilled physical therapy to address physical impairments and functional limitations. Her potential for physical therapy intervention is good. The following was discussed with the family today: Attendance Policy Division Guidelines Initial Therapy Plan and Goals Plan of Care Information: Interventions: Therapeutic exercises Neuromuscular Re-education Therapeutic activities Manual Therapy Modalities Gait training Initiate strength and stabilization targeting LLE, including intrinsics of the foot. Manual therapy with DN and IASTM vs IASTM. Iontophoresis per physician order. Treatments during Initial Evaluation: The following treatments were utilized during the patient's initial session: Therapeutic Exercise for 2 minutes. Introduced HEP to patient Manual Therapy for 12 minutes Instrument assisted soft tissue mobilization and Dry Needling see below Dry Needling (DN), performed on patient this date. Consent obtained: Yes. Pt educated/reminded of possible side effects of DN: Yes. Any abnormalities at start of tx? No. Needle locations: LLE Gastrocnemius x2 (medial and lateral). Soleus x2 (medial and lateral). Gastroc-soleus junction x1. Medial calcaneus x1. Posterior to medial malleolus x1. Navicular bone x1. Total Number of [place]: 8 Position of Pt: prone Technique: in-situ + spinning every 3 minutes. Followed by IASTM. Any Adverse effects post-tx? No If Marj does not continue physical therapy services or is discharged prior to the next treatment, consider this note the most recent progress report and discharge summary. [facility] 10-04-2024 Telephone encounter Note I spoke to primary care provider Dr. Cristina Villeda on 10/03/2024. We discussed that I had checked a CMP, lipids, A1c, TSH, and insulin level. I informed Dr. Villeda that Ms. Tay had a mildly elevated chloride of 109, as well as an elevated LDL of 126. As Ms. Tay canceled her appointment earlier this month and has not responded to messages regarding rescheduling her appointment at the [facility] [place], I asked Dr. Villeda to take over the treatment and management of the above abnormalities. Dr. Villeda graciously agreed. He stated that he would order repeat blood work to monitor the above abnormalities and her lab work. Thank you to Dr. Cristina Villeda. [facility] 10-04-2024 Miscellaneous Notes I spoke to primary care provider Dr. Cristina Villeda on 10/03/2024. We discussed that I had checked a CMP, lipids, A1c, TSH, and insulin level. I informed Dr. Villeda that Ms. Tay had a mildly elevated chloride of 109, as well as an elevated LDL of 126. As Ms. Tay canceled her appointment earlier this month and has not responded to messages regarding rescheduling her appointment at the [facility] [place], I asked Dr. Villeda to take over the treatment and management of the above abnormalities. Dr. Villeda graciously agreed. He stated that he would order repeat blood work to monitor the above abnormalities and her lab work. Thank you to Dr. Cristina Villeda. Labs reviewed (ordered by me, scanned under Media), see [employer] message documented in this encounter [facility] 10-03-2024 History of Presen t illness Narrative I left a voicemail at the office of primary care provider Dr. Cristina Villeda's office to discuss lab order abnormalities as Ms. Tay canceled her recent appointment and has not rescheduled. I am concerned that she is no longer interested in following up with the weight management [place]. She has been sent and read a [employer] message regarding calling the office to reschedule her appointment. No appointment has been scheduled as of yet. I left Dr. Villeda's office my personal cell phone number to call me back. I called Dr. Villeda's office 10/03/2024 at 12:30 PM. documented in this encounter [facility] 08-06-2024 Telephone encounter Note Labs reviewed (ordered by me, scanned under Media), see [employer] message [facility] 08-05-2024 History of Presen t illness Narrative Recent labs scanned into chart. Management per ordering provider. July 2024 CMP (GFR 98) A1c 5.1 Lipids TSH documented in this encounter [facility] 07-29-2024 History of Presen t illness Narrative [facility] NON-SURGICAL WEIGHT LOSS MANAGEMENT PROGRAM ROOMING NOTE - INITIAL CONSULTATION Patient: Marj Tay Date of : 1990 Service Date: 07/29/2024 Patient is here today to discuss non-surgical weight loss management. This patient is alone for the evaluation today Weight Metrics: Non-Surgical Initial Eval Consult Date: 07/29/24 Initial Height: 5' 8 (172.7 cm) Initial Weight: 194 lb 6.4 oz (88.2 kg) [place] Body Weight: 143 lb (64.9 kg) Initial BMI: 29.56 Initial Body Fat %: 35.47 EBW: 51 lb (Flow Sheet: Surgical Wt Loss Management: Baseline) Diabetes Do you currently have diabetes? No Are you currently prescribed insulin? No Are you currently prescribed an oral medication for diabetes? No GERD (Gastroesophageal Reflux Disease) Do you currently have GERD? Yes Do you get heartburn type symptoms more than twice per week? Yes Are you currently on a medication for GERD? (not TUMS) (examples: Prilosec/omeprazole, Zantac/ranitidine, etc.) Yes Hyperlipidemia (high cholesterol) Do you currently have a diagnosis of high cholesterol? No Are you currently prescribed a medication for high cholesterol? (examples Lipitor/Atorvastatin, Pravastatin, Zetia, Tricor, etc.) No Have you been diagnosed with high cholesterol but chosen not to take medication? No Hypertension (high blood pressure) Do you currently have a diagnosis of Hypertension? No Are you currently on a medication for Hypertension? No Have you been diagnosed with Hypertension but have chosen not to take the medication? No Sleep Apnea Do you currently have Sleep Apnea? No Are you on a device (CPAP, BiPAP, etc) for Sleep Apnea? No Have you been diagnosed with Sleep Apnea but cannot tolerate or have chosen not to treat? No Comorbids Summary (flow sheet comorbids) Falls Risk Assessment Patient does not take medications which affect BP or mental status Patient does not have newly prescribed or changed dosage of medications within past 30 days which affect BP or mental status Patient has not fallen in the past 2 months Patient does notdemonstrate unsteady gait Patient uses the following ambulatory assistive devices: none Patient states the presence of the following traits which increases risk of fall: none Patient is not on home O2 Completed by: Keyonna Reich MA [facility] NON-SURGICAL WEIGHT LOSS MANAGEMENT PROGRAM PROGRESS NOTE INITIAL EVALUATION Patient: Marj Tay Date of : 1990 Service Date: 07/29/2024 Patient History/Assessment Summary: The patient is a pleasant 34 y.o. year old female, who is Height: 5' 8 (172.7 cm) tall with a weight of Weight: 194 lb 6.4 oz (88.2 kg) pounds, resulting in a BMI of Body mass index is 29.56 kg/m . kg/m2. They have been overweight for years. They have tried and failed multiple previous diet attempts and is now seeking non-surgical treatment. The patient does not have any acute complaints. PLAN ROS: I have reviewed New Patient Assessment Form with the Patient, which is located in the [employer] Tab. History: Past Medical History: Diagnosis Date Allergies Asthma Daytime sleepiness Fatigue GERD (gastroesophageal reflux disease) Past Surgical History: Procedure Laterality Date SEPTOPLASTY 2016 TONSILLECTOMY AND ADENOIDECTOMY (HISTORICAL) 1996 WISDOM TOOTH EXTRACTION 2016 Family History Problem Relation Name Age of Onset Hypertension Mother Cancer Maternal Grandmother Obesity Maternal Grandfather Diabetes Maternal Grandfather Stroke Maternal Grandfather Diabetes Paternal Grandmother Hypertension Paternal Grandmother Cancer Paternal Grandmother Heart disease Paternal Grandfather Stroke Paternal Grandfather Cancer Maternal Cousin cervical Breast cancer Other Ovarian cancer Neg Hx Colon cancer Neg Hx Uterine cancer Neg Hx Social History Tobacco Use Smoking status: Never Smokeless tobacco: Never Substance Use Topics Alcohol use: Yes This patient's excess weight is causing the following co-morbid conditions at this time:GERD Current Meds Patient's Medications New Prescriptions No medications on file Previous Medications CHOLECALCIFEROL (VITAMIN D-3) 50 MCG (1999 UT) CAPSULE Take 1 capsule by mouth in the morning. LANSOPRAZOLE (PREVACID) [address] CAPSULE Take by mouth every morning (before breakfast). Do not crush or chew. LORATADINE (CLARITIN) 10 MG TABLET Take 10 mg by mouth in the morning. MAGNESIUM OXIDE (MAG-OX) 100 MG SPLIT TABLET Take by mouth daily. MULTIPLE VITAMIN (MULTIVITAMIN) TABLET Take 1 tablet by mouth daily. PANTOPRAZOLE (PROTONIX) 40 MG EC TABLET Take 40 mg by mouth every morning (before breakfast). Do not crush, chew, or split. PAXLOVID, 300/100, 20 X 150 MG & 10 X 100MG TABLET THERAPY PACK TAKE 1 PACKETS - 2 (150MG) TABS & 1 (100MG) TAB TO BE TAKEN TOGETHER BY MOUTH TWICE A DAY FOR 5 DAYS Modified Medications No medications on file Discontinued Medications No medications on file Physical Examination: BP 110/77 Pulse 70 Ht 5' 8 (1.727 m) Wt 194 lb 6.4 oz (88.2 kg) BMI 29.56 kg/m Weight Metrics: [place] Body Weight: [place] Body Weight: 143 lb (64.9 kg) Excess Body Weight: General: Alert and oriented x 4, obese, no apparent distress. normocephalic and atraumatic Cardiac: Regular rate and rhythm without evidence of murmur Respiratory: Clear to auscultation bilaterally; No evidence of respiratory distress Musculoskeletal: No edema of extremities on visual inspection, ambulatory without assistance Neurological: Nonfocal neurologic exam I reviewed all of the patient's medications and diagnoses listed in Epic. Current Diet Breakfast: daily (Samoan yogurt, almond butter, Flax seed, berries) Dinner: 8:00pm After dinner: occasionally (2-3 x weekly) Beverages: Water: 80-120 ounces daily Sparkling water with juice Coffee (sweetener) Tea (unsweetened) Current Activity Gym workouts Current Eating Behaviors The patient demonstrates the following behaviors as they relate to her eating:eats at night Eats approximately 4 times per day. Plan: --Overweight, elevated BMI Diet and exercise (D/E) Diet recommendations provided to patient verbally and in the form of handouts; they understood and agreed with plan. We discussed that she does not qualify for an anti obesity medication as BMI is <30 without a metabolic related comorbidity, she verbalized understanding Check labs --Discussed blood pressure could decrease with weight loss, potentially resulting in dizziness/lightheadedness (which can result in fall/injury). Patient understood. Adequate hydration and follow up with PCP for abnormal blood pressures - patient understood and agreed. --Discussed blood glucose could decrease with weight loss. Patient understood. They are aware of symptoms of hypoglycemia and treatment of hypoglycemia. Patient will follow up with their outpatient providers --History of thyroid disease: no symptoms, Management per outpatient providers --History of hyperlipidemia: September 2022 lipid panel reviewed, not on treatment, continue lifestyle modifications, Management per outpatient providers --GERD: symptoms have been uncontrolled recently, no acute issues today, she is following with an continuous drier helper, on PPI, Management per outpatient providers --Labs reviewed: management per ordering providers November 2022: TSH September 2022: lipids, A1c 4.22 December 2023: CBC Plan of care discussed with patient, all questions answered, they agree with plan of care. I reviewed all of the patient's medications and diagnoses listed in Epic. Patient to return for follow up in one month. Medical decision making: Patient's medical conditions place them at a moderate risk of complications, morbidity, and mortality. Orders Placed This Encounter Procedures Comprehensive metabolic panel TSH Hemoglobin A1c Lipid panel Insulin There is no problem list on file for this patient. Terry Briscoe MD 07/29/2024 12:13 PM I spent total time >45 minutes reviewing previous notes, test results, and face to face with the patient discussing the diagnosis and importance of compliance with the treatment plan as well as documenting on the day of the visit documented in this encounter [facility] 03-26-2024 Telephone encounter Note Pt called to review labs and ulsd results and message left. [facility] 03-26-2024 Miscellaneous Notes Pt called to review labs and ulsd results and message left. documented in this encounter [facility] 03-01-2024 Telephone encounter Note Call routed to Dr Huff and joe mssg sent [facility] 03-01-2024 Miscellaneous Notes Call routed to Dr Huff and joe mssg sent Name of caller: Della Contact phone number: [phone] Relationship to Patient: patient Provider: Daria Practice: [facility] Chief Complaint/Reason for Call: Pt returning call to reschedule VV. Pt would like to know if there is something sooner than April or if she can just have a mychart message or call with results. Pt has a schedule that is sometimes hard to accommodate so she would like to see what she can do. Please advise. Best time of day caller can be reached: Any Patient advised that office/PCP has 24-48 business hours to return their call: documented in this encounter [facility] 03-01-2024 Telephone encounter Note Name of caller: Della Contact phone number: [phone] Relationship to Patient: patient Provider: Daria Practice: [facility] Chief Complaint/Reason for Call: Pt returning call to reschedule VV. Pt would like to know if there is something sooner than April or if she can just have a mychart message or call with results. Pt has a schedule that is sometimes hard to accommodate so she would like to see what she can do. Please advise. Best time of day caller can be reached: Any Patient advised that office/PCP has 24-48 business hours to return their call: [facility] 01-02-2024 History of Presen t illness Narrative Marj Tay 01/02/2024 33 y.o. Chief Complaint Patient presents with Annual Exam Annual exam No LMP recorded. Primary Care Physician: CRISTINA VILLEDA DO The patient was seen and examined. She is here for her annual. Pap 06/06 neg/neg. Std testing not desired. Gardasil has not had. control unsure if desired. Weight gain 20 lbs over last 2 years. Menses heavy first 2-3 days. Regular menses. Following diet and exercise and still gaining weight. Considering fertility options. Ronald info given. More pelvic bloating and sciatic pain. Left side more. Every other menses painful. Would like renewal on weight management referral. HPI : Marj Tay is a 33 y.o. female No obstetric history on file. OB History Para Term AB Living 0 0 0 0 0 0 SAB IAB Ectopic Multiple Live Births 0 0 0 0 0 Past Medical History: Diagnosis Date Allergies GERD (gastroesophageal reflux disease) Past Surgical History: Procedure Laterality Date SEPTOPLASTY 2016 TONSILLECTOMY AND ADENOIDECTOMY (HISTORICAL) 1996 WISDOM TOOTH EXTRACTION 2016 Family History Problem Relation Name Age of Onset Ovarian cancer Neg Hx Colon cancer Neg Hx Cancer Maternal Cousin cervical Uterine cancer Neg Hx Breast cancer Other Social History Socioeconomic History Marital status: Single Spouse name: Not on file Number of children: Not on file Years of education: Not on file Highest education level: Not on file Occupational History Not on file Tobacco Use Smoking status: Never Smokeless tobacco: Never Substance and Sexual Activity Alcohol use: Yes Drug use: Never Sexual activity: Not on file Other Topics Concern Not on file Social History Narrative Not on file Social Determinants of Health Financial Resource Strain: Not on file Food Insecurity: Not on file Transportation Needs: Not on file Physical Activity: Not on file Stress: Not on file Social Connections: Not on file Intimate Partner Violence: Not on file Housing Stability: Not on file MEDICATIONS: Current Outpatient Medications Medication Sig Dispense Refill cholecalciferol (Vitamin D-3) 50 MCG (1999 UT) capsule Take 1 capsule by mouth in the morning. loratadine (Claritin) 10 MG tablet Take 10 mg by mouth in the morning. magnesium oxide (Mag-Ox) 100 mg split tablet Take by mouth daily. Paxlovid, 300/100, 20 x 150 MG & 10 x 100MG tablet therapy pack TAKE 1 PACKETS - 2 (150MG) TABS & 1 (100MG) TAB TO BE TAKEN TOGETHER BY MOUTH TWICE A DAY FOR 5 DAYS No current facility-administered medications for this visit. ALLERGIES: Allergies as of 01/02/2024 - Reviewed 01/02/2024 Allergen Reaction Noted Cefuroxime Rash 04/17/2006 Cephalosporins Anaphylaxis 11/29/2023 Erythromycin Anaphylaxis, Hives, and Rash 04/17/2006 Penicillins Anaphylaxis, Hives, and Rash 04/17/2006 Spironolactone Anaphylaxis, Rash, and Unknown 01/01/2019 Sulfa antibiotics Anaphylaxis and Rash 01/01/2019 Sulfamethoxazole-trimethoprim Unknown 01/03/2017 Levofloxacin Other 06/03/2022 Levonorgestrel-ethinyl estrad Other 04/17/2006 Tilactase Other 04/17/2006 Gynecologic History: Menstrual History: No LMP recorded. Review of Systems Constitutional: Positive for unexpected weight change. Negative for fatigue and fever. HENT: Negative for congestion and sore throat. Eyes: Negative for discharge and visual disturbance. Respiratory: Negative for cough and shortness of breath. Cardiovascular: Negative for chest pain and leg swelling. Gastrointestinal: Negative for abdominal pain, constipation, diarrhea, nausea and vomiting. Genitourinary: Negative for dysuria. Musculoskeletal: Negative for arthralgias. Skin: Negative for rash. Neurological: Negative for weakness and headaches. Psychiatric/Behavioral: Negative for dysphoric mood. The patient is not nervous/anxious. PHYSICAL Exam: : Vitals: 01/02/24 0831 BP: 119/66 Pulse: 70 Weight: 194 lb (88 kg) Height: 5' 8 (1.727 m) Physical Exam Constitutional: General: She is not in acute distress. Appearance: Normal appearance. HENT: Head: Normocephalic and atraumatic. Right Ear: External ear normal. Left Ear: External ear normal. Nose: Nose normal. Eyes: Conjunctiva/sclera: Conjunctivae normal. Neck: Thyroid: No thyromegaly. Cardiovascular: Rate and Rhythm: Normal rate. Pulmonary: Effort: Pulmonary effort is normal. No respiratory distress. Chest: Breasts: Right: No mass, nipple discharge, skin change or tenderness. Left: No mass, nipple discharge, skin change or tenderness. Abdominal: General: There is no distension. Palpations: Abdomen is soft. Tenderness: There is no abdominal tenderness. Genitourinary: General: Normal vulva. Pubic Area: No rash. Labia: Right: No rash or lesion. Left: No rash or lesion. Vagina: No vaginal discharge or bleeding. Cervix: No cervical motion tenderness. Uterus: Not enlarged and not tender. Adnexa: Right: No mass or tenderness. Left: No mass or tenderness. Rectum: Normal. Musculoskeletal: General: No swelling. Normal range of motion. Cervical back: Normal range of motion. Right lower leg: No edema. Left lower leg: No edema. Skin: General: Skin is warm and dry. Neurological: Mental Status: She is alert and oriented to person, place, and time. Mental status is at baseline. Psychiatric: Mood and Affect: Mood normal. Behavior: Behavior normal. ASSESSMENT: 33 y.o. Annual Diagnosis Plan 1. Women's annual routine gynecological examination 2. Abnormal uterine bleeding (AUB) CBC TSH Prolactin hCG, quantitative DHEA-sulfate Testo,Free/Total 17-Hydroxyprogesterone US pelvis transvaginal T4, free Antimullerian hormone (AMH) CBC TSH Prolactin hCG, quantitative DHEA-sulfate Testo,Free/Total 17-Hydroxyprogesterone T4, free Antimullerian hormone (AMH) 3. Pelvic pain US pelvis transvaginal 4. BMI 29.0-29.9,adult [facility] Wt Mg[facility] Chief Complaint Patient presents with Annual Exam Annual exam Past Medical History: Diagnosis Date Allergies GERD (gastroesophageal reflux disease) Hereditary Breast,Ovarian, Colon and Uterine Cancer screening Done. Tobacco & Secondary smoke risks reviewed; instructedon cessation and avoidance PLAN: Follow up in about 2 weeks (around 01/16/2024) for closing manager ulsd and fu. Repeat Annual every 1 year PAP guidelines reviewed with pt Pt declined STD testing Gardasil counseling provided Routine health maintenance per patients PCP. Orders Placed This Encounter Procedures US pelvis transvaginal Standing Status: Future Standing Expiration Date: 01/01/2025 CBC Standing Status: Future Number of Occurrences: 1 Standing Expiration Date: 01/01/2025 TSH Standing Status: Future Number of Occurrences: 1 Standing Expiration Date: 01/01/2025 Prolactin Standing Status: Future Number of Occurrences: 1 Standing Expiration Date: 01/01/2025 hCG, quantitative Standing Status: Future Number of Occurrences: 1 Standing Expiration Date: 01/01/2025 DHEA-sulfate Standing Status: Future Number of Occurrences: 1 Standing Expiration Date: 01/01/2025 Testo,Free/Total Standing Status: Future Number of Occurrences: 1 Standing Expiration Date: 01/01/2025 17-Hydroxyprogesterone Standing Status: Future Number of Occurrences: 1 Standing Expiration Date: 01/01/2025 T4, free Standing Status: Future Number of Occurrences: 1 Standing Expiration Date: 01/01/2025 Antimullerian hormone (AMH) Standing Status: Future Number of Occurrences: 1 Standing Expiration Date: 01/01/2025 [facility] Wt Mgmt [facility] [place]-Non Surgical Wt Mgmt Patient will be offered an appointment in one of six locations: ([facility], [place], [facility] or [place]) Standing Status: Future Standing Expiration Date: 07/04/2024 Referral Priority: Routine Referral Type: Consultation Referral Reason: Specialty Services Required Number of Visits Requested: 1 documented in this encounter [facility] 10-14-2022 Miscellaneous Notes SPR Daily Progress PT diagnosis: right ankle pain , right ankle weakness, right foot pain Precautions/Contraindications: none, wears boot right ankle Subjective: Patient reports foot has been feeling pretty good this week but she also was off work so did less walking. Has been tolerating up to 30 minutes on elliptical. Encouraged to continue to progress elliptical up to 45 minutes over the next week and pending tolerance and strength maybe able to observe running during next PT session. Objective: Refer to flowsheets for any objective measures. Right single leg,hip, and foot weakness Treatment: Response to treatment was monitored throughout session. The following treatments were utilized during the patient's session: Therapeutic Exercise: Directed ROM exercises AROM to maximize overall function. Modified exercises including volume and intensity for optimal strengthening. Assessment: Patient tolerates progression of single leg exercises on unstable surface. Requires one hand support for balance. Fatigues with lateral lunges and decreased stability noted on right LE. Encouraged daily compliance with HEP and progressing time on elliptical gradually over the next week. Patient verbally reports understanding. Provided printout of updated HEP and blue theraband. Treatment Plan: Progress with treatment plan per initial evaluation. 1-2x/week. Increase right foot and hip strengthening. If Marj does not continue physical therapy services or is discharged prior to the next treatment, consider this note the most recent progress report and discharge summary. Patient Instructions Access Code: [email or web address] URL: [email or web address] Date: 10/14/2022 Prepared by: Andie Zabala Exercises Gastroc Stretch on Wall - 1 x daily - 7 x weekly - 1 sets - 5 reps - 30 hold Standing Soleus Stretch - 1 x daily - 7 x weekly - 1 sets - 5 reps - 20-30 seconds hold Seated Arch Lifts - 1 x daily - 7 x weekly - 3 sets - 10 reps Ankle and Toe Plantarflexion with Resistance - 1 x daily - 7 x weekly - 3 sets - 10 reps Ankle Dorsiflexion with Resistance - 1 x daily - 5 x weekly - 3 sets - 10 reps Ankle Inversion with Resistance - 1 x daily - 5 x weekly - 3 sets - 10 reps Ankle Eversion with Resistance - 1 x daily - 5 x weekly - 3 sets - 10 reps SPR Hydrant holds - 1 x daily - 4 x weekly - 3 sets - 1 reps - fatigue hold Star Foam - 1 x daily - 4 x weekly - 1 sets - 6-8 reps - 1 star Side Stepping with Resistance at Feet - 1 x daily - 4 x weekly - 1 sets - 3 reps SPR Bridge Band Circuit - 1 x daily - 4 x weekly - 3 sets - 10 reps Bridge on Ball with band or Bridge band on floor circuit - 1 x daily - 4 x weekly - 1 sets - 5 reps - 20-30 seconds hold Modified Side Plank with Hip Abduction and Resistance - 1 x daily - 7 x weekly - 1 sets - 4 reps - 20-30 seconds hold Side Plank with Clam and Resistance - 1 x daily - 4 x weekly - 1 sets - 3 reps - 25-30 seconds hold Lateral Step Down - 1 x daily - 7 x weekly - 3 sets - 10-12 reps Single Leg Squat with Chair Touch - 1 x daily - 7 x weekly - 3 sets - 8-10 reps Andie Sheppard PT,DPT documented in this encounter [facility] 10-14-2022 Progress note Formatting of t his note might be different from the original. SPR Daily Progress PT diagnosis: right ankle pain , right ankle weakness, right foot pain Precautions/Contraindications: none, wears boot right ankle Subjective: Patient reports foot has been feeling pretty good this week but she also was off work so did less walking. Has been tolerating up to 30 minutes on elliptical. Encouraged to continue to progress elliptical up to 45 minutes over the next week and pending tolerance and strength maybe able to observe running during next PT session. Objective: Refer to flowsheets for any objective measures. Right single leg,hip, and foot weakness Treatment: Response to treatment was monitored throughout session. The following treatments were utilized during the patient's session: Therapeutic Exercise: Directed ROM exercises AROM to maximize overall function. Modified exercises including volume and intensity for optimal strengthening. Assessment: Patient tolerates progression of single leg exercises on unstable surface. Requires one hand support for balance. Fatigues with lateral lunges and decreased stability noted on right LE. Encouraged daily compliance with HEP and progressing time on elliptical gradually over the next week. Patient verbally reports understanding. Provided printout of updated HEP and blue theraband. Treatment Plan: Progress with treatment plan per initial evaluation. 1-2x/week. Increase right foot and hip strengthening. If Marj does not continue physical therapy services or is discharged prior to the next treatment, consider this note the most recent progress report and discharge summary. Patient Instructions Access Code: [email or web address] URL: [email or web address] Date: 10/14/2022 Prepared by: Andie Zabala Exercises Gastroc Stretch on Wall - 1 x daily - 7 x weekly - 1 sets - 5 reps - 30 hold Standing Soleus Stretch - 1 x daily - 7 x weekly - 1 sets - 5 reps - 20-30 seconds hold Seated Arch Lifts - 1 x daily - 7 x weekly - 3 sets - 10 reps Ankle and Toe Plantarflexion with Resistance - 1 x daily - 7 x weekly - 3 sets - 10 reps Ankle Dorsiflexion with Resistance - 1 x daily - 5 x weekly - 3 sets - 10 reps Ankle Inversion with Resistance - 1 x daily - 5 x weekly - 3 sets - 10 reps Ankle Eversion with Resistance - 1 x daily - 5 x weekly - 3 sets - 10 reps SPR Hydrant holds - 1 x daily - 4 x weekly - 3 sets - 1 reps - fatigue hold Star Foam - 1 x daily - 4 x weekly - 1 sets - 6-8 reps - 1 star Side Stepping with Resistance at Feet - 1 x daily - 4 x weekly - 1 sets - 3 reps SPR Bridge Band Circuit - 1 x daily - 4 x weekly - 3 sets - 10 reps Bridge on Ball with band or Bridge band on floor circuit - 1 x daily - 4 x weekly - 1 sets - 5 reps - 20-30 seconds hold Modified Side Plank with Hip Abduction and Resistance - 1 x daily - 7 x weekly - 1 sets - 4 reps - 20-30 seconds hold Side Plank with Clam and Resistance - 1 x daily - 4 x weekly - 1 sets - 3 reps - 25-30 seconds hold Lateral Step Down - 1 x daily - 7 x weekly - 3 sets - 10-12 reps Single Leg Squat with Chair Touch - 1 x daily - 7 x weekly - 3 sets - 8-10 reps Andie Sheppard PT,DPT [facility] 10-13-2022 Miscellaneous Notes Lvm for pt saying she had already rescheduled apt with Dr. Castanon for 10/21/2022 at 1;00 with FELISHA Dimas and if this apt need rescheduled to call back.left phone number to call back. Amanda Dean October 13, 2022 9:41 AM documented in this encounter [facility] 10-07-2022 Miscellaneous Notes [facility] Daily Progress PT diagnosis: right ankle pain , right ankle weakness, right foot pain Precautions/Contraindications: none, wears boot right ankle Subjective: Patient reports foot has been more achy the last couple of days. Concerned about calling ortho sooner. Remind patient she has been doing a lot more recently, wearing boots due to weather, and that psychological factors impact pain. She reports understanding and agrees. Cleared to trial planks at pilates with shoes donned. Objective: Refer to flowsheets for any objective measures. Right single leg,hip, and foot weakness Treatment: Response to treatment was monitored throughout session. The following treatments were utilized during the patient's session: Therapeutic Exercise: Directed ROM exercises AROM to maximize overall function. Modified exercises including volume and intensity for optimal strengthening. Assessment: Added active hamstring stretch to address nerve restriction and see if it effects pain noted in L5 distribution. Progressed to ankle isolator on right LE. Able to perform however does fatigue with repetitions. Continued with hip and ankle strengthening plus stability in order to allow progression towards running when able. Treatment Plan: Progress with treatment plan per initial evaluation. 1-2x/week. Increase right foot and hip strengthening. If Marj does not continue physical therapy services or is discharged prior to the next treatment, consider this note the most recent progress report and discharge summary. Patient Instructions Access Code: [email or web address] URL: [email or web address] Date: 09/30/2022 Prepared by: Andie Zabala Exercises Gastroc Stretch on Wall - 1 x daily - 7 x weekly - 1 sets - 5 reps - 30 hold Standing Soleus Stretch - 1 x daily - 7 x weekly - 1 sets - 5 reps - 20-30 seconds hold Long Sitting Calf Stretch with Strap - 2 x daily - 7 x weekly - 5-6 sets - 1 reps - 30 seconds hold Long Sitting Soleus Stretch on Bolster with Strap - 2 x daily - 7 x weekly - 1 sets - 5 reps - 30 seconds hold Seated Toe Curl - 1 x daily - 7 x weekly - 3 sets - 10 reps Seated Great Toe Extension - 1 x daily - 7 x weekly - 3 sets - 10 reps Toe Spreading - 1 x daily - 7 x weekly - 3 sets - 10 reps Seated Arch Lifts - 1 x daily - 7 x weekly - 3 sets - 10 reps Ankle and Toe Plantarflexion with Resistance - 1 x daily - 7 x weekly - 3 sets - 10 reps Ankle Dorsiflexion with Resistance - 1 x daily - 5 x weekly - 3 sets - 10 reps Ankle Inversion with Resistance - 1 x daily - 5 x weekly - 3 sets - 10 reps Ankle Eversion with Resistance - 1 x daily - 5 x weekly - 3 sets - 10 reps SPR Hydrant holds - 1 x daily - 4 x weekly - 3 sets - 1 reps - fatigue hold Star Foam - 1 x daily - 4 x weekly - 1 sets - 6-8 reps - 1 star Side Stepping with Resistance at Feet - 1 x daily - 4 x weekly - 1 sets - 3 reps SPR Bridge Band Circuit - 1 x daily - 4 x weekly - 3 sets - 10 reps Bridge on Ball with band or Bridge band on floor circuit - 1 x daily - 4 x weekly - 1 sets - 5 reps - 20-30 seconds hold Side Plank on Knees - 1 x daily - 4 x weekly - 1 sets - 5 reps - 30 seconds hold Modified Side Plank with Hip Abduction and Resistance - 1 x daily - 7 x weekly - 1 sets - 4 reps - 20-30 seconds hold Side Plank with Clam and Resistance - 1 x daily - 4 x weekly - 1 sets - 3 reps - 25-30 seconds hold Lateral Step Down - 1 x daily - 7 x weekly - 3 sets - 10-12 reps Andie Sheppard PT,DPT documented in this encounter [facility] 10-07-2022 Progress note Formatting of t his note might be different from the original. SPR Daily Progress PT diagnosis: right ankle pain , right ankle weakness, right foot pain Precautions/Contraindications: none, wears boot right ankle Subjective: Patient reports foot has been more achy the last couple of days. Concerned about calling ortho sooner. Remind patient she has been doing a lot more recently, wearing boots due to weather, and that psychological factors impact pain. She reports understanding and agrees. Cleared to trial planks at pilates with shoes donned. Objective: Refer to flowsheets for any objective measures. Right single leg,hip, and foot weakness Treatment: Response to treatment was monitored throughout session. The following treatments were utilized during the patient's session: Therapeutic Exercise: Directed ROM exercises AROM to maximize overall function. Modified exercises including volume and intensity for optimal strengthening. Assessment: Added active hamstring stretch to address nerve restriction and see if it effects pain noted in L5 distribution. Progressed to ankle isolator on right LE. Able to perform however does fatigue with repetitions. Continued with hip and ankle strengthening plus stability in order to allow progression towards running when able. Treatment Plan: Progress with treatment plan per initial evaluation. 1-2x/week. Increase right foot and hip strengthening. If Marj does not continue physical therapy services or is discharged prior to the next treatment, consider this note the most recent progress report and discharge summary. Patient Instructions Access Code: [email or web address] URL: [email or web address] Date: 09/30/2022 Prepared by: Andie Zabala Exercises Gastroc Stretch on Wall - 1 x daily - 7 x weekly - 1 sets - 5 reps - 30 hold Standing Soleus Stretch - 1 x daily - 7 x weekly - 1 sets - 5 reps - 20-30 seconds hold Long Sitting Calf Stretch with Strap - 2 x daily - 7 x weekly - 5-6 sets - 1 reps - 30 seconds hold Long Sitting Soleus Stretch on Bolster with Strap - 2 x daily - 7 x weekly - 1 sets - 5 reps - 30 seconds hold Seated Toe Curl - 1 x daily - 7 x weekly - 3 sets - 10 reps Seated Great Toe Extension - 1 x daily - 7 x weekly - 3 sets - 10 reps Toe Spreading - 1 x daily - 7 x weekly - 3 sets - 10 reps Seated Arch Lifts - 1 x daily - 7 x weekly - 3 sets - 10 reps Ankle and Toe Plantarflexion with Resistance - 1 x daily - 7 x weekly - 3 sets - 10 reps Ankle Dorsiflexion with Resistance - 1 x daily - 5 x weekly - 3 sets - 10 reps Ankle Inversion with Resistance - 1 x daily - 5 x weekly - 3 sets - 10 reps Ankle Eversion with Resistance - 1 x daily - 5 x weekly - 3 sets - 10 reps SPR Hydrant holds - 1 x daily - 4 x weekly - 3 sets - 1 reps - fatigue hold Star Foam - 1 x daily - 4 x weekly - 1 sets - 6-8 reps - 1 star Side Stepping with Resistance at Feet - 1 x daily - 4 x weekly - 1 sets - 3 reps SPR Bridge Band Circuit - 1 x daily - 4 x weekly - 3 sets - 10 reps Bridge on Ball with band or Bridge band on floor circuit - 1 x daily - 4 x weekly - 1 sets - 5 reps - 20-30 seconds hold Side Plank on Knees - 1 x daily - 4 x weekly - 1 sets - 5 reps - 30 seconds hold Modified Side Plank with Hip Abduction and Resistance - 1 x daily - 7 x weekly - 1 sets - 4 reps - 20-30 seconds hold Side Plank with Clam and Resistance - 1 x daily - 4 x weekly - 1 sets - 3 reps - 25-30 seconds hold Lateral Step Down - 1 x daily - 7 x weekly - 3 sets - 10-12 reps Andie Sheppard, PT,DPT [facility] 10-04-2022 Hospital Discharg Tito Carmen, PT,DPT - 10/04/2022 1:00 PM EST Images from the original note were not included. PATIENT CURRENT FUNCTIONAL STATUS: Keep pain less than 3/10 with boot and with short distances without boot with right foot prior to discharging boot. Try bar yoga activities with right foot with ankle brace with boot off. Swimming 1500M not 3000M. Walking in pool and balance single leg in pool recommended. PATIENT EDUCATION: Instructed individualized HEP with appropriate verbal cues for proper technique to patient and parent/caregiver. [employer]: Access Code: [email or web address] URL: [email or web address] Date: 09/15/2022 Prepared by: Blas Calixto Exercises Gastroc Stretch on Wall - 1 x daily - 7 x weekly - 1 sets - 5 reps - 30 hold Standing Soleus Stretch - 1 x daily - 7 x weekly - 1 sets - 5 reps - 20-30 seconds hold Sidelying Hip Abduction with Resistance at Thighs - 1 x daily - 7 x weekly - 1 sets - 3 reps - fatigue hold Clamshell with Resistance - 1 x daily - 7 x weekly - 1 sets - 3 reps - fatigue hold Long Sitting Calf Stretch with Strap - 2 x daily - 7 x weekly - 5-6 sets - 1 reps - 30 seconds hold Long Sitting Soleus Stretch on Bolster with Strap - 2 x daily - 7 x weekly - 1 sets - 5 reps - 30 seconds hold Seated Toe Curl - 1 x daily - 7 x weekly - 3 sets - 10 reps Seated Great Toe Extension - 1 x daily - 7 x weekly - 3 sets - 10 reps Toe Spreading - 1 x daily - 7 x weekly - 3 sets - 10 reps Seated Arch Lifts - 1 x daily - 7 x weekly - 3 sets - 10 reps Ankle and Toe Plantarflexion with Resistance - 1 x daily - 7 x weekly - 3 sets - 10 reps Ankle Dorsiflexion with Resistance - 1 x daily - 5 x weekly - 3 sets - 10 reps Ankle Inversion with Resistance - 1 x daily - 5 x weekly - 3 sets - 10 reps Ankle Eversion with Resistance - 1 x daily - 5 x weekly - 3 sets - 10 reps SPR Hydrant holds - 1 x daily - 4 x weekly - 3 sets - 1 reps - fatigue hold Star Foam - 1 x daily - 4 x weekly - 1 sets - 6-8 reps - 1 star Side Stepping with Resistance at Feet - 1 x daily - 4 x weekly - 1 sets - 3 reps SPR Bridge Band Circuit - 1 x daily - 4 x weekly - 3 sets - 10 reps Bridge on Ball with band or Bridge band on floor circuit - 1 x daily - 4 x weekly - 1 sets - 5 reps - 20-30 seconds hold Side Plank on Knees - 1 x daily - 4 x weekly - 1 sets - 5 reps - 30 seconds hold No follow-ups on file. SPORTS RELEASE: N/A Tito Calixto PT,MISHELT documented in this encounter [facility] 10-04-2022 Miscellaneous Notes [facility] Daily Progress PT diagnosis: right ankle pain , right ankle weakness, right foot pain Precautions/Contraindications: none, wears boot right ankle Subjective: No boot or ASO brace. Right. Pilates yes. Swimming no. Objective: Refer to flowsheets for any objective measures. Right single leg,hip, and foot weakness Treatment: Response to treatment was monitored throughout session. The following treatments were utilized during the patient's session: Therapeutic Exercise: Directed ROM exercises AROM to maximize overall function. Modified exercises including volume and intensity for optimal strengthening. Assessment: Patient needs more right hip and leg strength and stability prior to running. Patient is showing improved gains with strength and stability with right hip and leg compared to left. Treatment Plan: Progress with treatment plan per initial evaluation. 1-2x/week. Increase right foot and hip strengthening. If Marj does not continue physical therapy services or is discharged prior to the next treatment, consider this note the most recent progress report and discharge summary. Patient Instructions Access Code: [email or web address] URL: [email or web address] Date: 09/30/2022 Prepared by: Andie Zabala Exercises Gastroc Stretch on Wall - 1 x daily - 7 x weekly - 1 sets - 5 reps - 30 hold Standing Soleus Stretch - 1 x daily - 7 x weekly - 1 sets - 5 reps - 20-30 seconds hold Long Sitting Calf Stretch with Strap - 2 x daily - 7 x weekly - 5-6 sets - 1 reps - 30 seconds hold Long Sitting Soleus Stretch on Bolster with Strap - 2 x daily - 7 x weekly - 1 sets - 5 reps - 30 seconds hold Seated Toe Curl - 1 x daily - 7 x weekly - 3 sets - 10 reps Seated Great Toe Extension - 1 x daily - 7 x weekly - 3 sets - 10 reps Toe Spreading - 1 x daily - 7 x weekly - 3 sets - 10 reps Seated Arch Lifts - 1 x daily - 7 x weekly - 3 sets - 10 reps Ankle and Toe Plantarflexion with Resistance - 1 x daily - 7 x weekly - 3 sets - 10 reps Ankle Dorsiflexion with Resistance - 1 x daily - 5 x weekly - 3 sets - 10 reps Ankle Inversion with Resistance - 1 x daily - 5 x weekly - 3 sets - 10 reps Ankle Eversion with Resistance - 1 x daily - 5 x weekly - 3 sets - 10 reps SPR Hydrant holds - 1 x daily - 4 x weekly - 3 sets - 1 reps - fatigue hold Star Foam - 1 x daily - 4 x weekly - 1 sets - 6-8 reps - 1 star Side Stepping with Resistance at Feet - 1 x daily - 4 x weekly - 1 sets - 3 reps SPR Bridge Band Circuit - 1 x daily - 4 x weekly - 3 sets - 10 reps Bridge on Ball with band or Bridge band on floor circuit - 1 x daily - 4 x weekly - 1 sets - 5 reps - 20-30 seconds hold Side Plank on Knees - 1 x daily - 4 x weekly - 1 sets - 5 reps - 30 seconds hold Modified Side Plank with Hip Abduction and Resistance - 1 x daily - 7 x weekly - 1 sets - 4 reps - 20-30 seconds hold Side Plank with Clam and Resistance - 1 x daily - 4 x weekly - 1 sets - 3 reps - 25-30 seconds hold Lateral Step Down - 1 x daily - 7 x weekly - 3 sets - 10-12 reps Tito Calixto, PT,DPT documented in this encounter [facility] 10-04-2022 Progress note Formatting of t his note might be different from the original. [facility] Daily Progress PT diagnosis: right ankle pain , right ankle weakness, right foot pain Precautions/Contraindications: none, wears boot right ankle Subjective: No boot or ASO brace. Right. Pilates yes. Swimming no. Objective: Refer to flowsheets for any objective measures. Right single leg,hip, and foot weakness Treatment: Response to treatment was monitored throughout session. The following treatments were utilized during the patient's session: Therapeutic Exercise: Directed ROM exercises AROM to maximize overall function. Modified exercises including volume and intensity for optimal strengthening. Assessment: Patient needs more right hip and leg strength and stability prior to running. Patient is showing improved gains with strength and stability with right hip and leg compared to left. Treatment Plan: Progress with treatment plan per initial evaluation. 1-2x/week. Increase right foot and hip strengthening. If Marj does not continue physical therapy services or is discharged prior to the next treatment, consider this note the most recent progress report and discharge summary. Patient Instructions Access Code: [email or web address] URL: [email or web address] Date: 09/30/2022 Prepared by: Andie Zabala Exercises Gastroc Stretch on Wall - 1 x daily - 7 x weekly - 1 sets - 5 reps - 30 hold Standing Soleus Stretch - 1 x daily - 7 x weekly - 1 sets - 5 reps - 20-30 seconds hold Long Sitting Calf Stretch with Strap - 2 x daily - 7 x weekly - 5-6 sets - 1 reps - 30 seconds hold Long Sitting Soleus Stretch on Bolster with Strap - 2 x daily - 7 x weekly - 1 sets - 5 reps - 30 seconds hold Seated Toe Curl - 1 x daily - 7 x weekly - 3 sets - 10 reps Seated Great Toe Extension - 1 x daily - 7 x weekly - 3 sets - 10 reps Toe Spreading - 1 x daily - 7 x weekly - 3 sets - 10 reps Seated Arch Lifts - 1 x daily - 7 x weekly - 3 sets - 10 reps Ankle and Toe Plantarflexion with Resistance - 1 x daily - 7 x weekly - 3 sets - 10 reps Ankle Dorsiflexion with Resistance - 1 x daily - 5 x weekly - 3 sets - 10 reps Ankle Inversion with Resistance - 1 x daily - 5 x weekly - 3 sets - 10 reps Ankle Eversion with Resistance - 1 x daily - 5 x weekly - 3 sets - 10 reps SPR Hydrant holds - 1 x daily - 4 x weekly - 3 sets - 1 reps - fatigue hold Star Foam - 1 x daily - 4 x weekly - 1 sets - 6-8 reps - 1 star Side Stepping with Resistance at Feet - 1 x daily - 4 x weekly - 1 sets - 3 reps SPR Bridge Band Circuit - 1 x daily - 4 x weekly - 3 sets - 10 reps Bridge on Ball with band or Bridge band on floor circuit - 1 x daily - 4 x weekly - 1 sets - 5 reps - 20-30 seconds hold Side Plank on Knees - 1 x daily - 4 x weekly - 1 sets - 5 reps - 30 seconds hold Modified Side Plank with Hip Abduction and Resistance - 1 x daily - 7 x weekly - 1 sets - 4 reps - 20-30 seconds hold Side Plank with Clam and Resistance - 1 x daily - 4 x weekly - 1 sets - 3 reps - 25-30 seconds hold Lateral Step Down - 1 x daily - 7 x weekly - 3 sets - 10-12 reps Tito Calixto, PT,DPT [facility] 09-30-2022 Miscellaneous Notes SPR Daily Progress PT diagnosis: right ankle pain , right ankle weakness, right foot pain Precautions/Contraindications: none, wears boot right ankle Subjective: Patient reports she was a little achy after last session but didn't last long. Was able to go to a pilates class and had no pain. She goes back to doctor beginning of October. Brace makes ankle feel tight and swell at times. Removes and feels better after rest and then puts it back on when it gets achy with walking. Limited compliance with exercises due to life events. Did not start taking medication because didn't feel it was needed. Discussed beginning light aerobic exercise on elliptical at home. Objective: Refer to flowsheets for any objective measures. Single leg squat to chair: difficulty with eccentric control on R LE and balance Treatment: Response to treatment was monitored throughout session. The following treatments were utilized during the patient's session: Therapeutic Exercise: Directed ROM exercises AROM to maximize overall function. Modified exercises including volume and intensity for optimal strengthening. Assessment: Patient has difficulty with eccentric quadricep control with progression from double leg to single leg squats. She is able to perform lunges and double leg calf raises without pain during session. Encouraged her to begin elliptical at home for up to 10 minutes to start. Progressed HEP. Treatment Plan: Progress with treatment plan per initial evaluation. 1-2x/week. Foot and hip strengthening. If Marj does not continue physical therapy services or is discharged prior to the next treatment, consider this note the most recent progress report and discharge summary. Patient Instructions Access Code: [email or web address] URL: [email or web address] Date: 09/30/2022 Prepared by: Andie Zabala Exercises Gastroc Stretch on Wall - 1 x daily - 7 x weekly - 1 sets - 5 reps - 30 hold Standing Soleus Stretch - 1 x daily - 7 x weekly - 1 sets - 5 reps - 20-30 seconds hold Long Sitting Calf Stretch with Strap - 2 x daily - 7 x weekly - 5-6 sets - 1 reps - 30 seconds hold Long Sitting Soleus Stretch on Bolster with Strap - 2 x daily - 7 x weekly - 1 sets - 5 reps - 30 seconds hold Seated Toe Curl - 1 x daily - 7 x weekly - 3 sets - 10 reps Seated Great Toe Extension - 1 x daily - 7 x weekly - 3 sets - 10 reps Toe Spreading - 1 x daily - 7 x weekly - 3 sets - 10 reps Seated Arch Lifts - 1 x daily - 7 x weekly - 3 sets - 10 reps Ankle and Toe Plantarflexion with Resistance - 1 x daily - 7 x weekly - 3 sets - 10 reps Ankle Dorsiflexion with Resistance - 1 x daily - 5 x weekly - 3 sets - 10 reps Ankle Inversion with Resistance - 1 x daily - 5 x weekly - 3 sets - 10 reps Ankle Eversion with Resistance - 1 x daily - 5 x weekly - 3 sets - 10 reps SPR Hydrant holds - 1 x daily - 4 x weekly - 3 sets - 1 reps - fatigue hold Star Foam - 1 x daily - 4 x weekly - 1 sets - 6-8 reps - 1 star Side Stepping with Resistance at Feet - 1 x daily - 4 x weekly - 1 sets - 3 reps SPR Bridge Band Circuit - 1 x daily - 4 x weekly - 3 sets - 10 reps Bridge on Ball with band or Bridge band on floor circuit - 1 x daily - 4 x weekly - 1 sets - 5 reps - 20-30 seconds hold Side Plank on Knees - 1 x daily - 4 x weekly - 1 sets - 5 reps - 30 seconds hold Modified Side Plank with Hip Abduction and Resistance - 1 x daily - 7 x weekly - 1 sets - 4 reps - 20-30 seconds hold Side Plank with Clam and Resistance - 1 x daily - 4 x weekly - 1 sets - 3 reps - 25-30 seconds hold Lateral Step Down - 1 x daily - 7 x weekly - 3 sets - 10-12 reps Andie Sheppard PT,DPT documented in this encounter [facility] 09-30-2022 Progress note Formatting of t his note might be different from the original. SPR Daily Progress PT diagnosis: right ankle pain , right ankle weakness, right foot pain Precautions/Contraindications: none, wears boot right ankle Subjective: Patient reports she was a little achy after last session but didn't last long. Was able to go to a pilates class and had no pain. She goes back to doctor beginning of October. Brace makes ankle feel tight and swell at times. Removes and feels better after rest and then puts it back on when it gets achy with walking. Limited compliance with exercises due to life events. Did not start taking medication because didn't feel it was needed. Discussed beginning light aerobic exercise on elliptical at home. Objective: Refer to flowsheets for any objective measures. Single leg squat to chair: difficulty with eccentric control on R LE and balance Treatment: Response to treatment was monitored throughout session. The following treatments were utilized during the patient's session: Therapeutic Exercise: Directed ROM exercises AROM to maximize overall function. Modified exercises including volume and intensity for optimal strengthening. Assessment: Patient has difficulty with eccentric quadricep control with progression from double leg to single leg squats. She is able to perform lunges and double leg calf raises without pain during session. Encouraged her to begin elliptical at home for up to 10 minutes to start. Progressed HEP. Treatment Plan: Progress with treatment plan per initial evaluation. 1-2x/week. Foot and hip strengthening. If Marj does not continue physical therapy services or is discharged prior to the next treatment, consider this note the most recent progress report and discharge summary. Patient Instructions Access Code: [email or web address] URL: [email or web address] Date: 09/30/2022 Prepared by: Andie Zabala Exercises Gastroc Stretch on Wall - 1 x daily - 7 x weekly - 1 sets - 5 reps - 30 hold Standing Soleus Stretch - 1 x daily - 7 x weekly - 1 sets - 5 reps - 20-30 seconds hold Long Sitting Calf Stretch with Strap - 2 x daily - 7 x weekly - 5-6 sets - 1 reps - 30 seconds hold Long Sitting Soleus Stretch on Bolster with Strap - 2 x daily - 7 x weekly - 1 sets - 5 reps - 30 seconds hold Seated Toe Curl - 1 x daily - 7 x weekly - 3 sets - 10 reps Seated Great Toe Extension - 1 x daily - 7 x weekly - 3 sets - 10 reps Toe Spreading - 1 x daily - 7 x weekly - 3 sets - 10 reps Seated Arch Lifts - 1 x daily - 7 x weekly - 3 sets - 10 reps Ankle and Toe Plantarflexion with Resistance - 1 x daily - 7 x weekly - 3 sets - 10 reps Ankle Dorsiflexion with Resistance - 1 x daily - 5 x weekly - 3 sets - 10 reps Ankle Inversion with Resistance - 1 x daily - 5 x weekly - 3 sets - 10 reps Ankle Eversion with Resistance - 1 x daily - 5 x weekly - 3 sets - 10 reps SPR Hydrant holds - 1 x daily - 4 x weekly - 3 sets - 1 reps - fatigue hold Star Foam - 1 x daily - 4 x weekly - 1 sets - 6-8 reps - 1 star Side Stepping with Resistance at Feet - 1 x daily - 4 x weekly - 1 sets - 3 reps SPR Bridge Band Circuit - 1 x daily - 4 x weekly - 3 sets - 10 reps Bridge on Ball with band or Bridge band on floor circuit - 1 x daily - 4 x weekly - 1 sets - 5 reps - 20-30 seconds hold Side Plank on Knees - 1 x daily - 4 x weekly - 1 sets - 5 reps - 30 seconds hold Modified Side Plank with Hip Abduction and Resistance - 1 x daily - 7 x weekly - 1 sets - 4 reps - 20-30 seconds hold Side Plank with Clam and Resistance - 1 x daily - 4 x weekly - 1 sets - 3 reps - 25-30 seconds hold Lateral Step Down - 1 x daily - 7 x weekly - 3 sets - 10-12 reps Andie Sheppard PT,DPT [facility] 09-23-2022 Miscellaneous Notes SPR Daily Progress PT diagnosis: right ankle pain , right ankle weakness, right foot pain Precautions/Contraindications: none, wears boot right ankle Subjective: Patient reports tweaked ankle a little last night after a long day of work. 2/10 achy not pain. Has been using topical pain med and helping. Did exercises last night. Going to fill and start Prednisone this weekend. Objective: Refer to flowsheets for any objective measures. Treatment: Response to treatment was monitored throughout session. The following treatments were utilized during the patient's session: Therapeutic Exercise: Directed ROM exercises AROM to maximize overall function. Modified exercises including volume and intensity for optimal strengthening. Assessment: Patient fatigues with progression of single leg activities. Able to control knee valgus bilaterally but quads fatigue with eccentric contraction R>L. No pain reported with progressions. Updated HEP. Treatment Plan: Progress with treatment plan per initial evaluation. 1-2x/week. Foot and hip strengthening. Right knee pain due to boot. Patient wears lifts in shoe (nonboot side) to equalize hips. If Marj does not continue physical therapy services or is discharged prior to the next treatment, consider this note the most recent progress report and discharge summary. Patient Instructions Access Code: [email or web address] URL: [email or web address] Date: 09/23/2022 Prepared by: Andie Zabala Exercises Gastroc Stretch on Wall - 1 x daily - 7 x weekly - 1 sets - 5 reps - 30 hold Standing Soleus Stretch - 1 x daily - 7 x weekly - 1 sets - 5 reps - 20-30 seconds hold Long Sitting Calf Stretch with Strap - 2 x daily - 7 x weekly - 5-6 sets - 1 reps - 30 seconds hold Long Sitting Soleus Stretch on Bolster with Strap - 2 x daily - 7 x weekly - 1 sets - 5 reps - 30 seconds hold Seated Toe Curl - 1 x daily - 7 x weekly - 3 sets - 10 reps Seated Great Toe Extension - 1 x daily - 7 x weekly - 3 sets - 10 reps Toe Spreading - 1 x daily - 7 x weekly - 3 sets - 10 reps Seated Arch Lifts - 1 x daily - 7 x weekly - 3 sets - 10 reps Ankle and Toe Plantarflexion with Resistance - 1 x daily - 7 x weekly - 3 sets - 10 reps Ankle Dorsiflexion with Resistance - 1 x daily - 5 x weekly - 3 sets - 10 reps Ankle Inversion with Resistance - 1 x daily - 5 x weekly - 3 sets - 10 reps Ankle Eversion with Resistance - 1 x daily - 5 x weekly - 3 sets - 10 reps SPR Hydrant holds - 1 x daily - 4 x weekly - 3 sets - 1 reps - fatigue hold Star Foam - 1 x daily - 4 x weekly - 1 sets - 6-8 reps - 1 star Side Stepping with Resistance at Feet - 1 x daily - 4 x weekly - 1 sets - 3 reps SPR Bridge Band Circuit - 1 x daily - 4 x weekly - 3 sets - 10 reps Bridge on Ball with band or Bridge band on floor circuit - 1 x daily - 4 x weekly - 1 sets - 5 reps - 20-30 seconds hold Side Plank on Knees - 1 x daily - 4 x weekly - 1 sets - 5 reps - 30 seconds hold Modified Side Plank with Hip Abduction and Resistance - 1 x daily - 7 x weekly - 1 sets - 4 reps - 20-30 seconds hold Side Plank with Clam and Resistance - 1 x daily - 4 x weekly - 1 sets - 3 reps - 25-30 seconds hold Andie Sheppard PT,DPT documented in this encounter [facility] 09-23-2022 Progress note Formatting of t his note might be different from the original. SPR Daily Progress PT diagnosis: right ankle pain , right ankle weakness, right foot pain Precautions/Contraindications: none, wears boot right ankle Subjective: Patient reports tweaked ankle a little last night after a long day of work. 11/25 achy not pain. Has been using topical pain med and helping. Did exercises last night. Going to fill and start Prednisone this weekend. Objective: Refer to flowsheets for any objective measures. Treatment: Response to treatment was monitored throughout session. The following treatments were utilized during the patient's session: Therapeutic Exercise: Directed ROM exercises AROM to maximize overall function. Modified exercises including volume and intensity for optimal strengthening. Assessment: Patient fatigues with progression of single leg activities. Able to control knee valgus bilaterally but quads fatigue with eccentric contraction R>L. No pain reported with progressions. Updated HEP. Treatment Plan: Progress with treatment plan per initial evaluation. 1-2x/week. Foot and hip strengthening. Right knee pain due to boot. Patient wears lifts in shoe (nonboot side) to equalize hips. If Marj does not continue physical therapy services or is discharged prior to the next treatment, consider this note the most recent progress report and discharge summary. Patient Instructions Access Code: [email or web address] URL: [email or web address] Date: 09/23/2022 Prepared by: Andie Zabala Exercises Gastroc Stretch on Wall - 1 x daily - 7 x weekly - 1 sets - 5 reps - 30 hold Standing Soleus Stretch - 1 x daily - 7 x weekly - 1 sets - 5 reps - 20-30 seconds hold Long Sitting Calf Stretch with Strap - 2 x daily - 7 x weekly - 5-6 sets - 1 reps - 30 seconds hold Long Sitting Soleus Stretch on Bolster with Strap - 2 x daily - 7 x weekly - 1 sets - 5 reps - 30 seconds hold Seated Toe Curl - 1 x daily - 7 x weekly - 3 sets - 10 reps Seated Great Toe Extension - 1 x daily - 7 x weekly - 3 sets - 10 reps Toe Spreading - 1 x daily - 7 x weekly - 3 sets - 10 reps Seated Arch Lifts - 1 x daily - 7 x weekly - 3 sets - 10 reps Ankle and Toe Plantarflexion with Resistance - 1 x daily - 7 x weekly - 3 sets - 10 reps Ankle Dorsiflexion with Resistance - 1 x daily - 5 x weekly - 3 sets - 10 reps Ankle Inversion with Resistance - 1 x daily - 5 x weekly - 3 sets - 10 reps Ankle Eversion with Resistance - 1 x daily - 5 x weekly - 3 sets - 10 reps SPR Hydrant holds - 1 x daily - 4 x weekly - 3 sets - 1 reps - fatigue hold Star Foam - 1 x daily - 4 x weekly - 1 sets - 6-8 reps - 1 star Side Stepping with Resistance at Feet - 1 x daily - 4 x weekly - 1 sets - 3 reps SPR Bridge Band Circuit - 1 x daily - 4 x weekly - 3 sets - 10 reps Bridge on Ball with band or Bridge band on floor circuit - 1 x daily - 4 x weekly - 1 sets - 5 reps - 20-30 seconds hold Side Plank on Knees - 1 x daily - 4 x weekly - 1 sets - 5 reps - 30 seconds hold Modified Side Plank with Hip Abduction and Resistance - 1 x daily - 7 x weekly - 1 sets - 4 reps - 20-30 seconds hold Side Plank with Clam and Resistance - 1 x daily - 4 x weekly - 1 sets - 3 reps - 25-30 seconds hold Andie Sheppard PT,DPT [facility] 09-20-2022 Hospital Discharg e Tito Bojorquez, PT,DPT - 09/20/2022 1:00 PM EST Images from the original note were not included. PATIENT CURRENT FUNCTIONAL STATUS: Keep pain less than 3/10 with boot and with short distances without boot with right foot prior to discharging boot. Try bar yoga activities with right foot with ankle brace with boot off. Swimming 1500M not 3000M. Walking in pool and balance single leg in pool recommended. PATIENT EDUCATION: Instructed individualized HEP with appropriate verbal cues for proper technique to patient and parent/caregiver. [employer]: Access Code: [email or web address] URL: [email or web address] Date: 09/15/2022 Prepared by: Blas Calixto Exercises Gastroc Stretch on Wall - 1 x daily - 7 x weekly - 1 sets - 5 reps - 30 hold Standing Soleus Stretch - 1 x daily - 7 x weekly - 1 sets - 5 reps - 20-30 seconds hold Sidelying Hip Abduction with Resistance at Thighs - 1 x daily - 7 x weekly - 1 sets - 3 reps - fatigue hold Clamshell with Resistance - 1 x daily - 7 x weekly - 1 sets - 3 reps - fatigue hold Long Sitting Calf Stretch with Strap - 2 x daily - 7 x weekly - 5-6 sets - 1 reps - 30 seconds hold Long Sitting Soleus Stretch on Bolster with Strap - 2 x daily - 7 x weekly - 1 sets - 5 reps - 30 seconds hold Seated Toe Curl - 1 x daily - 7 x weekly - 3 sets - 10 reps Seated Great Toe Extension - 1 x daily - 7 x weekly - 3 sets - 10 reps Toe Spreading - 1 x daily - 7 x weekly - 3 sets - 10 reps Seated Arch Lifts - 1 x daily - 7 x weekly - 3 sets - 10 reps Ankle and Toe Plantarflexion with Resistance - 1 x daily - 7 x weekly - 3 sets - 10 reps Ankle Dorsiflexion with Resistance - 1 x daily - 5 x weekly - 3 sets - 10 reps Ankle Inversion with Resistance - 1 x daily - 5 x weekly - 3 sets - 10 reps Ankle Eversion with Resistance - 1 x daily - 5 x weekly - 3 sets - 10 reps SPR Hydrant holds - 1 x daily - 4 x weekly - 3 sets - 1 reps - fatigue hold Star Foam - 1 x daily - 4 x weekly - 1 sets - 6-8 reps - 1 star Side Stepping with Resistance at Feet - 1 x daily - 4 x weekly - 1 sets - 3 reps SPR Bridge Band Circuit - 1 x daily - 4 x weekly - 3 sets - 10 reps Bridge on Ball with band or Bridge band on floor circuit - 1 x daily - 4 x weekly - 1 sets - 5 reps - 20-30 seconds hold Side Plank on Knees - 1 x daily - 4 x weekly - 1 sets - 5 reps - 30 seconds hold No follow-ups on file. SPORTS RELEASE: N/A Tito Calixto PT,DPT documented in this encounter [facility] 09-20-2022 Miscellaneous Notes SPR Daily Progress PT diagnosis: right ankle pain , right ankle weakness, right foot pain Precautions/Contraindications: none, wears boot right ankle Subjective: Patient in pool 1x/week. Pilates 1x/week. MD reports wait a week or two prior to follow up with MRI if needed for right forefoot. Took boot off and walked 1.5 day without much increased in right foot pain. No ankle pain right. Objective: Refer to flowsheets for any objective measures. Pain with palpation to proximal 2nd metatarsal head right foot No pain with elliptical Minimal change in pain without boot for right foot today Treatment: Response to treatment was monitored throughout session. The following treatments were utilized during the patient's session: Therapeutic Exercise: Directed ROM exercises AROM, PROM, and AAROM to maximize overall function. Manual Therapy: Instrument assisted soft tissue mobilization, Soft tissue mobilization, Joint mobilizations, and Manual stretching DN right anterior doe/foot right 20 mm: no charge Dynamic Tape 2 and 3 inch ankle and forefoot support 2/3 applications: not today Assessment: Patient has no right ankle pain today. Right forefoot mild increase in pain with work without boot. Patient feels decreased right forefoot pain after DN. Treatment Plan: Progress with treatment plan per initial evaluation. 1-2x/week. Foot and hip strengthening. Right knee pain due to boot. Patient wears lifts in shoe (nonboot side) to equalize hips. If Marj does not continue physical therapy services or is discharged prior to the next treatment, consider this note the most recent progress report and discharge summary. documented in this encounter [facility] 09-20-2022 Progress note Formatting of t his note might be different from the original. SPR Daily Progress PT diagnosis: right ankle pain , right ankle weakness, right foot pain Precautions/Contraindications: none, wears boot right ankle Subjective: Patient in pool 1x/week. Pilates 1x/week. MD reports wait a week or two prior to follow up with MRI if needed for right forefoot. Took boot off and walked 1.5 day without much increased in right foot pain. No ankle pain right. Objective: Refer to flowsheets for any objective measures. Pain with palpation to proximal 2nd metatarsal head right foot No pain with elliptical Minimal change in pain without boot for right foot today Treatment: Response to treatment was monitored throughout session. The following treatments were utilized during the patient's session: Therapeutic Exercise: Directed ROM exercises AROM, PROM, and AAROM to maximize overall function. Manual Therapy: Instrument assisted soft tissue mobilization, Soft tissue mobilization, Joint mobilizations, and Manual stretching DN right anterior doe/foot right 20 mm: no charge Dynamic Tape 2 and 3 inch ankle and forefoot support 2/3 applications: not today Assessment: Patient has no right ankle pain today. Right forefoot mild increase in pain with work without boot. Patient feels decreased right forefoot pain after DN. Treatment Plan: Progress with treatment plan per initial evaluation. 1-2x/week. Foot and hip strengthening. Right knee pain due to boot. Patient wears lifts in shoe (nonboot side) to equalize hips. If Marj does not continue physical therapy services or is discharged prior to the next treatment, consider this note the most recent progress report and discharge summary. [facility] 09-13-2022 Miscellaneous Notes SPR Daily Progress PT diagnosis: right ankle pain , right ankle weakness, right foot pain Precautions/Contraindications: none, wears boot right ankle Subjective: Doing hip strengthening. Thinks green was too hard for ankle exercises for right foot. Pain near midfoot right. Ortho follow up in [place] soon. Patient to get pinnacle orthotics from a friend. Out of boot 1-2 hours and painful now. No pain in boot. Dry needling and graston about same. Ankle no longer swollen but pain just on top of foot. Objective: Refer to flowsheets for any objective measures. Pain with palpation to proximal 2nd metatarsal head right foot Testes more flexible orthotics such as pinnacle vs rigid 3/4 orthotic Negative tuning fork test left anterior foot/metatarsal area right foot Treatment: Response to treatment was monitored throughout session. The following treatments were utilized during the patient's session: Therapeutic Exercise: Directed ROM exercises AROM, PROM, and AAROM to maximize overall function. Manual Therapy: Instrument assisted soft tissue mobilization, Soft tissue mobilization, Joint mobilizations, and Manual stretching Nava with e-stim to anterior right foot Dynamic Tape 2 and 3 inch ankle and forefoot support 1/3 applications Assessment: Patient has anterior foot pain of metatarsal 2nd head Treatment Plan: Progress with treatment plan per initial evaluation. 1-2x/week. Foot and hip strengthening. Right knee pain due to boot. Patient wears lifts in shoe (nonboot side) to equalize hips. If Marj does not continue physical therapy services or is discharged prior to the next treatment, consider this note the most recent progress report and discharge summary. documented in this encounter [facility] 09-13-2022 Progress note Formatting of t his note might be different from the original. SPR Daily Progress PT diagnosis: right ankle pain , right ankle weakness, right foot pain Precautions/Contraindications: none, wears boot right ankle Subjective: Doing hip strengthening. Thinks green was too hard for ankle exercises for right foot. Pain near midfoot right. Ortho follow up in [place] soon. Patient to get pinnacle orthotics from a friend. Out of boot 1-2 hours and painful now. No pain in boot. Dry needling and graston about same. Ankle no longer swollen but pain just on top of foot. Objective: Refer to flowsheets for any objective measures. Pain with palpation to proximal 2nd metatarsal head right foot Testes more flexible orthotics such as pinnacle vs rigid 3/4 orthotic Negative tuning fork test left anterior foot/metatarsal area right foot Treatment: Response to treatment was monitored throughout session. The following treatments were utilized during the patient's session: Therapeutic Exercise: Directed ROM exercises AROM, PROM, and AAROM to maximize overall function. Manual Therapy: Instrument assisted soft tissue mobilization, Soft tissue mobilization, Joint mobilizations, and Manual stretching Graston with e-stim to anterior right foot Dynamic Tape 2 and 3 inch ankle and forefoot support 1/3 applications Assessment: Patient has anterior foot pain of metatarsal 2nd head Treatment Plan: Progress with treatment plan per initial evaluation. 1-2x/week. Foot and hip strengthening. Right knee pain due to boot. Patient wears lifts in shoe (nonboot side) to equalize hips. If Marj does not continue physical therapy services or is discharged prior to the next treatment, consider this note the most recent progress report and discharge summary. [facility] 09-02-2022 Telephone encounter Note Reviewed labs with patient She will get fu blood work [facility] Please fax patient info to weight management [facility] Work Phone: 09-02-2022 Miscellaneous Notes Reviewed labs with patient She will get fu blood work [facility] eval in [facility] Please fax patient info to weight management Patient called unable to connect. Will try again on monday Message released to patient as written. Yes Patient's further questions if applicable: Pt states that the best time to call her to go over her results would be Wednesdays either at 1:00pm or around 3:30-4:00pm or on Fridays before 9:00am or at 1:00pm or around 3:30-4:00pm. Were all questions from office addressed or relayed to the patient from encounter: Yes Please let patient know her labs look good overall. Her prolactin level is borderline and I ordered a follow-up test to have this rechecked. Please talk with patient and let me know good time to reach her to discuss labs further. Name of caller: Marj Contact phone number: verified Relationship to Patient: patient Provider: Dr. Huff Practice: obgyn Chief Complaint/Reason for Call: patient is calling for lab results from July asking if these have been reviewed for hormone levels. Please advise. Best time of day caller can be reached: AM Patient advised that office/PCP has 24-48 business hours to return their call: Yes documented in this encounter [facility] 09-01-2022 Hospital Discharg Tito Carmen, PT,DPT - 09/01/2022 1:00 PM EST Images from the original note were not included. PATIENT CURRENT FUNCTIONAL STATUS: Keep pain less than 3/10 with boot and with short distances without boot with right foot prior to discharging boot. PATIENT EDUCATION: Instructed individualized HEP with appropriate verbal cues for proper technique to patient and parent/caregiver. [employer]: Access Code: [email or web address] URL: [email or web address] Date: 09/01/2022 Prepared by: Blas Calixto Exercises Gastroc Stretch on Wall - 1 x daily - 7 x weekly - 1 sets - 5 reps - 30 hold Sidelying Hip Abduction with Resistance at Thighs - 1 x daily - 7 x weekly - 1 sets - 3 reps - fatigue hold Clamshell with Resistance - 1 x daily - 7 x weekly - 1 sets - 3 reps - fatigue hold Gastroc Stretch on Wall - 3 x daily - 7 x weekly - 5-6 sets - 1 reps - 30 seconds hold Soleus Stretch on Wall - 3 x daily - 7 x weekly - 5-6 sets - 1 reps - 30 seconds hold SPR Hydrant holds - 1 x daily - 5 x weekly - 3-4 sets - 1 reps - fatigue hold Long Sitting Calf Stretch with Strap - 2 x daily - 7 x weekly - 5-6 sets - 1 reps - 30 seconds hold Long Sitting Soleus Stretch on Bolster with Strap - 2 x daily - 7 x weekly - 1 sets - 5 reps - 30 seconds hold Seated Toe Curl - 1 x daily - 7 x weekly - 3 sets - 10 reps Seated Great Toe Extension - 1 x daily - 7 x weekly - 3 sets - 10 reps Toe Spreading - 1 x daily - 7 x weekly - 3 sets - 10 reps Seated Arch Lifts - 1 x daily - 7 x weekly - 3 sets - 10 reps Ankle and Toe Plantarflexion with Resistance - 1 x daily - 7 x weekly - 3 sets - 10 reps Ankle Dorsiflexion with Resistance - 1 x daily - 5 x weekly - 3 sets - 10 reps Ankle Inversion with Resistance - 1 x daily - 5 x weekly - 3 sets - 10 reps Ankle Eversion with Resistance - 1 x daily - 5 x weekly - 3 sets - 10 reps No follow-ups on file. SPORTS RELEASE: N/A Tito Calixto PT,DPT documented in this encounter [facility] 09-01-2022 Miscellaneous Notes SPR Daily Progress PT diagnosis: right ankle pain , right ankle weakness Precautions/Contraindications: none, wears boot right ankle Subjective: 4/10. Not been as good with stretches as would like. Band colors for ankles up to red and hips up to green. Objective: Refer to flowsheets for any objective measures. Pain right malleoli and 2/3 MTP 4/10 Education on boot possible cause of right knee pain due to decreased ankle DF within boot. Treatment: Response to treatment was monitored throughout session. The following treatments were utilized during the patient's session: Therapeutic Exercise: Directed ROM exercises AROM, PROM, and AAROM to maximize overall function. Manual Therapy: Instrument assisted soft tissue mobilization, Soft tissue mobilization, Joint mobilizations, and Manual stretching IASTM right ankle supine/prone Assessment: Bilateral hip fatigue with single leg exercises and foot intrinsic fatigue bilaterally. Treatment Plan: Progress with treatment plan per initial evaluation. 1-2x/week. Foot and hip strengthening. Right knee pain due to boot. Patient wears lifts in shoe (nonboot side) to equalize hips. If Marj does not continue physical therapy services or is discharged prior to the next treatment, consider this note the most recent progress report and discharge summary. documented in this encounter [facility] 09-01-2022 Progress note Formatting of t his note might be different from the original. SPR Daily Progress PT diagnosis: right ankle pain , right ankle weakness Precautions/Contraindications: none, wears boot right ankle Subjective: 4/10. Not been as good with stretches as would like. Band colors for ankles up to red and hips up to green. Objective: Refer to flowsheets for any objective measures. Pain right malleoli and 2/3 MTP 4/10 Education on boot possible cause of right knee pain due to decreased ankle DF within boot. Treatment: Response to treatment was monitored throughout session. The following treatments were utilized during the patient's session: Therapeutic Exercise: Directed ROM exercises AROM, PROM, and AAROM to maximize overall function. Manual Therapy: Instrument assisted soft tissue mobilization, Soft tissue mobilization, Joint mobilizations, and Manual stretching IASTM right ankle supine/prone Assessment: Bilateral hip fatigue with single leg exercises and foot intrinsic fatigue bilaterally. Treatment Plan: Progress with treatment plan per initial evaluation. 1-2x/week. Foot and hip strengthening. Right knee pain due to boot. Patient wears lifts in shoe (nonboot side) to equalize hips. If Marj does not continue physical therapy services or is discharged prior to the next treatment, consider this note the most recent progress report and discharge summary. [facility] 08-31-2022 Telephone encounter Note Patient called unable to connect. Will try again on monday [facility] 08-26-2022 Telephone encounter Note Message released to patient as written. Yes Patient's further questions if applicable: Pt states that the best time to call her to go over her results would be Wednesdays either at 1:00pm or around 3:30-4:00pm or on Fridays before 9:00am or at 1:00pm or around 3:30-4:00pm. Were all questions from office addressed or relayed to the patient from encounter: Yes [facility] 08-24-2022 Telephone encounter Note Please let patient know her labs look good overall. Her prolactin level is borderline and I ordered a follow-up test to have this rechecked. Please talk with patient and let me know good time to reach her to discuss labs further. [facility] 08-22-2022 Telephone encounter Note Name of caller: Marj Contact phone number: verified Relationship to Patient: patient Provider: Dr. Huff Practice: obgyn Chief Complaint/Reason for Call: patient is calling for lab results from July asking if these have been reviewed for hormone levels. Please advise. Best time of day caller can be reached: AM Patient advised that office/PCP has 24-48 business hours to return their call: Yes [facility] 08-09-2022 Note ORIGINAL EXAMINATION: MRI OF THE RIGHT ANKLE WITHOUT HDREPMZK76/25/2022 9:04 am TECHNIQUE: Multiplanar multisequence MRI of the right ankle was performed without the administration of intravenous contrast. COMPARISON: None HISTORY: ORDERING SYSTEM PROVIDED HISTORY: Reason for Exam: SPRAIN OF OTHER LIGAMENT OF RIGHT ANKLE, PAIN IN RIGHT ANKLE AND FOOT Sprained ankle while running July 29. Pain on lateral side of foot and up leg. FINDINGS: TENDONS: The extensor tendons are intact and demonstrate a normal course. The flexor tendons are intact and demonstrate a normal course. The peroneal tendons are intact and demonstrate a normal course. The Achilles tendon is intact. The plantar aponeurosis is intact. LIGAMENTS: The anterior talofibular ligament demonstrates abnormal hyperintense STIR and proton density signal, with associated T1 hypointense signal. The calcaneofibular ligament is intact . The posterior talofibular ligament is intact. The anterior and posterior tibiofibular ligaments are intact. The deep and superficial components of the deltoid ligament are intact. The spring ligament complex is intact. JOINTS: There is no dislocation. Small joint effusion. The articular cartilage of the ankle joint is normal. There is no osteochondral defect in the talar dome. OSSEOUS STRUCTURES: There is an os trigonum. There is mild STIR hyperintense signal involving the subchondral aspect of the posteromedial talar dome and adjacent medial aspect of the medial malleolus. There is also minimal STIR hyperintense signal involving the medial navicular and medial aspect of the medial cuneiform at their medial articulation. Otherwise the bone marrow signal is normal. There is no fracture. There is no marrow replacing lesion. SOFT TISSUES: There is no muscle atrophy or tear. The tarsal tunnel is normal. The sinus tarsi is normal with preservation of fat signal. IMPRESSION: Low-grade sprain of the anterior talofibular ligament. Other ligaments in the ankle are intact.. Small contusions involving the posteromedial talus and medial aspect of the medial malleolus. Also small contusions at the navicular medial cuneiform articulation. No obvious fracture. I have personally reviewed the images of this examination and agree with the resident's findings and interpretation. Interpreted by: Luis Mauro MD Preliminary Report By: Maddison Lemon Electronically signed By Luis Mauro MD Dictated Date: 08/09/2022 10:40:43 AM Prelim Date: 08/09/2022 1:55:43 PM Sign Date: 08/09/2022 1:55:43 PM Ordering Provider: BISI NGUYEN [facility] 08-09-2022 Note ORIGINAL EXAMINATION: MRI OF THE RIGHT ANKLE WITHOUT [id number]/25/2022 9:04 am TECHNIQUE: Multiplanar multisequence MRI of the right ankle was performed without the administration of intravenous contrast. COMPARISON: None HISTORY: ORDERING SYSTEM PROVIDED HISTORY: Reason for Exam: SPRAIN OF OTHER LIGAMENT OF RIGHT ANKLE, PAIN IN RIGHT ANKLE AND FOOT Sprained ankle while running July 29. Pain on lateral side of foot and up leg. FINDINGS: TENDONS: The extensor tendons are intact and demonstrate a normal course. The flexor tendons are intact and demonstrate a normal course. The peroneal tendons are intact and demonstrate a normal course. The Achilles tendon is intact. The plantar aponeurosis is intact. LIGAMENTS: The anterior talofibular ligament demonstrates abnormal hyperintense STIR and proton density signal, with associated T1 hypointense signal. The calcaneofibular ligament is intact . The posterior talofibular ligament is intact. The anterior and posterior tibiofibular ligaments are intact. The deep and superficial components of the deltoid ligament are intact. The spring ligament complex is intact. JOINTS: There is no dislocation. Small joint effusion. The articular cartilage of the ankle joint is normal. There is no osteochondral defect in the talar dome. OSSEOUS STRUCTURES: There is an os trigonum. There is mild STIR hyperintense signal involving the subchondral aspect of the posteromedial talar dome and adjacent medial aspect of the medial malleolus. There is also minimal STIR hyperintense signal involving the medial navicular and medial aspect of the medial cuneiform at their medial articulation. Otherwise the bone marrow signal is normal. There is no fracture. There is no marrow replacing lesion. SOFT TISSUES: There is no muscle atrophy or tear. The tarsal tunnel is normal. The sinus tarsi is normal with preservation of fat signal. IMPRESSION: Low-grade sprain of the anterior talofibular ligament. Other ligaments in the ankle are intact.. Small contusions involving the posteromedial talus and medial aspect of the medial malleolus. Also small contusions at the navicular medial cuneiform articulation. No obvious fracture. I have personally reviewed the images of this examination and agree with the resident's findings and interpretation. Interpreted by: Luis Mauro MD Preliminary Report By: Maddison Lemon Electronically signed By Luis Mauro MD Dictated Date: 08/09/2022 10:40:43 AM Prelim Date: 08/09/2022 1:55:43 PM Sign Date: 08/09/2022 1:55:43 PM Ordering Provider: BISI NGUYEN [facility] 07-29-2022 Note HNO ID: [id number] Author: RT Brice(R) Service: Radiology Author Type: Technologist Type: Progress Notes Filed: 07/29/2022 9:59 AM Note Text: Radiology Service Progress Note PATIENT NAME: Marj Tay DATE OF SERVICE: July 29, 2022 TIME: 9:48 AM PATIENT IDENTITY VERIFICATION COMPLETED USING TWO (2) IDENTIFIERS: Name and Date of confirmed by patient verbally. FALL SCREENING: Has the patient had 2 falls in the last year or 1 fall with injury or currently using an Ambulatory Assistive Device (Walker, Cane, Wheelchair, Crutches, etc.)? No PATIENT GENDER DATA: Female. status: : No status: NO. PATIENT RELEVANT IMPLANT DATA REVIEWED: Yes RADIOLOGY DEPARTMENT: General X-ray: Exam(s) Completed: Lower Extremity X-Ray(s): Ankle, Right and Wt. Bearing and Foot, Right and Wt. Bearing PERIPHERAL IV DATA: Not applicable SIGNED BY: RT Brice(R) July 29, 2022 9:48 AM [facility] 07-29-2022 Note HNO ID: [id number] Author: Geoffrey Ramos APRN.ARCHITECTURAL DRAFTER Service: ? Author Type: Nurse Practitioner Type: Progress Notes Filed: 07/29/2022 10:54 AM Note Text: Subjective HPI Nontoxic-appearing female presents urgent care chief complaint right ankle/mid foot pain. States this morning she was stepping off the treadmill when she caught her toe rolling her ankle outward. States she does have significant midfoot discomfort at first. She did ice it this did help. Rates pain 4 out of 10 with ambulation. Denies any other injuries. No numbness no tingling currently. She did have a burning sensation this did improve. History of stress fractures fifth metatarsal in the past. Denies history of surgeries. No numbness no tingling no decreased sensation. No weakness. Past medical history prescription medication use and allergies reviewed. Denies chance of . .Patient presents with: Ankle Injury: R ankle and foot injury x this AM PAST MEDICAL HISTORY Diagnosis Date Allergic rhinitis, cause unspecified Asthma Delayed emergence from general anesthesia Lab test positive for detection of COVID-19 virus Other acne PAC (premature atrial contraction) Palpitations PVC's (premature ventricular contractions) PAST SURGICAL HISTORY Procedure Laterality Date EGD W/O BRSH SPEC VARICIES INJ 05/16/2022 Normal SHX COSMETIC SURGERY TONSILLECTOMY AND ADENOIDECTOMY TONSILLECTOMY HX ALLERGIES Cefuroxime, Penicillin V, Sulfamethoxazole-Trimethoprim, Ceftin [Cefuroxime Axetil], Emycin [Erythromycin], Lactose Intolerance [Lactase], Penicillins, Seasonale [Levonorgestrel-Ethinyl Estrad], Spironolactone, Sulfa (Sulfonamide Antibiotics), and Sulfacedamide [Other] MEDICATIONS famotidine (PEPCID) 20 mg tablet TAKE 1 TABLET BY MOUTH EVERY DAY MAGNESIUM OXIDE ORAL Take by mouth once daily. loratadine (CLARITIN) 10 mg tablet Take 10 mg by mouth once daily. Cholecalciferol, Vitamin D3, 50 mcg (2,000 unit) cap Take 1 capsule by mouth once daily. pantoprazole DR (PROTONIX) 40 mg tablet Take 1 tablet by mouth once daily. ascorbic acid (VITAMIN C) 500 mg ORAL Tab Take one(1) tablet daily. Calcium Carbonate-Vitamin D2 (CALCIUM-D) 600-200 mg-unit ORAL Cap Take one(1) tablet daily. Multivitamin (DAILY MULTIPLE) ORAL Tab Take one(1) tablet daily. Cetirizine 10 mg cap ZYRTEC ALLERGY TABS as directed CETIRIZINE HCL TABS [id number] Tamia Yen LPN levothyroxine sodium (SYNTHROID ORAL) SYNTHROID TABS as directed LEVOTHYROXINE SODIUM TABS [id number] Tamia Yen LPN ipratropium bromide (ATROVENT) 42 mcg (0.06 %) nasal spray Use 2 Sprays in the nose as needed. fexofenadine (PAVITHRA) 180 mg ORAL Tab Take one(1) tablet daily. clindamycin 1 % TOPICAL Soln am and suppertime face Adapalene (DIFFERIN) 0.1 % TOPICAL Gel [facility] FAMILY HISTORY Problem Relation Age of Onset Heart disease Maternal Grandmother Diabetes Maternal Grandmother Heart disease Maternal Grandfather Diabetes Maternal Grandfather Stroke Paternal Grandmother Stroke Paternal Grandfather Social History Tobacco Use Smoking status: Never Smokeless tobacco: Never Vaping Use Vaping Use: Never used Substance Use Topics Alcohol use: Yes Comment: occasionally Drug use: Never BP 124/90 Pulse 79 Temp 36.8 ?C (98.3 ?F) Resp 18 Wt 82.6 kg (182 lb) LMP 05/07/2022 (Exact Date) SpO2 99% BMI 27.58 kg/m? Review of Systems Constitutional: Negative for chills, fever and malaise/fatigue. Respiratory: Negative for cough and shortness of breath. Cardiovascular: Negative for chest pain. Gastrointestinal: Negative for abdominal pain and vomiting. Musculoskeletal: Positive for joint pain. Negative for back pain, falls, myalgias and neck pain. Objective Physical Exam Constitutional: General: She is not in acute distress. Appearance: She is not diaphoretic. HENT: Head: Normocephalic. Eyes: Conjunctiva/sclera: Conjunctivae normal. Pupils: Pupils are equal, round, and reactive to light. Cardiovascular: Rate and Rhythm: Normal rate and regular rhythm. Heart sounds: Normal heart sounds. Pulmonary: Effort: Pulmonary effort is normal. No tachypnea, accessory muscle usage or respiratory distress. Breath sounds: Normal breath sounds. No stridor. Abdominal: Palpations: Abdomen is soft. Tenderness: There is no abdominal tenderness. Musculoskeletal: Cervical back: Normal range of motion. Right lower leg: Swelling, tenderness and bony tenderness present. Right ankle: No swelling or ecchymosis. Tenderness present. Normal range of motion. Right Achilles Tendon: No tenderness. Right foot: Normal range of motion and normal capillary refill. Tenderness and bony tenderness present. No swelling or laceration. Normal pulse. Comments: Neurovascular intact. Point tenderness dorsal aspect second and third metatarsal right foot. Skin: General: Skin is warm and dry. (more content not included)... [facility] 07-29-2022 Miscellaneous Notes Phone call placed patient advised (see prior provider encounter) Patient verbalized understanding, agreed with plan of care. Linus Cartagena LPN No fractures dislocations noted on foot or ankle x-ray. Continue supportive therapies as discussed. Follow-up with podiatry or PCP if symptoms are not improving 10 to 14 days. Geoffrey Ramos APRN.CNP documented in this encounter [facility] 07-29-2022 Instructions Geoffrey Ramos APRN.CNP - 07/29/2022 10:37 AM EDT R.I.C.E. The general care of your injury includes the following: Resting, Icing, Compressing and Elevating the injured area. Remember this as RICE. REST: Limit the use of the injured body part. ICE: By applying ice to the affected area, swelling and pain can be reduced. Place some ice cubes in a re-sealable (Ziploc) bag and add some water. Put a thin washcloth between the bag and your skin. Apply the ice bag to the area for at least 20 minutes. Do this at least 4 times per day. Using the ice for longer times and more frequently is OK. NEVER APPLY ICE DIRECTLY TO THE SKIN. COMPRESS: Compression means to apply pressure around the injured area such as with a splint, cast or an antoine bandage. Compression decreases swelling and improves comfort. Compression should be tight enough to relieve swelling but not so tight as to decrease circulation. Increasing pain, numbness, tingling, or change in skin color, are all signs of decreased circulation. ELEVATE: Elevate the injured part. For example, elevate your foot by placing it on a chair while sitting, or propping it up on pillows when lying down. documented in this encounter [facility] 07-29-2022 History of Presen t illness Narrative Radiology Service Progress Note PATIENT NAME: Marj Tay DATE OF SERVICE: July 29, 2022 TIME: 9:48 AM PATIENT IDENTITY VERIFICATION COMPLETED USING TWO (2) IDENTIFIERS: Name and Date of confirmed by patient verbally. FALL SCREENING: Has the patient had 2 falls in the last year or 1 fall with injury or currently using an Ambulatory Assistive Device (Walker, Cane, Wheelchair, Crutches, etc.)? No PATIENT GENDER DATA: Female. status: : No status: NO. PATIENT RELEVANT IMPLANT DATA REVIEWED: Yes RADIOLOGY DEPARTMENT: General X-ray: Exam(s) Completed: Lower Extremity X-Ray(s): Ankle, Right and Wt. Bearing and Foot, Right and Wt. Bearing PERIPHERAL IV DATA: Not applicable SIGNED BY: RT Brice(R) July 29, 2022 9:48 AM documented in this encounter [facility] 07-29-2022 History of Presen t illness Narrative Subjective HPI Nontoxic-appearing female presents urgent care chief complaint right ankle/mid foot pain. States this morning she was stepping off the treadmill when she caught her toe rolling her ankle outward. States she does have significant midfoot discomfort at first. She did ice it this did help. Rates pain 4 out of 10 with ambulation. Denies any other injuries. No numbness no tingling currently. She did have a burning sensation this did improve. History of stress fractures fifth metatarsal in the past. Denies history of surgeries. No numbness no tingling no decreased sensation. No weakness. Past medical history prescription medication use and allergies reviewed. Denies chance of . .Patient presents with: Ankle Injury: R ankle and foot injury x this AM PAST MEDICAL HISTORY Diagnosis Date Allergic rhinitis, cause unspecified Asthma Delayed emergence from general anesthesia Lab test positive for detection of COVID-19 virus Other acne PAC (premature atrial contraction) Palpitations PVC's (premature ventricular contractions) PAST SURGICAL HISTORY Procedure Laterality Date [facility]IC[facility] INJ 05/16/2022 Normal SHX COSMETIC SURGERY TONSILLECTOMY & ADENOIDECTOMY <AGE 13 TONSILLECTOMY HX ALLERGIES Cefuroxime, Penicillin V, Sulfamethoxazole-Trimethoprim, Ceftin [Cefuroxime Axetil], Emycin [Erythromycin], Lactose Intolerance [Lactase], Penicillins, Seasonale [Levonorgestrel-Ethinyl Estrad], Spironolactone, Sulfa (Sulfonamide Antibiotics), and Sulfacedamide [Other] MEDICATIONS famotidine (PEPCID) 20 mg tablet TAKE 1 TABLET BY MOUTH EVERY DAY MAGNESIUM OXIDE ORAL Take by mouth once daily. loratadine (CLARITIN) 10 mg tablet Take 10 mg by mouth once daily. Cholecalciferol, Vitamin D3, 50 mcg (2,000 unit) cap Take 1 capsule by mouth once daily. pantoprazole DR (PROTONIX) 40 mg tablet Take 1 tablet by mouth once daily. ascorbic acid (VITAMIN C) 500 mg ORAL Tab Take one(1) tablet daily. Calcium Carbonate-Vitamin D2 (CALCIUM-D) 600-200 mg-unit ORAL Cap Take one(1) tablet daily. Multivitamin (DAILY MULTIPLE) ORAL Tab Take one(1) tablet daily. Cetirizine 10 mg cap ZYRTEC ALLERGY TABS as directed CETIRIZINE HCL TABS [id number] Tamia Yen LPN levothyroxine sodium (SYNTHROID ORAL) SYNTHROID TABS as directed LEVOTHYROXINE SODIUM TABS [id number] Tamia Yen LPN ipratropium bromide (ATROVENT) 42 mcg (0.06 %) nasal spray Use 2 Sprays in the nose as needed. fexofenadine (PAVITHRA) 180 mg ORAL Tab Take one(1) tablet daily. clindamycin 1 % TOPICAL Soln am and suppertime face Adapalene (DIFFERIN) 0.1 % TOPICAL Gel [facility] FAMILY HISTORY Problem Relation Age of Onset Heart disease Maternal Grandmother Diabetes Maternal Grandmother Heart disease Maternal Grandfather Diabetes Maternal Grandfather Stroke Paternal Grandmother Stroke Paternal Grandfather Social History Tobacco Use Smoking status: Never Smokeless tobacco: Never Vaping Use Vaping Use: Never used Substance Use Topics Alcohol use: Yes Comment: occasionally Drug use: Never BP 124/90 Pulse 79 Temp 36.8 C (98.3 F) Resp 18 Wt 82.6 kg (182 lb) LMP 05/07/2022 (Exact Date) SpO2 99% BMI 27.58 kg/m Review of Systems Constitutional: Negative for chills, fever and malaise/fatigue. Respiratory: Negative for cough and shortness of breath. Cardiovascular: Negative for chest pain. Gastrointestinal: Negative for abdominal pain and vomiting. Musculoskeletal: Positive for joint pain. Negative for back pain, falls, myalgias and neck pain. Objective Physical Exam Constitutional: General: She is not in acute distress. Appearance: She is not diaphoretic. HENT: Head: Normocephalic. Eyes: Conjunctiva/sclera: Conjunctivae normal. Pupils: Pupils are equal, round, and reactive to light. Cardiovascular: Rate and Rhythm: Normal rate and regular rhythm. Heart sounds: Normal heart sounds. Pulmonary: Effort: Pulmonary effort is normal. No tachypnea, accessory muscle usage or respiratory distress. Breath sounds: Normal breath sounds. No stridor. Abdominal: Palpations: Abdomen is soft. Tenderness: There is no abdominal tenderness. Musculoskeletal: Cervical back: Normal range of motion. Right lower leg: Swelling, tenderness and bony tenderness present. Right ankle: No swelling or ecchymosis. Tenderness present. Normal range of motion. Right Achilles Tendon: No tenderness. Right foot: Normal range of motion and normal capillary refill. Tenderness and bony tenderness present. No swelling or laceration. Normal pulse. Comments: Neurovascular intact. Point tenderness dorsal aspect second and third metatarsal right foot. Skin: General: Skin is warm and dry. Neurological: Mental Status: She is alert and oriented to person, place, and time. ASSESSMENT/PLAN: 1. Foot injury, right, initial encounter - ICD9: 959.7, ICD10: S99.921A (primary diagnosis) - XR FOOT GENERAL 3V AP/LAT/OBL RIGHT 2. Injury of right ankle, initial encounter - ICD9: 959.7, ICD10: S99.911A - XR FOOT GENERAL 3V AP/LAT/OBL RIGHT - XR ANKLE GENERAL 3V AP/LAT/OBL RIGHT IMPRESSION: Small ankle joint effusion. No acute fractures demonstrated. No fractures noted on x-ray. Supportive therapies discussed. Follow-up with PCP 7 to 10 days symptoms are not improving. Red flags for prompt reevaluation discussed. Will be seen in urgent care for any new, worsening or symptoms lasting longer than anticipated. Will be seen ED for any red flag symptoms. Patient verbalized understand agrees with plan of care. Geoffrey Ramos APRN.ARCHITECTURAL DRAFTER documented in this encounter [facility] 05-25-2022 Note HNO ID: [id number] Author: Hayder Mcqueen APRN.CNP Service: ? Author Type: Nurse Practitioner Type: Progress Notes Filed: 05/30/2022 11:14 AM Note Text: NEW VIRTUAL VISIT I had a virtual visit with Ms. Johnson today for evaluation of /nausea and GERD symptoms( EGD 05/16/2022). HISTORY: Impression: Z-line regular, 40 cm from the incisors. Normal stomach. Biopsied. - Normal examined duodenum. Biopsied. FINAL DIAGNOSIS A. Duodenum, biopsy: - Small bowel mucosa with no diagnostic abnormality. B. Stomach, antrum, biopsy: - Gastric oxyntic-type mucosa with no diagnostic abnormality. C. Distal esophagus, biopsy: She reports feels like she is still waking up nausea and bloating epigastric pain. She reports she follow up with [facility] in September 2021 - She was to get a work up with cardiology and GI. She reports some of the symptoms have improved - she is no longer vomiting as well as improving abdominal pain. Her main concern is the nausea and bloating and weight gain - She is currently taking Atrovent at night because this makes her drowsy - - looked up side effects of the Atrovent and this can cause nausea - she is going to try and not take and see if this is the cause of nausea She is experiencing most of her nausea in the morning PAST MEDICAL HISTORY Diagnosis Date Allergic rhinitis, cause unspecified Asthma Delayed emergence from general anesthesia Lab test positive for detection of COVID-19 virus Other acne PAC (premature atrial contraction) Palpitations PVC's (premature ventricular contractions) PAST SURGICAL HISTORY Procedure Laterality Date EGD W/O BRSH SPEC VARICIES INJ 05/16/2022 Normal SHX COSMETIC SURGERY TONSILLECTOMY AND ADENOIDECTOMY TONSILLECTOMY HX FAMILY HISTORY Problem Relation Age of Onset Heart disease Maternal Grandmother Diabetes Maternal Grandmother Heart disease Maternal Grandfather Diabetes Maternal Grandfather Stroke Paternal Grandmother Stroke Paternal Grandfather Social History Tobacco Use Smoking status: Never Smokeless tobacco: Never Vaping Use Vaping Use: Never used Substance Use Topics Alcohol use: Yes Comment: occasionally Drug use: Never Current Outpatient Medications Medication Sig Dispense Refill famotidine (PEPCID) 20 mg tablet Take 1 tablet by mouth once daily. 30 tablet 0 Cetirizine 10 mg cap ZYRTEC ALLERGY TABS as directed CETIRIZINE HCL TABS [id number] Tamia Yen LPN levothyroxine sodium (SYNTHROID ORAL) SYNTHROID TABS as directed LEVOTHYROXINE SODIUM TABS [id number] Tamia Yen LPN MAGNESIUM OXIDE ORAL Take by mouth once daily. loratadine (CLARITIN) 10 mg tablet Take 10 mg by mouth once daily. Cholecalciferol, Vitamin D3, (VITAMIN D-3) 50 mcg (2,000 unit) cap Take 1 capsule by mouth once daily. ipratropium bromide (ATROVENT) 42 mcg (0.06 %) nasal spray Use 2 Sprays in the nose as needed. pantoprazole DR (PROTONIX) 40 mg tablet Take 1 tablet by mouth once daily. fexofenadine (PAVITHRA) 180 mg ORAL Tab Take one(1) tablet daily. 0 ascorbic acid (VITAMIN C) 500 mg ORAL Tab Take one(1) tablet daily. 0 Calcium Carbonate-Vitamin D2 (CALCIUM-D) 600-200 mg-unit ORAL Cap Take one(1) tablet daily. 0 Multivitamin (DAILY MULTIPLE) ORAL Tab Take one(1) tablet daily. 0 clindamycin 1 % TOPICAL Soln am and suppertime face bottle x 2 3 Adapalene (DIFFERIN) 0.1 % TOPICAL Gel qhs 45 gm 3 No current facility-administered medications for this visit. ALLERGIES Allergen Reactions Cefuroxime Rash Penicillin V Hives Sulfamethoxazole-Tr* Unknown Ceftin [Cefuroxime * Rash Emycin [Erythromyci* Hives Lactose Intolerance* GI Upset Penicillins Rash Seasonale [Levonorg* Intolerance Spironolactone Unknown Sulfa (Sulfonamide * Rash Sulfacedamide [Othe* Rash PHYSICAL FINDINGS OF NOTE: General - Normal, healthy, cooperative, in no acute distress Able to interact verbally by video conference Psych - ORIENTATION: normal to time place, person and situation Mood/Affect: AFFECT AND MOOD: Normal Head/Neuro - Normal size and shape Facial appearance normal Pulmonary - respiratory effort normal Abdominal - Not performed Skin - abnormal lesions not visualized Motor - patient seen sitting with Normal appearing strength and coordination IMPRESSION (R14.0) Bloating (primary encounter diagnosis) (R11.0) Nausea RECOMMENDATION: Assessment/Plan (R14.0) Bloating (primary encounter diagnosis) (R11.0) Nausea 1. Bloating - CELIAC COMPREHENSIVE PANEL; Future 2. Nausea - CELIAC COMPREHENSIVE PANEL; Future - will trial pepcid at bedtime - Patient take Atrovent nightly - looked up possible side effects and nausea can be one - discussed with patient can trial stopping this at night to see if this improves symptoms - she is also going to be following up [facility] Follow up in office 3 months/PRN. Recommended to please call off (more content not included)... [facility] 05-25-2022 History of Presen t illness Narrative NEW VIRTUAL VISIT I had a virtual visit with Ms. Johnson today for evaluation of /nausea and GERD symptoms( EGD 05/16/2022). HISTORY: Impression: Z-line regular, 40 cm from the incisors. Normal stomach. Biopsied. - Normal examined duodenum. Biopsied. FINAL DIAGNOSIS A. Duodenum, biopsy: - Small bowel mucosa with no diagnostic abnormality. B. Stomach, antrum, biopsy: - Gastric oxyntic-type mucosa with no diagnostic abnormality. C. Distal esophagus, biopsy: She reports feels like she is still waking up nausea and bloating epigastric pain. She reports she follow up with [facility] in September 2021 - She was to get a work up with cardiology and GI. She reports some of the symptoms have improved - she is no longer vomiting as well as improving abdominal pain. Her main concern is the nausea and bloating and weight gain - She is currently taking Atrovent at night because this makes her drowsy - - looked up side effects of the Atrovent and this can cause nausea - she is going to try and not take and see if this is the cause of nausea She is experiencing most of her nausea in the morning PAST MEDICAL HISTORY Diagnosis Date Allergic rhinitis, cause unspecified Asthma Delayed emergence from general anesthesia Lab test positive for detection of COVID-19 virus Other acne PAC (premature atrial contraction) Palpitations PVC's (premature ventricular contractions) PAST SURGICAL HISTORY Procedure Laterality Date EGD W/O BRSH SPEC VARICIES INJ 05/16/2022 Normal SHX COSMETIC SURGERY TONSILLECTOMY & ADENOIDECTOMY <AGE 13 TONSILLECTOMY HX FAMILY HISTORY Problem Relation Age of Onset Heart disease Maternal Grandmother Diabetes Maternal Grandmother Heart disease Maternal Grandfather Diabetes Maternal Grandfather Stroke Paternal Grandmother Stroke Paternal Grandfather Social History Tobacco Use Smoking status: Never Smokeless tobacco: Never Vaping Use Vaping Use: Never used Substance Use Topics Alcohol use: Yes Comment: occasionally Drug use: Never Current Outpatient Medications Medication Sig Dispense Refill famotidine (PEPCID) 20 mg tablet Take 1 tablet by mouth once daily. 30 tablet 0 Cetirizine 10 mg cap ZYRTEC ALLERGY TABS as directed CETIRIZINE HCL TABS [id number] Tamia Yen LPN levothyroxine sodium (SYNTHROID ORAL) SYNTHROID TABS as directed LEVOTHYROXINE SODIUM TABS [id number] Tamia Yen LPN MAGNESIUM OXIDE ORAL Take by mouth once daily. loratadine (CLARITIN) 10 mg tablet Take 10 mg by mouth once daily. Cholecalciferol, Vitamin D3, (VITAMIN D-3) 50 mcg (2,000 unit) cap Take 1 capsule by mouth once daily. ipratropium bromide (ATROVENT) 42 mcg (0.06 %) nasal spray Use 2 Sprays in the nose as needed. pantoprazole DR (PROTONIX) 40 mg tablet Take 1 tablet by mouth once daily. fexofenadine (PAVITHRA) 180 mg ORAL Tab Take one(1) tablet daily. 0 ascorbic acid (VITAMIN C) 500 mg ORAL Tab Take one(1) tablet daily. 0 Calcium Carbonate-Vitamin D2 (CALCIUM-D) 600-200 mg-unit ORAL Cap Take one(1) tablet daily. 0 Multivitamin (DAILY MULTIPLE) ORAL Tab Take one(1) tablet daily. 0 clindamycin 1 % TOPICAL Soln am and suppertime face bottle x 2 3 Adapalene (DIFFERIN) 0.1 % TOPICAL Gel qhs 45 gm 3 No current facility-administered medications for this visit. ALLERGIES Allergen Reactions Cefuroxime Rash Penicillin V Hives Sulfamethoxazole-Tr* Unknown Ceftin [Cefuroxime * Rash Emycin [Erythromyci* Hives Lactose Intolerance* GI Upset Penicillins Rash Seasonale [Levonorg* Intolerance Spironolactone Unknown Sulfa (Sulfonamide * Rash Sulfacedamide [Othe* Rash PHYSICAL FINDINGS OF NOTE: General - Normal, healthy, cooperative, in no acute distress Able to interact verbally by video conference Psych - ORIENTATION: normal to time place, person and situation Mood/Affect: AFFECT AND MOOD: Normal Head/Neuro - Normal size and shape Facial appearance normal Pulmonary - respiratory effort normal Abdominal - Not performed Skin - abnormal lesions not visualized Motor - patient seen sitting with Normal appearing strength and coordination IMPRESSION (R14.0) Bloating (primary encounter diagnosis) (R11.0) Nausea RECOMMENDATION: Assessment/Plan (R14.0) Bloating (primary encounter diagnosis) (R11.0) Nausea 1. Bloating - CELIAC COMPREHENSIVE PANEL; Future 2. Nausea - CELIAC COMPREHENSIVE PANEL; Future - will trial pepcid at bedtime - Patient take Atrovent nightly - looked up possible side effects and nausea can be one - discussed with patient can trial stopping this at night to see if this improves symptoms - she is also going to be following up [facility] Follow up in office 3 months/PRN. Recommended to please call office/go to ER if fever, chills, chest pain, SOB, diarrhea, nausea, emesis, worsening abdominal pain, dehydration occurs I spent a total of 30 minutes on the date of the service which included preparing to see the patient, [id number] patient care, completing clinical documentation, obtaining and/or reviewing separately obtained history, performing a medically appropriate examination, counseling and educating the patient/family/caregiver, ordering medications, tests, or procedures, communicating with other HCPs (not separately reported), independently interpreting results (not separately reported), communicating results to the patient/family/caregiver, and care coordination (not separately reported). Hayder Mcqueen APRN.CNP May 30, 2022 11:11 AM documented in this encounter [facility] 05-16-2022 History and physical note CHIEF COMPLAINT: No chief complaint on file. This consult was requested by Leonel English APRN.CNP for an opinion regarding GERD symptoms. My final recommendations will be communicated to the requesting health care provider by way of the shared medical record for internal providers or letter via the [employer] for external providers. Marj Tay is a 32 year old female with a past medical history PAC, palpitations, PVC, post COVID syndrome. Who presents for GERD symptoms HPI: Patient symptoms started post COVID with heart palpitations (cardiac work-up tilt table negative for syncope, echo normal, Holter monitor PVCs), other post-COVID symptoms shortness of breath, exertional fatigue, fatigue, altered taste and smell, GERD(symptoms GERD increased since COVID has been on Protonix). She also reports either extremely hungry or no interest at all. She reports she has always suffered from GERD since high school. For many years has dealt with wax and waning of GERD symptoms. From 2016 and until she had covid she was without symptoms and was not taking medications or OTC medication on rare occasion. Post COVID she has been having wax and wane of symptom. She also goes on to tell me that she has traveled outside of the country a couple different times last time in 2016. She denies ever having EGD - She reports her symptoms of nausea, vomiting, epigastric pain and bloating. Taking pantoprazole 40 mg once daily on empty stomach at night with dinner. PAtient is having raspy voice but could be due to allergies or GERD. Patient reports she takes [id number] Claritin for her allergies and gets weekly allergy injections Record Review: [facility] / Outside records reviewed. PAST MEDICAL HISTORY PAST MEDICAL HISTORY Diagnosis Date Allergic rhinitis, cause unspecified Lab test positive for detection of COVID-19 virus Other acne PAC (premature atrial contraction) Palpitations PVC's (premature ventricular contractions) PAST SURGICAL HISTORY PAST SURGICAL HISTORY Procedure Laterality Date TONSILLECTOMY & ADENOIDECTOMY <AGE 13 Allergies: ALLERGIES ALLERGIES Allergen Reactions Cefuroxime Rash Penicillin V Hives Sulfamethoxazole-Tr* Unknown Ceftin [Cefuroxime * Rash Emycin [Erythromyci* Hives Lactose Intolerance* GI Upset Penicillins Rash Seasonale [Levonorg* Intolerance Spironolactone Unknown Sulfa (Sulfonamide * Rash Sulfacedamide [Othe* Rash Medications: CURRENT MEDICATIONS Cetirizine 10 mg cap ZYRTEC ALLERGY TABS as directed CETIRIZINE HCL TABS [id number] Tamia Yen LPN levothyroxine sodium (SYNTHROID ORAL) SYNTHROID TABS as directed LEVOTHYROXINE SODIUM TABS [id number] Tamia Yen [employer] MAGNESIUM OXIDE ORAL Take by mouth once daily. loratadine (CLARITIN) 10 mg tablet Take 10 mg by mouth once daily. Cholecalciferol, Vitamin D3, (VITAMIN D-3) 50 mcg (2,000 unit) cap Take 1 capsule by mouth once daily. ipratropium bromide (ATROVENT) 42 mcg (0.06 %) nasal spray Use 2 Sprays in the nose as needed. pantoprazole DR (PROTONIX) 40 mg tablet Take 1 tablet by mouth once daily. fexofenadine (PAVITHRA) 180 mg ORAL Tab Take one(1) tablet daily. ascorbic acid (VITAMIN C) 500 mg ORAL Tab Take one(1) tablet daily. Calcium Carbonate-Vitamin D2 (CALCIUM-D) 600-200 mg-unit ORAL Cap Take one(1) tablet daily. Multivitamin (DAILY MULTIPLE) ORAL Tab Take one(1) tablet daily. clindamycin 1 % TOPICAL Soln am and suppertime face Adapalene (DIFFERIN) 0.1 % TOPICAL Gel [facility] FAMILY HISTORY FAMILY HISTORY Problem Relation Age of Onset Heart disease Maternal Grandmother Diabetes Maternal Grandmother Heart disease Maternal Grandfather Diabetes Maternal Grandfather Stroke Paternal Grandmother Stroke Paternal Grandfather OCCUPATION & MARITAL STATUS Employer And Job Title: None on file Years Of Education Completed: Not specified Marital Status: Single SOCIAL HISTORY Social History Tobacco Use Smoking status: Never Smoker Smokeless tobacco: Never Used Vaping Use Vaping Use: Never used Substance Use Topics Alcohol use: Yes Comment: occasionally Drug use: Never Review of Systems: Review of Systems Constitutional: Positive for unexpected weight change. Gastrointestinal: Positive for abdominal pain. All other systems reviewed and are negative. Are you taking any blood thinners? No Physical Examination: There were no vitals taken for this visit. Physical Exam Constitutional: Appearance: Normal appearance. She is normal weight. HENT: Head: Normocephalic and atraumatic. Eyes: Extraocular Movements: Extraocular movements intact. Pupils: Pupils are equal, round, and reactive to light. Cardiovascular: Rate and Rhythm: Normal rate and regular rhythm. Pulses: Normal pulses. Heart sounds: Normal heart sounds. Pulmonary: Effort: Pulmonary effort is normal. Breath sounds: Normal breath sounds. Abdominal: General: Abdomen is flat. Bowel sounds are normal. Palpations: Abdomen is soft. Musculoskeletal: General: Normal range of motion. Cervical back: Normal range of motion and neck supple. Skin: General: Skin is warm and dry. Neurological: General: No focal deficit present. Mental Status: She is alert and oriented to person, place, and time. Psychiatric: Mood and Affect: Mood normal. Behavior: Behavior normal. ASSESSMENT: No diagnosis found. 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 pylori versus GERD 1. Post-acute sequelae of COVID-19 (PASC) - CONSULT TO GASTROENTEROLOGY - EGD DIAGNOSTIC; Future 2. Gastroesophageal reflux disease without esophagitis -Patient has a long history of GERD since high school. Over the years symptoms have waxed and waned. She reports her GERD symptoms were well controlled from 2016 until she developed COVID. Since COVID her GERD symptoms have been waxing and waning with times of nausea vomiting. Patient has a history of travel outside of the country most recent travel was 2016. Recommend EGD with biopsies rule out H. Pylori. - CONSULT TO GASTROENTEROLOGY - EGD DIAGNOSTIC; Future 3. Nausea - EGD DIAGNOSTIC; Future 4. Epigastric pain - EGD DIAGNOSTIC; Future Follow up in office 3 months/PRN. Recommended to please call office/go to ER if fever, chills, chest pain, SOB, diarrhea, nausea, emesis, worsening abdominal pain, dehydration occurs I spent a total of 30 minutes on the date of the service which included preparing to see the patient, [id number] patient care, completing clinical documentation, obtaining and/or reviewing separately obtained history, performing a medically appropriate examination, counseling and educating the patient/family/caregiver, ordering medications, tests, or procedures, communicating with other HCPs (not separately reported), independently interpreting results (not separately reported), communicating results to the patient/family/caregiver, and care coordination (not separately reported). Hayder Mcqueen APRN.ARCHITECTURAL DRAFTER UPDATED HISTORY AND PHYSICAL EXAMINATION SERVICE DATE: 05/16/2022 SERVICE TIME: 9:38 AM PHYSICAL EXAM MUST BE COMPLETED ON ADMISSION The History and Physical (completed in the past 30 days) has been reviewed and the patient has been examined. The contents accurately reflect the patient's condition with the following additions or revisions since the H&P was completed. Examination indicates no changes. This H&P can be found in the attached. SIGNATURE: Meir Ferguson III, MD PATIENT NAME: Marj Tay DATE: May 16, 2022 TIME: 9:38 AM documented in this encounter [facility] 05-16-2022 Nurse Note Patient received in PACU, on left side on cot, eyes open to verbal stimuli, respirations regular and unlabored, skin warm and dry, reports throat is sore, is a 3 on pain scale, no nausea. Will allow to rest for now. documented in this encounter [facility] 03-22-2022 Note HNO ID: [id number] Author: Hayder Mcqueen APRN.CNP Service: ? Author Type: Nurse Practitioner Type: Progress Notes Filed: 03/22/2022 5:15 PM Note Text: CHIEF COMPLAINT: No chief complaint on file. This consult was requested by Leonel English APRN.CNP for an opinion regarding GERD symptoms. My final recommendations will be communicated to the requesting health care provider by way of the shared medical record for internal providers or letter via the [employer] for external providers. Marj Tay is a 32 year old female with a past medical history PAC, palpitations, PVC, post COVID syndrome. Who presents for GERD symptoms HPI: Patient symptoms started post COVID with heart palpitations (cardiac work-up tilt table negative for syncope, echo normal, Holter monitor PVCs), other post-COVID symptoms shortness of breath, exertional fatigue, fatigue, altered taste and smell, GERD(symptoms GERD increased since CHRISTY has been on Protonix). She also reports either extremely hungry or no interest at all. She reports she has always suffered from GERD since high school. For many years has dealt with wax and waning of GERD symptoms. From 2016 and until she had covid she was without symptoms and was not taking medications or OTC medication on rare occasion. Post COVID she has been having wax and wane of symptom. She also goes on to tell me that she has traveled outside of the country a couple different times last time in 2016. She denies ever having EGD - She reports her symptoms of nausea, vomiting, epigastric pain and bloating. Taking pantoprazole 40 mg once daily on empty stomach at night with dinner. PAtient is having raspy voice but could be due to allergies or GERD. Patient reports she takes [id number] Claritin for her allergies and gets weekly allergy injections Record Review: [facility] / Outside records reviewed. PAST MEDICAL HISTORY Diagnosis Date - Allergic rhinitis, cause unspecified - Lab test positive for detection of COVID-19 virus - Other acne - PAC (premature atrial contraction) - Palpitations - PVC's (premature ventricular contractions) PAST SURGICAL HISTORY Procedure Laterality Date - TONSILLECTOMY AND ADENOIDECTOMY Allergies: ALLERGIES Allergen Reactions - Cefuroxime Rash - Penicillin V Hives - Sulfamethoxazole-Tr* Unknown - Ceftin [Cefuroxime * Rash - Emycin [Erythromyci* Hives - Lactose Intolerance* GI Upset - Penicillins Rash - Seasonale [Levonorg* Intolerance - Spironolactone Unknown - Sulfa (Sulfonamide * Rash - Sulfacedamide [Othe* Rash Medications: Cetirizine 10 mg cap ZYRTEC ALLERGY TABS as directed CETIRIZINE HCL TABS [id number] Tamia Yen LPN levothyroxine sodium (SYNTHROID ORAL) SYNTHROID TABS as directed LEVOTHYROXINE SODIUM TABS [id number] Tamia Yen LPN MAGNESIUM OXIDE ORAL Take by mouth once daily. loratadine (CLARITIN) 10 mg tablet Take 10 mg by mouth once daily. Cholecalciferol, Vitamin D3, (VITAMIN D-3) 50 mcg (2,000 unit) cap Take 1 capsule by mouth once daily. ipratropium bromide (ATROVENT) 42 mcg (0.06 %) nasal spray Use 2 Sprays in the nose as needed. pantoprazole DR (PROTONIX) 40 mg tablet Take 1 tablet by mouth once daily. fexofenadine (PAVITHRA) 180 mg ORAL Tab Take one(1) tablet daily. ascorbic acid (VITAMIN C) 500 mg ORAL Tab Take one(1) tablet daily. Calcium Carbonate-Vitamin D2 (CALCIUM-D) 600-200 mg-unit ORAL Cap Take one(1) tablet daily. Multivitamin (DAILY MULTIPLE) ORAL Tab Take one(1) tablet daily. clindamycin 1 % TOPICAL Soln am and suppertime face Adapalene (DIFFERIN) 0.1 % TOPICAL Gel qhs FAMILY HISTORY Problem Relation Age of Onset - Heart disease Maternal Grandmother - Diabetes Maternal Grandmother - Heart disease Maternal Grandfather - Diabetes Maternal Grandfather - Stroke Paternal Grandmother - Stroke Paternal Grandfather Employer And Job Title: None on file Years Of Education Completed: Not specified Marital Status: Single Social History Tobacco Use - Smoking status: Never Smoker - Smokeless tobacco: Never Used Vaping Use - Vaping Use: Never used Substance Use Topics - Alcohol use: Yes Comment: occasionally - Drug use: Never Review of Systems: Review of Systems Constitutional: Positive for unexpected weight change. Gastrointestinal: Positive for abdominal pain. All other systems reviewed and are negative. Are you taking any blood thinners? No Physical Examination: There were no vitals taken for this visit. Physical Exam Constitutional: Appearance: Normal appearance. She is normal weight. HENT: Head: Normocephalic and atraumatic. Eyes: Extraocular Movements: Extraocular movements intact. Pupils: Pupils are equal, round, and reactive to light. Cardiovascular: Rate and Rhythm: Normal rate and regular rhythm. Pulses: Normal pulses. Heart sounds: Normal heart sounds. Pulmona (more content not included)... [facility] 03-22-2022 Miscellaneous Notes Patient is scheduled at [facility] on 05/16/[address] Ferguson for EGD. DX: Post-acute sequelae of COVID-19 (PASC) [U09.9 (ICD-10-CM)]; Gastroesophageal reflux disease without esophagitis [K21.9 (ICD-10-CM)]; Nausea [R11.0 (ICD-10-CM)]; Epigastric pain [R10.13 (ICD-10-CM)] Comments: Please take biopsy to r/o H pylori Verbal and written instructions given. documented in this encounter [facility] 03-22-2022 Instructions Hayder Mcqueen APRN.CNP - 03/22/2022 4:32 PM EDT Your procedure will be at [facility] - The endoscopy staff will call you the day before the procedure with specific on arrival time. (Monday for Monday procedures). documented in this encounter [facility] 03-22-2022 History of Presen t illness Narrative CHIEF COMPLAINT: No chief complaint on file. This consult was requested by Leonel English APRN.CNP for an opinion regarding GERD symptoms. My final recommendations will be communicated to the requesting health care provider by way of the shared medical record for internal providers or letter via the [employer] for external providers. Marj Tay is a 32 year old female with a past medical history PAC, palpitations, PVC, post COVID syndrome. Who presents for GERD symptoms HPI: Patient symptoms started post COVID with heart palpitations (cardiac work-up tilt table negative for syncope, echo normal, Holter monitor PVCs), other post-COVID symptoms shortness of breath, exertional fatigue, fatigue, altered taste and smell, GERD(symptoms GERD increased since CHRISTY has been on Protonix). She also reports either extremely hungry or no interest at all. She reports she has always suffered from GERD since high school. For many years has dealt with wax and waning of GERD symptoms. From 2016 and until she had covid she was without symptoms and was not taking medications or OTC medication on rare occasion. Post COVID she has been having wax and wane of symptom. She also goes on to tell me that she has traveled outside of the country a couple different times last time in 2016. She denies ever having EGD - She reports her symptoms of nausea, vomiting, epigastric pain and bloating. Taking pantoprazole 40 mg once daily on empty stomach at night with dinner. PAtient is having raspy voice but could be due to allergies or GERD. Patient reports she takes [id number] Claritin for her allergies and gets weekly allergy injections Record Review: [facility] / Outside records reviewed. PAST MEDICAL HISTORY Diagnosis Date Allergic rhinitis, cause unspecified Lab test positive for detection of COVID-19 virus Other acne PAC (premature atrial contraction) Palpitations PVC's (premature ventricular contractions) PAST SURGICAL HISTORY Procedure Laterality Date TONSILLECTOMY & ADENOIDECTOMY <AGE 13 Allergies: ALLERGIES Allergen Reactions Cefuroxime Rash Penicillin V Hives Sulfamethoxazole-Tr* Unknown Ceftin [Cefuroxime * Rash Emycin [Erythromyci* Hives Lactose Intolerance* GI Upset Penicillins Rash Seasonale [Levonorg* Intolerance Spironolactone Unknown Sulfa (Sulfonamide * Rash Sulfacedamide [Othe* Rash Medications: Cetirizine 10 mg cap ZYRTEC ALLERGY TABS as directed CETIRIZINE HCL TABS [id number] Tamia Yen LPN levothyroxine sodium (SYNTHROID ORAL) SYNTHROID TABS as directed LEVOTHYROXINE SODIUM TABS [id number] Tamia Yen LPN MAGNESIUM OXIDE ORAL Take by mouth once daily. loratadine (CLARITIN) 10 mg tablet Take 10 mg by mouth once daily. Cholecalciferol, Vitamin D3, (VITAMIN D-3) 50 mcg (2,000 unit) cap Take 1 capsule by mouth once daily. ipratropium bromide (ATROVENT) 42 mcg (0.06 %) nasal spray Use 2 Sprays in the nose as needed. pantoprazole DR (PROTONIX) 40 mg tablet Take 1 tablet by mouth once daily. fexofenadine (PAVITHRA) 180 mg ORAL Tab Take one(1) tablet daily. ascorbic acid (VITAMIN C) 500 mg ORAL Tab Take one(1) tablet daily. Calcium Carbonate-Vitamin D2 (CALCIUM-D) 600-200 mg-unit ORAL Cap Take one(1) tablet daily. Multivitamin (DAILY MULTIPLE) ORAL Tab Take one(1) tablet daily. clindamycin 1 % TOPICAL Soln am and suppertime face Adapalene (DIFFERIN) 0.1 % TOPICAL Gel qhs FAMILY HISTORY Problem Relation Age of Onset Heart disease Maternal Grandmother Diabetes Maternal Grandmother Heart disease Maternal Grandfather Diabetes Maternal Grandfather Stroke Paternal Grandmother Stroke Paternal Grandfather Employer And Job Title: None on file Years Of Education Completed: Not specified Marital Status: Single Social History Tobacco Use Smoking status: Never Smoker Smokeless tobacco: Never Used Vaping Use Vaping Use: Never used Substance Use Topics Alcohol use: Yes Comment: occasionally Drug use: Never Review of Systems: Review of Systems Constitutional: Positive for unexpected weight change. Gastrointestinal: Positive for abdominal pain. All other systems reviewed and are negative. Are you taking any blood thinners? No Physical Examination: There were no vitals taken for this visit. Physical Exam Constitutional: Appearance: Normal appearance. She is normal weight. HENT: Head: Normocephalic and atraumatic. Eyes: Extraocular Movements: Extraocular movements intact. Pupils: Pupils are equal, round, and reactive to light. Cardiovascular: Rate and Rhythm: Normal rate and regular rhythm. Pulses: Normal pulses. Heart sounds: Normal heart sounds. Pulmonary: Effort: Pulmonary effort is normal. Breath sounds: Normal breath sounds. Abdominal: General: Abdomen is flat. Bowel sounds are normal. Palpations: Abdomen is soft. Musculoskeletal: General: Normal range of motion. Cervical back: Normal range of motion and neck supple. Skin: General: Skin is warm and dry. Neurological: General: No focal deficit present. Mental Status: She is alert and oriented to person, place, and time. Psychiatric: Mood and Affect: Mood normal. Behavior: Behavior normal. ASSESSMENT: No diagnosis found. 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 pylori versus GERD 1. Post-acute sequelae of COVID-19 (PASC) - CONSULT TO GASTROENTEROLOGY - EGD DIAGNOSTIC; Future 2. Gastroesophageal reflux disease without esophagitis -Patient has a long history of GERD since high school. Over the years symptoms have waxed and waned. She reports her GERD symptoms were well controlled from 2016 until she developed COVID. Since COVID her GERD symptoms have been waxing and waning with times of nausea vomiting. Patient has a history of travel outside of the country most recent travel was 2016. Recommend EGD with biopsies rule out H. Pylori. - CONSULT TO GASTROENTEROLOGY - EGD DIAGNOSTIC; Future 3. Nausea - EGD DIAGNOSTIC; Future 4. Epigastric pain - EGD DIAGNOSTIC; Future Follow up in office 3 months/PRN. Recommended to please call office/go to ER if fever, chills, chest pain, SOB, diarrhea, nausea, emesis, worsening abdominal pain, dehydration occurs I spent a total of 30 minutes on the date of the service which included preparing to see the patient, [id number] patient care, completing clinical documentation, obtaining and/or reviewing separately obtained history, performing a medically appropriate examination, counseling and educating the patient/family/caregiver, ordering medications, tests, or procedures, communicating with other HCPs (not separately reported), independently interpreting results (not separately reported), communicating results to the patient/family/caregiver, and care coordination (not separately reported). Hayder Mcqueen APRN.CNP DATE: 03/22/22 TIME: 8:52 AM documented in this encounter [facility] 02-23-2022 Note HNO ID: [id number] Author: Gerri Dimas APRN.CNP Service: ? Author Type: Nurse Practitioner Type: Progress Notes Filed: 02/24/2022 10:42 AM Note Text: Chief Complaint Patient presents with: CARD Follow Up 3 Month: Tachycardia History of Present Illness: Marj Tay is a very pleasant 32 year old female who presents for routine follow up. She has a PMhx of palpitations, tachycardia, post covid syndrome. She is known to Dr. Castanon, last seen by him in office on 11/24/2021. Symptoms of palpitations started post Covid which lead to cardiology evaluation. She has completed a recent tilt table test and monitor in work up. She has completed an echocardiogram and stress testing in the past. She explains she has been working out doing orange theory and monitoring heart rate response. She continues to run, as well. She describes an exaggerated heart rate response with activity, can easily reach 180s. She will feel short of breath and easily fatigued when heart rate is elevated. She has not had episodes of syncope or near syncope. She has been following conservative measures. She feels as if her heart rate response is gradually improving. PAST MEDICAL HISTORY Diagnosis Date - Allergic rhinitis, cause unspecified - Lab test positive for detection of COVID-19 virus - Other acne - PAC (premature atrial contraction) - Palpitations - PVC's (premature ventricular contractions) PAST SURGICAL HISTORY Procedure Laterality Date - TONSILLECTOMY AND ADENOIDECTOMY FAMILY HISTORY Problem Relation Age of Onset - Heart disease Maternal Grandmother - Diabetes Maternal Grandmother - Heart disease Maternal Grandfather - Diabetes Maternal Grandfather - Stroke Paternal Grandmother - Stroke Paternal Grandfather Social History Tobacco Use - Smoking status: Never Smoker - Smokeless tobacco: Never Used Vaping Use - Vaping Use: Never used Substance Use Topics - Alcohol use: Yes Comment: occasionally - Drug use: Never ALLERGIES Allergen Reactions - Cefuroxime Rash - Penicillin V Hives - Sulfamethoxazole-Tr* Unknown - Ceftin [Cefuroxime * Rash - Emycin [Erythromyci* Hives - Lactose Intolerance* GI Upset - Penicillins Rash - Seasonale [Levonorg* Intolerance - Spironolactone Unknown - Sulfa (Sulfonamide * Rash - Sulfacedamide [Othe* Rash Medications: Current Outpatient Medications Medication Sig Dispense Refill - MAGNESIUM OXIDE ORAL Take by mouth once daily. - loratadine (CLARITIN) 10 mg tablet Take 10 mg by mouth once daily. - Cholecalciferol, Vitamin D3, (VITAMIN D-3) 50 mcg (2,000 unit) cap Take 1 capsule by mouth once daily. - ipratropium bromide (ATROVENT) 42 mcg (0.06 %) nasal spray Use 2 Sprays in the nose as needed. - pantoprazole DR (PROTONIX) 40 mg tablet Take 1 tablet by mouth once daily. - Multivitamin (DAILY MULTIPLE) ORAL Tab Take one(1) tablet daily. 0 - Cetirizine 10 mg cap ZYRTEC ALLERGY TABS as directed CETIRIZINE HCL TABS [id number] Tamia Yen LPN - levothyroxine sodium (SYNTHROID ORAL) SYNTHROID TABS as directed LEVOTHYROXINE SODIUM TABS [id number] Tamia Yen LPN - fexofenadine (PAVITHRA) 180 mg ORAL Tab Take one(1) tablet daily. 0 - ascorbic acid (VITAMIN C) 500 mg ORAL Tab Take one(1) tablet daily. 0 - Calcium Carbonate-Vitamin D2 (CALCIUM-D) 600-200 mg-unit ORAL Cap Take one(1) tablet daily. 0 - clindamycin 1 % TOPICAL Soln am and suppertime face bottle x 2 3 - Adapalene (DIFFERIN) 0.1 % TOPICAL Gel qhs (Patient not taking: Reported on 09/15/2021) 45 gm 3 No current facility-administered medications for this visit. Review of Systems Constitutional: Positive for malaise/fatigue. Negative for chills, diaphoresis, fever and weight loss. Weight gain 10 lbs September-December HENT: Negative for congestion, ear pain, nosebleeds, sinus pain and sore throat. Eyes: Negative for pain. Respiratory: Positive for shortness of breath. Negative for cough and wheezing. Cardiovascular: Positive for palpitations. Negative for chest pain, orthopnea, claudication, leg swelling and PND. Gastrointestinal: Negative for abdominal pain, blood in stool and melena. Seeing GI in consult for appetite fluctuations Genitourinary: Negative for hematuria. Musculoskeletal: Negative for falls. Neurological: Negative for dizziness, tingling, sensory change, speech change, focal weakness, loss of consciousness, weakness and headaches. Endo/Heme/Allergies: Does not bruise/bleed easily. Psychiatric/Behavioral: Negative for depression, memory loss and suicidal ideas. The patient is not nervous/anxious and does not have insomnia. Physical Examination: Vitals:BP 119/75 Pulse 87 Resp 18 Ht 5' 8 (1.73m) Wt 170 lb (77.1kg) SpO2 97% BMI 25.85 kg/(m2). Last 2 Encounter Wt Readings: Date: Wt: 11/24/2021 169 lb (76.7 kg) 10/05/2021 165 lb (74.8 kg) Physical Exam HENT: Head: Normocephalic (more content not included)... [facility] 02-02-2022 Miscellaneous Notes Patient is scheduled for a Tilt Table with Dr. Perez on 02/10/22. Please return our call with 72 hours to confirm your procedure and receive your instructions. If we do not hear from you your procedure will be postponed until next available date. Left Message Carla Allen, [facility] Patient is scheduled for a Tilt Table on 02/10/[address] Perez. The hospital will call the day before between 2-5pm with your arrival time. Patient should not eat or drink after midnight the day before the procedure. Patient will need a star route mail driver when released from the hospital. Patient should continue to take medications as prescribed the morning of the procedure with just a sip of water unless otherwise instructed. documented in this encounter [facility] 11-24-2021 Note HNO ID: [id number] Author: Parker Castanon MD Service: ? Author Type: Physician Type: Progress Notes Filed: 11/24/2021 4:52 PM Note Text: Parker Castanon MD Interventional Cardiology [address] [place], [place] [id number] Chief Complaint Patient presents with: Cardiology Follow Up : FOLLOW UP FOR PALPITATIONS HISTORY OF PRESENT ILLNESS: Ms. Tay is a 31 year old female seen in my office today for follow-up patient had prior history of palpitation status post Covid syndrome she still feels that she goes tachycardic with minimal activities Patient had an echocardiography stress test for resuscitation everything was normal Her symptoms suggestive of POTS or inappropriate sinus tachycardia syndrome Cardiac Risk Factors family history of CAD PAST MEDICAL HISTORY Diagnosis Date - Allergic rhinitis, cause unspecified - Lab test positive for detection of COVID-19 virus - Other acne - PAC (premature atrial contraction) - Palpitations - PVC's (premature ventricular contractions) PAST SURGICAL HISTORY Procedure Laterality Date - TONSILLECTOMY AND ADENOIDECTOMY FAMILY HISTORY Problem Relation Age of Onset - Heart disease Maternal Grandmother - Diabetes Maternal Grandmother - Heart disease Maternal Grandfather - Diabetes Maternal Grandfather - Stroke Paternal Grandmother - Stroke Paternal Grandfather Social History Tobacco Use - Smoking status: Never Smoker - Smokeless tobacco: Never Used Vaping Use - Vaping Use: Never used Substance Use Topics - Alcohol use: Yes Comment: occasionally - Drug use: Never ALLERGIES Allergen Reactions - Cefuroxime Rash - Penicillin V Hives - Sulfamethoxazole-Tr* Unknown - Ceftin [Cefuroxime * Rash - Emycin [Erythromyci* Hives - Lactose Intolerance* GI Upset - Penicillins Rash - Seasonale [Levonorg* Intolerance - Spironolactone Unknown - Sulfa (Sulfonamide * Rash - Sulfacedamide [Othe* Rash Medications: Current Outpatient Medications Medication Sig Dispense Refill - MAGNESIUM OXIDE ORAL Take by mouth once daily. - loratadine (CLARITIN) 10 mg tablet Take 10 mg by mouth once daily. - Cholecalciferol, Vitamin D3, (VITAMIN D-3) 50 mcg (2,000 unit) cap Take 1 capsule by mouth once daily. - ipratropium bromide (ATROVENT) 42 mcg (0.06 %) nasal spray Use 2 Sprays in the nose as needed. - pantoprazole DR (PROTONIX) 40 mg tablet Take 1 tablet by mouth once daily. - Multivitamin (DAILY MULTIPLE) ORAL Tab Take one(1) tablet daily. 0 - Cetirizine 10 mg cap ZYRTEC ALLERGY TABS as directed CETIRIZINE HCL TABS [id number] Tamia Yen LPN - levothyroxine sodium (SYNTHROID ORAL) SYNTHROID TABS as directed LEVOTHYROXINE SODIUM TABS [id number] Tamia Yen LPN - fexofenadine (PAVITHRA) 180 mg ORAL Tab Take one(1) tablet daily. 0 - ascorbic acid (VITAMIN C) 500 mg ORAL Tab Take one(1) tablet daily. 0 - Calcium Carbonate-Vitamin D2 (CALCIUM-D) 600-200 mg-unit ORAL Cap Take one(1) tablet daily. 0 - clindamycin 1 % TOPICAL Soln am and suppertime face bottle x 2 3 - Adapalene (DIFFERIN) 0.1 % TOPICAL Gel qhs (Patient not taking: Reported on 09/15/2021) 45 gm 3 No current facility-administered medications for this visit. Review of Systems Constitutional: Negative for chills, diaphoresis, fever, malaise/fatigue and weight loss. HENT: Negative for congestion, ear discharge, ear pain, hearing loss, nosebleeds, sinus pain, sore throat and tinnitus. Eyes: Negative for blurred vision, double vision, photophobia, pain, discharge and redness. Respiratory: Negative for cough, hemoptysis, sputum production, shortness of breath, wheezing and stridor. Cardiovascular: Negative for chest pain, palpitations, orthopnea, claudication, leg swelling and PND. Gastrointestinal: Negative for abdominal pain, blood in stool, constipation, diarrhea, heartburn, melena, nausea and vomiting. Genitourinary: Negative for dysuria, flank pain, frequency, hematuria and urgency. Musculoskeletal: Negative for back pain, falls, joint pain, myalgias and neck pain. Skin: Negative for itching and rash. Neurological: Negative for dizziness, tingling, tremors, sensory change, speech change, focal weakness, seizures, loss of consciousness, weakness and headaches. Endo/Heme/Allergies: Negative for environmental allergies and polydipsia. Does not bruise/bleed easily. Psychiatric/Behavioral: Negative for depression, hallucinations, memory loss, substance abuse and suicidal ideas. The patient is not nervous/anxious and does not have insomnia. Physical Examination: Vitals:BP 126/82 Pulse 79 Resp 18 Ht 5' 8 (1.73m) Wt 169 lb (76.7kg) SpO2 98[ROOM AIR]% BMI 25.70 kg/(m2). BP w/Orthostatic Vitals Date and Time Orthostatic BP Orthostatic Pulse BP Pulse BP Position BP Site BP Cuff Size 11/24/21 1556 -- -- 126/82 79 Sitting Left Arm Regular Adult Peak Flow Date an (more content not included)... [facility] Evaluation + Plan note No data available for this section [facility] Evaluation note Diagnosis Onset Date Segmental and somatic dysfun ction of cervical region acute Segmental and somatic dysfun ction of lumbar region acute Segmental and somatic dysfun ction of pelvic region acute Segmental and somatic dysfun ction of thoracic region acute Segmental and somatic dysfun ction of cervical region acute Segmental and somatic dysfun ction of lumbar region acute Segmental and somatic dysfun ction of pelvic region acute Segmental and somatic dysfun ction of thoracic region acute Segmental and somatic dysfun ction of cervical region acute Segmental and somatic dysfun ction of lumbar region acute Segmental and somatic dysfun ction of pelvic region acute Segmental and somatic dysfun ction of thoracic region acute [facility] Work Phone: Evaluation note* Diagnosis Nausea- Primary Nausea alone Post-acute sequelae of COVID-19 (PASC) Gastroesophageal reflux disease without esophagitis Esophageal reflux Epigastric pain Abdominal pain, epigastric documented in this encounter [facility] note* Diagnosis Post-acute sequelae of COVID-19 (PASC) Gastroesophageal reflux disease without esophagitis Esophageal reflux Nausea Nausea alone Epigastric pain Abdominal pain, epigastric documented in this encounter [facility] note* Diagnosis Bloating- Primary Flatulence, eructation, and gas pain Nausea Nausea alone documented in this encounter [facility] note* Diagnosis Foot injury, right, initial encounter- Primary Injury of right ankle, initial encounter documented in this encounter [facility] note* Diagnosis Sprain of other ligament of right ankle, subsequent encounter- Primary Acute right ankle pain Ankle weakness Other symptoms referable to ankle and foot joint documented in this encounter [facility] note* Diagnosis Sprain of other ligament of right ankle, subsequent encounter- Primary Acute right ankle pain Ankle weakness Other symptoms referable to ankle and foot joint Right foot pain Pain in limb documented in this encounter [facility] note* Diagnosis Right foot pain- Primary Pain in limb Ankle weakness Other symptoms referable to ankle and foot joint documented in this encounter [facility] note* Diagnosis Right foot pain- Primary Pain in limb Ankle weakness Other symptoms referable to ankle and foot joint Acute right ankle pain documented in this encounter [facility] note* Diagnosis Right foot pain- Primary Pain in limb Ankle weakness Other symptoms referable to ankle and foot joint Weakness of both hips documented in this encounter [facility] note* Diagnosis Right foot pain- Primary Pain in limb Ankle weakness Other symptoms referable to ankle and foot joint Weakness of both hips Acute right ankle pain documented in this encounter [facility] note* Diagnosis Right foot pain- Primary Pain in limb Ankle weakness Other symptoms referable to ankle and foot joint Weakness of both hips documented in this encounter [facility] note* Diagnosis Right foot pain- Primary Pain in limb Ankle weakness Other symptoms referable to ankle and foot joint Weakness of both hips documented in this encounter [facility] note* Diagnosis Hyperprolactinemia (HCC)- Primary Other and unspecified anterior pituitary hyperfunction Screening for lipid disorders Screening for diabetes mellitus BMI 26.0-26.9,adult documented in [facility]* Diagnosis Onset Date Resolution Status Segmental and somatic dysfunction of cervical region acute Segmental and somatic dysfunction of lumbar region acute Segmental and somatic dysfunction of pelvic region acute Segmental and somatic dysfunction of thoracic region acute Segmental and somatic dysfunction of cervical region acute Segmental and somatic dysfunction of lumbar region acute Segmental and somatic dysfunction of pelvic region acute Segmental and somatic dysfunction of thoracic region acute [facility] Work Phone: Evaluation note* Diagnosis Women's annual routine gynecological examination- Primary Abnormal uterine bleeding (AUB) Pelvic pain BMI 29.0-29.9,adult [facility] Diagnosis Onset Date Resolution Status Back pain acute Segmental and somatic dysfunction of cervical region acute Segmental and somatic dysfunction of lumbar region acute Segmental and somatic dysfunction of pelvic region acute Segmental and somatic dysfunction of thoracic region acute Back pain acute Segmental and somatic dysfunction of cervical region acute Segmental and somatic dysfunction of lumbar region acute Segmental and somatic dysfunction of pelvic region acute Segmental and somatic dysfunction of thoracic region acute Back pain acute Segmental and somatic dysfunction of cervical region acute Segmental and somatic dysfunction of lumbar region acute Segmental and somatic dysfunction of pelvic region acute Segmental and somatic dysfunction of thoracic region acute [facility] Work Phone: Evaluation note* Diagnosis Onset Date Resolution Status Back pain acute Segmental and somatic dysfunction of cervical region acute Segmental and somatic dysfunction of lumbar region acute Segmental and somatic dysfunction of pelvic region acute Segmental and somatic dysfunction of thoracic region acute Back pain acute Segmental and somatic dysfunction of cervical region acute Segmental and somatic dysfunction of lumbar region acute Segmental and somatic dysfunction of pelvic region acute Segmental and somatic dysfunction of thoracic region acute [facility] Work Phone: Evaluation note* Diagnosis Foot injury, right, initial encounter Injury of right ankle, initial encounter [facility] Thyroid disease- Primary Unspecified disorder of thyroid Borderline hyperlipidemia Overweight [facility] Diagnosis Posterior tibial tendinitis of left leg- Primary Tibialis tendinitis Neuritis Neuralgia, neuritis, and radiculitis, unspecified Plantar fasciitis of left foot Plant[facility] fascial fibromatosis [facility] Plantar fasciitis of left foot- Primary Plantar fascial fibromatosis Neuritis Neuralgia, neuritis, and radiculitis, unspecified Posterior tibial tendinitis of left leg Tibialis tendinitis documented in this encounter [facility] note* Diagnosis Plantar fasciitis of left foot- Primary Plantar fascial fibromatosis Neuritis Neuralgia, neuritis, and radiculitis, unspecified Posterior tibial tendinitis of left leg Tibialis tendinitis documented in this encounter [facility] note* Diagnosis Neuritis- Primary Neuralgia, neuritis, and radiculitis, unspecified Plantar fasciitis of left foot Plantar fascial fibromatosis Posterior tibial tendinitis of left leg Tibialis tendinitis documented in this encounter [facility] note* Diagnosis Plantar fasciitis of left foot- Primary Plantar fascial fibromatosis Neuritis Neuralgia, neuritis, and radiculitis, unspecified Posterior tibial tendinitis of left leg Tibialis tendinitis documented in this encounter [facility] noteNo assessment information available [facility] Work Phone: Evaluation note* Diagnosis Neuritis- Primary Neuralgia, neuritis, and radiculitis, unspecified Plantar fasciitis of left foot Plantar fascial fibromatosis Posterior tibial tendinitis of left leg Tibialis tendinitis documented in this encounter [facility] note* Diagnosis Neuritis- Primary Neuralgia, neuritis, and radiculitis, unspecified Plantar fasciitis of left foot Plantar fascial fibromatosis Posterior tibial tendinitis of left leg Tibialis tendinitis documented in this encounter [facility] note* Diagnosis Plantar fasciitis of left foot- Primary Plantar fascial fibromatosis Posterior tibial tendinitis of left leg Tibialis tendinitis Neuritis Neuralgia, neuritis, and radiculitis, unspecified documented in this encounter [facility] note* Diagnosis Plantar fasciitis of left foot- Primary Plantar fascial fibromatosis Posterior tibial tendinitis of left leg Tibialis tendinitis Neuritis Neuralgia, neuritis, and radiculitis, unspecified [facility] Diagnosis Plantar fasciitis of left foot- Primary Plantar fascial fibromatosis Posterior tibial tendinitis of left leg Tibialis tendinitis Neuritis Neuralgia, neuritis, and radiculitis, unspecified [facility] Plantar fasciitis of left foot- Primary Plantar fascial fibromatosis Posterior tibial tendinitis of left leg Tibialis tendinitis Neuritis Neuralgia, neuritis, and radiculitis, unspecified documented in this encounter [facility] Discharge instructions No data available for this section [facility] Instructions* Attachments The following attachments cannot be sent through Care Everywhere. * Human Papillomavirus Vaccine (9-Valent), ADULT (Bhutanese) [facility] Outpatient Procedure (Routine) - Pending Review Specialty Diagnoses / Procedures Referred By Shanique roe Referred To Contact [facility] Diagnoses Post-acute sequelae of COVID-19 (PASC) Gastroesophageal reflux disease without esophagitis Nausea Epigastric pain Procedures EGD DIAGNOSTIC EGD DIAGNOSTIC ESOPHAGOGASTRODUODENOSC OPY TRANSORAL DIAGNOSTIC ESOPHAGOGASTRODUODENOSC OPY TRANSORAL DIAGNOSTIC Hayder Mcqueen APRN.CNP [address] [place] [address] [facility] [address] [place] [address] Referral ID Status Reason Start Date Expiration Date Visits Requested Visits Authorized [id number] Pending Review Auto-Generat ed Referral 03/22/2022 03/22/2023 [address] [facility] for referral (narrative)* Outpatient Procedure (Routine) - Closed Specialty Diagnoses / Procedures Referred By Shanique roe Referred To Contact [facility] Diagnoses Post-acute sequelae of COVID-19 (PASC) Gastroesophageal reflux disease without esophagitis Nausea Epigastric pain Procedures EGD DIAGNOSTIC EGD DIAGNOSTIC ESOPHAGOGASTRODUODENOSC OPY TRANSORAL DIAGNOSTIC ESOPHAGOGASTRODUODENOSC OPY TRANSORAL DIAGNOSTIC Hayder Mcqueen APRN.CNP [address] [place] [address] [facility] [address] [place] [address] Referral ID Status Reason Start Date Expiration Date V isits Requested Visits Authorized [id number] Closed Auto-Generate d Referral 03/22/2022 03/22/2023 [address] [facility] for referral (narrative)* Diagnostic Procedure Only (Urgent) - Closed Specialty Diagnoses / Procedures Referred By Contac t Referred To Contact XR IMAGING Diagnoses Injury of right ankle, initial encounter Procedures XR ANKLE GENERAL 3V AP/LAT/OBL RIGHT RADEX ANKLE COMPLETE MINIMUM 3 VIEWS Geoffrey Ramos APRN.ARCHITECTURAL DRAFTER [address] [place] [address] Xr Imaging Referral ID Status Reason Start Date Expiration Date V isits Requested Visits Authorized [id number] Closed Auto-Generate d Referral 07/29/2022 08/28/2023 1 1 * Diagnostic Procedure Only (Urgent) - Closed Specialty Diagnoses / Procedures Referred By Contac t Referred To Contact XR IMAGING Diagnoses Foot injury, right, initial encounter Injury of right ankle, initial encounter Procedures XR FOOT GENERAL 3V AP/LAT/OBL RIGHT RADEX FOOT COMPLETE MINIMUM 3 VIEWS Geoffrey Ramos APRN.ARCHITECTURAL DRAFTER [address] [place] [address] Xr Imaging Referral ID Status Reason Start Date Expiration Date V isits Requested Visits Authorized [id number] Closed Auto-Generate d Referral 07/29/2022 08/28/2023 [address] [facility] for referral (narrative)* Consultation (Routine) - Pending Review Specialty Diagnoses / Procedures Referred By Contac t Referred To Contact Bariatrics Diagnoses BMI 29.0-29.9,adult Procedures [place] OFFICE/OUTPATIENT NEW HIGH MDM 60 MINUTES Parrish Huff MD [address] [place] [address] [facility] [address] [place] [address] Referral ID Status Reason Start Date Expiration Date Visits Requested Visits Authorized [id number] Pending Review Specialty Services Required 01/02/2024 01/01/2025 1 1 [facility] for referral (narrative)* Diagnostic Procedure Only (Urgent) - Closed Specialty Diagnoses / Procedures Referred By Contac t Referred To Contact XR IMAGING Diagnoses Injury of right ankle, initial encounter Procedures XR ANKLE GENERAL 3V AP/LAT/OBL RIGHT RADEX ANKLE COMPLETE MINIMUM 3 VIEWS Geoffrey Ramos APRN.ARCHITECTURAL DRAFTER [address] [place] [address] [place] [address] Referral ID Status Reason Start Date Expiration Date V isits Requested Visits Authorized [id number] Closed Auto-Generate d Referral 07/29/2022 08/28/2023 1 1 * Diagnostic Procedure Only (Urgent) - Closed Specialty Diagnoses / Procedures Referred By Contac t Referred To Contact XR IMAGING Diagnoses Foot injury, right, initial encounter Injury of right ankle, initial encounter Procedures XR FOOT GENERAL 3V AP/LAT/OBL RIGHT RADEX FOOT COMPLETE MINIMUM 3 VIEWS Geoffrey Ramos APRN.ARCHITECTURAL DRAFTER [address] [place] [address] [place] [address] Referral ID Status Reason Start Date Expiration Date V isits Requested Visits Authorized [id number] Closed Auto-Generate d Referral 07/29/2022 08/28/2023 [address] [facility] for referral (narrative)No reason for referral information [facility] Work [facility]: Reason for visit Narrative* Outpatient Procedure (Routine) - Closed Specialty Diagnoses / Procedures Referred By Contac t Referred To Contact [facility] Diagnoses Post-acute sequelae of COVID-19 (PASC) Gastroesophageal reflux disease without esophagitis Nausea Epigastric pain Procedures EGD DIAGNOSTIC EGD DIAGNOSTIC ESOPHAGOGASTRODUODENOSC OPY TRANSORAL DIAGNOSTIC ESOPHAGOGASTRODUODENOSC OPY TRANSORAL DIAGNOSTIC Hayder Mcqueen, FUEL HOUSE ATTENDANT.ARCHITECTURAL DRAFTER [address] [place] [address] [facility] [address] [place] [address] Referral ID Status Reason Start Date Expiration Date V isits Requested Visits Authorized [id number] Closed Auto-Generate d Referral 03/22/2022 03/22/2023 [address] [facility] for visit Narrative* Diagnostic Procedure Only (Urgent) - Closed Specialty Diagnoses / Procedures Referred By Contac t Referred To Contact XR IMAGING Diagnoses Injury of right ankle, initial encounter Procedures XR ANKLE GENERAL 3V AP/LAT/OBL RIGHT RADEX ANKLE COMPLETE MINIMUM 3 VIEWS Geoffrey Ramos, FUEL HOUSE ATTENDANT.ARCHITECTURAL DRAFTER [address] [place] [address] [place] [address] Referral ID Status Reason Start Date Expiration Date V isits Requested Visits Authorized [id number] Closed Auto-Generate d Referral 07/29/2022 08/28/2023 [address] [facility] for visit Narrative* Rehabilitation (Routine) - Authorized Specialty Diagnoses / Procedures Referred By Contact Referred To Contact Physical Therapy / Rehabilitation Diagnoses left heel order Procedures SPORTS REHAB EVALUATION [place] [address] Sade Richard, [place] [address] Referral ID Status Reason Start Date Expiration Date V isits Requested Visits Authorized [id number] Authorized 05/05/2025 10/15/2025 365 365 [facility] for visit Narrative* Rehabilitation (Routine) - Authorized Specialty Diagnoses / Procedures Referred By Contact Referred To Contact Physical Therapy / Rehabilitation Diagnoses tx Procedures TREATMENT 45 MINUTES [place] [address] Sade Richard, [place] [address] Referral ID Status Reason Start Date Expiration Date V isits Requested Visits Authorized [id number] Authorized 05/12/2025 10/15/2025 30 30 [facility] for visit Narrative* Rehabilitation (Routine) - Authorized Specialty Diagnoses / Procedures Referred By Contact Referred To Contact Physical Therapy / Rehabilitation Diagnoses left heel order Procedures SPORTS REHAB EVALUATION Jennifer White MD [address] [facility] [place] [place] [address] Sade Richard M, PT [address] [place] [address] Referral ID Status Reason Start Date Expiration Date V isits Requested Visits Authorized [id number] Authorized 05/05/2025 10/15/2025 30 30 [facility] for visit Narrative* Rehabilitation (Routine) - Authorized Specialty Diagnoses / Procedures Referred By Contact Referred To Contact Physical Therapy / Rehabilitation Diagnoses left heel order Procedures SPORTS REHAB EVALUATION Domonique Hyatt, FUEL HOUSE ATTENDANT-ARCHITECTURAL DRAFTER [place] [address] Sade Richard M, PT [address] [facility] [place] [address] Referral ID Status Reason Start Date Expiration Date V isits Requested Visits Authorized [id number] Authorized 05/05/2025 10/15/2025 30 30 [facility] for visit Narrative* Rehabilitation (Routine) - Authorized Specialty Diagnoses / Procedures Referred By Contact Referred To Contact Physical Therapy / Rehabilitation Diagnoses left heel order Procedures SPORTS REHAB EVALUATION Jennifer White, FUEL HOUSE ATTENDANT-ARCHITECTURAL DRAFTER [address] [facility] [place] [address] Sade Richard M, PT [address] [place] [place] [address] Referral ID Status Reason Start Date Expiration Date V isits Requested Visits Authorized [id number] Authorized 05/05/2025 10/15/[address] [facility] Chief Complaint and Reason for Visit Chief Complaint Back pain Back pain Back pain Reason for Visit Segmental and somati c dysfunction of cervical region Segmental and somatic dysfunction of lumbar region Segmental and somatic dysfunction of pelvic region Segmental and somatic dysfunction of thoracic region Segmental and somatic dysfunction of cervical region Segmental and somatic dysfunction of lumbar region Segmental and somatic dysfunction of pelvic region Segmental and somatic dysfunction of thoracic region Segmental and somatic dysfunction of cervical region Segmental and somatic dysfunction of lumbar region Segmental and somatic dysfunction of pelvic region Segmental and somatic dysfunction of thoracic region Chief Complaint Back pain Back pain PHARYNGITIS Reason for Visit Segmental and somati c dysfunction of cervical region Segmental and somatic dysfunction of lumbar region Segmental and somatic dysfunction of pelvic region Segmental and somatic dysfunction of thoracic region Segmental and somatic dysfunction of cervical region Segmental and somatic dysfunction of lumbar region Segmental and somatic dysfunction of pelvic region Segmental and somatic dysfunction of thoracic region Chief Complaint Back pain PHARYNGITIS Back pain Reason for Visit Segmental and somati c dysfunction of cervical region Segmental and somatic dysfunction of lumbar region Segmental and somatic dysfunction of pelvic region Segmental and somatic dysfunction of thoracic region Segmental and somatic dysfunction of cervical region Segmental and somatic dysfunction of lumbar region Segmental and somatic dysfunction of pelvic region Segmental and somatic dysfunction of thoracic region Chief Complaint Back pain Back pain Back pain Reason for Visit Back pain Segmental and somatic dysfunction of cervical region Segmental and somatic dysfunction of lumbar region Segmental and somatic dysfunction of pelvic region Segmental and somatic dysfunction of thoracic region Back pain Segmental and somatic dysfunction of cervical region Segmental and somatic dysfunction of lumbar region Segmental and somatic dysfunction of pelvic region Segmental and somatic dysfunction of thoracic region Back pain Segmental and somatic dysfunction of cervical region Segmental and somatic dysfunction of lumbar region Segmental and somatic dysfunction of pelvic region Segmental and somatic dysfunction of thoracic region Chief Complaint Back pain Back pain Reason for Visit Back pain Segmental and somatic dysfunction of cervical region Segmental and somatic dysfunction of lumbar region Segmental and somatic dysfunction of pelvic region Segmental and somatic dysfunction of thoracic region Back pain Segmental and somatic dysfunction of cervical region Segmental and somatic dysfunction of lumbar region Segmental and somatic dysfunction of pelvic region Segmental and somatic dysfunction of thoracic region Chief Complaint Admit Date Dysphagia, unspecified June 09, 2025 7:43am Family History No Family History Records Found Relationship Condition Age at Onset Recorded Date/T bee aunt Malignant neoplasm of ovary Unknown Malignant neoplasm of cervix Unknown Not Specified Malignant neoplasm of cervix Unknown Family Member Condition Father Arthritis Father Alive Mother High blood pressure Mother Arthritis Mother Alive Relationship Condition Age at Onset Recorded Date/T bee aunt Malignant neoplasm of ovary Unknown Malignant neoplasm of cervix Unknown unrelated friend Malignant neoplasm of cervix Unknown Family Member Condition Father Arthritis Father Alive Mother High blood pressure Mother Arthritis Mother Alive Advance Directives No Advanced Directives Records Found Advance Directive Response Recorded Date/ Time Advance Directives No September 9:58am Living Will No September 28, 2 016 9:58am Power of Coal Inspector No September 28, 2016 9:58am Documents on File Type Date Recorded 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 Advance Directive(s) 02/10/2022 9:03 AM Documents on File Type Date Recorded 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 Advance Directive(s) 05/16/2022 8:57 AM Advance Directive(s) 02/10/2022 9:03 AM Advance Directive Response Recorded Date/ Time Advance Directives No September 9:58am Medications Administered Section Inactive Administered Medications - up to 3 most recent administrations Medication Order MAR Action Action Date Dose Rate Site benzocaine 20% 1 [place] (TOPEX) 1 [place], TOPICAL, DIRECTED, Starting on Mon05/16/22 at 1000, Until Mon05/16/22 at 1359, DOSING DIRECTED BY PHYSICIAN FOR PROCEDURAL SEDATION ONLY - Pharmaceutical Waste: Aerosol -, Intraprocedure Given 05/16/2022 9:54 AM EDT 5 Sprays diphenhydrAMINE 12.5-50 mg injection (BENADRYL) 12.5-50 mg, INTRAVENOUS, DIRECTED, Starting on Mon05/16/22 at 1000, Until Mon05/16/22 at 1359, DOSING DIRECTED BY PHYSICIAN FOR PROCEDURAL SEDATION ONLY, Intraprocedure Given 05/16/2022 9:57 AM EDT 50 mg fentaNYL 50 mcg/mL 25-100 mcg injection (SUBLIMAZE) 25-100 mcg, INTRAVENOUS, DIRECTED, Starting on Mon05/16/22 at 1000, Until Mon05/16/22 at 1359, DOSING DIRECTED BY PHYSICIAN FOR PROCEDURAL SEDATION ONLY, Intraprocedure Given 05/16/2022 9:55 AM EDT 50 mcg lactated ringers iv infusion 30 mL/hr, INTRAVENOUS, CONTINUOUS, Starting on Mon05/16/22 at 0930, Until Mon05/16/22 at 1013, Preprocedure New Bag/Syringe/Bot tle 05/16/2022 9:20 AM EDT 30 mL/hr 30 mL/hr Forearm, Right midazolam (PF) 1-5 mg injection (VERSED) 1-5 mg, INTRAVENOUS, DIRECTED, Starting on Mon05/16/22 at 1000, Until Mon05/16/22 at 1359, DOSING DIRECTED BY PHYSICIAN FOR PROCEDURAL SEDATION ONLY, Intraprocedure Given 05/16/2022 9:59 AM EDT 2 mg Given 05/16/2022 9:55 AM EDT 3 mg Summary Purpose Additional Source Comments Source Comments (unrecognize d section and content) In the event this informatio n is protected by the Federal Confidentiality of Alcohol and Drug Abuse Patient Records regulations: The Federal rules restrict any use of the information to criminally investigate or prosecute any alcohol or drug abuse patient.[facility] the event this information is protected by the Federal Confidentiality of Alcohol and Drug Abuse Patient Records regulations: The Federal rules restrict any use of the information to criminally investigate or prosecute any alcohol or drug abuse patient.[facility] the event this information is protected by the Federal Confidentiality of Alcohol and Drug Abuse Patient Records regulations: The Federal rules restrict any use of the information to criminally investigate or prosecute any alcohol or drug abuse patient.[facility] the event this information is protected by the Federal Confidentiality of Alcohol and Drug Abuse Patient Records regulations: The Federal rules restrict any use of the information to criminally investigate or prosecute any alcohol or drug abuse patient.[facility] the event this information is protected by the Federal Confidentiality of Alcohol and Drug Abuse Patient Records regulations: The Federal rules restrict any use of the information to criminally investigate or prosecute any alcohol or drug abuse patient.[facility] the event this information is protected by the Federal Confidentiality of Alcohol and Drug Abuse Patient Records regulations: The Federal rules restrict any use of the information to criminally investigate or prosecute any alcohol or drug abuse patient.[facility] the event this information is protected by the Federal Confidentiality of Alcohol and Drug Abuse Patient Records regulations: The Federal rules restrict any use of the information to criminally investigate or prosecute any alcohol or drug abuse patient.[facility] the event this information is protected by the Federal Confidentiality of Alcohol and Drug Abuse Patient Records regulations: The Federal rules restrict any use of the information to criminally investigate or prosecute any alcohol or drug abuse patient.[facility] the event this information is protected by the Federal Confidentiality of Alcohol and Drug Abuse Patient Records regulations: The Federal rules restrict any use of the information to criminally investigate or prosecute any alcohol or drug abuse patient.[facility] the event this information is protected by the Federal Confidentiality of Alcohol and Drug Abuse Patient Records regulations: The Federal rules restrict any use of the information to criminally investigate or prosecute any alcohol or drug abuse patient.[facility] the event this information is protected by the Federal Confidentiality of Alcohol and Drug Abuse Patient Records regulations: The Federal rules restrict any use of the information to criminally investigate or prosecute any alcohol or drug abuse patient.[facility] Reason for Visit (unrecogniz ed section and content) Reason Comments Appointment Reason Comments Preparations For Procedures Tilt Table Reason Comments Abnormal Weight Gain of about 10lbs in J an. Can't get it off GERD treats with Protonix at night and at times it causes severe nausea that it wakes her up and vomits if really back but no episodes in quit awhile Specialty Diagnoses / Procedures Referred By Shanique t Referred To Contact Gastroenterology Diagnoses Post-acute sequelae of COVID-19 (PASC) Gastroesophageal reflux disease without esophagitis Procedures CONSULT TO GASTROENTEROLOGY NEW PATIENT VISIT LEVEL 5 Leonel English APRN.ARCHITECTURAL DRAFTER [address] [place] [address] Referral ID Status Reason Start Date Expiration Date V isits Requested Visits Authorized [id number] Closed PCP Requested Referral 10/05/2021 10/05/2022 1 1 Reason Comments Nausea Reason Comments Procedure EGD Reason Comments Ankle Injury R ankle and foot inj ury x this AM Reason Comments Results Specialty Diagnoses / Procedures Referred By Contac t Referred To Contact Rehabilitation Diagnoses NEED RX/ NEW RUNNING INJURY Procedures SPORTS REHAB EVALUATION Doc, Misc, [place] [address] Tito Calixto K, PT,[place] [address] Referral ID Status Reason Start Date Expiration Date V isits Requested Visits Authorized [id number] Authorized 08/25/2022 10/15/2022 365 365 Reason Onset Date Comments Results 08/22/2022 labs Reason Comments Annual Exam Annual exam Reason Onset Date Comments Results 03/01/2024 Reason Comments Weight Management New nsurg Telephone Encounter - Flores Harrison Ma - 12/16/2020 12:42 PM ESTTelephone Encounter - Flores Harrison Ma - 12/16/2020 8:42 AM EST Miscellaneous Notes (unrecog nized section and content) Pt work schedule conflicts with siddharth cardio schedule. Pt scheduled with Kina at on 12/23/20. Patient aware. Flores Harrison Ma LM for patient to contact office to inform of below. Flores Harrison Ma Referral received from Dr. Villeda's office for palpitations. Patient scheduled with Dr. Castanon on January 04, 2021 at 0830am. Left message for patient to contact office to inform of the above. OV notes and testing scanned into [employer]. Flores Harrison Ma documented in this encounter Care Teams (unrecognized sec tion and content) Geophysical Observer Relationship Specialty Start Date End Date Cristina Villeda [address] [place] [address] PCP - General 03/23/04 Geophysical Observer Relationship Specialty Start Date End Date Cristina Villeda [address] [place] [id number] PCP - General 03/23/04 Geophysical Observer Relationship Specialty Start Date End Date Cristina Villeda [address] [place] [address] PCP - General 03/23/04 Geophysical Observer Relationship Specialty Start Date End Date Cristina Villeda [address] [place] [address] PCP - General 03/23/04 Geophysical Observer Relationship Specialty Start Date End Date Cristina Villeda [address] [place] [address] PCP - General 03/23/04 Geophysical Observer Relationship Specialty Start Date End Date Doc, Misc, [place] [address] PCP - General Pediatrics 07/01/21 Geophysical Observer Relationship Specialty Start Date End Date Cristina Villeda [address] [place] [address] PCP - General 03/23/04 Geophysical Observer Relationship Specialty Start Date End Date Doc, Misc, [place] [address] PCP - General Pediatrics 07/01/21 Geophysical Observer Relationship Specialty Start Date End Date Doc, Misc, DO ONE [place] [address] PCP - General Pediatrics 07/01/21 Geophysical Observer Relationship Specialty Start Date End Date Doc, Misc, [place] [address] PCP - General Pediatrics 07/01/21 Geophysical Observer Relationship Specialty Start Date End Date Doc, Misc, [place] [address] PCP - General Pediatrics 07/01/21 Geophysical Observer Relationship Specialty Start Date End Date Doc, Misc, [place] [address] PCP - General Pediatrics 07/01/21 Geophysical Observer Relationship Specialty Start Date End Date Doc, Misc, [place] [address] PCP - General Pediatrics 07/01/21 Geophysical Observer Relationship Specialty Start Date End Date Cristina Villeda DO [address] [place] [address] PCP - General 03/23/04 Geophysical Observer Relationship Specialty Start Date End Date Di, Alyciac, [place] [address] PCP - General Pediatrics 07/01/21 Geophysical Observer Relationship Specialty Start Date End Date Cristina Villeda DO [address] [place] [phone] PCP - General 06/03/22 Team Status: Active Member Role Status Dates Dr. Cristina Villeda DO Family Provider Active Dr. Cristina Villeda DO Primary Care Provider Active Team Status: Inactive Member Role Status Dates Dr. Cristina Villeda DO Primary Care Provider, Referri ng Provider Active Dr. Flaca Perdue DC Attending Provider Active Team Status: Inactive Member Role Status Dates Dr. Cristina Villeda DO Primary Care Provider Active Dr. Jose Antonio Briscoe MD Attending Provider Active Team Status: Inactive Member Role Status Dates Dr. Cristina Villeda DO Primary Care Provider Active Dr. Cesar Acuña MD Attending Provider, Referring Pr ovider Active Geophysical Observer Relationship Specialty Start Date End Date Cristina Villeda DO [address] [place] [id number] PCP - General 06/03/22 Team Status: Inactive Member Role Status Dates Dr. Cristina Villeda DO Primary Care Provider Active PARRISH HUFF MD Attending Provider, Referring Provi tanesha Active Team Status: Inactive Member Role Status Dates Dr. Cristina Villeda DO Primary Care Provider Active Zulema Wilks AUTOMOTIVE REPAIR TECHNICIAN, AUTOMOTIVE REPAIR TECHNICIAN-C Attending Provider, Referring P sidney Active Geophysical Observer Relationship Specialty Start Date End Date Cristina Villeda DO [address] [place] [id number] PCP - General 06/03/22 Geophysical Observer Relationship Specialty Start Date End Date Cristina Villeda DO [address] [place] [id number] PCP - General 06/03/22 Geophysical Observer Relationship Specialty Start Date End Date Cristina Villeda DO [address] [place] [phone] PCP - General 03/23/04 Geophysical Observer Relationship Specialty Start Date End Date Cristina Villeda DO [address] [place] [phone] PCP - General 06/03/22 Geophysical Observer Relationship Specialty Start Date End Date Cristina Villeda DO [address] [place] [id number] PCP - General 06/03/22 Geophysical Observer Relationship Specialty Start Date End Date Cristina Villeda DO [address] [place] [phone] PCP - General 06/03/22 Geophysical Observer Relationship Specialty Start Date End Date [place] [address] PCP - General Pediatrics 07/01/21 Geophysical Observer Relationship Specialty Start Date End Date [place] [address] PCP - General Pediatrics 07/01/21 Geophysical Observer Relationship Specialty Start Date End Date Jennifer White MD [address] [facility] [address] PCP - General Pediatrics 07/01/21 Geophysical Observer Relationship Specialty Start Date End Date Jennifer White MD [address] [facility] [address] PCP - General Pediatrics 07/01/21 Team Status: Active Member Role/Relationship Status Dates Dr. Cristina Villeda DO Primary Care Provider Active Team Status: Inactive Member Role/Relationship Status Dates Dr. Cristina Villeda DO Primary Care Provider Active Start: June 09, 2025 End: June 09, 2025 Dr. Jose Antonio Briscoe MD Attending Provider Active Start: June 09, 2025 End: June 09, 2025 Dr. Jose Antonio Briscoe MD Referring Provider Active Start: June 09, 2025 End: June 09, 2025 Geophysical Observer Relationship Specialty Start Date End Date Jennifer White [place] [address] PCP - General Pediatrics 07/01/21 Geophysical Observer Relationship Specialty Start Date End Date Jennifer White [place] [address] PCP - General Pediatrics 07/01/21 Geophysical Observer Relationship Specialty Start Date End Date Jennifer White [place] [address] PCP - General Pediatrics 07/01/21 Geophysical Observer Relationship Specialty Start Date End Date Domonique Hyatt, FUEL HOUSE ATTENDANT-ARCHITECTURAL DRAFTER [place] [address] PCP - General Pediatrics 07/01/21 Geophysical Observer Relationship Specialty Start Date End Date Doc, Misc, FUEL HOUSE ATTENDANT-ARCHITECTURAL DRAFTER [place] [address] PCP - General Pediatrics 07/01/21 Geophysical Observer Relationship Specialty Start Date End Date Doc, Misc, FUEL HOUSE ATTENDANT-ARCHITECTURAL DRAFTER [place] [address] PCP - General Pediatrics 07/01/21 Care Team (unrecognized sect ion and content) Care Team Personnel Name: CRISTINA VILLEDA DO Position: P4 Physician - Primary Care Member Role: Primary Care Physician Address: Address: [address] [place] [id number]- [place] Care Team Related Persons Name: LEE TAY Name: MANUELA TAY INFORMATION SOURCE (unrecogn ized section and content) DATE CREATED AUTHOR 10/05/2022 [facility] DATE CREATED AUTHOR AUTHOR'S ORGANIZ ATION 10/13/2022 [facility] DATE CREATED AUTHOR AUTHOR'S ORGANIZ ATION 07/25/2023 [facility] ([place]) DATE CREATED AUTHOR AUTHOR'S ORGANIZ ATION 06/15/2025 [facility] DATE CREATED AUTHOR AUTHOR'S ORGANIZ ATION 08/01/2025 [facility] DATE CREATED AUTHOR AUTHOR'S SHAHEED KELLOGGION 08/27/2025 [facility] FOR RECORDS PERTAINING TO PATIENTS WHO ARE OR HAVE BEEN ENROLLED IN A CHEMICAL DEPENDENCY/SUBSTANCEABUSE PROGRAM, SOME INFORMATION MAY BE OMITTED. This clinical summary was aggregated from multiple sources. Caution should be exercised in using it in the provision of clinical care. This summary normalizes information from multiple sources, and as a consequence, information in this document may materially change the coding, format and clinical context of patient data. In addition, data may be omitted in some cases. CLINICAL DECISIONS SHOULD BE BASED ON THE PRIMARY CLINICAL RECORDS. [facility]. provides no warranty or guarantee of the accuracy or completeness of information in this document.
== END | disposition home or self-care (01) ==
LOC: US 08:58
PROVIDERS: PCP Student in an Organized Health Care Education/Training Program; Referring Provider Student in an Organized Health Care Education/Training Program; Visit Provider Student in an Organized Health Care Education/Training Program
DX: E01.0 Iodine-deficiency related diffuse (endemic) goiter (principal)
CPT/HCPCS: 76536